=== PATIENT | male | born 1960 | race Caucasian/White ===

== ENCOUNTER 2017-06-07 15:09 | Inpatient (IN) ==
[2017-06-07] MEDS ORDERED: Vancomycin 1,250 MG in D5% in Water 250 ML IVPB ONE (15:33)
[2017-06-07] MEDS ORDERED: Cefepime HCl 2,000 MG in Water for inj. (sterile) 20 ML IVP ONE (15:33)
[2017-06-07] MEDS: 0.9 % Sodium Chloride 1,000 ML IVC SCH ×3 (16:12→22:28)
[2017-06-07 16:22] LABS: Basophils % 0.2 %; Mean Platelet Volume 9.4 fL (9.4-12.4)
[2017-06-07 16:24] LABS: Basophils # 0.1 K/mcL (0.0-0.2); Hematocrit 39.7 % (37.5-50.1); Hemoglobin 14.5 g/dL (12.9-16.9); Lymphocytes # 1.5 K/mcL (0.6-4.6); Lymphocytes % 5.2 %; Mean Corpuscular HGB Conc 36.5 g/dL (31.6-35.5); Mean Corpuscular Hemoglobin 32.2 pg (28.0-33.3); Monocytes # 2.3 K/mcL (0.0-1.3); Neutrophils # 24.3 K/mcL (1.6-8.9); Platelet Count 186 K/mcL (140-400); Red Blood Count 4.51 M/mcL (4.19-5.50); Red Cell Distribution Width 12.8 % (11.5-14.5); Segmented Neutrophils % 85.6 %
--- NOTE | 2017-06-07 16:28 | Emergency Department Note ---
Disposition Clinical Impression: Hyponatremia, Hypokalemia, Elevated troponin, Atrial fibrillation with RVR, Hypomagnesemia, FRANCISCA (acute kidney injury), Acute urinary retention, Chronic alcohol abuse Sepsis Qualifiers: Sepsis type: sepsis due to unspecified organism Qualified Code(s): A41.9 - Sepsis, unspecified organism UTI (urinary tract infection) Qualifiers: Urinary tract infection type: acute cystitis Hematuria presence: without hematuria Qualified Code(s): N30.00 - Acute cystitis without hematuria Hydronephrosis Qualifiers: Hydronephrosis type: unspecified Qualified Code(s): N13.30 - Unspecified hydronephrosis Pneumonia Qualifiers: Pneumonia type: due to unspecified organism Laterality: unspecified laterality Lung location: upper lobe of lung Qualified Code(s): J18.1 - Lobar pneumonia, unspecified organism Disposition: Admitted As Inpatient Condition: Serious General Adult HPI - General Chief complaint: ED Altered Mental Status Stated complaint: AMS Time Seen by Provider: 06/07/17 15:32 Source: patient Mode of arrival: private vehicle Limitations: no limitations Nursing Notes Reviewed: Yes Vital Signs Reviewed: Yes - History of Present Illness HPI Narrative: 56-year-old male history of hypertension, smoking who presents to the ER due to fever cough runny nose concern for flu. Patient reports she has been sick since Monday. States he has had a productive cough as well as runny nose. Family states that today while wanted to go outside that he was lightheaded and falling from side to side. No syncopal episodes. No chest pain. Patient came in for evaluation. He believes he has the flu. He has not been tested. He is noted to be febrile and tachycardic on arrival with a stable blood pressure. He currently endorses runny nose cough. No other complaints. Pt Subjective Complaint: Cough, fever, lightheadedness Onset (ago): day(s) Pain Scale: 4 Consistency: constant Improves with: nothing Worsens with: nothing Associated symptoms: Reports: cough, fever/chills, shortness of breath. Denies : chest pain, nausea/vomiting Treatments Prior to Arrival: none - Related Data Home Medications Medication Instructions Recorded Confirmed ALPRAZolam [Xanax 0.5 MG Tablet] 0.5 mg PO TID 08/29/16 06/07/17 Valsartan/Hydrochlorothiazide 1 each PO DAILY 06/07/17 06/07/17 [Diovan Hct 160-12.5 mg Tab] Allergies Allergy/AdvReac Type Severity Reaction Status Date / Time No Known Allergies Allergy Verified 08/29/16 06:48 All systems ED: reviewed and negative except as stated. Constitutional: Reports: chills. Denies: fever Cardiovascular: Denies: chest pain Respiratory: Reports: cough, dyspnea, sputum production Gastrointestinal: Denies: abdominal pain, nausea, vomiting, diarrhea Past Medical History - Past Medical History Attestation: Yes The following information was validated with the patient. Source: patient Medical history: Reports: no medical history Surgical history: Reports: no surgical history - Social History Smoking Status: Current every day smoker Smokeless Tobacco Status: No Alcohol use: Reports: rarely Drug use: Reports: none Physical Exam - General Limitations: no limitations General appearance: alert, in no apparent distress - Head Head exam: atraumatic, normocephalic, normal inspection - Eye Eye exam: Present: normal appearance - ENT ENT exam: normal exam - Neck Neck exam: Present: normal inspection, full ROM - Chest Chest inspection: Present: normal inspection, symmetric chest wall rise - Respiratory Respiratory exam: Present: other (Diminished breath sounds on the right) - Cardiovascular Cardiovascular exam: Present: tachycardia, irregular rhythm, normal heart sounds - Abdominal Exam Abdominal exam: Present: soft, Non-Tender. Absent: tenderness - Extremities Exam Extremities exam: Present: normal inspection, full ROM - Expanded Upper Extremity Exam Shoulder exam: Present: normal inspection, full ROM Arm exam: Present: normal inspection, full ROM Elbow exam: Present: normal inspection, full ROM Forearm/Wrist exam: Present: normal inspection, full ROM Hand exam: Present: normal inspection, full ROM - Expanded Lower Extremity Exam Hip/Pelvis exam: Present: normal inspection, full ROM Upper leg exam: Present: normal inspection, full ROM Knee exam: Present: normal inspection, full ROM Lower leg exam: Present: normal inspection, full ROM Ankle exam: Present: normal inspection, full ROM Foot/toe exam: Present: normal inspection, full ROM - Neurological Exam Neurological exam: Present: alert, other (GCS 15. Nonfocal neurologic exam. Moves all extremity equally. No ataxia on exam.) - Psychiatric Psychiatric exam: Present: normal affect - Skin Skin exam: Present: warm, dry, intact Course Course Narrative: Patient seen and examined. Noted to be febrile in afib rvr. hemodynamically stable. We will pursue sepsis labs including EKG, CXR, Influenza swab, CBC, Chem , UA, UCx, BCx. CT scan ordered for neurologic complaint of lightheadedness and ataxia. Will will start antipyretics and IVF administration and hold on blockade for afib until hydrated and fever controlled as I believe his afib is secondary to fever and dehydration. - Reevaluation(s) Reevaluation #1: Patient's labs resulted with grossly abnormal metabolic derangements. Noted to by hypokalemia, hyponatremic. Labs reordered to check for error. I went back and discussed with the patient if he uses alcohol. He initially reported he drinks some but significant other in room reports he drinks 12 cans of beer a day since he was a teen. No hx of DT. Likely withdrawal contributing to autonomic findings. Reevaluation #2: UA w/ evidence of infection. CT w/ distended bladder and wall thickening. Will plan for reyes placement. Reyes placed and clamped after 1L removed d/t concern for diuresis and worsening hyponatremia. Vital Signs Temperature 102.7 F H 06/07/17 15:26 Pulse Rate 109 06/07/17 15:26 Respiratory Rate 16 06/07/17 15:26 Blood Pressure 123/59 06/07/17 15:26 O2 Sat by Pulse Oximetry 97 06/07/17 15:26 Temperature 100.6 F H 06/09/17 11:56 Pulse Rate 128 06/09/17 11:56 Respiratory Rate 18 06/09/17 11:56 Blood Pressure 117/92 06/09/17 11:56 O2 Sat by Pulse Oximetry 96 06/09/17 11:56 Oxygen Delivery Oxygen Delivery Nasal Cannula Medical Decision Making - [facility] Narrative Medical decision making narrative: 56 year old male presents to ED d/t concern that he has the flu. Patient ill appearing on arrival. Afib RVR which is new onset although hemodynamically stable. Temp to 103. Cough for a few days. EKG w/ afib rvr. CXR w/ ?PNA. Patient has large leukocytosis as well as several metabolic derangements including severe hyponatremia and hypokalemia. Oral and IV potassium given. Severely distended bladder w/ UTI on UA. Reyes placed and clamped at 1L. Vancomycin and Cefepime initiated. 2L IVF given, Tylenol,Motrin. Held on rate control as patient's HR improved w/ antipyretics and IVF. He is admitted to the hospitalist service in serious but stable condition. - Lab Data Lab results reviewed: Yes I reviewed the patient's lab results. Result diagrams: 06/09/17 03:05 06/09/17 09:31 Lab Results 06/07/17 06/07/17 06/07/17 Range/Units 15:32 16:13 16:13 WBC 28.4 H (4.3-11.1) K/mcL RBC 4.51 (4.19-5.50) M/mcL Hgb 14.5 (12.9-16.9) g/dL Hct 39.7 (37.5-50.1) % MCV 88.0 D (83.0-100.0) fL MCH 32.2 (28.0-33.3) pg MCHC 36.5 H (31.6-35.5) g/dL RDW 12.8 (11.5-14.5) % Plt Count 186 (140-400) K/mcL MPV 9.4 (9.4-12.4) fL Immature Gran % 1.0 (0-4) % Seg Neutrophils % 85.6 % Lymphocytes % 5.2 % Monocytes % 8.0 % Eosinophils % 0.0 % Basophils % 0.2 % Neutrophils # 24.3 H (1.6-8.9) K/mcL Lymphocytes # 1.5 (0.6-4.6) K/mcL Monocytes # 2.3 H (0.0-1.3) K/mcL Eosinophils # 0.0 (0.0-0.6) K/mcL Basophils # 0.1 (0.0-0.2) K/mcL PT 13.4 H (9.4-12.1) Seconds INR 1.2 APTT 31.0 (26.0-36.0) Seconds ABG pH (7.32-7.45) pH Units ABG pCO2 (35-45) mmHg ABG pO2 (85-104) mmHg ABG HCO3 (21-27) mEq/L ABG Total CO2 (20-26) mEq/L ABG O2 Saturation (95-98) % ABG Base Excess (-2 to 3) mEq/L Sodium (136-145) mEq/L Potassium (3.5-5.1) mEq/L Chloride (98-107) mEq/L Carbon Dioxide (23-29) mEq/L BUN (6-20) mg/dL Creatinine (0.70-1.30) mg/dL Est GFR ( Amer) (> 60) Est GFR (Non-Af Amer) (> 60) BUN/Creatinine Ratio (6-26) Glucose (70-105) mg/dL POC Glucose 141 H (58-89) Calculated Osmolality (280-300) Lactic Acid (0.5-2.2) mmol/L Calcium (8.6-10.3) mg/dL Phosphorus (2.7-4.5) mg/dL Magnesium (1.6-2.6) mg/dL Total Bilirubin (0.3-1.0) mg/dL Direct Bilirubin (0.0-0.2) mg/dL Indirect Bilirubin (0.0-1.2) mg/dL AST (13-39) Units/L ALT (7-52) Units/L Alkaline Phosphatase (34-104) Units/L Troponin I (< 0.04) ng/mL B-Natriuretic Peptide (Less than 100) pg/mL Serum Total Protein (6.4-8.9) g/dL Albumin (3.5-5.7) g/dL Globulin (2.4-3.5) g/dL Albumin/Globulin Ratio (1.1-2.2) Lipase (11-82) Units/L TSH (0.340-5.600) mcIU/mL Urine Color (Yellow) Urine Clarity (Clear) Urine pH (5.0-8.0) pH Units Ur Specific Harrison (1.010-1.025) Urine Protein (Neg-Trace) mg/dL Urine Glucose (UA) (Normal) mg/dL Urine Ketones (Negative) mg/dL Urine Blood (Negative) Urine Nitrite (Negative) Urine Bilirubin (Negative) Urine Urobilinogen (Normal) mg/dL Ur Leukocyte Esterase (Negative) Urine Microscopic RBC (0-3) per hpf Urine Microscopic WBC (0-3) per hpf Ur Squamous Epith Cells (None-Few) per lpf Urine Bacteria (None-Few) per hpf Hyaline Casts (None-Few) per lpf Ur Culture Indicated? (NO) Ethyl Alcohol (0-10) mg/dL 06/07/17 06/07/17 06/07/17 Range/Units 16:13 16:13 16:13 WBC (4.3-11.1) K/mcL RBC (4.19-5.50) M/mcL Hgb (12.9-16.9) g/dL Hct (37.5-50.1) % MCV (83.0-100.0) fL MCH (28.0-33.3) pg MCHC (31.6-35.5) g/dL RDW (11.5-14.5) % Plt Count (140-400) K/mcL MPV (9.4-12.4) fL Immature Gran % (0-4) % Seg Neutrophils % % Lymphocytes % % Monocytes % % Eosinophils % % Basophils % % Neutrophils # (1.6-8.9) K/mcL Lymphocytes # (0.6-4.6) K/mcL Monocytes # (0.0-1.3) K/mcL Eosinophils # (0.0-0.6) K/mcL Basophils # (0.0-0.2) K/mcL PT (9.4-12.1) Seconds INR APTT (26.0-36.0) Seconds ABG pH (7.32-7.45) pH Units ABG pCO2 (35-45) mmHg ABG pO2 (85-104) mmHg ABG HCO3 (21-27) mEq/L ABG Total CO2 (20-26) mEq/L ABG O2 Saturation (95-98) % ABG Base Excess (-2 to 3) mEq/L Sodium 120 L* (136-145) mEq/L Potassium 3.0 L (3.5-5.1) mEq/L Chloride 83 L (98-107) mEq/L Carbon Dioxide 27 (23-29) mEq/L BUN 18 (6-20) mg/dL Creatinine 1.51 H (0.70-1.30) mg/dL Est GFR ( Amer) 58 L (> 60) Est GFR (Non-Af Amer) 48 L (> 60) BUN/Creatinine Ratio 12 (6-26) Glucose 126 H (70-105) mg/dL POC Glucose (58-89) Calculated Osmolality 253 L (280-300) Lactic Acid 1.2 (0.5-2.2) mmol/L Calcium 9.6 (8.6-10.3) mg/dL Phosphorus 1.6 L (2.7-4.5) mg/dL Magnesium 1.3 L (1.6-2.6) mg/dL Total Bilirubin 0.9 (0.3-1.0) mg/dL Direct Bilirubin 0.2 (0.0-0.2) mg/dL Indirect Bilirubin 0.7 (0.0-1.2) mg/dL AST 29 (13-39) Units/L ALT 17 (7-52) Units/L Alkaline Phosphatase 72 (34-104) Units/L Troponin I 0.07 H* (< 0.04) ng/mL B-Natriuretic Peptide (Less than 100) pg/mL Serum Total Protein 7.3 (6.4-8.9) g/dL Albumin 3.8 (3.5-5.7) g/dL Globulin 3.5 (2.4-3.5) g/dL Albumin/Globulin Ratio 1.1 (1.1-2.2) Lipase 19 (11-82) Units/L TSH (0.340-5.600) mcIU/mL Urine Color (Yellow) Urine Clarity (Clear) Urine pH (5.0-8.0) pH Units Ur Specific Harrison (1.010-1.025) Urine Protein (Neg-Trace) mg/dL Urine Glucose (UA) (Normal) mg/dL Urine Ketones (Negative) mg/dL Urine Blood (Negative) Urine Nitrite (Negative) Urine Bilirubin (Negative) Urine Urobilinogen (Normal) mg/dL Ur Leukocyte Esterase (Negative) Urine Microscopic RBC (0-3) per hpf Urine Microscopic WBC (0-3) per hpf Ur Squamous Epith Cells (None-Few) per lpf Urine Bacteria (None-Few) per hpf Hyaline Casts (None-Few) per lpf Ur Culture Indicated? (NO) Ethyl Alcohol (0-10) mg/dL 06/07/17 06/07/17 06/07/17 Range/Units 16:13 16:31 16:50 WBC (4.3-11.1) K/mcL RBC (4.19-5.50) M/mcL Hgb (12.9-16.9) g/dL Hct (37.5-50.1) % MCV (83.0-100.0) fL MCH (28.0-33.3) pg MCHC (31.6-35.5) g/dL RDW (11.5-14.5) % Plt Count (140-400) K/mcL MPV (9.4-12.4) fL Immature Gran % (0-4) % Seg Neutrophils % % Lymphocytes % % Monocytes % % Eosinophils % % Basophils % % Neutrophils # (1.6-8.9) K/mcL Lymphocytes # (0.6-4.6) K/mcL Monocytes # (0.0-1.3) K/mcL Eosinophils # (0.0-0.6) K/mcL Basophils # (0.0-0.2) K/mcL PT (9.4-12.1) Seconds INR APTT (26.0-36.0) Seconds ABG pH 7.55 H (7.32-7.45) pH Units ABG pCO2 25 L (35-45) mmHg ABG pO2 89 (85-104) mmHg ABG HCO3 22 (21-27) mEq/L ABG Total CO2 23 (20-26) mEq/L ABG O2 Saturation 98 (95-98) % ABG Base Excess 1 (-2 to 3) mEq/L Sodium (136-145) mEq/L Potassium (3.5-5.1) mEq/L Chloride (98-107) mEq/L Carbon Dioxide (23-29) mEq/L BUN (6-20) mg/dL Creatinine (0.70-1.30) mg/dL Est GFR ( Amer) (> 60) Est GFR (Non-Af Amer) (> 60) BUN/Creatinine Ratio (6-26) Glucose (70-105) mg/dL POC Glucose (58-89) Calculated Osmolality (280-300) Lactic Acid (0.5-2.2) mmol/L Calcium (8.6-10.3) mg/dL Phosphorus (2.7-4.5) mg/dL Magnesium (1.6-2.6) mg/dL Total Bilirubin (0.3-1.0) mg/dL Direct Bilirubin (0.0-0.2) mg/dL Indirect Bilirubin (0.0-1.2) mg/dL AST (13-39) Units/L ALT (7-52) Units/L Alkaline Phosphatase (34-104) Units/L Troponin I (< 0.04) ng/mL B-Natriuretic Peptide 226 H (Less than 100) pg/mL Serum Total Protein (6.4-8.9) g/dL Albumin (3.5-5.7) g/dL Globulin (2.4-3.5) g/dL Albumin/Globulin Ratio (1.1-2.2) Lipase (11-82) Units/L TSH (0.340-5.600) mcIU/mL Urine Color Yellow (Yellow) Urine Clarity Cloudy A (Clear) Urine pH 6.5 (5.0-8.0) pH Units Ur Specific Harrison 1.008 L (1.010-1.025) Urine Protein 100 H (Neg-Trace) mg/dL Urine Glucose (UA) Normal (Normal) mg/dL Urine Ketones Negative (Negative) mg/dL Urine Blood Large H (Negative) Urine Nitrite Negative (Negative) Urine Bilirubin Negative (Negative) Urine Urobilinogen Normal (Normal) mg/dL Ur Leukocyte Esterase Large H (Negative) Urine Microscopic RBC 15-30 H (0-3) per hpf Urine Microscopic WBC TNTC H (0-3) per hpf Ur Squamous Epith Cells Few (None-Few) per lpf Urine Bacteria Few (None-Few) per hpf Hyaline Casts None Seen (None-Few) per lpf Ur Culture Indicated? YES A (NO) Ethyl Alcohol (0-10) mg/dL 06/07/17 06/07/17 06/07/17 Range/Units 18:03 20:25 21:28 WBC (4.3-11.1) K/mcL RBC (4.19-5.50) M/mcL Hgb (12.9-16.9) g/dL Hct (37.5-50.1) % MCV (83.0-100.0) fL MCH (28.0-33.3) pg MCHC (31.6-35.5) g/dL RDW (11.5-14.5) % Plt Count (140-400) K/mcL MPV (9.4-12.4) fL Immature Gran % (0-4) % Seg Neutrophils % % Lymphocytes % % Monocytes % % Eosinophils % % Basophils % % Neutrophils # (1.6-8.9) K/mcL Lymphocytes # (0.6-4.6) K/mcL Monocytes # (0.0-1.3) K/mcL Eosinophils # (0.0-0.6) K/mcL Basophils # (0.0-0.2) K/mcL PT (9.4-12.1) Seconds INR APTT (26.0-36.0) Seconds ABG pH (7.32-7.45) pH Units ABG pCO2 (35-45) mmHg ABG pO2 (85-104) mmHg ABG HCO3 (21-27) mEq/L ABG Total CO2 (20-26) mEq/L ABG O2 Saturation (95-98) % ABG Base Excess (-2 to 3) mEq/L Sodium 120 L* 123 L (136-145) mEq/L Potassium 2.4 L* 2.9 L 2.8 L (3.5-5.1) mEq/L Chloride 89 L 96 L (98-107) mEq/L Carbon Dioxide 23 20 L (23-29) mEq/L BUN 20 22 H (6-20) mg/dL Creatinine 1.34 H 1.29 (0.70-1.30) mg/dL Est GFR ( Amer) > 60 > 60 (> 60) Est GFR (Non-Af Amer) 55 L 57 L (> 60) BUN/Creatinine Ratio 15 17 (6-26) Glucose 147 H 110 H (70-105) mg/dL POC Glucose (58-89) Calculated Osmolality 255 L 260 L (280-300) Lactic Acid (0.5-2.2) mmol/L Calcium 7.9 L 7.9 L (8.6-10.3) mg/dL Phosphorus (2.7-4.5) mg/dL Magnesium (1.6-2.6) mg/dL Total Bilirubin (0.3-1.0) mg/dL Direct Bilirubin (0.0-0.2) mg/dL Indirect Bilirubin (0.0-1.2) mg/dL AST (13-39) Units/L ALT (7-52) Units/L Alkaline Phosphatase (34-104) Units/L Troponin I (< 0.04) ng/mL B-Natriuretic Peptide (Less than 100) pg/mL Serum Total Protein (6.4-8.9) g/dL Albumin (3.5-5.7) g/dL Globulin (2.4-3.5) g/dL Albumin/Globulin Ratio (1.1-2.2) Lipase (11-82) Units/L TSH 0.115 L (0.340-5.600) mcIU/mL Urine Color (Yellow) Urine Clarity (Clear) Urine pH (5.0-8.0) pH Units Ur Specific Harrison (1.010-1.025) Urine Protein (Neg-Trace) mg/dL Urine Glucose (UA) (Normal) mg/dL Urine Ketones (Negative) mg/dL Urine Blood (Negative) Urine Nitrite (Negative) Urine Bilirubin (Negative) Urine Urobilinogen (Normal) mg/dL Ur Leukocyte Esterase (Negative) Urine Microscopic RBC (0-3) per hpf Urine Microscopic WBC (0-3) per hpf Ur Squamous Epith Cells (None-Few) per lpf Urine Bacteria (None-Few) per hpf Hyaline Casts (None-Few) per lpf Ur Culture Indicated? (NO) Ethyl Alcohol < 10 (0-10) mg/dL 06/07/17 Range/Units 21:28 WBC (4.3-11.1) K/mcL RBC (4.19-5.50) M/mcL Hgb (12.9-16.9) g/dL Hct (37.5-50.1) % MCV (83.0-100.0) fL MCH (28.0-33.3) pg MCHC (31.6-35.5) g/dL RDW (11.5-14.5) % Plt Count (140-400) K/mcL MPV (9.4-12.4) fL Immature Gran % (0-4) % Seg Neutrophils % % Lymphocytes % % Monocytes % % Eosinophils % % Basophils % % Neutrophils # (1.6-8.9) K/mcL Lymphocytes # (0.6-4.6) K/mcL Monocytes # (0.0-1.3) K/mcL Eosinophils # (0.0-0.6) K/mcL Basophils # (0.0-0.2) K/mcL PT (9.4-12.1) Seconds INR APTT (26.0-36.0) Seconds ABG pH (7.32-7.45) pH Units ABG pCO2 (35-45) mmHg ABG pO2 (85-104) mmHg ABG HCO3 (21-27) mEq/L ABG Total CO2 (20-26) mEq/L ABG O2 Saturation (95-98) % ABG Base Excess (-2 to 3) mEq/L Sodium (136-145) mEq/L Potassium (3.5-5.1) mEq/L Chloride (98-107) mEq/L Carbon Dioxide (23-29) mEq/L BUN (6-20) mg/dL Creatinine (0.70-1.30) mg/dL Est GFR ( Amer) (> 60) Est GFR (Non-Af Amer) (> 60) BUN/Creatinine Ratio (6-26) Glucose (70-105) mg/dL POC Glucose (58-89) Calculated Osmolality (280-300) Lactic Acid (0.5-2.2) mmol/L Calcium (8.6-10.3) mg/dL Phosphorus (2.7-4.5) mg/dL Magnesium (1.6-2.6) mg/dL Total Bilirubin (0.3-1.0) mg/dL Direct Bilirubin (0.0-0.2) mg/dL Indirect Bilirubin (0.0-1.2) mg/dL AST (13-39) Units/L ALT (7-52) Units/L Alkaline Phosphatase (34-104) Units/L Troponin I 0.09 H* (< 0.04) ng/mL B-Natriuretic Peptide (Less than 100) pg/mL Serum Total Protein (6.4-8.9) g/dL Albumin (3.5-5.7) g/dL Globulin (2.4-3.5) g/dL Albumin/Globulin Ratio (1.1-2.2) Lipase (11-82) Units/L TSH (0.340-5.600) mcIU/mL Urine Color (Yellow) Urine Clarity (Clear) Urine pH (5.0-8.0) pH Units Ur Specific Harrison (1.010-1.025) Urine Protein (Neg-Trace) mg/dL Urine Glucose (UA) (Normal) mg/dL Urine Ketones (Negative) mg/dL Urine Blood (Negative) Urine Nitrite (Negative) Urine Bilirubin (Negative) Urine Urobilinogen (Normal) mg/dL Ur Leukocyte Esterase (Negative) Urine Microscopic RBC (0-3) per hpf Urine Microscopic WBC (0-3) per hpf Ur Squamous Epith Cells (None-Few) per lpf Urine Bacteria (None-Few) per hpf Hyaline Casts (None-Few) per lpf Ur Culture Indicated? (NO) Ethyl Alcohol (0-10) mg/dL - Radiology Data Radiology results reviewed: Yes I reviewed the patient's radiology results. Chest X-Ray 06/07/17 15:33 IMPRESSION: Possible airspace disease in the retrocardiac region, although evaluation is limited with portable technique. Pneumonia is the primary consideration. Consider repeat evaluation with PA and lateral chest. D/ / Tacos Juárez MD / Tacos Juárez MD Interpreting Provider: Tacos Juárez MD Head CT 06/07/17 15:34 IMPRESSION: No acute intracranial abnormality. D/ / Rusty Tamayo MD / Rusty Tamayo MD Interpreting Provider: Rusty Tamayo MD Abdomen/Pelvis CT 06/07/17 17:59 IMPRESSION: Severely distended and circumferential thickened urinary bladder with irregular wall. There is severe bilateral hydronephrosis and hydroureter without stone disease. There is no evidence of bowel obstruction, perforation or thickening. Normal appendix. D/ / 06/07/2017 18:56:01 Delaney King MD / Miesha Sim Interpreting Provider: Delaney King MD - EKG Data EKG #1 EKG attestation: Yes I reviewed and interpreted this EKG. EKG results narrative: EKG demonstrates atrial fibrillation with rapid ventricular response with a rate of 132. Normal axis. Normal intervals. Normal R-wave progression. No gross ST elevations or depressions. No acute ischemic findings. Critical Care Time Critical Care Time: Yes Total Critical Care Time: 60 Attestation: The high probability of a clinically significant, sudden or life threatening deterioration of the [resp/neuro/] system(s) required my full and direct attention, intervention and personal management. The aggregate critical care time was [60] minutes. This time is in addition to time spent performing reported procedures but includes the following: [x] Data Review and interpretation [x] Patient assessment and monitoring of vital signs [x] Documentation [x] Medication orders and management S.B.A.R. - S.B.A.R. Situation: Demographics, MOA Background: Presenting Complaint, Relevant PMH, Meds, & Allergies Assessment: Vital Signs, Course and respsone to treatment, Exam Concerns, Patient/Family Expectation, Pertinant Lab Results Recommendation: Barrier(s) to disposition, Recommendation based on pending studies, treatments, or consults S.B.A.R. Report Given to: Dr. Sanderson Attestation Statement - Attestation Attestation: I examined this patient and my medical decision-making was reviewed with the Resident Physician, Dr. Onofre. I agree with the documented findings, disposition and treatment plan as described except to the extent set forth below. Pt is a 56 yo wm with c/o "I think I have the flu". Pt with nasal congestion, prod cough and subj fever and chills x 2 d. Pt's c/o lightheadedness and "stumbling" with trying to walk today. Pt denies any CP/press, no palpitations, no syncope, no hx falls/trauma. No other assocd sxs. Pt poor historian regarding health hx and inconsistent with information at bedside. I agree with pt's PE findings, pt febrile and tachycardic on arrival, so sepsis protocol initiated on arrival. Pt with GCS=15 on arrival, no focal neuro deficits. IVF, tylenol/motrin, labs and CXR initiated and CT brain for ataxia ordered. EKG shows a fib with RVR, no ischemia. Will hold on rate control meds as tachycardia may be due to fever and infection. Pt with hyponatremia/hypokalemia and hypomagnesemia. On re-eval, pt's SO reports that he drinks 12 beers a day since he was a teen. No hx withdrawal seizures. Ordered banana bag IV, oral/IV potassium, IV mg, and continued IVF. Seizure precautions ordered. Pt with possible pneumonia on CXR, IV antibx initiated. Pt's VS improving, normal HR and BP following IVF and anti-pyretics. CT brain wnl. Ataxia likely metabolic secondary to ETOH WD. Serum ETOH neg. Pt with elev trop. CT abd/pelvis shows thickened bladder wall, distended with b/ l hydronephrosis. Ua shows infection. Sent for cx. Reyes placed with over 1 liter UOP, this was clamped at that point due to possible worsening hyponatremia. Pt admitted for pneumonia/sepsis/UTI/urinary retention,low K/Mg/Na, chronic ETOH abuse, a fib. D/W hospitalist.
[2017-06-07 16:40] LABS: INR 1.2; Prothrombin Time 13.4 Seconds (9.4-12.1)
[2017-06-07 16:51] LABS: Bilirubin,Urine Negative (Negative); Blood,Urine Large (Negative); Clarity,Urine Cloudy (Clear); Color,Urine Yellow (Yellow); Glucose,Urine (UA) Normal (Normal); Ketones,Urine Negative (Negative); Leukocyte Esterase,Urine Large (Negative); Nitrite,Urine Negative (Negative); PH,Urine 6.5 pH Units (5.0-8.0); Protein,Urine 100 mg/dL (Neg-Trace); Specific Gravity,Urine 1.008 (1.010-1.025); Urobilinogen,Urine Normal (Normal)
[2017-06-07 16:53] LABS: Bacteria,Urine Few per hpf (None-Few); Hyaline Casts,Urine None Seen per lpf (None-Few); RBC,Urine 15-30 per hpf (0-3); Squamous Epithelial Cell,Urine Few per lpf (None-Few); WBC,Urine TNTC per hpf (0-3)
[2017-06-07 16:53] LABS: ABG Base Excess 1 mEq/L (-2 to 3); ABG HCO3 22 mEq/L (21-27); ABG Oxygen Saturation 98 % (95-98); ABG PCO2 25 mmHg (35-45); ABG PH 7.55 pH Units (7.32-7.45); ABG PO2 89 mmHg (85-104); ABG TCO2 23 mEq/L (20-26)
[2017-06-07] MEDS ORDERED: 0.9 % Sodium Chloride 1,000 ML IVC ONE (17:06)
[2017-06-07 17:26] LABS: Albumin 3.8 g/dL (3.5-5.7); Albumin/Globulin Ratio 1.1 (1.1-2.2); Bilirubin,Direct 0.2 mg/dL (0.0-0.2); Bilirubin,Indirect 0.7 mg/dL (0.0-1.2); Bilirubin,Total 0.9 mg/dL (0.3-1.0); Calcium 9.6 mg/dL (8.6-10.3); Globulin 3.5 g/dL (2.4-3.5); Magnesium 1.3 mg/dL (1.6-2.6); Phosphorous 1.6 mg/dL (2.7-4.5); Total Protein 7.3 g/dL (6.4-8.9)
[2017-06-07] MEDS ORDERED: Ibuprofen 800 MG TABLET PO ONE (17:26)
[2017-06-07 18:29] LABS: Ethanol < 10 mg/dL (0-10)
[2017-06-07 18:39] LABS: BUN/Creatinine Ratio 15 (6-26); Blood Urea Nitrogen 20 mg/dL (6-20); Calcium 7.9 mg/dL (8.6-10.3); Carbon Dioxide 23 mEq/L (23-29); Chloride 89 mEq/L (98-107); Glucose 147 mg/dL (70-105); Osmolality,Calculated 255 (280-300); Potassium 2.4 mEq/L (3.5-5.1); Sodium 120 mEq/L (136-145); eGFR For African Americans > 60 (> 60); eGFR For Non-African Americans 55 (> 60)
[2017-06-07] MEDS ORDERED: dilTIAZem HCl 100 MG in D5% in Water 50 ML IVC SCH (18:45)
[2017-06-07 18:49] LABS: Thyroid Stimulating Hormone 0.115 mcIU/mL (0.340-5.600)
[2017-06-07] MEDS ORDERED: GI Cocktail 40 ML EACH PO ONE (18:53)
[2017-06-07] MEDS ORDERED: Lidocaine Jelly 11 ml Syringe MM ONE (19:11)
[2017-06-07] MEDS ORDERED: Ondansetron 4 MG/2 ML VIAL IVP PRN (21:03)
[2017-06-07] MEDS ORDERED: Naloxone 0.4 MG/ML INJ IVP PRN (21:03)
[2017-06-07] MEDS: Thiamine (B-1) 100 MG, Folic Acid 1 MG, MVI, adult with vitamin K 10 ML in 0.9 % Sodi... IVPB SCH (21:05)
--- NOTE | 2017-06-07 21:22 | Internal Med History&Physical ---
Date of Encounter: 06/07/17 Time of Encounter: 20:00 Assessment and Plan (1) Sepsis Current visit: Yes Status: Acute Patient to meet sepsis criteria with fever, leukocytosis, tachycardia. Infectious site should be pneumonia. - Early goal directed fluid resuscitation started from the ER. - First lactate level 1.2 - Place patient on Vanco and cefepime. - Follow up blood culture. Patient is at high risk because he is on vancomycin. Need close monitoring. Qualifiers: Sepsis type: Pneumococcus Qualified Code(s): A40.3 - Sepsis due to Streptococcus pneumoniae (2) FRANCISCA (acute kidney injury) Current visit: Yes Status: Acute Patient has elevated creatinine level from baseline. CT abdomen shows bilateral hydronephrosis and hydroureter. Patient said he has good urine output. Leroy catheter has been placed in emergency room. We will continue IV fluid and follow-up renal function. Avoid nephrotoxic medications. (3) Pneumonia Current visit: Yes Status: Acute Patient has a cough. Has fever. Chest x-ray suspect pneumonia. Patient is alcoholic and has signs of sepsis. - will place patient on Vanco and cefepime. - Continue oxygen and supportive treatment and symptomatic treatment. - Closely monitor patient Qualifiers: Pneumonia type: due to Pneumococcus Laterality: unspecified laterality Lung location: upper lobe of lung Qualified Code(s): J13 - Pneumonia due to Streptococcus pneumoniae (4) UTI (urinary tract infection) Current visit: Yes Status: Acute Patient is on vancomycin and cefepime. Follow-up urine culture Qualifiers: Urinary tract infection type: acute cystitis Hematuria presence: without hematuria Qualified Code(s): N30.00 - Acute cystitis without hematuria (5) Hydronephrosis Current visit: Yes Status: Acute Etiology is undetermined. Probably due to BPH as patient has hesitated urinating. - Urology consult will see patient. - Patient was placed on Leroy catheter already. Qualifiers: Hydronephrosis type: unspecified Qualified Code(s): N13.30 - Unspecified hydronephrosis (6) Hydroureter Current visit: Yes Status: Acute Management as above (7) Hypokalemia Current visit: Yes Status: Acute Will give supplemental. Follow-up potassium level (8) Hyponatremia Current visit: Yes Status: Acute Probably due to alcoholism. Will place patient on normal saline. Closely monitor sodium level. Goal is to increase 8-10 mEq over first 24 hours. (9) Alcoholism Current visit: Yes Status: Acute Patient drinks 10 cans of beer every day. Last drink was on Monday. Will place patient on CIWA protocol. Social work consult (10) DVT prophylaxis Current visit: Yes Status: Acute Heparin subcutaneously (11) Hypertension Current visit: Yes Status: Acute PT is not high now. We will hold home medication valsartan and hydrochlorothiazide because of FRANCISCA. Qualifiers: Hypertension type: essential hypertension Qualified Code(s): I10 - Essential (primary) hypertension (12) Elevated troponin Current visit: Yes Status: Acute Patient denies chest pain. EKG shows no significant ST-T changes. Mild elevated troponin probably due to pneumonia and sepsis. -Place patient on continuous cardiac monitoring. -Track 3 sets of troponin Internal Medicine - H&P: HPI Chief complaint: Cough and fever Admitted From: Home Plans for Post Hospital Care: Home History of present illness: Mr. Chen is a 56 year old male with history of hypertension and alcoholism , presented to ER for cough and fever for 2 days. Patient has fever at home, temperature was 103. Patient denies runny nose or sore throat. Patient has cough with clear sputum. Patient has mild nausea and vomited once. There is no blood in the vomiting. Patient denies shots of breath or chest pain. Patient has mild abdominal pain and diarrhea with 4-5 watery bowel movement every day. No visible blood in the stool. Patient has some burning on urinating. Patient has chronic urinary incontinence and hesitating for urination. Past Med Surg Social Fam HX - Past Medical History Medical history: no medical history - Past Surgical History Surgical History: no surgical history - Social History Smoking Status: Current every day smoker Smokeless Tobacco Status: No Alcohol use: rarely Drug use: none - Family History Mother History Unknown: Yes Internal Medicine - H&P: Meds ALPRAZolam [Xanax 0.5 MG Tablet] 0.5 mg PO TID 08/29/16 [History] Valsartan/Hydrochlorothiazide [Diovan Hct 160-12.5 mg Tab] 1 each PO DAILY 06/07 [History] 3 Allergy/AdvReac Type Severity Reaction Status Date / Time No Known Allergies Allergy Verified 08/29/16 06:48 All Systems PM: A 10-system review of systems was performed and is negative for pertinent findings except as documented above in the HPI. - Constitutional Vitals: Temp Pulse Resp BP Pulse Ox 100.2 F H 87 18 101/98 97 06/07/17 19:13 06/07/17 21:06 06/07/17 21:06 06/07/17 21:06 06/07/17 21:06 General appearance: Present: A&O X 3, no acute distress, answers questions appropriately - Head Head exam: Present: atraumatic, normocephalic - Eye Eye exam: Present: PERRL, conjuntiva pink, sclera anicteric Pupils: Present: PERRL - Neck Neck exam general surgery: Present: supple, trachea midline. Absent: lymphadenopathy - Respiratory Respiratory exam: Present: CTAB. Absent: accessory muscle use, rales, rhonchi, wheezes Additional comments: Coarse breath sounds bilaterally - Cardiovascular Cardiovascular exam: Present: RRR, +S1, +S2. Absent: diastolic murmur, gallop, rubs, systolic murmur - GI/Abdominal GI/Abdominal exam: Present: normal bowel sounds, soft, no peritoneal signs. Absent: distended, tenderness - Extremities Exam Extremities exam: Present: warm, radial pulses palpable and symmetrical. Absent : calf tenderness, cyanotic, pedal edema - Neurological Exam Neurological exam: Present: CN II-XII intact, oriented X3, no focal deficits. Absent: pronater drift, facial droop, speech deficit - Skin Skin exam: Present: dry, intact Internal Med - H&P Results - Labs CBC & Chem 7: 06/07/17 16:13 06/07/17 18:03 - EKG Data -: EKG Interpreted by Myself EKG shows normal: sinus rhythm Rate: tachycardia (Sinus rhythm with occasional APCs)
[2017-06-07 21:55] LABS: BUN/Creatinine Ratio 17 (6-26); Blood Urea Nitrogen 22 mg/dL (6-20); Calcium 7.9 mg/dL (8.6-10.3); Carbon Dioxide 20 mEq/L (23-29); Chloride 96 mEq/L (98-107); Glucose 110 mg/dL (70-105); Osmolality,Calculated 260 (280-300); Potassium 2.8 mEq/L (3.5-5.1); Sodium 123 mEq/L (136-145); eGFR For African Americans > 60 (> 60); eGFR For Non-African Americans 57 (> 60)
[2017-06-07] MEDS ORDERED: Vancomycin 1,250 MG in D5% in Water 250 ML IVPB SCH (22:00)
[2017-06-08] MEDS: Cefepime HCl 2,000 MG in Water for inj. (sterile) 20 ML 20 ML IVP SCH ×4 (00:15→23:27)
[2017-06-08] MEDS ORDERED: ALPRAZolam 0.5 MG TABLET PO ONE (02:31)
[2017-06-08] MEDS: *HR* Heparin 5,000 UNIT/ML VIAL SQ SCH ×2 (05:57→16:05)
[2017-06-08] MEDS: Acetaminophen 325 MG TABLET PO PRN ×2 (05:57→18:41)
[2017-06-08 06:00] LABS: Red Cell Distribution Width 12.8 % (11.5-14.5)
[2017-06-08 06:01] LABS: Hematocrit 35.5 % (37.5-50.1); Hemoglobin 12.7 g/dL (12.9-16.9); Mean Corpuscular HGB Conc 35.8 g/dL (31.6-35.5); Mean Corpuscular Hemoglobin 32.2 pg (28.0-33.3); Mean Corpuscular Volume 90.1 fL (83.0-100.0); Nucleated Red Blood Cells 0.1 /100 WBC (0); Platelet Count 143 K/mcL (140-400); Red Blood Count 3.94 M/mcL (4.19-5.50)
[2017-06-08 06:17] LABS: BUN/Creatinine Ratio 16 (6-26); Blood Urea Nitrogen 21 mg/dL (6-20); Calcium 8.2 mg/dL (8.6-10.3); Carbon Dioxide 21 mEq/L (23-29); Chloride 104 mEq/L (98-107); Glucose 98 mg/dL (70-105); Magnesium 1.5 mg/dL (1.6-2.6); Osmolality,Calculated 277 (280-300); Potassium 2.9 mEq/L (3.5-5.1); Sodium 132 mEq/L (136-145); eGFR For African Americans > 60 (> 60); eGFR For Non-African Americans 55 (> 60)
[2017-06-08 06:25] LABS: Lymphocytes # 1.3 K/mcL (0.6-4.6); Monocytes # 2.5 K/mcL (0.0-1.3); Neutrophils # 27.6 K/mcL (1.6-8.9); Platelet Estimate Normal (Normal); Toxic Granulation Present (Not Present); Toxic Vacuolation Present (Not Present)
[2017-06-08] MEDS: 0.9 % Sodium Chloride 1,000 ML IVC SCH (06:37)
[2017-06-08] MEDS ORDERED: Potassium Phosphate 44 MEQ in 0.9 % Sodium Chloride 250 ML IVPB ONE (07:44)
[2017-06-08] MEDS ORDERED: Aminoglycoside Consult 1 EACH MC ONE (08:32)
[2017-06-08] MEDS ORDERED: Potassium Phosphate 44 MEQ in 0.9 % Sodium Chloride 250 ML IVPB PRN (08:57)
[2017-06-08] MEDS ORDERED: hydroCHLOROthiazide 25 MG TABLET PO SCH (09:00)
[2017-06-08] MEDS: D5% in Water 1,000 ML IVC SCH ×2 (09:00→21:08)
[2017-06-08] MEDS ORDERED: Valsartan 160 MG TABLET PO SCH (09:00)
[2017-06-08] MEDS: ALPRAZolam 0.5 MG TABLET PO SCH ×3 (09:01→21:07)
[2017-06-08] MEDS: Vitamin B Complex/Vit C/Vit E 1 EACH TABLET PO SCH (09:01)
[2017-06-08] MEDS: Folic Acid 1 MG TABLET PO SCH (09:01)
--- NOTE | 2017-06-08 09:07 | Internal Med Progress Note ---
<Khushboo Dc - Last Filed: 06/08/17 15:18> Date of Encounter: 06/08/17 Time of Encounter: 09:05 - Assessment and plan (1) Sepsis Current Visit: Yes Status: Acute Assessment and plan: Met SIRS criteria on admission with fever, leukocytosis, tachycardia Source: C. diff Blood cultures pending On IV cefepime for possible pneumonia, possible UTI and oral vancomycin for C. diff Patient is high risk due to C. diff. His white count today is 31.4 with 38% bands; most recent temperature 102.8 Qualifiers: Sepsis type: sepsis due to unspecified organism Qualified Code(s): A41.9 - Sepsis, unspecified organism (2) C. difficile diarrhea Current Visit: Yes Status: Acute Assessment and plan: present on admission on oral vancomycin 125 mg QID x14 days Patient had been visiting his mother in the ICU prior to admission. (3) Hyponatremia Current Visit: Yes Status: Acute Assessment and plan: Possibly due to alcoholism Patient arrived with a serum sodium of 120; the goal is to increase serum sodium by 8-10 mEq over the first 24 hours A.M. sodium of 132; IV fluids changed to D5 and water Recheck BMP at noon, sodium at 6 PM, BMP at 4 AM tomorrow morning (4) FRANCISCA (acute kidney injury) Current Visit: Yes Status: Acute Assessment and plan: Most likely mixed pre renal due to dehydration and post renal due to obstruction Patient reports diarrhea for 1 week and fevers to 103 for 2 days prior to admission CT abdomen shows bilateral hydronephrosis and hydroureter Reyes catheter has been placed IV fluids to manage dehydration associated with diarrhea Urology consult; appreciate recommendations (5) Hydronephrosis Current Visit: Yes Status: Acute Assessment and plan: Etiology is undetermined. Probably due to BPH as patient has urinary hesitancy - Urology consult will see patient. - reyes catheter Qualifiers: Hydronephrosis type: unspecified Qualified Code(s): N13.30 - Unspecified hydronephrosis (6) Hydroureter Current Visit: Yes Status: Acute (7) UTI (urinary tract infection) Current Visit: Yes Status: Acute Assessment and plan: On cefepime urine culture pending Qualifiers: Urinary tract infection type: acute cystitis Hematuria presence: without hematuria Qualified Code(s): N30.00 - Acute cystitis without hematuria (8) Pneumonia Current Visit: Yes Status: Acute Assessment and plan: possible portable chest x-ray: Possible airspace disease in the retrocardiac region, although evaluation is limited with portable technique. Consider repeat with PA and lateral chest On cefepime Supplemental oxygen as needed strep pneumonia and legionella antigens negative respiratory infection panel pending Qualifiers: Pneumonia type: due to unspecified organism Laterality: unspecified laterality Lung location: upper lobe of lung Qualified Code(s): J18.1 - Lobar pneumonia, unspecified organism (9) Elevated troponin Current Visit: Yes Status: Acute Assessment and plan: Most likely due to infection Patient denies chest pain Troponin has been trended out 3; last troponin decreased from prior (10) Alcoholism Current Visit: Yes Status: Acute Assessment and plan: Patient drinks 10 cans of beer every day. Last drink was on Monday. Will place patient on CIWA protocol. Social work consult (11) Hypomagnesemia Current Visit: Yes Status: Acute Assessment and plan: Electrolyte protocol Replete as needed Continue to monitor (12) Hypokalemia Current Visit: Yes Status: Acute Assessment and plan: Electrolyte protocol Replete as needed Continue to monitor (13) Hypocalcemia Current Visit: Yes Status: Acute Assessment and plan: Electrolyte protocol Replete as needed Continue to monitor (14) Hypophosphatemia Current Visit: Yes Status: Acute Assessment and plan: Electrolyte protocol Replete as needed Continue to monitor (15) Hypertension Current Visit: Yes Status: Chronic Assessment and plan: PMH of HTN; home medications include valsartan/HCTZ 160/12.5 He is not currently hypertensive and he has an acute kidney injury. Hold this medication Qualifiers: Hypertension type: essential hypertension Qualified Code(s): I10 - Essential (primary) hypertension - Subjective Interval history: Patient states that he still was experiencing frequent diarrhea throughout the night last night. - Constitutional Vitals: Temp Pulse Resp BP Pulse Ox 98.4 F 91 22 82/65 95 06/08/17 07:28 06/08/17 07:28 06/08/17 07:28 06/08/17 07:28 06/08/17 07:28 General appearance: Present: A&O X 3, no acute distress, answers questions appropriately - Head Head exam: Present: atraumatic, normocephalic - Eye Eye exam: Present: PERRL, conjuntiva pink, sclera anicteric Pupils: Present: PERRL - Neck Neck exam general surgery: Present: supple, trachea midline - Respiratory Respiratory exam: Present: wheezes. Absent: respiratory distress, tachypnea - Cardiovascular Cardiovascular exam: Present: RRR, +S1, +S2. Absent: diastolic murmur, gallop, rubs, systolic murmur - GI/Abdominal GI/Abdominal exam: Present: normal bowel sounds, soft, no peritoneal signs. Absent: distended, tenderness - Extremities Exam Extremities exam: Present: warm. Absent: pedal edema, tenderness - Neurological Exam Neurological exam: Present: CN II-XII intact, oriented X3, no focal deficits. Absent: pronater drift, facial droop, speech deficit - Skin Skin exam: Present: intact, normal color. Absent: dry (moist/sweaty) Internal Medicine: Result - Labs CBC & Chem 7: 06/08/17 05:33 06/08/17 12:46 Labs: Short CBC 06/08/17 Range/Units 05:33 WBC 31.4 H* (4.3-11.1) K/mcL Hgb 12.7 L D (12.9-16.9) g/dL Hct 35.5 L (37.5-50.1) % Plt Count 143 (140-400) K/mcL Neutrophils # 27.6 H (1.6-8.9) K/mcL BMP 06/08/17 05:33 Sodium 132 L D Potassium 2.9 L Chloride 104 Carbon Dioxide 21 L BUN 21 H Creatinine 1.34 H Glucose 98 Calcium 8.2 L Cardiac Enzymes 06/08/17 Range/Units 05:33 Troponin I 0.05 H* (< 0.04) ng/mL - ABG Interpretation ABG results: ABG ABG pH 7.55 pH Units (7.32-7.45) H 06/07/17 16:50 ABG pCO2 25 mmHg (35-45) L 06/07/17 16:50 ABG pO2 89 mmHg (85-104) 06/07/17 16:50 ABG O2 Saturation 98 % (95-98) 06/07/17 16:50 PT/INR, D-dimer PT 13.4 Seconds (9.4-12.1) H 01/03/18 16:13 Consult Discharge Plan - Plan Referrals: Juan Quintana DO [Primary Care Provider] - (SENT WEB REQUEST ON 06-08-17 @ [id number]) <Amanuel Crockett Emerita - Last Filed: 06/08/17 18:18> Date of Encounter: 06/08/17 - Assessment and plan (1) C. difficile diarrhea Current Visit: Yes Status: Acute (2) Sepsis Current Visit: Yes Status: Acute Qualifiers: Sepsis type: sepsis due to unspecified organism Qualified Code(s): A41.9 - Sepsis, unspecified organism (3) Hydronephrosis Current Visit: Yes Status: Acute Qualifiers: Hydronephrosis type: unspecified Qualified Code(s): N13.30 - Unspecified hydronephrosis (4) Hydroureter Current Visit: Yes Status: Acute (5) Alcoholism Current Visit: Yes Status: Acute (6) Hypocalcemia Current Visit: Yes Status: Acute (7) Hypomagnesemia Current Visit: Yes Status: Acute (8) Hyponatremia Current Visit: Yes Status: Acute (9) Hypokalemia Current Visit: Yes Status: Acute (10) Hypophosphatemia Current Visit: Yes Status: Acute (11) UTI (urinary tract infection) Current Visit: Yes Status: Acute Qualifiers: Urinary tract infection type: acute cystitis Hematuria presence: without hematuria Qualified Code(s): N30.00 - Acute cystitis without hematuria (12) Urinary retention Current Visit: Yes Status: Acute (13) Hypertension Current Visit: Yes Status: Chronic Qualifiers: Hypertension type: essential hypertension Qualified Code(s): I10 - Essential (primary) hypertension - Constitutional Vitals: Temp Pulse Resp BP Pulse Ox 99.8 F H 118 20 111/70 95 06/08/17 15:00 06/08/17 15:00 06/08/17 15:00 06/08/17 12:02 06/08/17 15:00 Internal Medicine: Result - Labs CBC & Chem 7: 06/08/17 05:33 06/08/17 17:44 Labs: Short CBC 06/08/17 Range/Units 05:33 WBC 31.4 H* (4.3-11.1) K/mcL Hgb 12.7 L D (12.9-16.9) g/dL Hct 35.5 L (37.5-50.1) % Plt Count 143 (140-400) K/mcL Neutrophils # 27.6 H (1.6-8.9) K/mcL BMP 06/08/17 06/08/17 06/08/17 05:33 08:59 12:46 Sodium 132 L D 135 L 134 L Potassium 2.9 L 3.3 L 3.4 L Chloride 104 107 103 Carbon Dioxide 21 L 19 L 21 L BUN 21 H 20 20 Creatinine 1.34 H 1.38 H 1.45 H Glucose 98 96 124 H Calcium 8.2 L 8.0 L 8.3 L 06/08/17 17:44 Sodium 131 L Potassium Chloride Carbon Dioxide BUN Creatinine Glucose Calcium Cardiac Enzymes 06/08/17 Range/Units 05:33 Troponin I 0.05 H* (< 0.04) ng/mL - ABG Interpretation ABG results: ABG ABG pH 7.55 pH Units (7.32-7.45) H 06/07/17 16:50 ABG pCO2 25 mmHg (35-45) L 06/07/17 16:50 ABG pO2 89 mmHg (85-104) 06/07/17 16:50 ABG O2 Saturation 98 % (95-98) 06/07/17 16:50 PT/INR, D-dimer PT 13.4 Seconds (9.4-12.1) H 06/07/17 16:13 - Attending Attestation I examined this patient and my medical decision-making was reviewed with the Resident Physician on 06/08/17. I agree with the documented findings, disposition and treatment plan as described except to the extent set forth below. Mr Chen is currently admitted for sepsis related to UTI vs diarrhea. He remains moderate to high risk due to potential for worsening clinical status. Mr Chen is still having diarrhea. Very watery. No fever or chills now. C diff is positive. No cough. Tolerating reyes. Exam Alert. Comfortable Mucus membranes dry Heart reg No wheeze abd soft and nontender No edema I/P 1. Sepsis 2. C diff diarrhea Further diagnoses and plan as above.
[2017-06-08 09:18] LABS: VBG Ionized Calcium 1.05 mmol/L (1.15-1.35)
[2017-06-08 13:13] LABS: C.difficile Toxin A/B by PCR See reflex test (Not detect); Campylobacter by PCR Not detected (Not detect)
[2017-06-08 13:14] LABS: Adenovirus F 40/41 PCR Not detected (Not detect); Astrovirus PCR Not detected (Not detect); Cryptosporidium by PCR Not detected (Not detect); Cyclospora cayetanensis PCR Not detected (Not detect); E. coli O157 by PCR Not detected (Not detect); Entamoeba histolytica PCR Not detected (Not detect); Enteroaggregative E.coli(EAEC) Not detected (Not detect); Enteropathogenic E.coli(EPEC) Not detected (Not detect); Enterotoxigenic E.coli (ETEC) Not detected (Not detect); Giardia lamblia PCR Not detected (Not detect); Norovirus GI/GII PCR Not detected (Not detect); Plesiomonas shigelloides PCR Not detected (Not detect); Rotavirus A PCR Not detected (Not detect); Salmonella PCR Not detected (Not detect); Sapovirus PCR Not detected (Not detect); Shig/EnteroinvasiveE coli EIEC Not detected (Not detect); Shigalike tox-prod E coli STEC Not detected (Not detect); Vibrio PCR Not detected (Not detect); Vibrio cholerae PCR Not detected (Not detect); Yersinia enterocolitica PCR Not detected (Not detect)
[2017-06-08 13:18] LABS: BUN/Creatinine Ratio 14 (6-26); Blood Urea Nitrogen 20 mg/dL (6-20); Calcium 8.3 mg/dL (8.6-10.3); Carbon Dioxide 21 mEq/L (23-29); Chloride 103 mEq/L (98-107); Glucose 124 mg/dL (70-105); Osmolality,Calculated 282 (280-300); Potassium 3.4 mEq/L (3.5-5.1); Sodium 134 mEq/L (136-145); eGFR For African Americans > 60 (> 60); eGFR For Non-African Americans 50 (> 60)
[2017-06-08] MEDS: Vancomycin Oral Soln 250 MG/5 ML UDC PO SCH ×3 (14:14→21:06)
[2017-06-08 14:35] LABS: BUN/Creatinine Ratio 14 (6-26); Blood Urea Nitrogen 20 mg/dL (6-20); Carbon Dioxide 19 mEq/L (23-29); Chloride 107 mEq/L (98-107); Glucose 96 mg/dL (70-105); Osmolality,Calculated 282 (280-300); Phosphorous 3.3 mg/dL (2.7-4.5); Potassium 3.3 mEq/L (3.5-5.1); Sodium 135 mEq/L (136-145); eGFR For African Americans > 60 (> 60); eGFR For Non-African Americans 53 (> 60)
[2017-06-08] MEDS: Thiamine (B-1) 100 MG, Folic Acid 1 MG, MVI, adult with vitamin K 10 ML in 0.9 % Sodi... IVPB SCH (16:59)
--- NOTE | 2017-06-08 17:33 | Urology - Consult Note ---
Date of Encounter: 06/08/17 Time of Encounter: 17:31 - Assessment and Plan (1) Urinary retention Current Visit: Yes Status: Acute Assessment and plan: Patient had markedly urinary retention upon arrival to the hospital. Concerned that the patient did not have sensation that he was in retention. We will start the patient on Flomax. Patient will need to continue with catheter at this time. This will most likely need to stay in place for 1-2 weeks. We will continue to follow along closely. (2) FRANCISCA (acute kidney injury) Current Visit: Yes Status: Acute Assessment and plan: Very slight increase from yesterday to today. We will continue to follow closely. Urology CN:HPI Consult date: 06/08/17 Reason for consult Urology: Hydronephrosis (urinary retention) Requesting physician: Richard Arzate History of present illness: Uziel is a 56-year-old male with a history of recent admission. Patient was found to have markedly distended bladder with moderate to severe hydronephrosis bilaterally on CT scan. Catheter was placed was subsequently draining approximately 2 L of urine. Patient denied feeling that he was full of urine. Patient does state that he has had some difficulties emptying his bladder for the past few months. Patient's serum creatinine has been relatively stable since arrival to the hospital. Patient is continuing to have a fever as well as some tachycardia. His urinalysis did not show obvious urinary tract infection. Patient denies any pain at this time. He is tolerating his catheter well. Past Med Surg Social Fam HX - Past Medical History Medical history: no medical history Psychiatric history: anxiety - Past Surgical History Surgical History: no surgical history - Social History Smoking Status: Current every day smoker Packs per day: 1 Smokeless Tobacco Status: No Alcohol use: rarely Drug use: none - Family History Mother History Unknown: Yes Medications and Allergies ALPRAZolam [Xanax 0.5 MG Tablet] 0.5 mg PO TID 08/29/16 [History] Valsartan/Hydrochlorothiazide [Diovan Hct 160-12.5 mg Tab] 1 each PO DAILY 06/07 [History] 3 Allergy/AdvReac Type Severity Reaction Status Date / Time No Known Allergies Allergy Verified 08/29/16 06:48 Review of Systems - Constitutional fever(s), no chills - EENT Nose, mouth and throat: no dizziness, no dry mouth - Cardiovascular no chest pain - Respiratory no cough - Gastrointestinal abdominal pain - Genitourinary as per HPI - Musculoskeletal no back pain - Integumentary no erythema, no lesions, no swelling - Neurological no confusion - Psychiatric no anxiety, no confusion - Hematologic/Lymphatic no easy bleeding, no lymphadenopathy - Allergic/Immunologic no throat swelling Exam Initial Vital Signs Temp Pulse Resp BP Pulse Ox 102.7 F H 109 16 123/59 97 06/07/17 15:26 06/07/17 15:26 06/07/17 15:26 06/07/17 15:26 06/07/17 15:26 - General physical appearance Present: well developed, no distress - Eyes Absent: icteric - Neck Present: no lymphadenopathy - Respiratory Present: normal respiratory effort - Cardiovascular Cardiovascular exam IM: tachycardia - Abdomen Abdomen: Present: soft. Absent: masses - Genitourinary other (Urine was slightly bloody tent in catheter tubing) - Integumentary Present: no rash, no growths - Neurologic Present: normal coordination. Absent: disoriented Urology Results - Labs 06/08/17 05:33 06/08/17 12:46 Abnormal lab results WBC 31.4 K/mcL (4.3-11.1) H* 06/08/17 05:33 RBC 3.94 M/mcL (4.19-5.50) L 06/08/17 05:33 Hgb 12.7 g/dL (12.9-16.9) L D 06/08/17 05:33 Hct 35.5 % (37.5-50.1) L 06/08/17 05:33 MCHC 35.8 g/dL (31.6-35.5) H 06/08/17 05:33 Band Neutrophils % 38.0 % (0-4) H 06/08/17 05:33 Neutrophils # 27.6 K/mcL (1.6-8.9) H 06/08/17 05:33 Monocytes # 2.5 K/mcL (0.0-1.3) H 06/08/17 05:33 Nucleated RBCs/100 WBC 0.1 /100 WBC (0) H 06/08/17 05:33 Toxic Granulation Present (Not Present) A 06/08/17 05:33 Toxic Vacuolation Present (Not Present) A 06/08/17 05:33 PT 13.4 Seconds (9.4-12.1) H 06/07/17 16:13 ABG pH 7.55 pH Units (7.32-7.45) H 06/07/17 16:50 ABG pCO2 25 mmHg (35-45) L 06/07/17 16:50 Sodium 134 mEq/L (136-145) L 06/08/17 12:46 Potassium 3.4 mEq/L (3.5-5.1) L 06/08/17 12:46 Carbon Dioxide 21 mEq/L (23-29) L 06/08/17 12:46 Creatinine 1.45 mg/dL (0.70-1.30) H 06/08/17 12:46 Est GFR (Non-Af Amer) 50 (> 60) L 06/08/17 12:46 Glucose 124 mg/dL (70-105) H 06/08/17 12:46 POC Glucose 141 (58-89) H 06/07/17 15:32 Calcium 8.3 mg/dL (8.6-10.3) L 06/08/17 12:46 Venous Ioniz Calcium 1.05 mmol/L (1.15-1.35) L 06/08/17 09:15 Magnesium 1.5 mg/dL (1.6-2.6) L 06/08/17 05:33 Troponin I 0.05 ng/mL (< 0.04) H* 06/08/17 05:33 B-Natriuretic Peptide 226 pg/mL (Less than 100) H 06/07/17 16:13 TSH 0.115 mcIU/mL (0.340-5.600) L 06/07/17 18:03 Urine Clarity Cloudy (Clear) A 06/07/17 16:31 Ur Specific [place] 1.008 (1.010-1.025) L 06/07/17 16:31 Urine Protein 100 mg/dL (Neg-Trace) H 06/07/17 16:31 Urine Blood Large (Negative) H 06/07/17 16:31 Ur Leukocyte Esterase Large (Negative) H 06/07/17 16:31 Urine Microscopic RBC 15-30 per hpf (0-3) H 06/07/17 16:31 Urine Microscopic WBC TNTC per hpf (0-3) H 06/07/17 16:31 Ur Culture Indicated? YES (NO) A 06/07/17 16:31 Stl C. diff Tox A/B PCR See reflex test (Not detect) A 06/08/17 10:50 Diabetes panel 06/08/17 06/08/17 06/08/17 Range/Units 05:33 08:59 12:46 Sodium 132 L D 135 L 134 L (136-145) mEq/L Potassium 2.9 L 3.3 L 3.4 L (3.5-5.1) mEq/L Chloride 104 107 103 (98-107) mEq/L Carbon Dioxide 21 L 19 L 21 L (23-29) mEq/L BUN 21 H 20 20 (6-20) mg/dL Creatinine 1.34 H 1.38 H 1.45 H (0.70-1.30) mg/dL Glucose 98 96 124 H (70-105) mg/dL Calcium 8.2 L 8.0 L 8.3 L (8.6-10.3) mg/dL Calcium panel 06/08/17 06/08/17 06/08/17 Range/Units 05:33 08:59 12:46 Calcium 8.2 L 8.0 L 8.3 L (8.6-10.3) mg/dL Phosphorus 3.3 (2.7-4.5) mg/dL Pituitary panel 06/08/17 06/08/17 06/08/17 Range/Units 05:33 08:59 12:46 Sodium 132 L D 135 L 134 L (136-145) mEq/L Potassium 2.9 L 3.3 L 3.4 L (3.5-5.1) mEq/L Chloride 104 107 103 (98-107) mEq/L Carbon Dioxide 21 L 19 L 21 L (23-29) mEq/L BUN 21 H 20 20 (6-20) mg/dL Creatinine 1.34 H 1.38 H 1.45 H (0.70-1.30) mg/dL Glucose 98 96 124 H (70-105) mg/dL Calcium 8.2 L 8.0 L 8.3 L (8.6-10.3) mg/dL Adrenal panel 06/08/17 06/08/17 06/08/17 Range/Units 05:33 08:59 12:46 Sodium 132 L D 135 L 134 L (136-145) mEq/L Potassium 2.9 L 3.3 L 3.4 L (3.5-5.1) mEq/L Chloride 104 107 103 (98-107) mEq/L Carbon Dioxide 21 L 19 L 21 L (23-29) mEq/L BUN 21 H 20 20 (6-20) mg/dL Creatinine 1.34 H 1.38 H 1.45 H (0.70-1.30) mg/dL Glucose 98 96 124 H (70-105) mg/dL Calcium 8.2 L 8.0 L 8.3 L (8.6-10.3) mg/dL All other labs normal. - Imaging CT scan - abdomen: image reviewed CT scan - pelvis: image reviewed Consult Discharge Plan - Plan Referrals: Juan Quintana DO [Primary Care Provider] - (SENT WEB REQUEST ON 06-08-17 @ [id number])
[2017-06-09 03:19] LABS: Basophils % 0.1 %; Hematocrit 33.8 % (37.5-50.1); Hemoglobin 11.9 g/dL (12.9-16.9); Immature Granulocytes % 1.1 % (0-4); Lymphocytes # 0.8 K/mcL (0.6-4.6); Lymphocytes % 3.6 %; Mean Corpuscular HGB Conc 35.2 g/dL (31.6-35.5); Mean Corpuscular Hemoglobin 31.6 pg (28.0-33.3); Mean Corpuscular Volume 89.9 fL (83.0-100.0); Mean Platelet Volume 10.3 fL (9.4-12.4); Monocytes # 1.2 K/mcL (0.0-1.3); Neutrophils # 20.8 K/mcL (1.6-8.9); Platelet Count 122 K/mcL (140-400); Red Blood Count 3.76 M/mcL (4.19-5.50); Segmented Neutrophils % 90.2 %
[2017-06-09 03:42] LABS: Calcium 7.7 mg/dL (8.6-10.3); Magnesium 1.9 mg/dL (1.6-2.6)
[2017-06-09 03:56] LABS: Burr Cells 1+ (Not Present); Platelet Estimate Slight Decrease (Normal)
[2017-06-09] MEDS: Acetaminophen 325 MG TABLET PO PRN ×2 (04:30→18:57)
[2017-06-09 04:36] LABS: Phosphorous 2.4 mg/dL (2.7-4.5)
[2017-06-09] MEDS ORDERED: *HR* Metoprolol 5 MG/5 ML VIAL IVP ONE (04:42)
[2017-06-09] MEDS: *HR* Metoprolol 5 MG/5 ML VIAL IVP PRN ×3 (04:45→05:48)
[2017-06-09] MEDS: *HR* LORazepam 2 MG/ML VIAL IVP PRN (04:51)
[2017-06-09] MEDS: *HR* Heparin 5,000 UNIT/ML VIAL SQ SCH (04:59)
[2017-06-09] MEDS: D5% in Water 1,000 ML IVC SCH (05:02)
[2017-06-09] MEDS: Cefepime HCl 2,000 MG in Water for inj. (sterile) 20 ML 20 ML IVP SCH (08:30)
[2017-06-09] MEDS: 0.9 % Sodium Chloride 1,000 ML IVC SCH (08:30)
[2017-06-09] MEDS: ALPRAZolam 0.5 MG TABLET PO SCH ×3 (08:35→20:33)
[2017-06-09] MEDS: Folic Acid 1 MG TABLET PO SCH (08:35)
[2017-06-09] MEDS: Vancomycin Oral Soln 250 MG/5 ML UDC PO SCH ×4 (08:35→20:33)
[2017-06-09] MEDS: Vitamin B Complex/Vit C/Vit E 1 EACH TABLET PO SCH (08:35)
--- NOTE | 2017-06-09 10:17 | Internal Med Progress Note ---
Addendum entered and electronically signed by Khushboo Dc DO 13:59: Plan 8) A fib with RVR: Cardizem gtt, echo, lovenox CHADS score of 1. Original Note: <Khushboo Dc - Last Filed: 06/09/17 10:14> Date of Encounter: 06/09/17 Time of Encounter: 10:14 - Assessment and plan (1) Sepsis Current Visit: Yes Status: Acute Assessment and plan: Met SIRS criteria on admission with fever, leukocytosis, tachycardia Source: C. diff 06/07 Blood cultures: no growth to date On IV cefepime for UTI and oral vancomycin for C. diff Patient is high risk due to C. diff. His white count today decreased, 31.4 -->23.21; MAXIMUM TEMPERATURE last 24 hours 103 Qualifiers: Sepsis type: sepsis due to unspecified organism Qualified Code(s): A41.9 - Sepsis, unspecified organism (2) C. difficile diarrhea Current Visit: Yes Status: Acute Assessment and plan: present on admission on oral vancomycin 125 mg QID x14 days Patient had been visiting his mother in the ICU prior to admission. (3) Hyponatremia Current Visit: Yes Status: Acute Assessment and plan: 06/08 Possibly due to alcoholism Patient arrived with a serum sodium of 120; the goal is to increase serum sodium by 8-10 mEq over the first 24 hours A.M. sodium of 132; IV fluids changed to D5 and water Recheck BMP at noon, sodium at 6 PM, BMP at 4 AM tomorrow morning 1/5 AM sodium 127; fluids changed to 0.9% NaCl; patient also to receive 1L bolus of 0.45% NaCl for tachycardia check Na q4h today adjust IVF as needed (4) FRANCISCA (acute kidney injury) Current Visit: Yes Status: Acute Assessment and plan: 06/08 Most likely mixed pre renal due to dehydration and post renal due to obstruction Patient reports diarrhea for 1 week and fevers to 103 for 2 days prior to admission CT abdomen shows bilateral hydronephrosis and hydroureter Reyes catheter has been placed IV fluids to manage dehydration associated with diarrhea Urology consult; appreciate recommendations -Cr increased slightly today. Patient had temperature of 103 overnight with a fib with RVR and is sinus tahcycardia this morning. -IVF rate increased. Continue to monitor. (5) Hydronephrosis Current Visit: Yes Status: Acute Assessment and plan: Etiology is undetermined. Possibly due to BPH as patient has urinary hesitancy - Urology consulted; appreciate recommendations - reyes catheter to remain in place for 1-2 weeks Qualifiers: Hydronephrosis type: unspecified Qualified Code(s): N13.30 - Unspecified hydronephrosis (6) Hydroureter Current Visit: Yes Status: Acute (7) UTI (urinary tract infection) Current Visit: Yes Status: Acute Assessment and plan: On cefepime urine culture positive for enterococcus species; sensitivity pending Qualifiers: Urinary tract infection type: acute cystitis Hematuria presence: without hematuria Qualified Code(s): N30.00 - Acute cystitis without hematuria (8) Atrial fibrillation with RVR Current Visit: Yes Status: Acute Assessment and plan: No PMH of A. fib Patient had A. fib with RVR overnight; was given IV Lopressor Tachycardic to HR >150 this a.m.; we will give 1 L 0.45% NaCl IVF bolus - if patient tachycardia does not resolve, start Cardizem drip (9) Alcoholism Current Visit: Yes Status: Acute Assessment and plan: Patient drinks 10 cans of beer every day. Last drink was on Monday. Will place patient on CIWA protocol. Social work consult (10) Hypokalemia Current Visit: Yes Status: Acute Assessment and plan: Electrolyte protocol Replete as needed Continue to monitor (11) Hypocalcemia Current Visit: Yes Status: Acute Assessment and plan: Electrolyte protocol Replete as needed Continue to monitor (12) Hypophosphatemia Current Visit: Yes Status: Acute Assessment and plan: Electrolyte protocol Replete as needed Continue to monitor (13) Hypomagnesemia Current Visit: Yes Status: Acute Assessment and plan: Electrolyte protocol Replete as needed Continue to monitor (14) Hypertension Current Visit: Yes Status: Chronic Assessment and plan: PMH of HTN; home medications include valsartan/HCTZ 160/12.5 He is not currently hypertensive and he has an acute kidney injury. Hold this medication Qualifiers: Hypertension type: essential hypertension Qualified Code(s): I10 - Essential (primary) hypertension (15) Elevated troponin Current Visit: Yes Status: Acute Assessment and plan: Most likely due to infection Patient denies chest pain Troponin has been trended out 3; last troponin decreased from prior (16) Pneumonia Current Visit: Yes Status: Acute Assessment and plan: possible portable chest x-ray: Possible airspace disease in the retrocardiac region, although evaluation is limited with portable technique. Consider repeat with PA and lateral chest On cefepime Supplemental oxygen as needed strep pneumonia and legionella antigens negative respiratory infection panel pending Qualifiers: Pneumonia type: due to unspecified organism Laterality: unspecified laterality Lung location: upper lobe of lung Qualified Code(s): J18.1 - Lobar pneumonia, unspecified organism - Subjective Interval history: Patient states that he is tired; he did not sleep at all last night due to frequent interruptions. He denies cough or shortness of breath. He is still having diarrhea. - Constitutional Vitals: Temp Pulse Resp BP Pulse Ox 100.1 F H 121 19 127/87 94 06/09/17 06:34 06/09/17 04:27 06/09/17 04:27 06/09/17 04:27 06/09/17 04:27 General appearance: Present: A&O X 3, no acute distress, answers questions appropriately - Head Head exam: Present: atraumatic, normocephalic. Absent: normal inspection ( flushed face) - Eye Eye exam: Present: PERRL, conjuntiva pink, sclera anicteric Pupils: Present: PERRL - Neck Neck exam general surgery: Present: supple, trachea midline - Respiratory Respiratory exam: Present: CTAB. Absent: accessory muscle use, rales, rhonchi, wheezes - Cardiovascular Cardiovascular exam: Present: +S1, +S2, tachycardia - GI/Abdominal GI/Abdominal exam: Present: normal bowel sounds, soft, no peritoneal signs. Absent: distended, tenderness - Extremities Exam Extremities exam: Present: warm, radial pulses palpable and symmetrical. Absent : calf tenderness, cyanotic, pedal edema - Neurological Exam Neurological exam: Present: CN II-XII intact, oriented X3, no focal deficits. Absent: pronater drift, facial droop, speech deficit - Skin Skin exam: Present: dry, intact Internal Medicine: Result - Labs CBC & Chem 7: 06/09/17 03:05 06/09/17 03:05 Labs: Short CBC 06/09/17 Range/Units 03:05 WBC 23.1 H (4.3-11.1) K/mcL Hgb 11.9 L (12.9-16.9) g/dL Hct 33.8 L (37.5-50.1) % Plt Count 122 L (140-400) K/mcL Neutrophils # 20.8 H (1.6-8.9) K/mcL BMP 06/08/17 06/08/17 06/08/17 08:59 12:46 17:44 Sodium 135 L 134 L 131 L Potassium 3.3 L 3.4 L Chloride 107 103 Carbon Dioxide 19 L 21 L BUN 20 20 Creatinine 1.38 H 1.45 H Glucose 96 124 H Calcium 8.0 L 8.3 L 06/09/17 03:05 Sodium 127 L Potassium 3.0 L Chloride 101 Carbon Dioxide 18 L BUN 19 Creatinine 1.52 H Glucose 120 H Calcium 7.7 L - ABG Interpretation ABG results: ABG ABG pH 7.55 pH Units (7.32-7.45) H 06/07/17 16:50 ABG pCO2 25 mmHg (35-45) L 06/07/17 16:50 ABG pO2 89 mmHg (85-104) 06/07/17 16:50 ABG O2 Saturation 98 % (95-98) 06/07/17 16:50 PT/INR, D-dimer PT 13.4 Seconds (9.4-12.1) H 06/07/17 16:13 - Impressions Impressions Abdomen/Pelvis CT 06/09/17 08:00 IMPRESSION: Decreasing bilateral hydronephrosis and hydroureter as compared to prior examination dated 06/07/2017. Increasing inflammatory change and free fluid about the margin of the left ureter. Marked bladder wall thickening circumferentially, which can be in keeping with cystitis or neoplasia. Trace left pleural effusion. D/ / Harry Kennedy MD / Harry Kennedy MD Interpreting Provider: Harry Kennedy MD Consult Discharge Plan - Plan Referrals: Juan Quintana DO [Primary Care Provider] - (SENT WEB REQUEST ON 06-08-17 @ 1970) <mAanuel Crockett - Last Filed: 06/09/17 18:20> Date of Encounter: 06/09/17 - Assessment and plan (1) C. difficile diarrhea Current Visit: Yes Status: Acute (2) Sepsis Current Visit: Yes Status: Acute Qualifiers: Sepsis type: sepsis due to unspecified organism Qualified Code(s): A41.9 - Sepsis, unspecified organism (3) Atrial fibrillation Current Visit: Yes Status: Acute Qualifiers: Atrial fibrillation type: paroxysmal Qualified Code(s): I48.0 - Paroxysmal atrial fibrillation (4) Hydronephrosis Current Visit: Yes Status: Acute Qualifiers: Hydronephrosis type: unspecified Qualified Code(s): N13.30 - Unspecified hydronephrosis (5) Hydroureter Current Visit: Yes Status: Acute (6) Alcoholism Current Visit: Yes Status: Acute (7) Hypocalcemia Current Visit: Yes Status: Acute (8) Hypomagnesemia Current Visit: Yes Status: Acute (9) Hyponatremia Current Visit: Yes Status: Acute (10) Hypokalemia Current Visit: Yes Status: Acute (11) Hypophosphatemia Current Visit: Yes Status: Acute (12) UTI (urinary tract infection) Current Visit: Yes Status: Acute Qualifiers: Urinary tract infection type: acute cystitis Hematuria presence: without hematuria Qualified Code(s): N30.00 - Acute cystitis without hematuria (13) Urinary retention Current Visit: Yes Status: Acute (14) Hypertension Current Visit: Yes Status: Chronic Qualifiers: Hypertension type: essential hypertension Qualified Code(s): I10 - Essential (primary) hypertension - Constitutional Vitals: Temp Pulse Resp BP Pulse Ox 100.6 F H 128 18 117/92 96 06/09/17 12:15 06/09/17 12:15 06/09/17 15:50 06/09/17 12:15 06/09/17 12:15 Internal Medicine: Result - Labs CBC & Chem 7: 06/09/17 03:05 06/09/17 12:32 Labs: Short CBC 06/09/17 Range/Units 03:05 WBC 23.1 H (4.3-11.1) K/mcL Hgb 11.9 L (12.9-16.9) g/dL Hct 33.8 L (37.5-50.1) % Plt Count 122 L (140-400) K/mcL Neutrophils # 20.8 H (1.6-8.9) K/mcL BMP 06/09/17 06/09/17 06/09/17 03:05 09:31 12:32 Sodium 127 L 128 L 129 L Potassium 3.0 L Chloride 101 Carbon Dioxide 18 L BUN 19 Creatinine 1.52 H Glucose 120 H Calcium 7.7 L - ABG Interpretation ABG results: ABG ABG pH 7.55 pH Units (7.32-7.45) H 06/07/17 16:50 ABG pCO2 25 mmHg (35-45) L 06/07/17 16:50 ABG pO2 89 mmHg (85-104) 06/07/17 16:50 ABG O2 Saturation 98 % (95-98) 06/07/17 16:50 PT/INR, D-dimer PT 13.4 Seconds (9.4-12.1) H 06/07/17 16:13 - Impressions Impressions Abdomen/Pelvis CT 06/09/17 08:00 IMPRESSION: Decreasing bilateral hydronephrosis and hydroureter as compared to prior examination dated 06/07/2017. Increasing inflammatory change and free fluid about the margin of the left ureter. Marked bladder wall thickening circumferentially, which can be in keeping with cystitis or neoplasia. Trace left pleural effusion. D/ / Harry Kennedy MD / Harry Kennedy MD Interpreting Provider: Harry Kennedy MD - Attending Attestation I examined this patient and my medical decision-making was reviewed with the Resident Physician on 06/09/17. I agree with the documented findings, disposition and treatment plan as described except to the extent set forth below. Mr Chen is currently admitted for acute C diff colitis and sepsis. He remains moderate to high risk due to potential for worsening clinical status. Mr Chen is tired and did not sleep well last night. Had fever over 103 last night. No abd pain. No chills. Still having a large amount of diarrhea. Has developed rapid a fib. Exam Alert. Mod distress Mucus membranes dry Heart irreg and tachy Lungs clear Abd soft and nontender I/P 1. c diff diarrhea 2. Sepsis 3. Parox a fib Further diagnoses and plan as above.
[2017-06-09 13:17] LABS: Adenovirus Not Detected (Not Detect); Bordetella Pertussis Not Detected (Not Detect); Chlamydophila pneumoniae Not Detected (Not Detect); Coronavirus 229E Not Detected (Not Detect); Coronavirus HKU1 Not Detected (Not Detect); Coronavirus NL63 Not Detected (Not Detect); Coronavirus OC43 Not Detected (Not Detect); Human Metapneumovirus Not Detected (Not Detect); Human Rhinovirus/Enterovirus Not Detected (Not Detect); Influenza A Subtype 2009 H1 Not Detected (Not Detect); Influenza A Untypeable Not Detected (Not Detect); Influenza B Not Detected (Not Detect); Mycoplasma pneumoniae Not Detected (Not Detect); Parainfluenza Virus 1 Not Detected (Not Detect); Parainfluenza Virus 2 Not Detected (Not Detect); Parainfluenza Virus 3 Not Detected (Not Detect); Parainfluenza Virus 4 Not Detected (Not Detect); Respiratory Syncytial Virus Not Detected (Not Detect)
[2017-06-09] MEDS: dilTIAZem HCl 100 MG in D5% in Water 50 ML IVC SCH ×2 (14:45→22:01)
[2017-06-09] MEDS ORDERED: Vancomycin 1,000 MG in D5% in Water 250 ML IVPB ONE (14:57)
[2017-06-09] MEDS ORDERED: Ampicillin 1,000 MG in 0.9 % Sodium Chloride Mini Bag 100 ML IVPB SCH (16:00)
--- NOTE | 2017-06-09 16:18 | Cardiology Consult Note ---
Date of Encounter: 06/09/17 Time of Encounter: 16:14 Assessment and Plan (1) Atrial fibrillation with RVR Current Visit: Yes Status: Acute Atrial fibrillation with RVR. Likely has PAF per history of symptoms. Likely exacerbated by pnuemonia,c-diff, and heavy ETOH use. Reports heavy ETOH use. ETOH cessation discussed. Agree with cardizem gtt. Increase lopressor. Check TTE. Check TSH. He is a CHADS VASc 1 for HTN. Recommend asa only in the setting of heavy ETOH use. We will follow with you. (2) Elevated troponin Current Visit: Yes Status: Acute Mild troponin elevation up to 0.09 in the setting of demand ischemia from sepsis. EKG shows afib with RVR. No ST changes. Denies chest pain. TTE pending. Discussion w patient/family: The assessment and plan as outlined above was discussed with the patient and/or family members who expressed understanding and agreement. All questions were answered. Thank you for involving us in the care of your patient. Please call with any questions. History of Present Illness Consult date: 06/09/17 Requesting physician: Amanuel Crockett Consult reason: afib with RVR Chief complaint: SOB, weakness History of present illness: Mr. Chen is a 56 year old male who presented with overall weakness and diarrhea for one week. He was found to have sepsis likely due to pnuemonia, FRANCISCA with hydronephrosis, and C-diff. Cardiology consulted for new onset afib with RVR starting today. HR up to 150-170's. He was started on cardizem gtt and lovenox injections. He denies history of afib or CAD. Past medical history includes HTN, tobacco use, and heavy ETOH use (at least 10 beers a day). He admits to intermittent palpitations over the past few years relieved with xanax. Denies chest pain or SOB. Denies orthopnea, PND, or edema. Past Med Surg Social Fam HX - Past Medical History Attestation: Yes The following information was validated with the patient. Medical history: hypertension Psychiatric history: anxiety - Past Surgical History Surgical History: no surgical history - Social History Smoking Status: Current every day smoker Packs per day: 1 Smokeless Tobacco Status: No Alcohol use: rarely Drug use: none - Family History Mother History Unknown: Yes Medications and Allergies ALPRAZolam [Xanax 0.5 MG Tablet] 0.5 mg PO TID 08/29/16 [History] Valsartan/Hydrochlorothiazide [Diovan Hct 160-12.5 mg Tab] 1 each PO DAILY 06/07 [History] 3 Allergy/AdvReac Type Severity Reaction Status Date / Time No Known Allergies Allergy Verified 08/29/16 06:48 All Systems Review: A 10-system review of systems was performed and is negative for pertinent findings except as documented above in the HPI. Physical Examination General: Conversant, No Apparent Distress, Other (tremors noted, caron appearance.) HEENT: Atraumatic, Normocephaly, Mucus Membranes Moist Neck: No JVD, Normal carotid pulses Cardiac: Other (irregular) Lungs: Normal Breath Sounds, No Wheeze, Rales, Rhonchi Neuro: Alert and responsive, No focal deficits noted Abdomen: Soft, Non-Tender Skin: No rashes noted on visualized skin Musculoskeletal: No Chest Wall Tenderness Extremities: No Clubbing, No Cyanosis, No Edema, Normal Pulses Results 06/09/17 03:05 06/09/17 12:32 Lab Results 06/08/17 06/09/17 06/09/17 17:44 03:05 03:05 WBC 23.1 H Hgb 11.9 L Hct 33.8 L Plt Count 122 L Sodium 131 L 127 L Potassium 3.0 L Chloride 101 Carbon Dioxide 18 L BUN 19 Creatinine 1.52 H Glucose 120 H Calcium 7.7 L Magnesium 1.9 06/09/17 06/09/17 09:31 12:32 WBC Hgb Hct Plt Count Sodium 128 L 129 L Potassium Chloride Carbon Dioxide BUN Creatinine Glucose Calcium Magnesium - Imaging and Cardiology Echo: pending - EKG Interpretation EKG results cardiology: personally reviewed Consult Discharge Plan - Plan Referrals: Juan Quintana DO [Primary Care Provider] - (SENT WEB REQUEST ON 06-08-17 @ [id number])
[2017-06-09] MEDS ORDERED: *HR* Metoprolol 5 MG/5 ML VIAL IVP PRN (16:35)
[2017-06-09] MEDS: *HR* Enoxaparin 100 MG/ML SYRINGE SQ SCH (17:28)
[2017-06-09] MEDS: Thiamine (B-1) 100 MG, Folic Acid 1 MG, MVI, adult with vitamin K 10 ML in 0.9 % Sodi... IVPB SCH (17:35)
--- NOTE | 2017-06-09 18:23 | Urology Progress Note ---
Date of Encounter: 06/09/17 Time of Encounter: 18:22 - Assessment and Plan (1) Urinary retention Current Visit: Yes Status: Acute Assessment and plan: continue with catheter at this time. (2) FRANCISCA (acute kidney injury) Current Visit: Yes Status: Acute Assessment and plan: will keep close eye on creatinine. obstruction resolving. Progress Note Narrative: Patient seen. creatinine with slight increase today. CT ordered and showed improved hydro with collapsed bladder. good uop. Objective Initial Vital Signs Temp Pulse Resp BP Pulse Ox 102.7 F H 109 16 123/59 97 06/07/17 15:26 06/07/17 15:26 06/07/17 15:26 06/07/17 15:26 06/07/17 15:26 - General physical appearance Present: well developed - Abdomen Present: soft - Genitourinary Present: other (clear urine in tubing ) - Labs 06/09/17 03:05 06/09/17 12:32 Diabetes panel 06/09/17 06/09/17 06/09/17 Range/Units 03:05 09:31 12:32 Sodium 127 L 128 L 129 L (136-145) mEq/L Potassium 3.0 L (3.5-5.1) mEq/L Chloride 101 (98-107) mEq/L Carbon Dioxide 18 L (23-29) mEq/L BUN 19 (6-20) mg/dL Creatinine 1.52 H (0.70-1.30) mg/dL Glucose 120 H (70-105) mg/dL Calcium 7.7 L (8.6-10.3) mg/dL Calcium panel 06/09/17 Range/Units 03:05 Calcium 7.7 L (8.6-10.3) mg/dL Phosphorus 2.4 L (2.7-4.5) mg/dL Pituitary panel 06/09/17 06/09/17 06/09/17 Range/Units 03:05 09:31 12:32 Sodium 127 L 128 L 129 L (136-145) mEq/L Potassium 3.0 L (3.5-5.1) mEq/L Chloride 101 (98-107) mEq/L Carbon Dioxide 18 L (23-29) mEq/L BUN 19 (6-20) mg/dL Creatinine 1.52 H (0.70-1.30) mg/dL Glucose 120 H (70-105) mg/dL Calcium 7.7 L (8.6-10.3) mg/dL Adrenal panel 06/09/17 06/09/17 06/09/17 Range/Units 03:05 09:31 12:32 Sodium 127 L 128 L 129 L (136-145) mEq/L Potassium 3.0 L (3.5-5.1) mEq/L Chloride 101 (98-107) mEq/L Carbon Dioxide 18 L (23-29) mEq/L BUN 19 (6-20) mg/dL Creatinine 1.52 H (0.70-1.30) mg/dL Glucose 120 H (70-105) mg/dL Calcium 7.7 L (8.6-10.3) mg/dL Consult Discharge Plan - Plan Referrals: Juan Quintana DO [Primary Care Provider] - (SENT WEB REQUEST ON 06-08-17 @ 1312)
--- NOTE | 2017-06-09 18:28 | Electrocardiograph Report ---
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
[2017-06-09] MEDS ORDERED: Acetaminophen 325 MG TABLET PO ONE (20:08)
[2017-06-09] MEDS: Ampicillin 1,000 MG in 0.9 % Sodium Chloride Mini Bag 100 ML IVPB SCH (21:36)
[2017-06-09 21:51] LABS: VBG Ionized Calcium 0.97 mmol/L (1.15-1.35); VBG PH 7.45 pH Units (7.32-7.42)
[2017-06-10] MEDS: Ampicillin 1,000 MG in 0.9 % Sodium Chloride Mini Bag 100 ML IVPB SCH ×3 (01:31→09:00)
[2017-06-10 03:33] LABS: Basophils % 0.2 %; Eosinophils % 0.1 %; Hematocrit 32.1 % (37.5-50.1); Hemoglobin 11.6 g/dL (12.9-16.9); Immature Granulocytes % 0.9 % (0-4); Lymphocytes # 0.8 K/mcL (0.6-4.6); Lymphocytes % 3.8 %; Mean Corpuscular HGB Conc 36.1 g/dL (31.6-35.5); Mean Corpuscular Hemoglobin 32.2 pg (28.0-33.3); Mean Corpuscular Volume 89.2 fL (83.0-100.0); Mean Platelet Volume 10.5 fL (9.4-12.4); Monocytes # 1.5 K/mcL (0.0-1.3); Monocytes % 6.8 %; Platelet Count 100 K/mcL (140-400); Red Cell Distribution Width 13.3 % (11.5-14.5); Segmented Neutrophils % 88.2 %
[2017-06-10] MEDS: 0.9 % Sodium Chloride 1,000 ML IVC SCH ×4 (03:47→19:00)
[2017-06-10 03:55] LABS: VBG HCO3 21 mEq/L (21-27); VBG Ionized Calcium 1.08 mmol/L (1.15-1.35); VBG PCO2 40 mmHg (41-51); VBG PH 7.33 pH Units (7.32-7.42); VBG PO2 46 mmHg (25-50)
[2017-06-10] MEDS: Acetaminophen 325 MG TABLET PO PRN ×3 (03:56→23:32)
[2017-06-10] MEDS: *HR* LORazepam 2 MG/ML VIAL IVP PRN ×4 (03:57→13:30)
[2017-06-10 04:06] LABS: Platelet Estimate Slight Decrease (Normal); Toxic Granulation Present (Not Present)
[2017-06-10 05:08] LABS: Calcium 7.8 mg/dL (8.6-10.3); Magnesium 2.2 mg/dL (1.6-2.6); Phosphorous 3.4 mg/dL (2.7-4.5); Potassium 3.3 mEq/L (3.5-5.1)
[2017-06-10] MEDS: *HR* Enoxaparin 100 MG/ML SYRINGE SQ SCH ×2 (06:23→17:31)
[2017-06-10] MEDS: Vancomycin Oral Soln 250 MG/5 ML UDC PO SCH ×4 (07:47→20:42)
[2017-06-10] MEDS: Folic Acid 1 MG TABLET PO SCH (07:48)
[2017-06-10] MEDS: Vitamin B Complex/Vit C/Vit E 1 EACH TABLET PO SCH (07:48)
[2017-06-10] MEDS: ALPRAZolam 0.5 MG TABLET PO SCH ×3 (07:48→20:45)
--- NOTE | 2017-06-10 07:48 | Urology Progress Note ---
Date of Encounter: 06/10/17 Time of Encounter: 07:46 - Assessment and Plan (1) Urinary retention Current Visit: Yes Status: Acute Assessment and plan: keep catheter at this time. (2) FRANCISCA (acute kidney injury) Current Visit: Yes Status: Acute Assessment and plan: worsening kidney function. may need to consider getting nephrology consult. Progress Note Narrative: Patient seen. feeling ok. good uop. serum creatinine worsening. Objective Initial Vital Signs Temp Pulse Resp BP Pulse Ox 102.7 F H 109 16 123/59 97 06/07/17 15:26 06/07/17 15:26 06/07/17 15:26 06/07/17 15:26 06/07/17 15:26 - General physical appearance Present: well developed - Abdomen Present: soft - Genitourinary Present: other (urine clear) - Labs 06/10/17 03:10 06/10/17 03:10 Diabetes panel 06/09/17 06/09/17 06/09/17 Range/Units 09:31 12:32 16:06 Sodium 128 L 129 L 128 L (136-145) mEq/L Potassium (3.5-5.1) mEq/L Chloride (98-107) mEq/L Carbon Dioxide (23-29) mEq/L BUN (6-20) mg/dL Creatinine (0.70-1.30) mg/dL Glucose (70-105) mg/dL Calcium (8.6-10.3) mg/dL 06/09/17 06/09/17 06/10/17 Range/Units 20:36 20:36 03:10 Sodium 128 L 132 L (136-145) mEq/L Potassium 2.9 L 3.3 L (3.5-5.1) mEq/L Chloride 104 (98-107) mEq/L Carbon Dioxide 19 L (23-29) mEq/L BUN 20 (6-20) mg/dL Creatinine 1.75 H (0.70-1.30) mg/dL Glucose 116 H (70-105) mg/dL Calcium 7.8 L (8.6-10.3) mg/dL Calcium panel 06/09/17 06/10/17 Range/Units 20:36 03:10 Calcium 7.8 L (8.6-10.3) mg/dL Phosphorus 2.6 L 3.4 (2.7-4.5) mg/dL Pituitary panel 06/09/17 06/09/17 06/09/17 Range/Units 09:31 12:32 16:06 Sodium 128 L 129 L 128 L (136-145) mEq/L Potassium (3.5-5.1) mEq/L Chloride (98-107) mEq/L Carbon Dioxide (23-29) mEq/L BUN (6-20) mg/dL Creatinine (0.70-1.30) mg/dL Glucose (70-105) mg/dL Calcium (8.6-10.3) mg/dL 06/09/17 06/09/17 06/10/17 Range/Units 20:36 20:36 03:10 Sodium 128 L 132 L (136-145) mEq/L Potassium 2.9 L 3.3 L (3.5-5.1) mEq/L Chloride 104 (98-107) mEq/L Carbon Dioxide 19 L (23-29) mEq/L BUN 20 (6-20) mg/dL Creatinine 1.75 H (0.70-1.30) mg/dL Glucose 116 H (70-105) mg/dL Calcium 7.8 L (8.6-10.3) mg/dL Adrenal panel 06/09/17 06/09/17 06/09/17 Range/Units 09:31 12:32 16:06 Sodium 128 L 129 L 128 L (136-145) mEq/L Potassium (3.5-5.1) mEq/L Chloride (98-107) mEq/L Carbon Dioxide (23-29) mEq/L BUN (6-20) mg/dL Creatinine (0.70-1.30) mg/dL Glucose (70-105) mg/dL Calcium (8.6-10.3) mg/dL 06/09/17 06/09/17 06/10/17 Range/Units 20:36 20:36 03:10 Sodium 128 L 132 L (136-145) mEq/L Potassium 2.9 L 3.3 L (3.5-5.1) mEq/L Chloride 104 (98-107) mEq/L Carbon Dioxide 19 L (23-29) mEq/L BUN 20 (6-20) mg/dL Creatinine 1.75 H (0.70-1.30) mg/dL Glucose 116 H (70-105) mg/dL Calcium 7.8 L (8.6-10.3) mg/dL - VTE Documentation of Mechanical Device: Intermittent pneumatic compression device Consult Discharge Plan - Plan Referrals: Juan Quintana DO [Primary Care Provider] - (SENT WEB REQUEST ON 06-08-17 @ [phone])
[2017-06-10] MEDS: dilTIAZem HCl 100 MG in D5% in Water 50 ML IVC SCH (08:06)
[2017-06-10 08:13] LABS: VBG Ionized Calcium 1.04 mmol/L (1.15-1.35)
--- NOTE | 2017-06-10 08:32 | Internal Med Progress Note ---
<Mehrdad Arzate - Last Filed: 06/10/17 12:14> Date of Encounter: 06/10/17 Time of Encounter: 08:30 - Assessment and plan (1) Sepsis Current Visit: Yes Status: Acute Assessment and plan: Patient continues to be febrile overnight, repeat blood cultures have been collected Initial blood cultures have been negative 2 We will broaden coverage by switching antibiotics to Unasyn, Zithromax and continue on oral vancomycin Obtain chest x-ray to evaluate for any consolidation White count did only decreased slightly from 23 down to 21 Qualifiers: Sepsis type: sepsis due to unspecified organism Qualified Code(s): A41.9 - Sepsis, unspecified organism (2) FRANCISCA (acute kidney injury) Current Visit: Yes Status: Acute Assessment and plan: Possibly multifactorial in setting of sepsis causing prerenal and also post renal as demonstrated by hydronephrosis bilaterally Creatinine did increase from 1.52 to 1.75 today but he has had adequate urine output yesterday of 2 L Continue with maintenance IV fluids in setting of sepsis and tachycardia Urology consult, appreciate management If kidney function continues to worsen, we will consider nephrology consult (3) C. difficile diarrhea Current Visit: Yes Status: Acute Assessment and plan: Patient currently on oral vancomycin 125 mg 4 times a day He continues to loose bowel movements White count is slightly decreased from 23 to 21 today (4) Atrial fibrillation with RVR Current Visit: Yes Status: Acute Assessment and plan: Patient did present with new onset A. fib and is currently on Cardizem drip We will try to wean off Cardizem drip while closely monitoring blood pressure Chadvasc score currently is 1 (HTN), but he may have undiagnosed CHF, echocardiogram pending Cardiology consult, recommend on starting patient on beta blockers and planning on Xarelto upon discharge (5) UTI (urinary tract infection) Current Visit: Yes Status: Acute Assessment and plan: Urine culture did grow enterococcus that was sensitive to doxycycline He is already on broad-spectrum antibiotics as above for sepsis in setting of C. difficile Qualifiers: Urinary tract infection type: acute cystitis Hematuria presence: without hematuria Qualified Code(s): N30.00 - Acute cystitis without hematuria (6) Hydronephrosis Current Visit: Yes Status: Acute Assessment and plan: Urology consultation, recommended on continuing his Leroy He did have retention upon arrival and had 2.5 L when Leory was inserted No signs of cauda equina but we may obtain head imaging for further investigation as he did not have sensation of urinary retention Qualifiers: Hydronephrosis type: unspecified Qualified Code(s): N13.30 - Unspecified hydronephrosis (7) Hypokalemia Current Visit: Yes Status: Acute Assessment and plan: Potassium did improve to 3.3 We will continue to replete and monitor electrolytes (8) Hyponatremia Current Visit: Yes Status: Acute Assessment and plan: Sodium did improve to 132 Continue on maintenance fluids and recheck BMP and adjust fluids as necessary (9) Alcoholism Current Visit: Yes Status: Acute Assessment and plan: Continue on CIWA protocol Patient claims that he will stop drinking once he goes home (10) Hypertension Current Visit: Yes Status: Chronic Assessment and plan: Patient currently normotensive while on Cardizem drip Will consider resuming home Diovan once his heart rate is more stable Qualifiers: Hypertension type: essential hypertension Qualified Code(s): I10 - Essential (primary) hypertension (11) DVT prophylaxis Current Visit: Yes Status: Acute Assessment and plan: Patient currently on Lovenox therapeutic for A. fib - Subjective Interval history: Pt seen and examined. He states that he still is having about 4 episodes of diarrhea the last 2 days. He denies being any chest pain but does have abdominal pain. He has no issues with his food and denies any nausea, vomiting. He continues to have fevers overnight but states that he overall feels better than yesterday. - Constitutional Vitals: Temp Pulse Resp BP Pulse Ox 100.9 F H 101 20 119/90 97 06/10/17 07:59 06/10/17 07:59 06/10/17 07:59 06/10/17 07:59 06/10/17 07:59 General appearance: Present: cooperative, A&O X 3, pleasant, no acute distress, answers questions appropriately - Head Head exam: Present: atraumatic, normocephalic - Eye Eye exam: Present: PERRL, conjuntiva pink, sclera anicteric - Neck Neck exam general surgery: Present: supple, trachea midline. Absent: lymphadenopathy - Respiratory Respiratory exam: Present: CTAB. Absent: accessory muscle use, rales, rhonchi, wheezes - Cardiovascular Cardiovascular exam: Present: irregular rhythm, +S1, +S2, tachycardia. Absent: diastolic murmur, gallop, rubs, systolic murmur - GI/Abdominal GI/Abdominal exam: Present: normal bowel sounds, soft, no peritoneal signs. Absent: distended, tenderness - Extremities Exam Extremities exam: Present: warm, radial pulses palpable and symmetrical. Absent : calf tenderness, cyanotic, pedal edema - Neurological Exam Neurological exam: Present: alert, no focal deficits. Absent: facial droop, speech deficit - Skin Skin exam: Present: dry, intact Internal Medicine: Result - Labs CBC & Chem 7: 06/10/17 03:10 06/10/17 03:10 Labs: Short CBC 06/10/17 Range/Units 03:10 WBC 21.5 H (4.3-11.1) K/mcL Hgb 11.6 L (12.9-16.9) g/dL Hct 32.1 L (37.5-50.1) % Plt Count 100 L (140-400) K/mcL Neutrophils # 19.0 H (1.6-8.9) K/mcL BMP 06/09/17 06/09/17 06/09/17 09:31 12:32 16:06 Sodium 128 L 129 L 128 L Potassium Chloride Carbon Dioxide BUN Creatinine Glucose Calcium 06/09/17 06/09/17 06/10/17 20:36 20:36 03:10 Sodium 128 L 132 L Potassium 2.9 L 3.3 L Chloride 104 Carbon Dioxide 19 L BUN 20 Creatinine 1.75 H Glucose 116 H Calcium 7.8 L - ABG Interpretation ABG results: ABG ABG pH 7.55 pH Units (7.32-7.45) H 06/07/17 16:50 ABG pCO2 25 mmHg (35-45) L 06/07/17 16:50 ABG pO2 89 mmHg (85-104) 06/07/17 16:50 ABG O2 Saturation 98 % (95-98) 06/07/17 16:50 PT/INR, D-dimer PT 13.4 Seconds (9.4-12.1) H 06/07/17 16:13 - Impressions Impressions Abdomen/Pelvis CT 06/09/17 08:00 IMPRESSION: Decreasing bilateral hydronephrosis and hydroureter as compared to prior examination dated 06/07/2017. Increasing inflammatory change and free fluid about the margin of the left ureter. Marked bladder wall thickening circumferentially, which can be in keeping with cystitis or neoplasia. Trace left pleural effusion. D/ / Haryr Kennedy MD / Harry Kennedy MD Interpreting Provider: Harry Kennedy MD - VTE Documentation of Mechanical Device: Intermittent pneumatic compression device Consult Discharge Plan - Plan Referrals: Juan Quintana DO [Primary Care Provider] - (SENT WEB REQUEST ON 06-08-17 @ 1089) <Amanuel Crockett Emerita - Last Filed: 06/10/17 16:19> Date of Encounter: 06/10/17 - Assessment and plan (1) Delirium tremens Current Visit: Yes Status: Acute Assessment and plan: Start Precedex today. (2) C. difficile diarrhea Current Visit: Yes Status: Acute (3) Sepsis Current Visit: Yes Status: Acute Qualifiers: Sepsis type: sepsis due to unspecified organism Qualified Code(s): A41.9 - Sepsis, unspecified organism (4) Atrial fibrillation Current Visit: Yes Status: Acute Qualifiers: Atrial fibrillation type: paroxysmal Qualified Code(s): I48.0 - Paroxysmal atrial fibrillation (5) Hydronephrosis Current Visit: Yes Status: Acute Qualifiers: Hydronephrosis type: unspecified Qualified Code(s): N13.30 - Unspecified hydronephrosis (6) Hydroureter Current Visit: Yes Status: Acute (7) Alcoholism Current Visit: Yes Status: Acute (8) Hypocalcemia Current Visit: Yes Status: Acute (9) Hypomagnesemia Current Visit: Yes Status: Acute (10) Hyponatremia Current Visit: Yes Status: Acute (11) Hypokalemia Current Visit: Yes Status: Acute (12) Hypophosphatemia Current Visit: Yes Status: Acute (13) UTI (urinary tract infection) Current Visit: Yes Status: Acute Qualifiers: Urinary tract infection type: acute cystitis Hematuria presence: without hematuria Qualified Code(s): N30.00 - Acute cystitis without hematuria (14) Urinary retention Current Visit: Yes Status: Acute (15) Hypertension Current Visit: Yes Status: Chronic Qualifiers: Hypertension type: essential hypertension Qualified Code(s): I10 - Essential (primary) hypertension - Constitutional Vitals: Temp Pulse Resp BP Pulse Ox 100.9 F H 101 20 119/90 97 06/10/17 12:30 06/10/17 12:30 06/10/17 12:30 06/10/17 12:30 06/10/17 12:30 Internal Medicine: Result - Labs CBC & Chem 7: 06/10/17 03:10 06/10/17 03:10 Labs: Short CBC 06/10/17 Range/Units 03:10 WBC 21.5 H (4.3-11.1) K/mcL Hgb 11.6 L (12.9-16.9) g/dL Hct 32.1 L (37.5-50.1) % Plt Count 100 L (140-400) K/mcL Neutrophils # 19.0 H (1.6-8.9) K/mcL BMP 06/09/17 06/09/17 06/09/17 16:06 20:36 20:36 Sodium 128 L 128 L Potassium 2.9 L Chloride Carbon Dioxide BUN Creatinine Glucose Calcium 06/10/17 03:10 Sodium 132 L Potassium 3.3 L Chloride 104 Carbon Dioxide 19 L BUN 20 Creatinine 1.75 H Glucose 116 H Calcium 7.8 L - ABG Interpretation ABG results: ABG ABG pH 7.55 pH Units (7.32-7.45) H 06/07/17 16:50 ABG pCO2 25 mmHg (35-45) L 06/07/17 16:50 ABG pO2 89 mmHg (85-104) 06/07/17 16:50 ABG O2 Saturation 98 % (95-98) 06/07/17 16:50 PT/INR, D-dimer PT 13.4 Seconds (9.4-12.1) H 06/07/17 16:13 - Impressions Impressions Echocardiogram 06/09/17 13:54 Impressions: LVEF 50-55%. No significant valvular dysfunction. Left Ventricular Wall Motion: Rest Echo Findings All wall segments showed normal motion. Findings: Study Quality * Technically adequate exam. Right Ventricle * Normal right ventricular structure and function. Left Atrium * Normal left atrial size. Right Atrium * Normal right atrial size. Mitral Valve * Normal mitral valve structure and function. Interatrial Septum * No evidence of PFO by color Doppler. Aorta * Normally sized aortic root. Pericardium * The pericardium appears normal. ECG Findings * Atrial fibrillation. Tricuspid Valve * Trace tricuspid regurgitation. * No tricuspid stenosis. * Unable to estimate RVSP due to lack of TR jet. Left Ventricle * LVEF 50-55%. * Indeterminate diastolic function. Aortic Valve * No aortic regurgitation. * No aortic stenosis. * Aortic valve not well visualized, probably tricuspid Pulmonic Valve * No pulmonic stenosis. * Mild pulmonic regurgitation. IVC * Normal IVC dimensions and inspiratory collapse. Chest X-Ray 06/10/17 10:40 IMPRESSION: 1. Unchanged small left pleural effusion. D/ / Bon Blackburn MD / Bon Blackburn MD Interpreting Provider: Bon Blackburn MD - Attending Attestation I examined this patient and my medical decision-making was reviewed with the Resident Physician on 06/10/17. I agree with the documented findings, disposition and treatment plan as described except to the extent set forth below. Mr Chen is currently admitted for acute C diff diarrhea and ETOH withdrawal. He remians high risk due to potential for worsening clinical status. Mr Chen has had low grade temp today though was higher overnight. He is much more confused and agitated today. He is hallucinating as well. at bedside and says he has been having issues with urinary incontinence during the night for last 4 years. Exam Alert but disoriented and restless. Mucus membranes dry Heart irreg - not tachy at this time (on Cardizem) Abd soft. Nontender at this time. No edema Moves all extremities I/P 1. Acute C diff diarrhea 2. Fever 3. Alcohol withdrawal Further diagnoses and plan as above.
--- NOTE | 2017-06-10 11:11 | Cardiology Progress Note ---
Date of Encounter: 06/10/17 Time of Encounter: 09:50 Assessment and Plan (1) Atrial fibrillation with RVR Current Visit: Yes Status: Acute Atrial fibrillation with RVR. Likely has PAF per history of symptoms. Likely exacerbated by pnuemonia,c-diff, and heavy ETOH use. Reports heavy ETOH use (10 beers or more a day). ETOH cessation discussed. On CIWA protocal with active withdrawl symptoms. TTE is pending. TSH is normal. He is a CHADS VASc 1 for HTN. Xarelto was sent to his pharmacy for shah check. No co-pay per [employer]. Currently on heparin gtt. Convert to xarelto after TTE reviewed. 24 hour telemetry review shows avg HR 92 over 24 hours. HR currently 90-112. Change IV cardizem to cardizem 60 mg q8 hours. Convert to long acting at d/c. (2) Elevated troponin Current Visit: Yes Status: Acute Mild troponin elevation up to 0.09 in the setting of demand ischemia from sepsis. EKG shows afib with RVR. No ST changes. Denies chest pain. TTE pending. Discussion w patient/family: The assessment and plan as outlined above was discussed with the patient and/or family members who expressed understanding and agreement. All questions were answered. Thank you for involving us in the care of your patient. Please call with any questions. Subjective Principal diagnosis: atrial fibrillation with RVR Interval history: Mr. Chen is more confused today. He was pulling at wires and is restless. Tremors noted. He continues on the ciwa protocal for withdrawl. Objective Vital Signs, Last 4 Hours Temp Pulse Resp BP Pulse Ox 06/10/17 07:59 100.9 F H 101 20 119/90 97 06/10/17 07:45 100.9 F H 101 20 119/90 97 General: Conversant, No Apparent Distress, Other (tremors noted) HEENT: Atraumatic, Normocephaly, Mucus Membranes Moist Neck: No JVD, Normal carotid pulses Cardiac: Other (Irregular) Lungs: Other (rhonci scattered throughout. ) Neuro: Alert and responsive, No focal deficits noted Abdomen: Soft, Non-Tender Skin: No rashes noted on visualized skin Musculoskeletal: No Chest Wall Tenderness Extremities: No Clubbing, No Cyanosis, No Edema, Normal Pulses Results 06/10/17 03:10 06/10/17 03:10 Lab Results 06/09/17 06/09/17 06/09/17 09:31 12:32 16:06 WBC Hgb Hct Plt Count Sodium 128 L 129 L 128 L Potassium Chloride Carbon Dioxide BUN Creatinine Glucose Calcium Magnesium 06/09/17 06/09/17 06/09/17 20:36 20:36 20:36 WBC Hgb Hct Plt Count Sodium 128 L Potassium 2.9 L Chloride Carbon Dioxide BUN Creatinine Glucose Calcium Magnesium 2.2 06/10/17 06/10/17 03:10 03:10 WBC 21.5 H Hgb 11.6 L Hct 32.1 L Plt Count 100 L Sodium 132 L Potassium 3.3 L Chloride 104 Carbon Dioxide 19 L BUN 20 Creatinine 1.75 H Glucose 116 H Calcium 7.8 L Magnesium 2.2 - Imaging and Cardiology Echo: pending - EKG Interpretation EKG results cardiology: personally reviewed - VTE Documentation of Mechanical Device: Intermittent pneumatic compression device Consult Discharge Plan - Plan Referrals: Juan Quintana DO [Primary Care Provider] - (SENT WEB REQUEST ON 06-08-17 @ 1587)
[2017-06-10] MEDS: Azithromycin 500 MG in D5% in Water 250 ML IVPB SCH (12:05)
[2017-06-10] MEDS: Ampicillin/Sulbactam 3,000 MG in 0.9 % Sodium Chloride Mini Bag 100 ML IVPB SCH ×2 (13:00→18:15)
[2017-06-10] MEDS: Dexmedetomidine HCl 400 MCG/100 ML MLS IVC SCH (15:00)
[2017-06-10 20:13] LABS: Magnesium 1.9 mg/dL (1.6-2.6); Phosphorous 1.9 mg/dL (2.7-4.5); Potassium 3.1 mEq/L (3.5-5.1)
[2017-06-10 22:10] LABS: VBG Ionized Calcium 0.98 mmol/L (1.15-1.35); VBG PH 7.47 pH Units (7.32-7.42)
[2017-06-10 22:56] LABS: VBG Ionized Calcium 0.98 mmol/L (1.15-1.35); VBG PH 7.49 pH Units (7.32-7.42)
[2017-06-11] MEDS ORDERED: Ampicillin/Sulbactam 3,000 MG in 0.9 % Sodium Chloride Mini Bag 100 ML IVPB SCH
[2017-06-11] MEDS ORDERED: 0.9 % Sodium Chloride 1,000 ML IVC ONE (00:45)
[2017-06-11] MEDS ORDERED: 0.9 % Sodium Chloride 1,000 ML IVC SCH (00:46)
[2017-06-11] MEDS ORDERED: 0.9 % Sodium Chloride 1,000 ML ONE (00:50)
[2017-06-11] MEDS ORDERED: Ipratropium/Albuterol Neb 3 ML IH PRN (01:31)
[2017-06-11] MEDS: Dexmedetomidine HCl 400 MCG/100 ML MLS IVC SCH (01:47)
[2017-06-11] MEDS ORDERED: 0.9 % Sodium Chloride 500 ML IVC ONE (02:31)
[2017-06-11] MEDS ORDERED: methylPREDNISolone 125 MG/2 ML VIAL IVP ONE (02:44)
--- NOTE | 2017-06-11 02:49 | Event Note ---
Date of Encounter: 06/11/17 Time of Encounter: 02:46 Severe sepsis 2ry to C diff colitis, enteroccocus UTI on Unasyn , azithromycin and oral vanc alcohol withdrawal on precedex and ativan PRN The patient's BP dropped to the 70'2. Started IVF bolus of 1000, then 500 and will maintain 200 cc/h order CXR and Abdominal x rays order Lactic acid increase dose of Vanco oral and add Flagyl IV start stress dose steroid Solumedrol ( patient also wheezing with Hx of Tobacco abuse, possible non diagnosed COPD) May need to send to ICU if not responding to IVF
[2017-06-11 03:08] LABS: Immature Granulocytes % 2.1 % (0-4); Red Blood Count 3.15 M/mcL (4.19-5.50); Red Cell Distribution Width 13.8 % (11.5-14.5)
[2017-06-11 03:10] LABS: Basophils % 0.1 %; Eosinophils # 0.1 K/mcL (0.0-0.6); Eosinophils % 0.5 %; Hematocrit 29.1 % (37.5-50.1); Hemoglobin 10.1 g/dL (12.9-16.9); Immature Platelets 6.9 % (1.1-6.1); Lymphocytes # 1.3 K/mcL (0.6-4.6); Lymphocytes % 9.4 %; Mean Corpuscular HGB Conc 34.7 g/dL (31.6-35.5); Mean Corpuscular Hemoglobin 32.1 pg (28.0-33.3); Mean Corpuscular Volume 92.4 fL (83.0-100.0); Mean Platelet Volume 10.5 fL (9.4-12.4); Monocytes # 1.2 K/mcL (0.0-1.3); Monocytes % 8.2 %; Segmented Neutrophils % 79.7 %
[2017-06-11 03:21] LABS: Calcium 7.1 mg/dL (8.6-10.3); Magnesium 2.3 mg/dL (1.6-2.6); Phosphorous 3.8 mg/dL (2.7-4.5); Potassium 3.3 mEq/L (3.5-5.1)
[2017-06-11 03:22] LABS: VBG Ionized Calcium 1.02 mmol/L (1.15-1.35); VBG PH 7.29 pH Units (7.32-7.42)
[2017-06-11 03:32] LABS: Neutrophils # 11.2 K/mcL (1.6-8.9); Platelet Count 93 K/mcL (140-400)
[2017-06-11] MEDS: MetroNIDAZOLE 500 MG/100 ML 500 MG/100 ML BAG IVPB SCH ×3 (03:45→16:15)
[2017-06-11] MEDS ORDERED: Cefepime HCl 2,000 MG in Water for inj. (sterile) 20 ML IVP SCH ×2 (04:00→19:00)
[2017-06-11] MEDS: 0.9 % Sodium Chloride 1,000 ML IVC SCH ×7 (04:58→21:16)
[2017-06-11] MEDS ORDERED: Vancomycin 1,250 MG in D5% in Water 250 ML IVPB SCH ×2 (05:00)
[2017-06-11] MEDS: Vancomycin 1,250 MG in D5% in Water 250 ML IVPB SCH (05:28)
[2017-06-11] MEDS: *HR* Enoxaparin 100 MG/ML SYRINGE SQ SCH ×2 (06:33→18:33)
[2017-06-11] MEDS: methylPREDNISolone 125 MG/2 ML VIAL IVP SCH ×3 (06:33→18:33)
[2017-06-11 07:54] LABS: Triiodothyronine (T3) Free 2.07 pg/mL (2.50-3.90)
--- NOTE | 2017-06-11 09:37 | Internal Med Progress Note ---
<Mehrdad Arzate - Last Filed: 06/11/17 13:01> Date of Encounter: 06/11/17 Time of Encounter: 09:37 - Assessment and plan (1) Sepsis Current Visit: Yes Status: Acute Assessment and plan: Patient continues to be febrile overnight and did have hypotension but this may been caused by Precedex drip Initial blood cultures have been negative 2, await repeat cultures collected on 06/10 Night hospitalist did add IV cefepime, vancomycin, Flagyl which will continue on top of increasing dose of oral vancomycin; azithromycin stopped Chest x-ray did reveal possible left lower atelectasis versus pneumonia White count did improve down to 14.0 from 21.5 yesterday Continue with aggressive fluid hydration in setting of borderline hypotension while weaning off Precedex drip Qualifiers: Sepsis type: sepsis due to unspecified organism Qualified Code(s): A41.9 - Sepsis, unspecified organism (2) FRANCISCA (acute kidney injury) Current Visit: Yes Status: Acute Assessment and plan: Possibly multifactorial in setting of sepsis causing prerenal and also post renal as demonstrated by hydronephrosis bilaterally Creatinine does continue to increase up to 2.06 today but he has had adequate urine output yesterday of over 4 L Continue with maintenance IV fluids in setting of sepsis Urology and nephrology consulted, appreciate recommendations (3) C. difficile diarrhea Current Visit: Yes Status: Acute Assessment and plan: Patient's oral viomycin was increased to 250 mg 4 times overnight He continues to loose bowel movements but states this is clinically improving White count continues to decrease (4) Atrial fibrillation with RVR Current Visit: Yes Status: Acute Assessment and plan: Patient did present with new onset A. fib and is currently off Cardizem drip and transitioned to oral metoprolol and Cardizem Chadvasc score currently is 1 (HTN); echocardiogram was within normal limits Cardiology consult, recommend on starting patient on beta blockers and planning on Xarelto upon discharge (5) UTI (urinary tract infection) Current Visit: Yes Status: Acute Assessment and plan: Urine culture did grow enterococcus that was sensitive to doxycycline He is already on broad-spectrum antibiotics as above for sepsis in setting of C. difficile Qualifiers: Urinary tract infection type: acute cystitis Hematuria presence: without hematuria Qualified Code(s): N30.00 - Acute cystitis without hematuria (6) Hydronephrosis Current Visit: Yes Status: Acute Assessment and plan: Urology consultation, recommended on continuing his Leroy He did have retention upon arrival and had 2.5 L when Leroy was inserted No signs of cauda equina but we may obtain head imaging for further investigation as he did not have sensation of urinary retention Qualifiers: Hydronephrosis type: unspecified Qualified Code(s): N13.30 - Unspecified hydronephrosis (7) Hypokalemia Current Visit: Yes Status: Acute Assessment and plan: Potassium stable at 3.3 We will continue to replete and monitor electrolytes (8) Hyponatremia Current Visit: Yes Status: Acute Assessment and plan: Sodium stable at 130 Continue on maintenance fluids and recheck BMP and adjust fluids as necessary (9) Alcoholism Current Visit: Yes Status: Acute Assessment and plan: Continue on CIWA protocol We will continue to try to wean Precedex drip Patient claims that he will stop drinking once he goes home (10) Hypertension Current Visit: Yes Status: Chronic Assessment and plan: Patient currently normotensive while on maintenance fluids, wean off dopamine drip Will consider resuming home Diovan once his heart rate is more stable Qualifiers: Hypertension type: essential hypertension Qualified Code(s): I10 - Essential (primary) hypertension (11) DVT prophylaxis Current Visit: Yes Status: Acute Assessment and plan: Patient currently on Lovenox therapeutic for A. fib - Subjective Interval history: Pt seen and examined. He states that his diarrhea has improved slightly since yesterday. He feels cold and has been sweaty last night. He denies any pain, shortness of breath, nausea, vomiting. - Constitutional Vitals: Temp Pulse Resp BP Pulse Ox 96.4 F L 68 22 101/66 94 06/11/17 07:39 06/11/17 07:39 06/11/17 07:39 06/11/17 07:39 06/11/17 07:39 General appearance: Present: cooperative, A&O X 3, pleasant, no acute distress, answers questions appropriately - Head Head exam: Present: atraumatic, normocephalic - Eye Eye exam: Present: PERRL, conjuntiva pink, sclera anicteric - Neck Neck exam general surgery: Present: supple, trachea midline. Absent: lymphadenopathy - Respiratory Respiratory exam: Present: decreased breath sounds. Absent: accessory muscle use, rales, rhonchi, wheezes - Cardiovascular Cardiovascular exam: Present: irregular rhythm, +S1, +S2. Absent: diastolic murmur, gallop, rubs, systolic murmur - GI/Abdominal GI/Abdominal exam: Present: normal bowel sounds, soft, no peritoneal signs. Absent: distended, tenderness - Extremities Exam Extremities exam: Present: warm, radial pulses palpable and symmetrical. Absent : calf tenderness, cyanotic, pedal edema - Neurological Exam Neurological exam: Present: alert, oriented X3, no focal deficits. Absent: facial droop, speech deficit - Skin Skin exam: Present: dry, intact Internal Medicine: Result - Labs CBC & Chem 7: 06/11/17 02:57 06/11/17 02:57 Labs: Short CBC 06/11/17 Range/Units 02:57 WBC 14.0 H (4.3-11.1) K/mcL Hgb 10.1 L D (12.9-16.9) g/dL Hct 29.1 L (37.5-50.1) % Plt Count 93 L (140-400) K/mcL Neutrophils # 11.2 H (1.6-8.9) K/mcL BMP 06/10/17 06/11/17 19:26 02:57 Sodium 130 L Potassium 3.1 L 3.3 L Chloride 106 Carbon Dioxide 16 L BUN 23 H Creatinine 2.06 H Glucose 114 H Calcium 7.1 L - ABG Interpretation ABG results: ABG ABG pH 7.55 pH Units (7.32-7.45) H 06/07/17 16:50 ABG pCO2 25 mmHg (35-45) L 06/07/17 16:50 ABG pO2 89 mmHg (85-104) 06/07/17 16:50 ABG O2 Saturation 98 % (95-98) 06/07/17 16:50 PT/INR, D-dimer PT 13.4 Seconds (9.4-12.1) H 06/07/17 16:13 - Impressions Impressions Echocardiogram 06/09/17 13:54 Impressions: LVEF 50-55%. No significant valvular dysfunction. Left Ventricular Wall Motion: Rest Echo Findings All wall segments showed normal motion. Findings: Study Quality * Technically adequate exam. Right Ventricle * Normal right ventricular structure and function. Left Atrium * Normal left atrial size. Right Atrium * Normal right atrial size. Mitral Valve * Normal mitral valve structure and function. Interatrial Septum * No evidence of PFO by color Doppler. Aorta * Normally sized aortic root. Pericardium * The pericardium appears normal. ECG Findings * Atrial fibrillation. Tricuspid Valve * Trace tricuspid regurgitation. * No tricuspid stenosis. * Unable to estimate RVSP due to lack of TR jet. Left Ventricle * LVEF 50-55%. * Indeterminate diastolic function. Aortic Valve * No aortic regurgitation. * No aortic stenosis. * Aortic valve not well visualized, probably tricuspid Pulmonic Valve * No pulmonic stenosis. * Mild pulmonic regurgitation. IVC * Normal IVC dimensions and inspiratory collapse. Chest X-Ray 06/10/17 10:40 IMPRESSION: 1. Unchanged small left pleural effusion. D/ / Bon Blackburn MD / Bon Blackburn MD Interpreting Provider: Bon Blackburn MD Chest/Abdomen X-ray 06/11/17 02:29 IMPRESSION: 1. Left basilar atelectasis or pneumonia. 2. Transverse colon measures 7.3 cm in diameter. D/ / Sheldon Mayorga MD / Sheldon Mayorga MD Interpreting Provider: Sheldon Mayorga MD - VTE Documentation of Mechanical Device: Intermittent pneumatic compression device Consult Discharge Plan - Plan Referrals: Juan Quintana DO [Primary Care Provider] - (SENT WEB REQUEST ON 06-08-17 @ 3625) <Amanuel Crockett - Last Filed: 06/11/17 18:08> Date of Encounter: 06/11/17 - Assessment and plan (1) C. difficile diarrhea Current Visit: Yes Status: Acute (2) Delirium tremens Current Visit: Yes Status: Acute (3) Sepsis Current Visit: Yes Status: Acute Qualifiers: Sepsis type: sepsis due to unspecified organism Qualified Code(s): A41.9 - Sepsis, unspecified organism (4) Atrial fibrillation Current Visit: Yes Status: Acute Qualifiers: Atrial fibrillation type: paroxysmal Qualified Code(s): I48.0 - Paroxysmal atrial fibrillation (5) Hydronephrosis Current Visit: Yes Status: Acute Qualifiers: Hydronephrosis type: unspecified Qualified Code(s): N13.30 - Unspecified hydronephrosis (6) Hydroureter Current Visit: Yes Status: Acute (7) Alcoholism Current Visit: Yes Status: Acute (8) Hypocalcemia Current Visit: Yes Status: Acute (9) Hypomagnesemia Current Visit: Yes Status: Acute (10) Hyponatremia Current Visit: Yes Status: Acute (11) Hypokalemia Current Visit: Yes Status: Acute (12) Hypophosphatemia Current Visit: Yes Status: Acute (13) UTI (urinary tract infection) Current Visit: Yes Status: Acute Qualifiers: Urinary tract infection type: acute cystitis Hematuria presence: without hematuria Qualified Code(s): N30.00 - Acute cystitis without hematuria (14) Urinary retention Current Visit: Yes Status: Acute (15) Hypertension Current Visit: Yes Status: Chronic Qualifiers: Hypertension type: essential hypertension Qualified Code(s): I10 - Essential (primary) hypertension - Constitutional Vitals: Temp Pulse Resp BP Pulse Ox 97.3 F L 66 16 109/82 94 06/11/17 11:46 06/11/17 11:46 06/11/17 11:46 06/11/17 11:46 06/11/17 11:46 Internal Medicine: Result - Labs CBC & Chem 7: 06/11/17 02:57 06/11/17 02:57 Labs: Short CBC 06/11/17 Range/Units 02:57 WBC 14.0 H (4.3-11.1) K/mcL Hgb 10.1 L D (12.9-16.9) g/dL Hct 29.1 L (37.5-50.1) % Plt Count 93 L (140-400) K/mcL Neutrophils # 11.2 H (1.6-8.9) K/mcL BMP 06/10/17 06/11/17 19:26 02:57 Sodium 130 L Potassium 3.1 L 3.3 L Chloride 106 Carbon Dioxide 16 L BUN 23 H Creatinine 2.06 H Glucose 114 H Calcium 7.1 L - ABG Interpretation ABG results: ABG ABG pH 7.55 pH Units (7.32-7.45) H 06/07/17 16:50 ABG pCO2 25 mmHg (35-45) L 06/07/17 16:50 ABG pO2 89 mmHg (85-104) 06/07/17 16:50 ABG O2 Saturation 98 % (95-98) 06/07/17 16:50 PT/INR, D-dimer PT 13.4 Seconds (9.4-12.1) H 06/07/17 16:13 - Impressions Impressions Chest/Abdomen X-ray 06/11/17 02:29 IMPRESSION: 1. Left basilar atelectasis or pneumonia. 2. Transverse colon measures 7.3 cm in diameter. D/ / Sheldon Mayorga MD / Sheldon Mayorga MD Interpreting Provider: Sheldon Mayorga MD X-Ray 06/11/17 08:24 IMPRESSION: Slight decrease in the caliber of the transverse colon which currently measures 6.4 cm. D/ / 06/11/2017 14:57:52 Roberta Welch MD / emily Interpreting Provider: Roberta Welch MD - Attending Attestation I examined this patient and my medical decision-making was reviewed with the Resident Physician on 06/11/17. I agree with the documented findings, disposition and treatment plan as described except to the extent set forth below. Mr Chen is currently admitted for acute c diff colitis. He remains moderate to high risk due to potential for worsening clinical status. Mr Chen is feeling a little better at this time. He is less confused. BP has improved. Appetite better. Off dopamine at this time. Renal function has worsened and appreciate renal input. Exam Alert Comfortable Mucus membranes dry Heart irreg Lungs diminished Abd soft I/P 1. C diff diarrhea 2. ETOH Further diagnoses and plan as above
[2017-06-11] MEDS: Vitamin B Complex/Vit C/Vit E 1 EACH TABLET PO SCH (09:39)
[2017-06-11] MEDS: Folic Acid 1 MG TABLET PO SCH (09:40)
[2017-06-11] MEDS: Vancomycin Oral Soln 250 MG/5 ML UDC PO SCH ×4 (09:41→21:16)
[2017-06-11] MEDS: *HR* LORazepam 2 MG/ML VIAL IVP PRN ×2 (09:52→11:00)
[2017-06-11] MEDS: Azithromycin 500 MG in D5% in Water 250 ML IVPB SCH (11:40)
--- NOTE | 2017-06-11 14:36 | Nephrology Consult Note ---
Date of Encounter: 06/11/17 Time of Encounter: 14:00 Assessment and Plan (1) FRANCISCA (acute kidney injury) Status: Acute Elevated SCr in the setting of sepsis and relative volume depletion Agree with aggressive volume repletion Agree with withholding neophrotoxins if possible, vanco by levels will check CPK, uric acid levels Will check urine for repeat UA, sodium, eosinophil and creatinine No acute indication for FRUIT SPRAYER at this time History of Present Illness - Reason for Consult Consult date: 06/11/17 Acute Kidney Injury Requesting physician: Amanuel Crockett - History of Present Illness 56 y o male with PMH of HTN and EtOH abuse admitted with cough, fever and N/V/D and later diagnosed with c.diff colitis on po vanco in addition to UTI with enterococcus requiring more antibiotics including iv vanco and cefepime. Hospital stay also complicated by urinary retention with CT showing severver hydronephrosis and hydroureter requiring urology eval with reyes placement and flomax started. Renal now being consulted for worsening SCr at 2.06, GFR 33 from baseline previously 0.89, GFR >60 as of 07/2016 but this hospital stay has been 1.5 on admission improving to 1.29 before this worsening now. Also noted has been hemodynamic instability in the past 24hrs with BP readings down to 70/ 50s requiring several NS boluses. Past Med Surg Social Fam HX - Past Medical History Medical history: hypertension Psychiatric history: anxiety - Past Surgical History Surgical History: no surgical history - Social History Smoking Status: Current every day smoker Packs per day: 1 Smokeless Tobacco Status: No Alcohol use: rarely Drug use: none - Family History Mother History Unknown: Yes Medications and Allergies ALPRAZolam [Xanax 0.5 MG Tablet] 0.5 mg PO TID 08/29/16 [History] Valsartan/Hydrochlorothiazide [Diovan Hct 160-12.5 mg Tab] 1 each PO DAILY 06/07 [History] Diltiazem CD (24hr) [Cardizem CD] 180 mg PO DAILY #30 cap.er.24h 06/13/17 [Rx] Rivaroxaban [Xarelto] 20 mg PO DAILY #30 tablet 06/13/17 [Rx] Vancomycin HCl 125 mg PO QID 7 Days syringe 06/13/17 [Rx] Metoprolol [Lopressor] 50 mg PO BID #60 tablet 06/14/17 [Rx] 3 Allergy/AdvReac Type Severity Reaction Status Date / Time No Known Allergies Allergy Verified 08/29/16 06:48 Review of Systems All Systems: reviewed and no additional remarkable complaints except as stated ( 10 system reviewed) Exam - Vital Signs Vital signs: Initial Vital Signs Temp Pulse Resp BP Pulse Ox 102.7 F H 109 16 123/59 97 06/07/17 15:26 06/07/17 15:26 06/07/17 15:26 06/07/17 15:26 06/07/17 15:26 Vital Signs - Last 8 Hours Temp Pulse Resp BP Pulse Ox 06/11/17 11:46 97.3 F L 66 16 109/82 94 06/11/17 11:35 97.3 F L 66 16 109/82 94 06/11/17 08:35 96.4 F L 68 22 101/66 94 06/11/17 07:39 96.4 F L 68 22 101/66 94 06/11/17 07:00 66 105/78 06/11/17 06:58 67 87/77 Intake and Output 06/10/17 06/11/17 06/11/17 23:59 07:59 15:59 Intake Total 1231.0 / 1231.0 3676.2 / 3676.2 3617 / 3617 Output Total 1350 / 1350 400 / 400 1600 / 1600 Balance -119.0 / -119.0 3276.2 / 3276.2 2016 Intake: IV Fluids 1231.0 / 1231.0 3676.2 / 3676.2 3137 / 3137 0.9 % Sodium Chloride 1,000 ML 1000 / 1000 3000 / 3000 3000 / 3000 @ 500 mls/hr IVC .Q2H [facility] Rx#: [id number] DOPamine Premix 400mg/250mL 400 4.7 / 4.7 mg In 250 ml @ 2.5 MCG/KG/MIN 8.091 mls/hr IVC .Q24H [facility] Rx#: [id number] PRECEDEX Premix 400 mcg In 100 21.0 / 21.0 91.5 / 91.5 37 / 37 ml @ 0.2 MCG/KG/HR 4.315 mls/hr IVC .[id number] [facility] Rx#: [id number] Maxipime 2,000 MG In Water for 20 / 20 inj. (sterile) 20 ML @ 300 mls/ hr IVP Q12HR [facility] Rx#:[id number] Unasyn 3,000 MG In 0.9 % Sodium 100 / 100 100 / 100 Chloride (Mini-Bag +) 100 ML @ 200 mls/hr IVPB Q6HR [facility] Rx#: [id number] Calcium Gluconate 1,000 MG In 0 60 / 60 .9 % Sodium Chloride 50 ML @ 111 mls/hr IVPB Q6HR PRN Rx#: [id number] Magnesium Sulfate Premix 2gm/ 50 / 50 50mL 2 gm In 50 ml @ 50 mls/hr IVPB Q5H PRN Rx#:[id number] Flagyl Premix 500 MG/100 ML 500 100 / 100 100 / 100 mg In 100 ml @ 100 mls/hr IVPB Q8HR [facility] Rx#:[id number] Sodium Phosphate 30 MMOL In 0.9 110 / 110 % Sodium Chloride 250 ML @ 42 mls/hr IVPB Q12H PRN Rx#: [id number] Vancocin 1,250 MG In Dextrose 5 250 / 250 % 250 ML @ 166.67 mls/hr IVPB Q24H [facility] Rx#:[id number] Oral 480 / 480 Output: Urine 50 / 50 Catheter 1350 / 1350 350 / 350 1600 / 1600 Urethral (Reyes) 800 / 800 Other: Stool Size Small Stool Consistency loose Stool Color Brown # Bowel Movements 1 - General Appearance General appearance: appears started age (NAD) EENT: ATNC, mucous membranes dry Neck: no JVD, supple Respiratory: clear Cardiology: no edema, normal S1, normal S2 Gastrointestinal: no tenderness, no guarding Integumentary: warm and dry Neurologic: no focal deficit Musculoskeletal: no deformities Psychiatric: mood/affect appropriate, cooperative Results - Lab Results 06/14/17 07:16 06/14/17 07:16 Most recent lab results ABG pH 7.55 pH Units (7.32-7.45) H 06/07/17 16:50 ABG pCO2 25 mmHg (35-45) L 06/07/17 16:50 ABG pO2 89 mmHg (85-104) 06/07/17 16:50 ABG HCO3 22 mEq/L (21-27) 06/07/17 16:50 ABG O2 Saturation 98 % (95-98) 06/07/17 16:50 Calcium 7.1 mg/dL (8.6-10.3) L 06/11/17 02:57 Phosphorus 3.8 mg/dL (2.7-4.5) 06/11/17 02:57 Magnesium 2.3 mg/dL (1.6-2.6) 06/11/17 02:57 Consult Discharge Plan - Plan Instructions: Metoprolol (By mouth), Vancomycin (By mouth), Clostridium Difficile Infection (DC), Chronic Hypertension (DC) Additional Instructions: Please follow up with your PCP as scheduled for hospital follow up. Please follow up with cardiology and urology; urology recommends keeping reyes in for another week Referrals: [facility] [Provider Group] (Cardiology should contact you to schedule a follow up appointment.) [facility] [Provider Group] - 06/28/17 9:00 am Juan Quintana DO [Primary Care Provider] - 06/21/17 9:00 am () Prescriptions: Diltiazem CD (24hr) [Cardizem CD] 180 mg PO DAILY #30 cap.er.24h Metoprolol [Lopressor] 50 mg PO BID #60 tablet Rivaroxaban [Xarelto] 20 mg PO DAILY #30 tablet Vancomycin HCl 125 mg PO QID 7 Days syringe
[2017-06-11 15:27] LABS: Uric Acid 3.8 mg/dL (2.3-7.6)
[2017-06-11 16:05] LABS: Vancomycin,Random 14.6 mcg/mL
[2017-06-11] MEDS: Cefepime HCl 2,000 MG in Water for inj. (sterile) 20 ML 20 ML IVP SCH (21:15)
[2017-06-12] MEDS: methylPREDNISolone 125 MG/2 ML VIAL IVP SCH ×4 (00:35→17:57)
[2017-06-12] MEDS: MetroNIDAZOLE 500 MG/100 ML 500 MG/100 ML BAG IVPB SCH ×3 (00:35→16:38)
[2017-06-12 03:58] LABS: Basophils % 0.2 %; Hematocrit 29.5 % (37.5-50.1); Hemoglobin 10.3 g/dL (12.9-16.9); Immature Granulocytes % 1.9 % (0-4); Lymphocytes # 0.6 K/mcL (0.6-4.6); Lymphocytes % 4.8 %; Mean Corpuscular HGB Conc 34.9 g/dL (31.6-35.5); Mean Corpuscular Volume 91.6 fL (83.0-100.0); Mean Platelet Volume 11.4 fL (9.4-12.4); Monocytes # 0.5 K/mcL (0.0-1.3); Monocytes % 3.8 %; Neutrophils # 11.1 K/mcL (1.6-8.9); Platelet Count 143 K/mcL (140-400); Red Blood Count 3.22 M/mcL (4.19-5.50); Red Cell Distribution Width 13.9 % (11.5-14.5); Segmented Neutrophils % 89.3 %
[2017-06-12 04:13] LABS: Calcium 7.1 mg/dL (8.6-10.3); Magnesium 2.1 mg/dL (1.6-2.6); Phosphorous 2.4 mg/dL (2.7-4.5); Potassium 3.3 mEq/L (3.5-5.1)
[2017-06-12 04:18] LABS: VBG HCO3 15 mEq/L (21-27); VBG PCO2 32 mmHg (41-51); VBG PO2 70 mmHg (25-50)
[2017-06-12 04:23] LABS: VBG Ionized Calcium 1.08 mmol/L (1.15-1.35); VBG PH 7.32 pH Units (7.32-7.42)
[2017-06-12] MEDS: 0.9 % Sodium Chloride 1,000 ML IVC SCH ×2 (05:00→17:58)
[2017-06-12] MEDS: *HR* LORazepam 2 MG/ML VIAL IVP PRN ×2 (05:00→20:11)
[2017-06-12] MEDS: Vancomycin 1,250 MG in D5% in Water 250 ML IVPB SCH (05:00)
[2017-06-12] MEDS: *HR* Enoxaparin 100 MG/ML SYRINGE SQ SCH ×2 (07:10→17:57)
[2017-06-12] MEDS ORDERED: Aminoglycoside Consult 1 EACH MC ONE (08:05)
[2017-06-12] MEDS: Cefepime HCl 2,000 MG in Water for inj. (sterile) 20 ML 20 ML IVP SCH ×2 (08:50→19:46)
[2017-06-12] MEDS: Folic Acid 1 MG TABLET PO SCH (08:51)
[2017-06-12] MEDS: Vitamin B Complex/Vit C/Vit E 1 EACH TABLET PO SCH (08:51)
[2017-06-12] MEDS: Vancomycin Oral Soln 250 MG/5 ML UDC PO SCH ×4 (08:51→19:46)
[2017-06-12 09:22] LABS: Bilirubin,Urine Negative (Negative); Blood,Urine Moderate (Negative); Clarity,Urine Cloudy (Clear); Color,Urine Yellow (Yellow); Glucose,Urine (UA) 100 mg/dL (Normal); Ketones,Urine Negative (Negative); Leukocyte Esterase,Urine Small (Negative); Nitrite,Urine Negative (Negative); Protein,Urine 30 mg/dL (Neg-Trace); Specific Gravity,Urine 1.013 (1.010-1.025); Urobilinogen,Urine Normal (Normal)
[2017-06-12] MEDS ORDERED: Potassium Chloride Elixir 20 MEQ/15 ML UDC PO PRN (09:23)
[2017-06-12 09:24] LABS: Hyaline Casts,Urine Few per lpf (None-Few); Squamous Epithelial Cell,Urine Many per lpf (None-Few)
[2017-06-12 09:37] LABS: RBC,Urine 15-30 per hpf (0-3); WBC,Urine 15-30 per hpf (0-3)
[2017-06-12 09:38] LABS: Bacteria,Urine Few per hpf (None-Few)
--- NOTE | 2017-06-12 10:08 | Electrocardiograph Report ---
[address] [address] Test Date: 2017-06-09 Pat Name: Uziel Chen Department: 110 Room: 2N07 Gender: M Director Of Recruiting: SERENA : 1960 Requested By: Khushboo Dc Order Number: [id number] Reading MD: Jonathan Thompson MD Measurements Intervals Herrick Rate: 136 P: SC: 0 QRS: 62 QRSD: 97 T: 21 QT: 279 QTc: 359 Interpretive Statements ATRIAL FIBRILLATION WITH RAPID VENTRICULAR RESPONSE Electronically Signed On 06-12-2017 10:06:47 EST by Jonathan Thompson MD
--- NOTE | 2017-06-12 10:42 | Internal Med Progress Note ---
<Khushboo Dc - Last Filed: 06/12/17 10:39> Date of Encounter: 06/12/17 Time of Encounter: 10:40 - Assessment and plan (1) Sepsis Current Visit: Yes Status: Acute Assessment and plan: Last fever 06/11 Initial blood cultures have been negative 2, await repeat cultures collected on 06/10 Chest x-ray 06/11 did reveal possible left lower atelectasis versus pneumonia Current antibiotics: IV vancomycin, IV Flagyl, IV cefepime, and oral vancomycin White count continues to improve daily 31.4 > 23.1> 21.5 > 14.0 > 12.5 Qualifiers: Sepsis type: sepsis due to unspecified organism Qualified Code(s): A41.9 - Sepsis, unspecified organism (2) C. difficile diarrhea Current Visit: Yes Status: Acute Assessment and plan: Oral vancomycin 250 mg QID He continues to loose bowel movements but states this is clinically improving White count continues to decrease (3) Hyponatremia Current Visit: Yes Status: Acute Assessment and plan: Sodium stable at 135 Continue on maintenance fluids and recheck BMP and adjust fluids as necessary Nephrology consulted; appreciate recommendations (4) FRANCISCA (acute kidney injury) Current Visit: Yes Status: Acute Assessment and plan: Possibly multifactorial in setting of sepsis causing prerenal and also post renal as demonstrated by hydronephrosis bilaterally Creatinine improved today today He had adequate urine output yesterday of over 4 L Continue with maintenance IV fluids in setting of sepsis Urology and nephrology consulted; appreciate recommendations (5) Hydronephrosis Current Visit: Yes Status: Acute Assessment and plan: Urology consultation, recommended on continuing his Leroy He did have retention upon arrival and had 2.5 L when Leroy was inserted No signs of cauda equina but we may obtain head imaging for further investigation as he did not have sensation of urinary retention Qualifiers: Hydronephrosis type: unspecified Qualified Code(s): N13.30 - Unspecified hydronephrosis (6) Hydroureter Current Visit: Yes Status: Acute (7) UTI (urinary tract infection) Current Visit: Yes Status: Acute Assessment and plan: Urine culture did grow enterococcus that was resistant to doxycycline Current antibiotics: IV vancomycin, IV Flagyl, IV cefepime, and oral vancomycin Qualifiers: Urinary tract infection type: acute cystitis Hematuria presence: without hematuria Qualified Code(s): N30.00 - Acute cystitis without hematuria (8) Atrial fibrillation with RVR Current Visit: Yes Status: Acute Assessment and plan: Patient did present with new onset A. fib; transitioned to oral Cardizem and metoprolol Chadvasc score currently is 1 (HTN); echocardiogram was within normal limits Cardiology consult, recommend on starting patient on beta blockers and planning on Xarelto upon discharge (9) Alcoholism Current Visit: Yes Status: Acute Assessment and plan: Continue on CIWA protocol Patient claims that he will stop drinking once he goes home (10) Hypokalemia Current Visit: Yes Status: Acute Assessment and plan: Potassium stable at 3.3 We will continue to replete and monitor electrolytes (11) Hypocalcemia Current Visit: Yes Status: Acute Assessment and plan: Electrolyte protocol Replete as needed Continue to monitor (12) Hypophosphatemia Current Visit: Yes Status: Acute Assessment and plan: Electrolyte protocol Replete as needed Continue to monitor (13) Hypertension Current Visit: Yes Status: Chronic Assessment and plan: Patient currently normotensive while on maintenance fluids consider resuming home Diovan if needed and heart rate is stable Qualifiers: Hypertension type: essential hypertension Qualified Code(s): I10 - Essential (primary) hypertension (14) Elevated troponin Current Visit: Yes Status: Acute Assessment and plan: Most likely due to infection Patient denies chest pain Troponin has been trended out 3; last troponin decreased from prior (15) Hypomagnesemia Current Visit: Yes Status: Resolved Assessment and plan: resolved - Subjective Interval history: Patient states that he is tired; he did not go to sleep until 7:30 this morning. He denies cough or shortness of breath. He is still having diarrhea. - Constitutional Vitals: Temp Pulse Resp BP Pulse Ox 97.8 F 82 20 105/55 94 06/12/17 07:24 06/12/17 07:24 06/12/17 07:24 06/12/17 07:24 06/12/17 07:24 General appearance: Present: cooperative, A&O X 3, pleasant, no acute distress, answers questions appropriately - Head Head exam: Present: atraumatic, normocephalic - Eye Eye exam: Present: PERRL, conjuntiva pink, sclera anicteric Pupils: Present: PERRL - Neck Neck exam general surgery: Present: supple, trachea midline - Respiratory Respiratory exam: Present: CTAB. Absent: accessory muscle use, rales, rhonchi, wheezes - Cardiovascular Cardiovascular exam: Present: RRR, +S1, +S2. Absent: diastolic murmur, gallop, rubs, systolic murmur - GI/Abdominal GI/Abdominal exam: Present: normal bowel sounds, soft, no peritoneal signs. Absent: distended, tenderness - Extremities Exam Extremities exam: Present: warm. Absent: pedal edema, tenderness - Neurological Exam Neurological exam: Present: CN II-XII intact, oriented X3, no focal deficits. Absent: pronater drift, facial droop, speech deficit - Skin Skin exam: Present: dry, intact Internal Medicine: Result - Labs CBC & Chem 7: 06/12/17 03:37 06/12/17 03:37 Labs: Short CBC 06/12/17 Range/Units 03:37 WBC 12.5 H (4.3-11.1) K/mcL Hgb 10.3 L (12.9-16.9) g/dL Hct 29.5 L (37.5-50.1) % Plt Count 143 D (140-400) K/mcL Neutrophils # 11.1 H (1.6-8.9) K/mcL BMP 06/12/17 03:37 Sodium 135 L Potassium 3.3 L Chloride 112 H Carbon Dioxide 17 L BUN 29 H Creatinine 1.48 H Glucose 190 H Calcium 7.1 L Urine 06/12/17 Range/Units 09:00 Urine Color Yellow (Yellow) Urine Clarity Cloudy A (Clear) Urine pH 6.0 (5.0-8.0) pH Units Ur Specific [place] 1.013 (1.010-1.025) Urine Protein 30 H (Neg-Trace) mg/dL Urine Glucose (UA) 100 H (Normal) mg/dL - ABG Interpretation ABG results: ABG ABG pH 7.55 pH Units (7.32-7.45) H 06/07/17 16:50 ABG pCO2 25 mmHg (35-45) L 06/07/17 16:50 ABG pO2 89 mmHg (85-104) 06/07/17 16:50 ABG O2 Saturation 98 % (95-98) 06/07/17 16:50 PT/INR, D-dimer PT 13.4 Seconds (9.4-12.1) H 06/07/17 16:13 - Impressions Impressions KUB X-Ray 06/11/17 08:24 IMPRESSION: Slight decrease in the caliber of the transverse colon which currently measures 6.4 cm. D/ / 06/11/2017 14:57:52 Roberta Welch MD / emily Interpreting Provider: Roberta Welch MD - VTE Documentation of Mechanical Device: Intermittent pneumatic compression device Consult Discharge Plan - Plan Referrals: Juan Quintana DO [Primary Care Provider] - (SENT WEB REQUEST ON 06-08-17 @ [id number]) <Amanuel Crockett - Last Filed: 06/12/17 12:32> Date of Encounter: 06/12/17 - Assessment and plan (1) C. difficile diarrhea Current Visit: Yes Status: Acute (2) Delirium tremens Current Visit: Yes Status: Acute (3) Sepsis Current Visit: Yes Status: Acute Qualifiers: Sepsis type: sepsis due to unspecified organism Qualified Code(s): A41.9 - Sepsis, unspecified organism (4) Atrial fibrillation Current Visit: Yes Status: Acute Qualifiers: Atrial fibrillation type: paroxysmal Qualified Code(s): I48.0 - Paroxysmal atrial fibrillation (5) Hydronephrosis Current Visit: Yes Status: Acute Qualifiers: Hydronephrosis type: unspecified Qualified Code(s): N13.30 - Unspecified hydronephrosis (6) Hydroureter Current Visit: Yes Status: Acute (7) Alcoholism Current Visit: Yes Status: Acute (8) Hypocalcemia Current Visit: Yes Status: Acute (9) Hypomagnesemia Current Visit: Yes Status: Resolved (10) Hyponatremia Current Visit: Yes Status: Acute (11) Hypokalemia Current Visit: Yes Status: Acute (12) Hypophosphatemia Current Visit: Yes Status: Acute (13) UTI (urinary tract infection) Current Visit: Yes Status: Acute Qualifiers: Urinary tract infection type: acute cystitis Hematuria presence: without hematuria Qualified Code(s): N30.00 - Acute cystitis without hematuria (14) Urinary retention Current Visit: Yes Status: Acute (15) Hypertension Current Visit: Yes Status: Chronic Qualifiers: Hypertension type: essential hypertension Qualified Code(s): I10 - Essential (primary) hypertension (16) Hypocalcemia Current Visit: Yes Status: Acute - Constitutional Vitals: Temp Pulse Resp BP Pulse Ox 97.6 F 84 18 121/84 98 06/12/17 11:34 06/12/17 11:34 06/12/17 11:34 06/12/17 11:34 06/12/17 11:34 Internal Medicine: Result - Labs CBC & Chem 7: 06/12/17 03:37 06/12/17 03:37 Labs: Short CBC 06/12/17 Range/Units 03:37 WBC 12.5 H (4.3-11.1) K/mcL Hgb 10.3 L (12.9-16.9) g/dL Hct 29.5 L (37.5-50.1) % Plt Count 143 D (140-400) K/mcL Neutrophils # 11.1 H (1.6-8.9) K/mcL BMP 06/12/17 03:37 Sodium 135 L Potassium 3.3 L Chloride 112 H Carbon Dioxide 17 L BUN 29 H Creatinine 1.48 H Glucose 190 H Calcium 7.1 L Urine 06/12/17 Range/Units 09:00 Urine Color Yellow (Yellow) Urine Clarity Cloudy A (Clear) Urine pH 6.0 (5.0-8.0) pH Units Ur Specific [place] 1.013 (1.010-1.025) Urine Protein 30 H (Neg-Trace) mg/dL Urine Glucose (UA) 100 H (Normal) mg/dL - ABG Interpretation ABG results: ABG ABG pH 7.55 pH Units (7.32-7.45) H 06/07/17 16:50 ABG pCO2 25 mmHg (35-45) L 06/07/17 16:50 ABG pO2 89 mmHg (85-104) 06/07/17 16:50 ABG O2 Saturation 98 % (95-98) 06/07/17 16:50 PT/INR, D-dimer PT 13.4 Seconds (9.4-12.1) H 06/07/17 16:13 - Impressions Impressions KUB X-Ray 06/11/17 08:24 IMPRESSION: Slight decrease in the caliber of the transverse colon which currently measures 6.4 cm. D/ / 06/11/2017 14:57:52 Roberta Welch MD / emily Interpreting Provider: Roberta Welch MD - Attending Attestation I examined this patient and my medical decision-making was reviewed with the Resident Physician on 06/12/17. I agree with the documented findings, disposition and treatment plan as described except to the extent set forth below. Mr Chen has been admitted for acute c diff diarrhea and sepsis. He remains moderate to high risk due to potential for worsening clinical status. Mr Chen is resting comfortably. His is at bedside. She thinks his diarrhea is getting better. No further fever or chills. Still confused about 25% of the time. Cultures negative thus far. Exam Alert. Comfortable Mucus membranes dry Heart reg now Lungs clear at this time Abd distended but soft No edema I/P 1. C diff 2. FRANCISCA - slowly improving. Further diagnoses and plan as above.
[2017-06-12 11:09] LABS: Sodium, Urine 54.1 mEq/L
[2017-06-12] MEDS ORDERED: 0.9 % Sodium Chloride 1,000 ML IVC SCH (19:22)
[2017-06-12] MEDS: Acetaminophen 325 MG TABLET PO PRN (19:47)
--- NOTE | 2017-06-12 20:54 | Nephrology Progress Note ---
Date of Encounter: 06/12/17 Time of Encounter: 12:00 - Assessment and Plan (1) FRANCISCA (acute kidney injury) Status: Resolved SCr improving at 1.48, GFR 49 UOP very good at 4750cc in the past 24hrs after aggressive volume repletion Continue to avoid nephrotoxins if possible (2) Sepsis Status: Acute Per primary team Careful use of iv vanco, a nephrotoxins by levels only Qualifiers: Sepsis type: sepsis due to unspecified organism Qualified Code(s): A41.9 - Sepsis, unspecified organism Subjective Principal diagnosis: atrial fibrillation with RVR Interval history: Pt seen and examined Objective - Vital Signs Vital signs: Vital Signs Temp Pulse Resp BP Pulse Ox 06/12/17 20:26 98.3 F 101 16 140/91 97 06/12/17 15:45 97.8 F 93 18 129/96 93 06/12/17 11:34 97.6 F 84 18 121/84 98 06/12/17 07:24 97.8 F 82 20 105/55 94 06/12/17 04:39 97.8 F 73 19 118/81 94 06/12/17 00:20 97.9 F 92 17 110/83 85 06/11/17 22:14 23 91 Intake and Output 06/12/17 06/12/17 06/12/17 07:59 15:59 23:59 Intake Total 2320 / 2320 750 / 750 Output Total 2220 / 2220 2400 / 2400 Balance 100 / 100 750 / 750 -2400 / -2400 Intake: IV Fluids 1370 / 1370 270 / 270 0.9 % Sodium Chloride 1,000 ML 1000 / 1000 @ 125 mls/hr IVC .Q8H [facility] Rx#: [id number] Maxipime 2,000 MG In Water for 20 / 20 20 / 20 inj. (sterile) 20 ML @ 300 mls/ hr IVP Q12H [facility] Rx#:[id number] Flagyl Premix 500 MG/100 ML 500 100 / 100 100 / 100 mg In 100 ml @ 100 mls/hr IVPB Q8HR [facility] Rx#:[id number] Sodium Phosphate 30 MMOL In 0.9 150 / 150 % Sodium Chloride 250 ML @ 42 mls/hr IVPB Q12H PRN Rx#: [id number] Vancocin 1,250 MG In Dextrose 5 250 / 250 % 250 ML @ 166.67 mls/hr IVPB Q24H [facility] Rx#:[id number] Oral 950 / 950 480 / 480 Output: Urine 800 / 800 Catheter 2220 / 2220 1600 / 1600 Other: Meal Breakfast Percent of Meal Consumed 100% Weight 96.8 kg Patient Weight 06/12/17 23:59 Weight 96.8 kg - Lab 06/14/17 07:16 06/14/17 07:16 Most recent lab results ABG pH 7.55 pH Units (7.32-7.45) H 06/07/17 16:50 ABG pCO2 25 mmHg (35-45) L 06/07/17 16:50 ABG pO2 89 mmHg (85-104) 06/07/17 16:50 ABG HCO3 22 mEq/L (21-27) 06/07/17 16:50 ABG O2 Saturation 98 % (95-98) 06/07/17 16:50 Calcium 7.1 mg/dL (8.6-10.3) L 06/12/17 03:37 Phosphorus 2.4 mg/dL (2.7-4.5) L 06/12/17 03:37 Magnesium 2.1 mg/dL (1.6-2.6) 06/12/17 03:37 Urine Creatinine 35 mg/dL 06/12/17 09:00 Urine Sodium 54.1 mEq/L 06/12/17 09:00 - VTE Documentation of Mechanical Device: Intermittent pneumatic compression device Consult Discharge Plan - Plan Instructions: Metoprolol (By mouth), Vancomycin (By mouth), Clostridium Difficile Infection (DC), Chronic Hypertension (DC) Additional Instructions: Please follow up with your PCP as scheduled for hospital follow up. Please follow up with cardiology and urology; urology recommends keeping reyes in for another week Referrals: [facility] [Provider Group] (Cardiology should contact you to schedule a follow up appointment.) [facility] [Provider Group] - 06/28/17 9:00 am Juan Quintana DO [Primary Care Provider] - 06/21/17 9:00 am () Prescriptions: Rivaroxaban [Xarelto] 20 mg PO DAILY #30 tablet
[2017-06-12] MEDS ORDERED: Potassium Chloride Elixir 20 MEQ/15 ML UDC PO SCH (21:00)
[2017-06-13] MEDS: MetroNIDAZOLE 500 MG/100 ML 500 MG/100 ML BAG IVPB SCH ×2 (00:05→09:07)
[2017-06-13] MEDS: methylPREDNISolone 125 MG/2 ML VIAL IVP SCH ×3 (00:05→16:53)
[2017-06-13] MEDS: *HR* Enoxaparin 100 MG/ML SYRINGE SQ SCH (05:16)
[2017-06-13 05:43] LABS: Basophils % 0.2 %; Hematocrit 28.7 % (37.5-50.1); Hemoglobin 10.1 g/dL (12.9-16.9); Immature Granulocytes % 1.8 % (0-4); Lymphocytes # 0.8 K/mcL (0.6-4.6); Lymphocytes % 6.6 %; Mean Corpuscular HGB Conc 35.2 g/dL (31.6-35.5); Mean Corpuscular Hemoglobin 31.7 pg (28.0-33.3); Mean Platelet Volume 10.6 fL (9.4-12.4); Monocytes # 0.3 K/mcL (0.0-1.3); Monocytes % 2.6 %; Neutrophils # 10.8 K/mcL (1.6-8.9); Platelet Count 204 K/mcL (140-400); Red Blood Count 3.19 M/mcL (4.19-5.50); Red Cell Distribution Width 13.9 % (11.5-14.5); Segmented Neutrophils % 88.8 %
[2017-06-13 05:45] LABS: BUN/Creatinine Ratio 23 (6-26); Blood Urea Nitrogen 32 mg/dL (6-20); Calcium 7.6 mg/dL (8.6-10.3); Carbon Dioxide 18 mEq/L (23-29); Chloride 115 mEq/L (98-107); Glucose 166 mg/dL (70-105); Magnesium 1.9 mg/dL (1.6-2.6); Osmolality,Calculated 299 (280-300); Phosphorous 3.1 mg/dL (2.7-4.5); Sodium 139 mEq/L (136-145); eGFR For African Americans > 60 (> 60); eGFR For Non-African Americans 54 (> 60)
[2017-06-13] MEDS: Vancomycin 1,250 MG in D5% in Water 250 ML IVPB SCH (06:21)
[2017-06-13 07:57] LABS: VBG Ionized Calcium 1.17 mmol/L (1.15-1.35)
[2017-06-13] MEDS: Vitamin B Complex/Vit C/Vit E 1 EACH TABLET PO SCH (09:10)
[2017-06-13] MEDS: Cefepime HCl 2,000 MG in Water for inj. (sterile) 20 ML 20 ML IVP SCH (09:10)
[2017-06-13] MEDS: Vancomycin Oral Soln 250 MG/5 ML UDC PO SCH ×4 (09:10→20:22)
[2017-06-13] MEDS: Folic Acid 1 MG TABLET PO SCH (09:10)
--- NOTE | 2017-06-13 09:24 | Internal Med Progress Note ---
<Khushboo Dc - Last Filed: 06/13/17 09:53> Date of Encounter: 06/13/17 Time of Encounter: 09:19 - Assessment and plan (1) Sepsis Current Visit: Yes Status: Acute Assessment and plan: due to C. diff 06/07 blood cultures: no growth 06/10 blood cultures: preliminary no growth Last fever 06/11 Chest x-ray 06/11 revealed possible left lower atelectasis versus pneumonia; improved on repeat x-ray 06/13 Current antibiotics: IV vancomycin, IV Flagyl, IV cefepime, and oral vancomycin White count continues to improve daily 31.4 > 23.1> 21.5 > 14.0 > 12.5 > 12.2 Qualifiers: Sepsis type: sepsis due to unspecified organism Qualified Code(s): A41.9 - Sepsis, unspecified organism (2) C. difficile diarrhea Current Visit: Yes Status: Acute Assessment and plan: Oral vancomycin 250 mg QID He continues to have loose bowel movements but states this is clinically improving with decreased frequency and amount of stool White count continues to decrease (3) Hyponatremia Current Visit: Yes Status: Resolved Assessment and plan: Sodium is 139 today; hyponatremia resolved Continue on maintenance fluids, recheck BMP, adjust fluids as necessary Nephrology consulted; appreciate recommendations (4) FRANCISCA (acute kidney injury) Current Visit: Yes Status: Acute Assessment and plan: Possibly multifactorial in setting of sepsis causing prerenal and also post renal as demonstrated by hydronephrosis bilaterally Creatinine improved today He had adequate urine output yesterday of over 4 L Continue with maintenance IV fluids in setting of sepsis Urology and nephrology consulted; appreciate recommendations (5) Hydronephrosis Current Visit: Yes Status: Acute Assessment and plan: Urology consultation, recommended on continuing his Leroy He did have retention upon arrival and had 2.5 L when Leroy was inserted No signs of cauda equina but we may obtain head imaging for further investigation as he did not have sensation of urinary retention Qualifiers: Hydronephrosis type: unspecified Qualified Code(s): N13.30 - Unspecified hydronephrosis (6) Hydroureter Current Visit: Yes Status: Acute (7) UTI (urinary tract infection) Current Visit: Yes Status: Acute Assessment and plan: Urine culture did grow enterococcus that was resistant to doxycycline Current antibiotics: IV vancomycin, IV Flagyl, IV cefepime, and oral vancomycin Qualifiers: Urinary tract infection type: acute cystitis Hematuria presence: without hematuria Qualified Code(s): N30.00 - Acute cystitis without hematuria (8) Atrial fibrillation with RVR Current Visit: Yes Status: Acute Assessment and plan: Patient did present with new onset A. fib; originally needed Cardizem drip, transitioned to oral Cardizem and metoprolol Chadvasc score currently is 1 (HTN); echocardiogram was within normal limits Cardiology consult, appreciate recommendations Plan: start Xarelto in preparation for discharge convert to Cardizem LA tomorrow morning (9) Alcoholism Current Visit: Yes Status: Acute Assessment and plan: CIWA protocol Patient claims that he will stop drinking once he goes home (10) Hypokalemia Current Visit: Yes Status: Acute Assessment and plan: Potassium stable at 3.0 We will continue to replete and monitor electrolytes (11) Hypertension Current Visit: Yes Status: Chronic Assessment and plan: resume home Diovan-HCT Qualifiers: Hypertension type: essential hypertension Qualified Code(s): I10 - Essential (primary) hypertension (12) Hypomagnesemia Current Visit: Yes Status: Resolved Assessment and plan: resolved continue to monitor and replete as needed (13) Hypocalcemia Current Visit: Yes Status: Resolved Assessment and plan: resolved continue to monitor and replete as needed (14) Hypophosphatemia Current Visit: Yes Status: Resolved Assessment and plan: resolved continue to monitor and replete as needed (15) Elevated troponin Current Visit: Yes Status: Acute Assessment and plan: 1/4 Most likely due to infection Patient denies chest pain Troponin has been trended out 3; last troponin decreased from prior - Subjective Interval history: Patient states that his diarrhea is decreasing both in frequency and amount. He denies abdominal pain, chest pain, shortness of breath. - Constitutional Vitals: Temp Pulse Resp BP Pulse Ox 98.3 F 101 17 140/97 99 06/13/17 06:48 06/13/17 06:48 06/13/17 06:48 06/13/17 06:48 06/13/17 06:48 General appearance: Present: cooperative, A&O X 3, pleasant, no acute distress, answers questions appropriately - Head Head exam: Present: atraumatic, normocephalic - Eye Eye exam: Present: PERRL, conjuntiva pink, sclera anicteric Pupils: Present: PERRL - Neck Neck exam general surgery: Present: supple, trachea midline - Respiratory Respiratory exam: Present: CTAB. Absent: accessory muscle use, rales, rhonchi, wheezes - Cardiovascular Cardiovascular exam: Present: irregular rhythm, +S1, +S2. Absent: systolic murmur - GI/Abdominal GI/Abdominal exam: Present: normal bowel sounds, soft, no peritoneal signs. Absent: distended, tenderness - Extremities Exam Extremities exam: Present: warm. Absent: pedal edema, tenderness - Neurological Exam Neurological exam: Present: CN II-XII intact, oriented X3, no focal deficits. Absent: pronater drift, facial droop, speech deficit - Skin Skin exam: Present: dry, intact Internal Medicine: Result - Labs CBC & Chem 7: 06/13/17 05:21 06/13/17 05:21 Labs: Short CBC 06/13/17 Range/Units 05:21 WBC 12.2 H (4.3-11.1) K/mcL Hgb 10.1 L (12.9-16.9) g/dL Hct 28.7 L (37.5-50.1) % Plt Count 204 (140-400) K/mcL Neutrophils # 10.8 H (1.6-8.9) K/mcL BMP 06/13/17 05:21 Sodium 139 Potassium 3.0 L Chloride 115 H Carbon Dioxide 18 L BUN 32 H Creatinine 1.37 H Glucose 166 H Calcium 7.6 L Urine 06/12/17 Range/Units 09:00 Urine Color Yellow (Yellow) Urine Clarity Cloudy A (Clear) Urine pH 6.0 (5.0-8.0) pH Units Ur Specific [place] 1.013 (1.010-1.025) Urine Protein 30 H (Neg-Trace) mg/dL Urine Glucose (UA) 100 H (Normal) mg/dL - ABG Interpretation ABG results: ABG ABG pH 7.55 pH Units (7.32-7.45) H 06/07/17 16:50 ABG pCO2 25 mmHg (35-45) L 06/07/17 16:50 ABG pO2 89 mmHg (85-104) 06/07/17 16:50 ABG O2 Saturation 98 % (95-98) 06/07/17 16:50 PT/INR, D-dimer PT 13.4 Seconds (9.4-12.1) H 06/07/17 16:13 - Impressions Impressions Chest X-Ray 06/13/17 08:00 IMPRESSION: Mild streaky airspace opacities to the left lower lobe appear improved from prior exam 06/11/2017 and may reflect resolving atelectasis or infiltrate. Stable blunting of left costophrenic angle may reflect small left pleural effusion or chronic pleural thickening. No new acute cardiopulmonary process noted. D/ / 06/13/2017 09:01:50 Tahir Hoffman MD / emily Interpreting Provider: Tahir Hoffman MD - VTE Documentation of Mechanical Device: Intermittent pneumatic compression device Consult Discharge Plan - Plan Referrals: Juan Quintana DO [Primary Care Provider] - 06/15/17 1:30 pm () Prescriptions: Diltiazem CD (24hr) [Cardizem CD] 180 mg PO DAILY #30 cap.er.24h Rivaroxaban [Xarelto] 20 mg PO DAILY #30 tablet Vancomycin HCl 125 mg PO QID 7 Days syringe <[email or web address] - Last Filed: 06/13/17 17:42> Date of Encounter: 06/13/17 - Constitutional Vitals: Temp Pulse Resp BP Pulse Ox 98.2 F 81 16 127/93 98 06/13/17 16:04 06/13/17 16:04 06/13/17 16:04 06/13/17 16:04 06/13/17 16:04 Internal Medicine: Result - Labs CBC & Chem 7: 06/13/17 05:21 06/13/17 05:21 Labs: Short CBC 06/13/17 Range/Units 05:21 WBC 12.2 H (4.3-11.1) K/mcL Hgb 10.1 L (12.9-16.9) g/dL Hct 28.7 L (37.5-50.1) % Plt Count 204 (140-400) K/mcL Neutrophils # 10.8 H (1.6-8.9) K/mcL BMP 06/13/17 05:21 Sodium 139 Potassium 3.0 L Chloride 115 H Carbon Dioxide 18 L BUN 32 H Creatinine 1.37 H Glucose 166 H Calcium 7.6 L - ABG Interpretation ABG results: ABG ABG pH 7.55 pH Units (7.32-7.45) H 06/07/17 16:50 ABG pCO2 25 mmHg (35-45) L 06/07/17 16:50 ABG pO2 89 mmHg (85-104) 06/07/17 16:50 ABG O2 Saturation 98 % (95-98) 06/07/17 16:50 PT/INR, D-dimer PT 13.4 Seconds (9.4-12.1) H 06/07/17 16:13 - Impressions Impressions Chest X-Ray 06/13/17 08:00 IMPRESSION: Mild streaky airspace opacities to the left lower lobe appear improved from prior exam 06/11/2017 and may reflect resolving atelectasis or infiltrate. Stable blunting of left costophrenic angle may reflect small left pleural effusion or chronic pleural thickening. No new acute cardiopulmonary process noted. D/ / 06/13/2017 09:01:50 Tahir Hoffman MD / emily Interpreting Provider: Tahir Hoffman MD - Attending Attestation I examined this patient and my medical decision-making was reviewed with the Resident Physician Dr. Dc. I agree with the documented findings, disposition and treatment plan as described except to the extent set forth below. This is a 56 y/o M admitted with pneumonia, urinary retention and C. Diff diarrhea. No BM today so far Gen: A, A, O x 3 Chest: CTA Abd: Soft, NT, BS+ a/p 1. C. Diff diarrhea cont PO Vanco total 14 days course 2. Urinary retention on Leroy 3. UTI with enterococci finished 7 days of Abx here 4. Pneumonia finished abx 5. Afib - paroxysmal rate controlled Cardizem + Metoprolol on Xarelto for anti coag
[2017-06-13] MEDS ORDERED: Valsartan 160 MG, hydroCHLOROthiazide 12.5 MG PO SCH (09:45)
[2017-06-13] MEDS: hydroCHLOROthiazide 25 MG TABLET PO SCH (12:08)
[2017-06-13] MEDS: Valsartan 160 MG TABLET PO SCH (12:08)
[2017-06-13] MEDS ORDERED: *HR* Rivaroxaban 10 MG TABLET PO SCH (17:00)
--- NOTE | 2017-06-13 21:18 | Nephrology Progress Note ---
Date of Encounter: 06/13/17 Time of Encounter: 12:00 - Assessment and Plan (1) FRANCISCA (acute kidney injury) Status: Resolved SCr improving at 1.37, GFR 54 UOP remains very good at 4620cc in the past 24hrs after aggressive volume repletion Continue to avoid nephrotoxins if possible Will sign out, please reconsult prn Subjective Principal diagnosis: atrial fibrillation with RVR Interval history: Pt seen and examined with no new complaints. Wants to go home tomorrow to handle some personal issues but plans to "come back" Objective - Vital Signs Vital signs: Vital Signs Temp Pulse Resp BP Pulse Ox 06/13/17 20:06 98.8 F 94 18 135/87 97 06/13/17 16:04 98.2 F 81 16 127/93 98 06/13/17 12:15 98.2 F 91 18 137/100 97 06/13/17 11:49 98.1 F 59 17 137/72 96 06/13/17 08:10 98.3 F 101 17 140/97 99 06/13/17 06:48 98.3 F 101 17 140/97 99 06/13/17 06:07 98.6 F 83 18 125/78 98 06/13/17 05:37 89 17 100 06/13/17 00:48 98.4 F 87 17 107/70 100 06/13/17 00:35 91 Intake and Output 06/13/17 06/13/17 06/13/17 07:59 15:59 23:59 Intake Total 1150 / 1150 1480 / 1480 120 / 120 Output Total 3050 / 3050 1950 / 1950 1800 / 1800 Balance -1900 / -1900 -470 / -470 -1680 / -1680 Intake: IV Fluids 100 / 100 1000 / 1000 0.9 % Sodium Chloride 1,000 ML 900 / 900 @ 50 mls/hr IVC .Q20H NGOZI Rx#: [id number] Flagyl Premix 500 MG/100 ML 500 100 / 100 100 / 100 mg In 100 ml @ 100 mls/hr IVPB Q8HR NGOZI Rx#:[id number] Oral 1050 / 1050 480 / 480 120 / 120 Output: Catheter 3050 / 3050 1950 / 1950 1800 / 1800 Urethral (Reyes) 800 / 800 350 / 350 Other: Meal Breakfast Percent of Meal Consumed 100% Stool Size Moderate Small Stool Consistency loose soft soft Stool Characteristics Normal for Patient Stool Color Brown # Bowel Movements 1 Weight 95.7 kg Blood Glucose* 251 Patient Weight 06/13/17 23:59 Weight 95.7 kg - General Appearance General appearance: Present: well-developed, well-nourished EENT: Present: ATNC, mucous membranes moist Neck: Present: no JVD, supple Respiratory: Present: clear Cardiology: Present: no edema, normal S1, normal S2 Gastrointestinal: Present: no tenderness, no guarding Integumentary: Present: warm and dry Neurologic: Present: no focal deficit Musculoskeletal: Present: no deformities Psychiatric: Present: mood/affect appropriate, cooperative - Lab 06/14/17 07:16 06/14/17 07:16 Most recent lab results ABG pH 7.55 pH Units (7.32-7.45) H 06/07/17 16:50 ABG pCO2 25 mmHg (35-45) L 06/07/17 16:50 ABG pO2 89 mmHg (85-104) 06/07/17 16:50 ABG HCO3 22 mEq/L (21-27) 06/07/17 16:50 ABG O2 Saturation 98 % (95-98) 06/07/17 16:50 Calcium 7.6 mg/dL (8.6-10.3) L 06/13/17 05:21 Phosphorus 3.1 mg/dL (2.7-4.5) 06/13/17 05:21 Magnesium 1.9 mg/dL (1.6-2.6) 06/13/17 05:21 Urine Creatinine 35 mg/dL 06/12/17 09:00 Urine Sodium 54.1 mEq/L 06/12/17 09:00 - VTE Documentation of Mechanical Device: Intermittent pneumatic compression device Consult Discharge Plan - Plan Instructions: Metoprolol (By mouth), Vancomycin (By mouth), Clostridium Difficile Infection (DC), Chronic Hypertension (DC) Additional Instructions: Please follow up with your PCP as scheduled for hospital follow up. Please follow up with cardiology and urology; urology recommends keeping reyes in for another week Referrals: [facility] [Provider Group] (Cardiology should contact you to schedule a follow up appointment.) [facility] [Provider Group] - 06/28/17 9:00 am Juan Quintana DO [Primary Care Provider] - 06/21/17 9:00 am () Prescriptions: Rivaroxaban [Xarelto] 20 mg PO DAILY #30 tablet
[2017-06-14] MEDS: methylPREDNISolone 125 MG/2 ML VIAL IVP SCH (05:06)
[2017-06-14 07:38] VITALS: BP 137/101
[2017-06-14 07:46] LABS: BUN/Creatinine Ratio 27 (6-26); Blood Urea Nitrogen 35 mg/dL (6-20); Carbon Dioxide 24 mEq/L (23-29); Chloride 110 mEq/L (98-107); Magnesium 2.1 mg/dL (1.6-2.6); Phosphorous 2.4 mg/dL (2.7-4.5); Potassium 2.9 mEq/L (3.5-5.1); Sodium 141 mEq/L (136-145); eGFR For African Americans > 60 (> 60); eGFR For Non-African Americans 56 (> 60)
[2017-06-14] MEDS: Folic Acid 1 MG TABLET PO SCH (07:55)
[2017-06-14] MEDS: Valsartan 160 MG TABLET PO SCH (07:55)
[2017-06-14] MEDS: Vitamin B Complex/Vit C/Vit E 1 EACH TABLET PO SCH (07:55)
[2017-06-14] MEDS: Vancomycin Oral Soln 250 MG/5 ML UDC PO SCH (07:56)
[2017-06-14] MEDS: hydroCHLOROthiazide 25 MG TABLET PO SCH (07:56)
[2017-06-14 08:27] LABS: Basophils % 0.2 %; Hematocrit 31.6 % (37.5-50.1); Immature Granulocytes % 1.2 % (0-4); Lymphocytes # 0.8 K/mcL (0.6-4.6); Lymphocytes % 6.9 %; Mean Corpuscular HGB Conc 34.8 g/dL (31.6-35.5); Mean Corpuscular Hemoglobin 31.7 pg (28.0-33.3); Mean Corpuscular Volume 91.1 fL (83.0-100.0); Mean Platelet Volume 10.5 fL (9.4-12.4); Monocytes # 0.5 K/mcL (0.0-1.3); Monocytes % 4.2 %; Neutrophils # 10.2 K/mcL (1.6-8.9); Platelet Count 263 K/mcL (140-400); Red Blood Count 3.47 M/mcL (4.19-5.50); Segmented Neutrophils % 87.5 %
[2017-06-14 08:34] LABS: Glucose 171 mg/dL (70-105); Osmolality,Calculated 304 (280-300)
[2017-06-14] MEDS ORDERED: Diltiazem CD (24hr) 180 MG CAPSULE PO SCH (09:00)
--- NOTE | 2017-06-14 09:07 | Discharge Summary ---
<Mehrdad Arzate - Last Filed: 06/14/17 13:59> Date of Encounter: 06/14/17 Time of Encounter: 09:05 - Discharge Diagnosis (1) Sepsis Priority: Primary Status: Acute Qualifiers: Sepsis type: sepsis due to unspecified organism Qualified Code(s): A41.9 - Sepsis, unspecified organism (2) FRANCISCA (acute kidney injury) Priority: Secondary Status: Acute (3) C. difficile diarrhea Priority: Secondary Status: Acute (4) Atrial fibrillation with RVR Priority: Secondary Status: Acute (5) UTI (urinary tract infection) Priority: Secondary Status: Acute Qualifiers: Urinary tract infection type: acute cystitis Hematuria presence: without hematuria Qualified Code(s): N30.00 - Acute cystitis without hematuria (6) Hydronephrosis Priority: Secondary Status: Acute Qualifiers: Hydronephrosis type: unspecified Qualified Code(s): N13.30 - Unspecified hydronephrosis (7) Hypokalemia Priority: Secondary Status: Acute (8) Hyponatremia Priority: Secondary Status: Resolved (9) Alcoholism Priority: Secondary Status: Acute (10) Hypertension Priority: Secondary Status: Chronic Qualifiers: Hypertension type: essential hypertension Qualified Code(s): I10 - Essential (primary) hypertension (11) DVT prophylaxis Priority: Secondary Status: Acute - Discharge Medications Prescriptions: Diltiazem CD (24hr) [Cardizem CD] 180 mg PO DAILY #30 cap.er.24h Metoprolol [Lopressor] 50 mg PO BID #60 tablet Rivaroxaban [Xarelto] 20 mg PO DAILY #30 tablet Vancomycin HCl 125 mg PO QID 7 Days syringe Home Medications: ALPRAZolam [Xanax 0.5 MG Tablet] 0.5 mg PO TID 08/29/16 [History] Valsartan/Hydrochlorothiazide [Diovan Hct 160-12.5 mg Tab] 1 each PO DAILY 06/07 [History] Diltiazem CD (24hr) [Cardizem CD] 180 mg PO DAILY #30 cap.er.24h 06/13/17 [Rx] Rivaroxaban [Xarelto] 20 mg PO DAILY #30 tablet 06/13/17 [Rx] Vancomycin HCl 125 mg PO QID 7 Days syringe 06/13/17 [Rx] Metoprolol [Lopressor] 50 mg PO BID #60 tablet 06/14/17 [Rx] Allergies/Adverse Reactions: 3 Allergy/AdvReac Type Severity Reaction Status Date / Time No Known Allergies Allergy Verified 08/29/16 06:48 Date of admission: 06/08/17 03:03 Primary care physician: Radha Wise Consults: 06/09/17 14:59 Consult to Cardiology [CONS] Routine Comment: Consulting Provider: [facility] Reason for Consult: new onset a fib RVR Time Notified: 14:30 Call Completed: Yes 06/11/17 12:31 Consult to Nephrology [CONS] Routine Consulting Provider: [facility]/ASTRID/GREG/MARK Reason for Consult: worsening FRANCISCA despite fluids Time Notified: 10:00 Call Completed: Yes 06/12/17 10:56 Consult to Occupational Therapy [CONS] Routine Comment: Evaluate, develop and implement POC Reason for Consult: unsteadiness Consult to Physical Therapy [CONS] Routine Comment: Evaluate, develop and implement POC Reason for Consult: unsteadiness 06/13/17 09:18 Consult to Auto Heater Mechanic [CONS] Routine Reason for SW Consult: discharge planning; will need home health PT and oral vancomycin Discharging clinician: Mehrdad Arzate Anticipated date of discharge: 06/14/17 - Patient Status Disposition: Home, Self-Care Condition: Fair Functional capacity at discharge: independent ambulation Overall status at discharge: patient is progressing back to baseline - Discharge Instructions Instructions: Metoprolol (By mouth), Vancomycin (By mouth), Clostridium Difficile Infection (DC), Chronic Hypertension (DC) Follow Up With: [facility] [Provider Group] (Cardiology should contact you to schedule a follow up appointment.) [facility] [Provider Group] - 06/28/17 9:00 am Juan Quintana DO [Primary Care Provider] - 06/21/17 9:00 am () Additional Instructions: Please follow up with your PCP as scheduled for hospital follow up. Please follow up with cardiology and urology; urology recommends keeping reyes in for another week - Diet and Activity Activity: increase activity as tolerated Diet: advance to your usual diet Hospital course: Mr. Chen is a 56 year old male who presented with fever of 103 also had area with 4-5 watery bowel movements per day. He did have surgical criteria given his fever, white count of 28 and was tachycardic. His stool was sent for C. difficile which eventually became positive and he was started on oral vancomycin. He was hyponatremic and also hypokalemic and was started on electrolyte replacement protocol. He is also an alcoholic and was started on CIWA protocol. Initial abdominal CAT scan showed thickened bladder wall with severe bilateral hydronephrosis without evidence of stone. Urology was consulted and recommended Reyes placement for 1-2 weeks and started him on Flomax. He did go into A. fib RVR, which is new onset on 06/09/17 and was started on Cardizem drip and Lopressor for anti-coagulation. They did recommend xarelto for long-term. Although initial blood cultures were negative, his urine culture did eventually grow enterococcus resistant to Doxy. Patient did remain febrile the first 4 days of his admission and his antibiotics were broadened by adding IV Flagyl, cefepime, Vancomycin on top of his oral vancomycin for C. difficile. He also had an episode of hypotension while on Precedex drip for alcohol withdrawal. He was started on a dopamine drip and was given aggressive fluid hydration and his blood pressure did improve. He was eventually weaned off both dopamine and Precedex drip and blood pressure remained stable. His white count did improve and his repeat blood cultures were also negative. Patient's diarrhea improved drastically the past few days and he only had one episode of formed stool. His heart rate was also controlled while off Cardizem drip and he was started on both by mouth Cardizem and metoprolol which she will continue at home. He did not require any more Ativan per CIWA protocol and has no complaints this morning. Patient will be going home on 7 additional days of oral vancomycin to complete a 14 day course. He was also given a prescription for Xarelto and will have close follow-up with cardiology. Per urology recommendations, he will be leaving with a Reyes catheter and have follow-up with them. - Time Spent with Patient Total time spent providing and/or coordinating discharge services: - Constitutional Vitals: Temp Pulse Resp BP Pulse Ox 98.3 F 96 18 137/101 99 06/14/17 07:36 06/14/17 07:36 06/14/17 07:36 06/14/17 07:36 06/14/17 07:36 General appearance: Present: cooperative, pleasant, no acute distress, answers questions appropriately - Head Head exam: Present: atraumatic, normocephalic - Eye Eye exam: Present: PERRL, conjuntiva pink, sclera anicteric - Neck Neck exam general surgery: Present: supple, trachea midline. Absent: lymphadenopathy - Respiratory Respiratory exam: Present: CTAB. Absent: accessory muscle use, rales, rhonchi, wheezes - Cardiovascular Cardiovascular exam: Present: irregular rhythm, +S1, +S2. Absent: diastolic murmur, gallop, rubs, systolic murmur - GI/Abdominal GI/Abdominal exam: Present: normal bowel sounds, soft, no peritoneal signs. Absent: distended, tenderness - Extremities Exam Extremities exam: Present: pedal edema (trace), warm, radial pulses palpable and symmetrical. Absent: calf tenderness, cyanotic - Neurological Exam Neurological exam: Present: alert, no focal deficits. Absent: facial droop, speech deficit - Skin Skin exam: Present: dry, intact - VTE Documentation of Mechanical Device: Intermittent pneumatic compression device <Weston England - Last Filed: 06/14/17 15:59> Date of Encounter: 06/14/17 Date of admission: 06/08/17 03:03 Primary care physician: Radha Wise Consults: 06/09/17 14:59 Consult to Cardiology [CONS] Routine Comment: Consulting Provider: [facility] Reason for Consult: new onset a fib RVR Time Notified: 14:30 Call Completed: Yes 06/11/17 12:31 Consult to Nephrology [CONS] Routine Consulting Provider: [facility]/ASTRID/GREG/MARK Reason for Consult: worsening FRANCISCA despite fluids Time Notified: 10:00 Call Completed: Yes 06/12/17 10:56 Consult to Occupational Therapy [CONS] Routine Comment: Evaluate, develop and implement POC Reason for Consult: unsteadiness Consult to Physical Therapy [CONS] Routine Comment: Evaluate, develop and implement POC Reason for Consult: unsteadiness 06/13/17 09:18 Consult to Auto Heater Mechanic [CONS] Routine Reason for SW Consult: discharge planning; will need home health PT and oral vancomycin Hospital course: Mr. Chen is a 56 year old male - Time Spent with Patient Total time spent providing and/or coordinating discharge services: - Constitutional Vitals: Temp Pulse Resp BP Pulse Ox 98.3 F 96 18 137/101 99 06/14/17 07:36 06/14/17 07:36 06/14/17 07:36 06/14/17 07:36 06/14/17 07:36 - Attending Attestation I examined this patient and my medical decision-making was reviewed with the Resident Physician Dr. Arzate. I agree with the documented findings, disposition and treatment plan as described except to the extent set forth below. This is a 56 y/o M admitted with pneumonia, urinary retention and C. Diff diarrhea. No BM today so far Gen: A, A, O x 3 a/p 1. C. Diff diarrhea cont PO Vanco total 14 days course 2. Urinary retention on Reyes f/u with Urology as an out pt 3. UTI with enterococci finished 7 days of Abx here 4. Pneumonia finished abx 5. Afib - paroxysmal rate controlled Cardizem + Metoprolol on Xarelto for anti coag
== END 2017-06-14 12:45 | disposition home or self-care (01) | DRG 871 ==
LOC: EMEROO 15:09 → 2NNU 15:09
PROVIDERS: ADMIT Internal Medicine; ATTEND Internal Medicine

== ENCOUNTER 2017-07-04 09:35 | Inpatient (IN) ==
[2017-07-04] MEDS: 0.9 % Sodium Chloride 1,000 ML IVC SCH ×7 (09:45→23:10)
[2017-07-04] MEDS ORDERED: 0.9 % Sodium Chloride 1,000 ML ONE (09:45)
[2017-07-04] MEDS ORDERED: 0.9 % Sodium Chloride 500 ML IVC ONE (09:48)
--- NOTE | 2017-07-04 09:54 | Emergency Department Note ---
Disposition Clinical Impression: FRANCISCA (acute kidney injury), Weakness generalized Sepsis Qualifiers: Sepsis type: sepsis due to unspecified organism Qualified Code(s): A41.9 - Sepsis, unspecified organism Diarrhea Qualifiers: Diarrhea type: presumed infectious Qualified Code(s): R19.7 - Diarrhea, unspecified Disposition: Admitted As Inpatient Condition: Critical Referrals: Juan Quintana DO [Primary Care Provider] - Forms: ED Satisfaction Letter Time of Disposition: 13:30 Fever HPI - General Chief Complaint: ED Fever Stated Complaint: Weakness, fever Time Seen by Provider: 07/04/17 09:37 Source: patient, EMS Mode of arrival: EMS Limitations: no limitations Nursing Notes Reviewed: Yes Vital Signs Reviewed: Yes - History of Present Illness HPI Narrative: 56-year-old male is brought by EMS for evaluation of fever, weakness, and diarrhea. Symptoms returned 2 days ago and progressively worsened. He states a MAXIMUM TEMPERATURE at home of 104 degrees Fahrenheit. The patient was recently discharged from this facility on June 14 after a 6 day stay for treatment of sepsis, Clostridium difficile colitis, acute kidney injury, and new onset atrial fibrillation. He was discharged home on Cardizem, Lopressor, Xarelto, and vancomycin, 125 mg 4 times a day 7 days. He states that he had noticed him dramatic improvement of until 2 days ago. At that time, the diarrhea returned and fevers have progressively worsened. He denies any cough or shortness of breath. He denies any chest pain, abdominal pain, nausea, or vomiting. He states that there is some blood and mucus in his stools. Pt Subjective Complaint: fever, weakness, other (diarrhea) Onset (ago): day(s) (2) Associated symptoms: Denies: cough, chest pain, abdominal pain, nausea, vomiting Treatments prior to arrival fever: other - Related Data Home Medications Medication Instructions Recorded Confirmed ALPRAZolam [Xanax 0.5 MG Tablet] 0.5 mg PO TID 08/29/16 07/04/17 Valsartan/Hydrochlorothiazide 1 each PO DAILY 06/07/17 07/04/17 [Diovan Hct 160-12.5 mg Tab] Tamsulosin [Flomax] 0.4 mg PO DAILY 07/04/17 07/04/17 Previous Rx's Medication Instructions Recorded Diltiazem CD (24hr) [Cardizem CD] 180 mg PO DAILY #30 cap.er.24h 06/13/17 Rivaroxaban [Xarelto] 20 mg PO DAILY #30 tablet 06/13/17 Metoprolol [Lopressor] 50 mg PO BID #60 tablet 06/14/17 Allergies Allergy/AdvReac Type Severity Reaction Status Date / Time No Known Allergies Allergy Verified 08/29/16 06:48 All systems ED: reviewed and negative except as stated. Constitutional: Reports: as per HPI, fever, weakness. Denies: chills, weight change Eyes: Denies: eye pain, eye discharge, vision change ENT ED: Denies: ear pain, throat pain, dental pain, hearing loss, epistaxis, congestion, dysphagia Cardiovascular: Denies: chest pain, palpitations, dyspnea on exertion, edema, syncope Respiratory: Denies: cough, dyspnea, wheezes, hemoptysis, stridor Gastrointestinal: Reports: as per HPI, diarrhea. Denies: abdominal pain, nausea , vomiting, constipation, hematemesis, melena, hematochezia Genitourinary: Denies: urgency, dysuria, frequency, hematuria Musculoskeletal: Denies: back pain, neck pain, arthralgia, myalgia Integumentary: Denies: rash, abrasion, lesions Neurological: Denies: headache, weakness, numbness, paresthesias, confusion, abnormal gait, vertigo Psychiatric: Denies: anxiety, depression, suicidal thoughts, homicidal thoughts , auditory hallucinations, visual hallucinations Endocrine: Denies: fatigue Hematological/Lymphatic: Denies: easy bleeding, easy bruising Allergic/Immunologic: Denies: facial swelling, urticaria Fever PMH - Past Medical History Medical history: Reports: atrial fibrillation, hypertension Surgical history: Reports: no surgical history Psychiatric history: Reports: anxiety - Social History Smoking Status: Current every day smoker Alcohol use: Reports: none Drug use: Reports: none Physical Exam - General Limitations: no limitations General appearance: alert, in no apparent distress - Head Head exam: atraumatic, normocephalic, normal inspection - Eye Eye exam: Present: normal appearance, PERRL, EOMI. Absent: nystagmus - ENT ENT exam: mucous membranes moist - Neck Neck exam: Present: normal inspection, full ROM, trachea midline - Chest Chest inspection: Present: normal inspection, symmetric chest wall rise - Respiratory Respiratory exam: Present: normal lung sounds bilaterally. Absent: respiratory distress, wheezes, stridor, accessory muscle use, prolonged expiratory phase - Cardiovascular Cardiovascular exam: Present: normal rhythm, tachycardia, normal heart sounds - Abdominal Exam Abdominal exam: Present: soft, Non-Tender, normal bowel sounds - Extremities Exam Extremities exam: Present: normal inspection, full ROM - Neurological Exam Neurological exam: Present: alert, oriented X3 - Psychiatric Psychiatric exam: Present: normal affect, normal mood - Skin Skin exam: Present: warm, dry, intact, normal color. Absent: rash Course Course Narrative: 1330: The patient remains hypotensive after 4.5 L of IV fluids bolusing. He began to become slightly sluggish in his response. For this reason, a central line will be inserted by Dr. Barrios. We will start a Levophed drip and admitted to the netezza developer. Please see Dr. Barrios's procedural note for central line placement. 1410: Spoke with Dr. Lyon, netezza developer iron assorter. Dr. Lyon as excepted the patient formation into the intensive care unit. Vital Signs Temperature 101.1 F H 07/04/17 09:37 Pulse Rate 111 07/04/17 09:37 Respiratory Rate 18 07/04/17 09:37 Blood Pressure 76/55 07/04/17 09:37 O2 Sat by Pulse Oximetry 98 07/04/17 09:37 Temperature 99.4 F 07/04/17 10:50 Pulse Rate 68 07/04/17 15:00 Respiratory Rate 16 07/04/17 15:00 Blood Pressure 79/51 07/04/17 15:00 O2 Sat by Pulse Oximetry 96 07/04/17 15:00 Oxygen Delivery Oxygen Delivery Room Air Procedures - Central Line Placement Right IJ Central Line Inserted*: Yes Central Line Catheter Replacement*: Yes Central Line Insertion: emergent Consent Obtained: written consent Procedural Pause: verify patient name and date of , timeout performed per policy, dewey and assess the site, assemble equipment and verify supplies, perform hand hygiene Patient Placed on Monitor/Pulse Ox: Yes During the Procedure: clinician is wearing sterile gloves, cap, mask,& gown during insertion, sterile field and sterile technique are maintained, patient's face is covered with drape or mask and wearing a cap, everyone in room is wearing a mask Central Line Prep: Chlorhexidine scrub, sterile drapes applied Prep the Procedure Site: apply chloraprep to the skin using a back and forth scrubbing motion, apply chloraprep for 30 seconds (upper body), 1-2 min ( femoral sites), allow prep to dry, drape the patient with a full body drape Local Anesthetic: lidocaine 1% Amount of anesthesia used (mL): 5 Ultrasound Used for Placement: Yes Central Line Lumen Inserted: triple Post Procedure: sutured in place, good blood return, all ports aspirated, flushed, capped, sterile dressing applied, guide wire removed and visualized Post Procedure X-Ray: tip of catheter in good position, no pneumothorax seen Patient Tolerated Procedure: well, no complications Complications: none Name of Clinician Inserting Central Line: Kilo Moreira D.O. Under supervision of Ethan Barrios D.O. Clinician Assisting/Completing Checklist: Denis Date: 07/04/17 Time: 14:35 Fever - Medical Records Medical records reviewed: Yes I reviewed the patient's medical records. - Lab Data Lab results reviewed: Yes I reviewed the patient's lab results. Lab results narrative: Laboratory Last Values WBC 27.1 K/mcL (4.3-11.1) H 07/04/17 09:55 RBC 2.98 M/mcL (4.19-5.50) L 07/04/17 09:55 Hgb 9.3 g/dL (12.9-16.9) L 07/04/17 09:55 Hct 26.4 % (37.5-50.1) L 07/04/17 09:55 MCV 88.6 fL (83.0-100.0) D 07/04/17 09:55 MCH 31.2 pg (28.0-33.3) 07/04/17 09:55 MCHC 35.2 g/dL (31.6-35.5) 07/04/17 09:55 RDW 12.7 % (11.5-14.5) 07/04/17 09:55 Plt Count 345 K/mcL (140-400) 07/04/17 09:55 MPV 8.9 fL (9.4-12.4) L 07/04/17 09:55 Immature Gran % 5.7 % (0-4) H 07/04/17 09:55 Seg Neutrophils % 81.5 % 07/04/17 09:55 Lymphocytes % 3.1 % 07/04/17 09:55 Monocytes % 9.4 % 07/04/17 09:55 Eosinophils % 0.0 % 07/04/17 09:55 Basophils % 0.3 % 07/04/17 09:55 Neutrophils # 22.1 K/mcL (1.6-8.9) H 07/04/17 09:55 Lymphocytes # 0.8 K/mcL (0.6-4.6) 07/04/17 09:55 Monocytes # 2.6 K/mcL (0.0-1.3) H 07/04/17 09:55 Eosinophils # 0.0 K/mcL (0.0-0.6) 07/04/17 09:55 Basophils # 0.1 K/mcL (0.0-0.2) 07/04/17 09:55 Platelet Estimate Normal (Normal) 07/04/17 09:55 PT 14.5 Seconds (9.4-12.1) H 07/04/17 09:55 INR 1.3 07/04/17 09:55 APTT 32.7 Seconds (26.0-36.0) 07/04/17 09:55 ABG pH 7.45 pH Units (7.32-7.45) 07/04/17 11:29 ABG pCO2 29 mmHg (35-45) L 07/04/17 11:29 ABG pO2 84 mmHg (85-104) L 07/04/17 11:29 ABG HCO3 20 mEq/L (21-27) L 07/04/17 11:29 ABG Total CO2 21 mEq/L (20-26) 07/04/17 11:29 ABG O2 Saturation 97 % (95-98) 07/04/17 11:29 ABG Base Excess -4 mEq/L (-2 to 3) L 07/04/17 11:29 Inspired O2 21.0 (1-15=lpm if54-243=%) 07/04/17 11:29 Sodium 120 mEq/L (136-145) L* 07/04/17 09:55 Potassium 4.1 mEq/L (3.5-5.1) 07/04/17 09:55 Chloride 89 mEq/L (98-107) L 07/04/17 09:55 Carbon Dioxide 21 mEq/L (23-29) L 07/04/17 09:55 BUN 35 mg/dL (6-20) H 07/04/17 09:55 Creatinine 3.17 mg/dL (0.70-1.30) H 07/04/17 09:55 Est GFR ( Amer) 25 (> 60) L 07/04/17 09:55 Est GFR (Non-Af Amer) 20 (> 60) L 07/04/17 09:55 BUN/Creatinine Ratio 11 (6-26) 07/04/17 09:55 Glucose 172 mg/dL (70-105) H 07/04/17 09:55 Calculated Osmolality 262 (280-300) L 07/04/17 09:55 Lactic Acid 2.7 mmol/L (0.5-2.2) H 07/04/17 09:55 Calcium 8.4 mg/dL (8.6-10.3) L 07/04/17 09:55 Phosphorus 3.5 mg/dL (2.7-4.5) 07/04/17 09:55 Magnesium 1.2 mg/dL (1.6-2.6) L 07/04/17 09:55 Total Bilirubin 0.6 mg/dL (0.3-1.0) 07/04/17 09:55 Direct Bilirubin 0.2 mg/dL (0.0-0.2) 07/04/17 09:55 Indirect Bilirubin 0.4 mg/dL (0.0-1.2) 07/04/17 09:55 AST 14 Units/L (13-39) 07/04/17 09:55 ALT 21 Units/L (7-52) 07/04/17 09:55 Alkaline Phosphatase 86 Units/L (34-104) 07/04/17 09:55 Troponin I 0.03 ng/mL (< 0.04) 07/04/17 09:55 Serum Total Protein 6.5 g/dL (6.4-8.9) 07/04/17 09:55 Albumin 2.7 g/dL (3.5-5.7) L 07/04/17 09:55 Globulin 3.8 g/dL (2.4-3.5) H 07/04/17 09:55 Albumin/Globulin Ratio 0.7 (1.1-2.2) L 07/04/17 09:55 Result diagrams: 07/04/17 09:55 07/04/17 09:55 Lab Results 07/04/17 07/04/17 07/04/17 Range/Units 09:55 09:55 09:55 WBC 27.1 H (4.3-11.1) K/mcL RBC 2.98 L (4.19-5.50) M/mcL Hgb 9.3 L (12.9-16.9) g/dL Hct 26.4 L (37.5-50.1) % MCV 88.6 D (83.0-100.0) fL MCH 31.2 (28.0-33.3) pg MCHC 35.2 (31.6-35.5) g/dL RDW 12.7 (11.5-14.5) % Plt Count 345 (140-400) K/mcL MPV 8.9 L (9.4-12.4) fL Immature Gran % 5.7 H (0-4) % Seg Neutrophils % 81.5 % Lymphocytes % 3.1 % Monocytes % 9.4 % Eosinophils % 0.0 % Basophils % 0.3 % Neutrophils # 22.1 H (1.6-8.9) K/mcL Lymphocytes # 0.8 (0.6-4.6) K/mcL Monocytes # 2.6 H (0.0-1.3) K/mcL Eosinophils # 0.0 (0.0-0.6) K/mcL Basophils # 0.1 (0.0-0.2) K/mcL Platelet Estimate Normal (Normal) PT 14.5 H (9.4-12.1) Seconds INR 1.3 APTT 32.7 (26.0-36.0) Seconds ABG pH (7.32-7.45) pH Units ABG pCO2 (35-45) mmHg ABG pO2 (85-104) mmHg ABG HCO3 (21-27) mEq/L ABG Total CO2 (20-26) mEq/L ABG O2 Saturation (95-98) % ABG Base Excess (-2 to 3) mEq/L Inspired O2 (1-15=lpm uq43-661=%) Sodium 120 L* (136-145) mEq/L Potassium 4.1 (3.5-5.1) mEq/L Chloride 89 L (98-107) mEq/L Carbon Dioxide 21 L (23-29) mEq/L BUN 35 H (6-20) mg/dL Creatinine 3.17 H (0.70-1.30) mg/dL Est GFR ( Amer) 25 L (> 60) Est GFR (Non-Af Amer) 20 L (> 60) BUN/Creatinine Ratio 11 (6-26) Glucose 172 H (70-105) mg/dL Calculated Osmolality 262 L (280-300) Lactic Acid (0.5-2.2) mmol/L Calcium 8.4 L (8.6-10.3) mg/dL Phosphorus 3.5 (2.7-4.5) mg/dL Magnesium 1.2 L (1.6-2.6) mg/dL Total Bilirubin 0.6 (0.3-1.0) mg/dL Direct Bilirubin 0.2 (0.0-0.2) mg/dL Indirect Bilirubin 0.4 (0.0-1.2) mg/dL AST 14 (13-39) Units/L ALT 21 (7-52) Units/L Alkaline Phosphatase 86 (34-104) Units/L Troponin I (< 0.04) ng/mL Serum Total Protein 6.5 (6.4-8.9) g/dL Albumin 2.7 L (3.5-5.7) g/dL Globulin 3.8 H (2.4-3.5) g/dL Albumin/Globulin Ratio 0.7 L (1.1-2.2) 07/04/17 07/04/17 07/04/17 Range/Units 09:55 09:55 11:29 WBC (4.3-11.1) K/mcL RBC (4.19-5.50) M/mcL Hgb (12.9-16.9) g/dL Hct (37.5-50.1) % MCV (83.0-100.0) fL MCH (28.0-33.3) pg MCHC (31.6-35.5) g/dL RDW (11.5-14.5) % Plt Count (140-400) K/mcL MPV (9.4-12.4) fL Immature Gran % (0-4) % Seg Neutrophils % % Lymphocytes % % Monocytes % % Eosinophils % % Basophils % % Neutrophils # (1.6-8.9) K/mcL Lymphocytes # (0.6-4.6) K/mcL Monocytes # (0.0-1.3) K/mcL Eosinophils # (0.0-0.6) K/mcL Basophils # (0.0-0.2) K/mcL Platelet Estimate (Normal) PT (9.4-12.1) Seconds INR APTT (26.0-36.0) Seconds ABG pH 7.45 (7.32-7.45) pH Units ABG pCO2 29 L (35-45) mmHg ABG pO2 84 L (85-104) mmHg ABG HCO3 20 L (21-27) mEq/L ABG Total CO2 21 (20-26) mEq/L ABG O2 Saturation 97 (95-98) % ABG Base Excess -4 L (-2 to 3) mEq/L Inspired O2 21.0 (1-15=lpm ko25-485=%) Sodium (136-145) mEq/L Potassium (3.5-5.1) mEq/L Chloride (98-107) mEq/L Carbon Dioxide (23-29) mEq/L BUN (6-20) mg/dL Creatinine (0.70-1.30) mg/dL Est GFR ( Amer) (> 60) Est GFR (Non-Af Amer) (> 60) BUN/Creatinine Ratio (6-26) Glucose (70-105) mg/dL Calculated Osmolality (280-300) Lactic Acid 2.7 H (0.5-2.2) mmol/L Calcium (8.6-10.3) mg/dL Phosphorus (2.7-4.5) mg/dL Magnesium (1.6-2.6) mg/dL Total Bilirubin (0.3-1.0) mg/dL Direct Bilirubin (0.0-0.2) mg/dL Indirect Bilirubin (0.0-1.2) mg/dL AST (13-39) Units/L ALT (7-52) Units/L Alkaline Phosphatase (34-104) Units/L Troponin I 0.03 (< 0.04) ng/mL Serum Total Protein (6.4-8.9) g/dL Albumin (3.5-5.7) g/dL Globulin (2.4-3.5) g/dL Albumin/Globulin Ratio (1.1-2.2) - Radiology Data Radiology results reviewed: Yes I reviewed the patient's radiology results. Chest X-Ray 07/04/17 09:37 IMPRESSION: Stable small left pleural effusion. Otherwise, no acute cardiopulmonary abnormality. D/ / Gab Ware MD / Gab Ware MD Interpreting Provider: Gab Ware MD - EKG Data EKG attestation: Yes I reviewed and interpreted this EKG. EKG results narrative: EKG reviewed by Dr. Barrios as well. EKG shows a sinus tachycardia rate 111 bpm. KS interval 128, QRS duration 97, QT/QTc interval 300/366. No ectopy noted. No STEMI. No significant changes when compared to an EKG dated from 06/07. Critical Care Time Critical Care Time: Yes Total Critical Care Time: 35 Attestation: Critical care performed: Time is exclusive of separately billable procedures. Time includes: direct patient care, patient reassessment, coordination of patient care, interpretation of data (laboratory data, radiology data, and respiratory data), review of patient's medical records, medical consultation and documentation of patient care. Procedures included in critical care time: Procedures excluded from critical care time: Attestation Statement - Attestation Attestation: I, Ethan Barrios DO have provided [id number] time during the care of this patient. Detailed review the presentation, symptoms, medical history were discussed and reviewed with the mid-level provider ashly Vale PA-C/JANINE. Medical intervention labs and imaging studies were reviewed in detail. See full documentation of physical exam and course of care in the mid-level provider's note. I agree with the determined course of care, medical intervention and disposition put forth by the mid-level provider. See below documentation for changes or alterations in documentation. 56-year-old male seen in conjunction with the mid-level provider. Patient was just discharged from the hospital after being diagnosed with Clostridium difficile infection. He is discharged home on 1 week with oral vancomycin. We will last several days she has had persistent diarrhea and today felt very lightheaded and weak and had a fever. Patient denies any chest pain shortness of breath headache vision changes nausea vomiting or diarrhea. Has had intermittent fevers and chills. He is still describing diarrhea. Physical exam is otherwise unremarkable lungs are clear his heart is regular skin turgor is poor his mucous membranes are dry. Vital signs on presentation did show an elevated heart rate, fever, hypotension. Patient did take his morning blood pressure medications. He was diagnosed with paroxysmal A. fib during his last evaluation secondary to what appears to be dehydration and infection. Patient is not showing any acute signs of fluid overload was no signs of pitting edema his lungs are crystal clear. Patient will be started on a 30 minute particularly fluid titration bolus at this time we will continue to hydrate as needed for his blood pressure. Patient is mentating appropriately he is alert he is oriented he is answering questions and following commands without any issue. Patient's abdomen is soft with some mild cramping and lower abdominal discomfort. Patient was evaluated for sepsis at presentation and does meet the criteria with known Clostridium difficile pathology. Lactic acid was 2.7. White count was elevated and his hemoglobin was 9.3. Detailed evaluation be completed with Hemoccult testing fluid hydration and antibiotic regimen by IV Flagyl to be started here for suspected progression of Clostridium difficile. Patient will be admitted for definitive management treatment course. No other concerns or issues noted at this time. Patient does not show any acute signs of decompensation despite his low blood pressure. Patient will be stabilized at this point her blood pressure appears to be secondary to the medications as well as dehydration this time. He should not informed of this plan and is comfortable at this point. Approximately 35 minutes of critical care This patient's treatment course and evaluation. See detailed documentation of physical exam, medical intervention, medical decision-making and disposition in the mid-level provider's note 1420 Patient has been persistently hypotensive here. Multiple liters of fluid and given without any significant resuscitative effect. Patient had central line placed under my direct supervision in the right IJ pelvis completed by the resident physician Dr. Moreira. Documentation is in this note. There is no complications. I was directly present throughout the entire procedure with no acute complications noted. Patient tolerated procedure well be admitted to the ICU for definitive management of this time
[2017-07-04 10:05] LABS: Basophils # 0.1 K/mcL (0.0-0.2); Basophils % 0.3 %; Hematocrit 26.4 % (37.5-50.1); Hemoglobin 9.3 g/dL (12.9-16.9); Immature Granulocytes % 5.7 % (0-4); Lymphocytes # 0.8 K/mcL (0.6-4.6); Lymphocytes % 3.1 %; Mean Corpuscular HGB Conc 35.2 g/dL (31.6-35.5); Mean Corpuscular Hemoglobin 31.2 pg (28.0-33.3); Mean Platelet Volume 8.9 fL (9.4-12.4); Monocytes # 2.6 K/mcL (0.0-1.3); Monocytes % 9.4 %; Neutrophils # 22.1 K/mcL (1.6-8.9); Platelet Count 345 K/mcL (140-400); Red Blood Count 2.98 M/mcL (4.19-5.50); Red Cell Distribution Width 12.7 % (11.5-14.5); Segmented Neutrophils % 81.5 %
[2017-07-04 10:06] LABS: Mean Corpuscular Volume 88.6 fL (83.0-100.0)
[2017-07-04 10:14] LABS: INR 1.3; Prothrombin Time 14.5 Seconds (9.4-12.1)
[2017-07-04 10:17] LABS: Activated Partial Thrombo Time 32.7 Seconds (26.0-36.0)
[2017-07-04 10:22] LABS: Platelet Estimate Normal (Normal)
[2017-07-04] MEDS ORDERED: 0.9 % Sodium Chloride 1,000 ML IVC ONE ×2 (10:27→10:43)
[2017-07-04 10:32] LABS: Albumin 2.7 g/dL (3.5-5.7); Albumin/Globulin Ratio 0.7 (1.1-2.2); Bilirubin,Direct 0.2 mg/dL (0.0-0.2); Bilirubin,Indirect 0.4 mg/dL (0.0-1.2); Bilirubin,Total 0.6 mg/dL (0.3-1.0); Calcium 8.4 mg/dL (8.6-10.3); Globulin 3.8 g/dL (2.4-3.5); Magnesium 1.2 mg/dL (1.6-2.6); Phosphorous 3.5 mg/dL (2.7-4.5); Potassium 4.1 mEq/L (3.5-5.1); Total Protein 6.5 g/dL (6.4-8.9)
[2017-07-04] MEDS ORDERED: GI Cocktail 40 ML EACH PO ONE (10:55)
[2017-07-04 11:31] LABS: ABG Base Excess -4 mEq/L (-2 to 3); ABG HCO3 20 mEq/L (21-27); ABG Oxygen Saturation 97 % (95-98); ABG PCO2 29 mmHg (35-45); ABG PH 7.45 pH Units (7.32-7.45); ABG PO2 84 mmHg (85-104); ABG TCO2 21 mEq/L (20-26)
[2017-07-04] MEDS ORDERED: MetroNIDAZOLE 500 MG/100 ML 500 MG/100 ML BAG IVPB ONE (11:31)
[2017-07-04] MEDS: Norepinephrine 4 MG in D5% in Water 250 ML IVC SCH ×2 (14:47→20:00)
--- NOTE | 2017-07-04 14:59 | Pulmonology History & Physical ---
<Fredo Bright R - Last Filed: 07/04/17 17:05> Date of Encounter: 07/04/17 Time of Encounter: 14:49 Assessment and Plan (1) Septic shock Current visit: Yes Status: Acute Hypovolemic shock - Likely secondary to recurrent C. difficile infection Meets SIRS criteria with hypotension despite fluid resuscitation. Temp 101, Tachycardia CVC in place - Right IJ, on Levophed CXR: small left pleural effusion Will trend lactate and troponins - obtain echo as well Hold home HTN meds Blood cultures x2 and start antibiotics (2) Recurrent Clostridium difficile diarrhea Current visit: Yes Status: Acute Symptoms return after initial improvement from hospitalization earlier this month Will start IV flagyl and oral vancomycin Consult ID for further recommendations (3) FRANCISCA (acute kidney injury) Current visit: Yes Status: Acute Cr 3.17 - baseline 1-1.3 Likely secondary to hypovolemia (4) Hyponatremia Current visit: Yes Status: Acute Na 120 - will put on electrolyte protocol Received 4.5 L of fluid in ED Will recheck labs (5) Atrial fibrillation Current visit: Yes Status: Acute Currently NSR and rate controlled Continue home xarelto Qualifiers: Atrial fibrillation type: paroxysmal Qualified Code(s): I48.0 - Paroxysmal atrial fibrillation (6) DVT prophylaxis Current visit: No Status: Acute Continue home xarelto History of Present Illness Chief complaint: Fever HPI: Mr. Chen is a 56 year old male with PMH of A. fib (on xarelto) and HTN presented to the ED for fever, weakness, and watery diarrhea that has been going on for 2-3 days. He was recently discharged on 06/14/17 for Sepsis, C. diff , FRANCISCA, and new onset A. fib, who initially showed improvement at home. He completed a 14 day course of vancomycin. He states his fever has been up to 104 F. He also reports blood and mucus in his stool. He denies syncope, chest pain, dyspnea, vomiting, abdominal pain, or edema. He has been hypotensive in the ED despite resuscitation with 4.5 L of fluid. A central line was placed and the patient was started on levophed. He will be admitted for septic shock secondary to suspected C. diff infection. Past Med Surg Social Fam HX - Past Medical History Medical history: atrial fibrillation, hypertension Psychiatric history: anxiety - Past Surgical History Surgical History: no surgical history - Social History Smoking Status: Current every day smoker Smokeless Tobacco Status: No Alcohol use: none Drug use: none Medications and Allergies ALPRAZolam [Xanax 0.5 MG Tablet] 0.5 mg PO TID 08/29/16 [History] Valsartan/Hydrochlorothiazide [Diovan Hct 160-12.5 mg Tab] 1 each PO DAILY 06/07 [History] Diltiazem CD (24hr) [Cardizem CD] 180 mg PO DAILY #30 cap.er.24h 06/13/17 [Rx] Rivaroxaban [Xarelto] 20 mg PO DAILY #30 tablet 06/13/17 [Rx] Metoprolol [Lopressor] 50 mg PO BID #60 tablet 06/14/17 [Rx] Tamsulosin [Flomax] 0.4 mg PO DAILY 07/04/17 [History] 3 Allergy/AdvReac Type Severity Reaction Status Date / Time No Known Allergies Allergy Verified 08/29/16 06:48 All Systems: A 10-system review of systems was performed and is negative for pertinent findings except as documented above in the HPI. Physical Examination Vital Signs: Vital Signs, Last 4 Hours Temp Pulse Resp BP Pulse Ox 07/04/17 11:27 91 16 81/52 97 07/04/17 10:50 99.4 F 93 18 89/51 98 General appearance: appears uncomfortable, other (diaphoretic) Eyes: nonicteric ENT: oropharynx moist Effort: normal Auscultation: bilateral: clear Cardiovascular: regular rate and rhythm Gastrointestinal: normoactive bowel sounds, non-distended Integumentary: normal Extremities: no cyanosis, no edema normal mental status, non-focal exam, pupils equal and round Results - Laboratory Findings CBC and BMP: 07/04/17 09:55 07/04/17 09:55 ABG ABG pH 7.45 pH Units (7.32-7.45) 07/04/17 11:29 ABG pCO2 29 mmHg (35-45) L 07/04/17 11:29 ABG pO2 84 mmHg (85-104) L 07/04/17 11:29 ABG O2 Saturation 97 % (95-98) 07/04/17 11:29 PT/INR, D-dimer PT 14.5 Seconds (9.4-12.1) H 07/04/17 09:55 Abnormal lab findings: Abnormal lab results WBC 27.1 K/mcL (4.3-11.1) H 07/04/17 09:55 RBC 2.98 M/mcL (4.19-5.50) L 07/04/17 09:55 Hgb 9.3 g/dL (12.9-16.9) L 07/04/17 09:55 Hct 26.4 % (37.5-50.1) L 07/04/17 09:55 MPV 8.9 fL (9.4-12.4) L 07/04/17 09:55 Immature Gran % 5.7 % (0-4) H 07/04/17 09:55 Neutrophils # 22.1 K/mcL (1.6-8.9) H 07/04/17 09:55 Monocytes # 2.6 K/mcL (0.0-1.3) H 07/04/17 09:55 PT 14.5 Seconds (9.4-12.1) H 07/04/17 09:55 ABG pCO2 29 mmHg (35-45) L 07/04/17 11:29 ABG pO2 84 mmHg (85-104) L 07/04/17 11:29 ABG HCO3 20 mEq/L (21-27) L 07/04/17 11:29 ABG Base Excess -4 mEq/L (-2 to 3) L 07/04/17 11:29 Sodium 120 mEq/L (136-145) L* 07/04/17 09:55 Chloride 89 mEq/L (98-107) L 07/04/17 09:55 Carbon Dioxide 21 mEq/L (23-29) L 07/04/17 09:55 BUN 35 mg/dL (6-20) H 07/04/17 09:55 Creatinine 3.17 mg/dL (0.70-1.30) H 07/04/17 09:55 Est GFR ( Amer) 25 (> 60) L 07/04/17 09:55 Est GFR (Non-Af Amer) 20 (> 60) L 07/04/17 09:55 Glucose 172 mg/dL (70-105) H 07/04/17 09:55 Calculated Osmolality 262 (280-300) L 07/04/17 09:55 Lactic Acid 2.7 mmol/L (0.5-2.2) H 07/04/17 09:55 Calcium 8.4 mg/dL (8.6-10.3) L 07/04/17 09:55 Magnesium 1.2 mg/dL (1.6-2.6) L 07/04/17 09:55 Albumin 2.7 g/dL (3.5-5.7) L 07/04/17 09:55 Globulin 3.8 g/dL (2.4-3.5) H 07/04/17 09:55 Albumin/Globulin Ratio 0.7 (1.1-2.2) L 07/04/17 09:55 <Jaylon Lyon S - Last Filed: 07/04/17 22:43> Date of Encounter: 07/04/17 History of Present Illness HPI: Mr. Chen is a 56 year old male All Systems: A 10-system review of systems was performed and is negative for pertinent findings except as documented above in the HPI. Physical Examination Vital Signs: Vital Signs, Last 4 Hours Temp Pulse Resp BP Pulse Ox 07/04/17 18:28 96.4 F L 72 20 95/76 99 07/04/17 18:17 16 97/74 Results - Laboratory Findings CBC and BMP: 07/04/17 09:55 07/04/17 16:06 ABG ABG pH 7.45 pH Units (7.32-7.45) 07/04/17 11:29 ABG pCO2 29 mmHg (35-45) L 07/04/17 11:29 ABG pO2 84 mmHg (85-104) L 07/04/17 11:29 ABG O2 Saturation 97 % (95-98) 07/04/17 11:29 PT/INR, D-dimer PT 14.5 Seconds (9.4-12.1) H 07/04/17 09:55 Abnormal lab findings: Abnormal lab results WBC 27.1 K/mcL (4.3-11.1) H 07/04/17 09:55 RBC 2.98 M/mcL (4.19-5.50) L 07/04/17 09:55 Hgb 9.3 g/dL (12.9-16.9) L 07/04/17 09:55 Hct 26.4 % (37.5-50.1) L 07/04/17 09:55 MPV 8.9 fL (9.4-12.4) L 07/04/17 09:55 Immature Gran % 5.7 % (0-4) H 07/04/17 09:55 Neutrophils # 22.1 K/mcL (1.6-8.9) H 07/04/17 09:55 Monocytes # 2.6 K/mcL (0.0-1.3) H 07/04/17 09:55 PT 14.5 Seconds (9.4-12.1) H 07/04/17 09:55 ABG pCO2 29 mmHg (35-45) L 07/04/17 11:29 ABG pO2 84 mmHg (85-104) L 07/04/17 11:29 ABG HCO3 20 mEq/L (21-27) L 07/04/17 11:29 ABG Base Excess -4 mEq/L (-2 to 3) L 07/04/17 11:29 Sodium 127 mEq/L (136-145) L 07/04/17 16:06 Carbon Dioxide 19 mEq/L (23-29) L 07/04/17 16:06 BUN 31 mg/dL (6-20) H 07/04/17 16:06 Creatinine 2.48 mg/dL (0.70-1.30) H 07/04/17 16:06 Est GFR ( Amer) 33 (> 60) L 07/04/17 16:06 Est GFR (Non-Af Amer) 27 (> 60) L 07/04/17 16:06 Glucose 168 mg/dL (70-105) H 07/04/17 16:06 Calculated Osmolality 274 (280-300) L 07/04/17 16:06 Calcium 7.4 mg/dL (8.6-10.3) L 07/04/17 16:06 Magnesium 1.2 mg/dL (1.6-2.6) L 07/04/17 09:55 Albumin 2.7 g/dL (3.5-5.7) L 07/04/17 09:55 Globulin 3.8 g/dL (2.4-3.5) H 07/04/17 09:55 Albumin/Globulin Ratio 0.7 (1.1-2.2) L 07/04/17 09:55 - Attending Attestation I saw and evaluated this patient and my medical decision-making was reviewed with the Resident Physician. I agree with the documented findings, disposition and treatment plan as described except to the extent set forth below. We independently had [id number] contact with the patient I spent of 32 minutes of Critical Care time with this patient. It involved decision making of high complexity to assess, manipulate, and support vital organ system failure and/or to prevent further life threatening deterioration of the patient's condition. The time involved in the performance of separately reportable procedures was not counted toward critical care time. Patient seen and examined at bedside Labs, radiology, chart personally reviewed. 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 oriented x 3 Pulm:Patient doesnt have any acute issues no pulmonary symptoms patient is saturating well on Room air the CXR findings looks like chronic doesnt have any airspace consolidation disease will monitor Cards: Shock hypovolemic shock complicated with new cardiac medications he started for atrial fibrillation since patient didnt respond to fluid concerning for septic shock secondary to c diff colitis will trend troponins will get ECHO Will hold his Cardizem and Beta lazaro FEN-GI:Advance diet as tolerated Renal:Acute on Chronic Kidney disease ID: C diff recurrent colitis will start on dual therapy for c diff colitis will consult ID if not improving will broaden the antibiotic coverage Heme/Onc: Endo: Glucose Monitored Integ/MSK: Skin Care per routine ICU Nursing Protocol to prevent ulcers. Lines: All lines examined without evidence of infection : Dispo: Critically ill because of shock CODE:Full code
[2017-07-04] MEDS ORDERED: Naloxone 0.4 MG/ML INJ IVP PRN (15:40)
[2017-07-04] MEDS ORDERED: MetroNIDAZOLE 500 MG/100 ML 500 MG/100 ML BAG IVPB SCH (16:00)
[2017-07-04] MEDS ORDERED: Vancomycin Oral Soln 250 MG/5 ML UDC PO SCH (17:00)
[2017-07-04] MEDS ORDERED: *HR* Rivaroxaban 15 MG TABLET PO SCH (17:00)
[2017-07-04 17:57] LABS: Calcium 7.4 mg/dL (8.6-10.3); Potassium 3.9 mEq/L (3.5-5.1)
--- NOTE | 2017-07-04 19:49 | Electrocardiograph Report ---
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
[2017-07-04] MEDS: Vancomycin Oral Soln 250 MG/5 ML UDC PO SCH (21:11)
[2017-07-04] MEDS: ALPRAZolam 0.5 MG TABLET PO SCH (23:05)
[2017-07-04] MEDS ORDERED: Acetaminophen 325 MG TABLET PO ONE (23:39)
--- NOTE | 2017-07-05 00:37 | Event Note ---
Date of Encounter: 07/04/17 Time of Encounter: 23:00 Called by RN that pt has elevated troponin to 0.11 as pt has negative troponin on admission. Examined pt at bedside, pt denies chest pain or SOB. Pt has septic shock on levophed, this mild elevated troponin most likely due to demend ischemia caused by sepsis. Will cont cardiac monitoring and further f/u troponin in AM.
[2017-07-05 02:48] LABS: Acinetobacter baumannii by PCR Not Detected (Not Detect); Enterococcus by PCR Not Detected (Not Detect); Staphylococcus aureus by PCR Not Detected (Not Detect); Streptococcus agalactiae(B)PCR Not Detected (Not Detect); Streptococcus by PCR Not Detected (Not Detect); Streptococcus pneumoniae PCR Not Detected (Not Detect); Streptococcus pyogenes (A) PCR Not Detected (Not Detect); blaKPC Carbapenem-Resist Gene Not Detected (Not Detect); mecA Methicillin-Resist Gene Not Detected (Not Detect); vanA/B Vancomycin-Resist Genes Not Detected (Not Detect)
[2017-07-05 02:49] LABS: Candida albicans by PCR Not Detected (Not Detect); Candida glabrata by PCR Not Detected (Not Detect); Candida krusei by PCR Not Detected (Not Detect); Candida parapsilosis by PCR Not Detected (Not Detect); Candida tropicalis by PCR Not Detected (Not Detect); Escherichia coli by PCR ***DETECTED*** (Not Detect); Klebsiella oxytoca by PCR Not Detected (Not Detect); Klebsiella pneumoniae by PCR Not Detected (Not Detect); Pseudomonas aeruginosa by PCR Not Detected (Not Detect); Serratia marcescens by PCR Not Detected (Not Detect)
[2017-07-05 03:59] LABS: Basophils % 0.1 %; Immature Granulocytes % 4.4 % (0-4); Lymphocytes # 0.9 K/mcL (0.6-4.6); Lymphocytes % 4.2 %; Mean Corpuscular HGB Conc 34.5 g/dL (31.6-35.5); Mean Corpuscular Hemoglobin 31.4 pg (28.0-33.3); Mean Corpuscular Volume 90.9 fL (83.0-100.0); Mean Platelet Volume 9.1 fL (9.4-12.4); Monocytes # 1.9 K/mcL (0.0-1.3); Monocytes % 9.2 %; Platelet Count 259 K/mcL (140-400); Red Blood Count 2.42 M/mcL (4.19-5.50); Red Cell Distribution Width 13.1 % (11.5-14.5); Segmented Neutrophils % 82.1 %
[2017-07-05 04:00] LABS: Hemoglobin 7.6 g/dL (12.9-16.9); Neutrophils # 16.7 K/mcL (1.6-8.9)
[2017-07-05 04:19] LABS: Calcium 7.3 mg/dL (8.6-10.3); Magnesium 1.9 mg/dL (1.6-2.6); Potassium 3.5 mEq/L (3.5-5.1)
[2017-07-05] MEDS: 0.9 % Sodium Chloride 1,000 ML IVC SCH ×2 (04:25→05:25)
[2017-07-05 04:26] LABS: Platelet Estimate Normal (Normal)
[2017-07-05] MEDS ORDERED: Potassium Chloride 40 MEQ/200 ML BAG IVPB PRN (05:04)
[2017-07-05] MEDS ORDERED: MetroNIDAZOLE 500 MG/100 ML 500 MG/100 ML BAG IVPB SCH (06:00)
[2017-07-05 06:49] LABS: Bilirubin,Urine Negative (Negative); Blood,Urine Moderate (Negative); Clarity,Urine Cloudy (Clear); Color,Urine Yellow (Yellow); Glucose,Urine (UA) Normal (Normal); Ketones,Urine Negative (Negative); Leukocyte Esterase,Urine Large (Negative); Nitrite,Urine Negative (Negative); Protein,Urine 30 mg/dL (Neg-Trace); Specific Gravity,Urine < 1.005 (1.010-1.025); Urobilinogen,Urine Normal (Normal)
[2017-07-05 06:51] LABS: Bacteria,Urine Few per hpf (None-Few); Hyaline Casts,Urine None Seen per lpf (None-Few); RBC,Urine 0-3 per hpf (0-3); Squamous Epithelial Cell,Urine Few per lpf (None-Few); WBC,Urine TNTC per hpf (0-3)
--- NOTE | 2017-07-05 07:30 | Pulmonology Progress Note ---
<Juan Flower - Last Filed: 07/05/17 11:25> Date of Encounter: 07/05/17 Time of Encounter: 07:28 Assessment and Plan (1) Sepsis Current Visit: Yes Status: Acute Likely associated with this C. difficile colitis. The patient was recently treated for similar things. He was started on Flagyl and vancomycin upon arrival U. In addition the patient does have what appears to be a left-sided pleural effusion. The piece was recently treated for a pneumonia and this is likely residual from this. The patient does have positive blood cultures with Escherichia coli growing. He was started on cefepime this morning for this. The patient began complaining of right-sided abdominal pain this morning as well. We will perform a CT scan of his abdomen and pelvis. Qualifiers: Sepsis type: sepsis due to unspecified organism Qualified Code(s): A41.9 - Sepsis, unspecified organism (2) FRANCISCA (acute kidney injury) Current Visit: Yes Status: Acute Improved overnight. The patient does have an elevated troponin as well which is likely caused by this acute kidney injury. We will continue to trend however. It did decrease overnight. In addition the patient was given IV fluids. We will continue with fluid boluses as necessary. The patient's urine output has increased. (3) C. difficile diarrhea Current Visit: No Status: Acute Patient currently on oral vancomycin and IV Flagyl. We will continue with these therapies. Infectious disease has been consulted. (4) UTI (urinary tract infection) Current Visit: Yes Status: Acute Patient noted to have marketed bladder wall thickening on CT scan of his abdomen and pelvis. He also is experiencing a large amount of hydronephrosis bilaterally. The patient is currently on antibiotics for his positive blood cultures. We will continue those and monitor patient's urinary status. Qualifiers: Urinary tract infection type: site unspecified Hematuria presence: without hematuria Qualified Code(s): N39.0 - Urinary tract infection, site not specified (5) Elevated troponin Current Visit: No Status: Acute Likely associated with the patient's sepsis and acute kidney injury. We will continue to trend. Improved overnight. (6) Anemia Current Visit: Yes Status: Acute Likely occur chronic anemia but with the patient's history of Xarelto use combined with the anemia prior to arrival in the ICU combined with the patient' s diarrhea, I am concerned about blood in the stool. We will perform a Hemoccult today. In addition the patient will receive an CT scan of the abdomen and pelvis. Continue to monitor the patient's hemoglobin every 6 hours. We will transfuse as necessary. There is likely a component of delusional anemia as the patient received a large amount of fluid in the emergency department yesterday. We will again monitor. Qualifiers: Anemia type: unspecified type Qualified Code(s): D64.9 - Anemia, unspecified (7) Atrial fibrillation Current Visit: Yes Status: Chronic On Xarelto. Qualifiers: Atrial fibrillation type: paroxysmal Qualified Code(s): I48.0 - Paroxysmal atrial fibrillation (8) Hyponatremia Current Visit: Yes Status: Acute (9) Hypertension Current Visit: No Status: Chronic Qualifiers: Hypertension type: essential hypertension Qualified Code(s): I10 - Essential (primary) hypertension Subjective Principal diagnosis: Sepsis, C. difficile colitis Interval history: Patient did well overnight. He did have an elevated troponin which is likely associated to the patient's sepsis as well as acute kidney injury. His renal function has continued to improve. The patient's blood cultures do demonstrate gram-negative growth with Escherichia coli as the primary bacteria. He was currently on Flagyl and vancomycin for C. difficile. The patient has had urinary output overnight. He is however this morning complaining of right- sided abdominal pain. The patient was not complaining of any abdominal pain last night prior to admission. Patient does have history of chronic alcohol abuse. The patient states that he has not drink any alcohol and roughly 4 weeks. He is very adamant that this is the case. Objective PUL Vital signs: Last Vital Signs Temp 98.1 F 07/05/17 06:00 Pulse 98 07/05/17 06:00 Resp 24 07/05/17 06:00 BP 148/59 07/05/17 06:00 Pulse Ox 100 07/05/17 06:00 General appearance: no acute distress, alert Eyes: nonicteric ENT: oropharynx moist Effort: normal Cardiovascular: other (Mildly tachycardic and regular rhythm.) Gastrointestinal: soft, tender (Right-sided) Integumentary: normal Extremities: no cyanosis, no edema, no clubbing Musculoskeletal: no deformities, ROM normal normal mental status, non-focal exam mood appropriate, affect normal Results - Laboratory Findings CBC and BMP: 07/05/17 03:45 07/05/17 03:45 ABG ABG pH 7.45 pH Units (7.32-7.45) 07/04/17 11:29 ABG pCO2 29 mmHg (35-45) L 07/04/17 11:29 ABG pO2 84 mmHg (85-104) L 07/04/17 11:29 ABG O2 Saturation 97 % (95-98) 07/04/17 11:29 PT/INR, D-dimer PT 14.5 Seconds (9.4-12.1) H 07/04/17 09:55 Abnormal lab findings: Abnormal lab results WBC 20.3 K/mcL (4.3-11.1) H 07/05/17 03:45 RBC 2.42 M/mcL (4.19-5.50) L 07/05/17 03:45 Hgb 7.6 g/dL (12.9-16.9) L D 07/05/17 03:45 Hct 22.0 % (37.5-50.1) L 07/05/17 03:45 MPV 9.1 fL (9.4-12.4) L 07/05/17 03:45 Immature Gran % 4.4 % (0-4) H 07/05/17 03:45 Neutrophils # 16.7 K/mcL (1.6-8.9) H 07/05/17 03:45 Monocytes # 1.9 K/mcL (0.0-1.3) H 07/05/17 03:45 PT 14.5 Seconds (9.4-12.1) H 07/04/17 09:55 ABG pCO2 29 mmHg (35-45) L 07/04/17 11:29 ABG pO2 84 mmHg (85-104) L 07/04/17 11:29 ABG HCO3 20 mEq/L (21-27) L 07/04/17 11:29 ABG Base Excess -4 mEq/L (-2 to 3) L 07/04/17 11:29 Sodium 133 mEq/L (136-145) L 07/05/17 03:45 Chloride 108 mEq/L (98-107) H 07/05/17 03:45 Carbon Dioxide 19 mEq/L (23-29) L 07/05/17 03:45 BUN 26 mg/dL (6-20) H 07/05/17 03:45 Creatinine 2.10 mg/dL (0.70-1.30) H 07/05/17 03:45 Est GFR ( Amer) 40 (> 60) L 07/05/17 03:45 Est GFR (Non-Af Amer) 33 (> 60) L 07/05/17 03:45 Glucose 135 mg/dL (70-105) H 07/05/17 03:45 POC Glucose 167 (58-89) H 07/04/17 18:05 Calcium 7.3 mg/dL (8.6-10.3) L 07/05/17 03:45 Troponin I 0.04 ng/mL (< 0.04) H* 07/05/17 03:45 Albumin 2.7 g/dL (3.5-5.7) L 07/04/17 09:55 Globulin 3.8 g/dL (2.4-3.5) H 07/04/17 09:55 Albumin/Globulin Ratio 0.7 (1.1-2.2) L 07/04/17 09:55 Urine Clarity Cloudy (Clear) A 07/05/17 06:15 Ur Specific [place] < 1.005 (1.010-1.025) L 07/05/17 06:15 Urine Protein 30 mg/dL (Neg-Trace) H 07/05/17 06:15 Urine Blood Moderate (Negative) H 07/05/17 06:15 Ur Leukocyte Esterase Large (Negative) H 07/05/17 06:15 Urine Microscopic WBC TNTC per hpf (0-3) H 07/05/17 06:15 Ur Culture Indicated? YES (NO) A 07/05/17 06:15 Enterobacteriac sp PCR DETECTED (Not Detect) A 07/04/17 09:55 E. coli (PCR) DETECTED (Not Detect) A 07/04/17 09:55 - Clinical Findings Intake & Output: Intake & Output 07/04/17 07/04/17 07/05/17 15:59 23:59 07:59 Intake Total 2691 / 2691 1674.6 / 1674.6 Output Total 1250 / 1250 1600 / 1600 Balance 1441 / 1441 74.6 / 74.6 Weight 86.7 kg Consult Discharge Plan - Plan Referrals: Juan Quintana DO [Primary Care Provider] - - Attending Attestation I examined this patient and my medical decision-making was reviewed with the Resident Physician. I agree with the documented findings, disposition and treatment plan as described except to the extent set forth below. <Jaylon Lyon - Last Filed: 07/05/17 20:51> Date of Encounter: 07/05/17 Objective PUL Vital signs: Last Vital Signs Temp 98.0 F 07/05/17 15:30 Pulse 78 07/05/17 18:30 Resp 21 07/05/17 18:30 BP 103/75 07/05/17 18:30 Pulse Ox 98 07/05/17 18:30 Results - Laboratory Findings CBC and BMP: 07/05/17 16:14 07/05/17 14:20 ABG ABG pH 7.45 pH Units (7.32-7.45) 07/04/17 11:29 ABG pCO2 29 mmHg (35-45) L 07/04/17 11:29 ABG pO2 84 mmHg (85-104) L 07/04/17 11:29 ABG O2 Saturation 97 % (95-98) 07/04/17 11:29 PT/INR, D-dimer PT 14.5 Seconds (9.4-12.1) H 07/04/17 09:55 Abnormal lab findings: Abnormal lab results WBC 21.3 K/mcL (4.3-11.1) H 07/05/17 16:14 RBC 2.81 M/mcL (4.19-5.50) L 07/05/17 16:14 Hgb 8.6 g/dL (12.9-16.9) L 07/05/17 16:14 Hct 25.4 % (37.5-50.1) L 07/05/17 16:14 Immature Gran % 4.4 % (0-4) H 07/05/17 03:45 Band Neutrophils % 20.0 % (0-4) H 07/05/17 16:14 Neutrophils # 17.5 K/mcL (1.6-8.9) H 07/05/17 16:14 Monocytes # 2.6 K/mcL (0.0-1.3) H 07/05/17 16:14 Toxic Granulation Present (Not Present) A 07/05/17 16:14 PT 14.5 Seconds (9.4-12.1) H 07/04/17 09:55 ABG pCO2 29 mmHg (35-45) L 07/04/17 11:29 ABG pO2 84 mmHg (85-104) L 07/04/17 11:29 ABG HCO3 20 mEq/L (21-27) L 07/04/17 11:29 ABG Base Excess -4 mEq/L (-2 to 3) L 07/04/17 11:29 Sodium 133 mEq/L (136-145) L 07/05/17 14:20 Carbon Dioxide 19 mEq/L (23-29) L 07/05/17 14:20 BUN 25 mg/dL (6-20) H 07/05/17 14:20 Creatinine 1.98 mg/dL (0.70-1.30) H 07/05/17 14:20 Est GFR ( Amer) 42 (> 60) L 07/05/17 14:20 Est GFR (Non-Af Amer) 35 (> 60) L 07/05/17 14:20 Glucose 150 mg/dL (70-105) H 07/05/17 14:20 POC Glucose 167 (58-89) H 07/04/17 18:05 Calcium 7.8 mg/dL (8.6-10.3) L 07/05/17 14:20 Troponin I 0.04 ng/mL (< 0.04) H* 07/05/17 03:45 Albumin 2.7 g/dL (3.5-5.7) L 07/04/17 09:55 Globulin 3.8 g/dL (2.4-3.5) H 07/04/17 09:55 Albumin/Globulin Ratio 0.7 (1.1-2.2) L 07/04/17 09:55 Urine Clarity Cloudy (Clear) A 07/05/17 06:15 Ur Specific [place] < 1.005 (1.010-1.025) L 07/05/17 06:15 Urine Protein 30 mg/dL (Neg-Trace) H 07/05/17 06:15 Urine Blood Moderate (Negative) H 07/05/17 06:15 Ur Leukocyte Esterase Large (Negative) H 07/05/17 06:15 Urine Microscopic WBC TNTC per hpf (0-3) H 07/05/17 06:15 Ur Culture Indicated? YES (NO) A 07/05/17 06:15 Enterobacteriac sp PCR DETECTED (Not Detect) A 07/04/17 09:55 E. coli (PCR) DETECTED (Not Detect) A 07/04/17 09:55 - Clinical Findings Intake & Output: Intake & Output 07/05/17 07/05/17 07/05/17 07:59 15:59 23:59 Intake Total 1674.6 / 1674.6 260 / 260 Output Total 1600 / 1600 700 / 700 Balance 74.6 / 74.6 -440 / -440 Weight 86.7 kg - Attending Attestation - Attending Attestation I saw and evaluated this patient and my medical decision-making was reviewed with the Resident Physician. I agree with the documented findings, disposition and treatment plan as described except to the extent set forth below. We independently had [id number] contact with the patient Patient seen and examined at bedside Labs, radiology, chart personally reviewed. 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 3 Pulm:Patient doesnt have any acute issues no pulmonary symptoms patient is saturating well on Room air the CXR findings looks like chronic doesnt have any airspace consolidation disease will monitor Cards: Patient looks like developed septic shock secondary to E coli bactremia now off vasopressors FEN-GI:Advance diet as tolerated Renal:Acute on Chronic Kidney disease most likely due to hydronephrosis now improving ID: C diff negative stopped PO Vanco and IV flagyl septic shock is caused by E coli bactremia due to UTI Heme/Onc:Reviewed Endo: Glucose Monitored Integ/MSK: Skin Care per routine ICU Nursing Protocol to prevent ulcers. Lines: All lines examined without evidence of infection : Dispo: Critically ill -septic shock resolving high chance of circulatory failure . CODE:Full code
[2017-07-05] MEDS ORDERED: Cefepime HCl 1,000 MG in Water for inj. (sterile) 20 ML 10 ML IVP SCH (08:00)
--- NOTE | 2017-07-05 10:39 | Infectious Disease Consult ---
Date of Encounter: 07/05/17 Time of Encounter: 10:26 Assessment and Plan (1) Septic shock Status: Acute Assessment and plan: The patient had three SIRS criteria plus hypotension requiring vasopressors. Likely secondary to UTI and bacteremia and possible C. diff. Improved. Vasopressors have been stopped. WBC trending down. The patient remains tachycardic and is still having fevers. Blood cultures drwan 07/04/17 are positive 2/2 sets for E. coli. (2) Bacteremia Status: Acute Assessment and plan: Causative organism: E. coli x 2 strands. Likely secondary to UTI. Blood cultures drawn 07/04/17 are positive for E. coli. Repeat blood cultures x 2 sets. Continue Cefepime, but change dose to 2 grams IV Q24H, dose-adjusted for creatinine clearance of 35. Await sensitivities and de-escalate if/when able. Monitor renal function and dose-adjust antibiotics. (3) UTI (urinary tract infection) Status: Acute Assessment and plan: Causative organism likely E. coli given the patient's blood culture results, but await urine culture. Likely secondary to recent catheterization and urinary retention. Urinalysis shows WBC TNTC and large amount of L.E. Urine culture pending. Continue antibiotics as above. Qualifiers: Urinary tract infection type: acute cystitis Hematuria presence: without hematuria Qualified Code(s): N30.00 - Acute cystitis without hematuria (4) Diarrhea Status: Acute Assessment and plan: Etiology unclear, but likely gastroenteritis. Clinical picture does not add up to C. diff. C. diff negative. Discontinue PO Vancomycin. Discontinue Flagyl. Discontinue C. diff precautions. Start probiotic. Qualifiers: Diarrhea type: presumed infectious Qualified Code(s): R19.7 - Diarrhea, unspecified (5) Lactic acidosis Status: Acute Assessment and plan: Likely secondary to sepsis. Resolved. (6) FRANCISCA (acute kidney injury) Status: Acute Assessment and plan: Likely secondary to sepsis and hydroureteronephrosis. Improved. Continue to trend. Avoid nephrotoxins and dose-adjust antibiotics. (7) Hydroureteronephrosis Status: Acute Assessment and plan: CT abdomen and pelvis shows severe bilateral hydroureteronephrosis, likely secondary to post-renal bladder obstruction. Consult Urology. (8) Abdominal pain Status: Acute Assessment and plan: Etiology unclear, but likely related to UTI. LFTs normal. Abdominal exam benign. CT of the abdomen and pelvis shows bilateral hydroureteronephrosis. Qualifiers: Abdominal location: periumbilical Qualified Code(s): R10.33 - Periumbilical pain (9) Anemia Status: Acute Assessment and plan: Likely dilutional. No acute bleeding noted on exam. Further workup and management per the primary team. Qualifiers: Anemia type: unspecified type Qualified Code(s): D64.9 - Anemia, unspecified (10) History of Clostridium difficile infection Status: Acute Assessment and plan: Was treated with 14 days of PO Vancomycin. Low index of suspicion for recurrence of C. diff. (11) Weakness generalized Status: Acute Assessment and plan: Likely secondary to sepsis and acute illness. Consider PT/OT to evaluate. (12) Atrial fibrillation Status: Chronic Assessment and plan: Currently in NSR. Management per the primary team. Qualifiers: Atrial fibrillation type: paroxysmal Qualified Code(s): I48.0 - Paroxysmal atrial fibrillation Infectious Disease HPI - Data of Consult Patient: new to practice Consult date: 07/05/17 Requesting Physician: Jaylon Lyon MD Primary Care Provider: Radha Wise - Consult Narrative Reason for consult: C. diff, bacteremia History of present illness: Mr. Chen is a 56 year old male with a past medical history of A. fib, hypertension, anxiety, and C. difficile diarrhea. The patient was admitted to the hospital July 04 for sepsis, acute kidney injury, and diarrhea. We are consulted July 05 for antibiotic recommendations for possible C. difficile and bacteremia. Briefly, the patient's a 56-year-old male with past medical history as stated above. The patient appears to be somewhat of a poor historian due to conflicting stories that he is told me and nursing, somost of the information is obtained from the medical record. Currently, the patient was recently admitted here at [facility] on June 07 and was discharged . During his hospitalization, the patient was diagnosed with sepsis secondary to C. difficile and UTI. He was also diagnosed with A. fib and urinary retention. He did have a Leroy catheter while here in the hospital and was discharged home with the catheter and followed up with urology in outpatient clinic and passed a voiding trial and the Leroy was discontinued. During his hospitalization, the patient was treated with 7 days of antibiotics for an enterococcus UTI. He was also treated with cefepime and oral vancomycin as well as 3 days of IV Flagyl. He was discharged home with a seven-day prescription for by mouth vancomycin to complete a 14 day course. He states he was doing well until last when he began to feel weak and tired and dizzy and he was having fevers or 104. He reports he started having diarrhea again on Monday. He told me he was having three loose watery stools per day, but told nursing he was going several times per day. He reports periumbilical pain, but denies urinary frequency or hematuria. Denies flank pain. States his appetite was good until last . Upon arrival to the ER, the patient was febrile and tachycardia and hypotensive. He was given four liters of normal saline, but remained hypotensive. He had a central line placed and was started on IV Levophed. Additional labs in the ER: Lactic acid 2.7, serum creatinine 3.17, Na 120. Blood cultures were drawn x 2 sets and were positive for 2 different strands of E. coli. Urinalysis positive for large leukocyte esterast and TNTC WBC and appears to be a non-contaminated specimen. Culture is pending. CXR showed a stable small left pleural effusion. Flu antigen was negative. He was started on PO Vanc and IV Flagyl and admitted for further evaluation. Since admission, the patient's WBC has improved. He has continued to have some fevers. He had a CT of the abdomen and pelvis that showed severe bilateral hydroureteronephrosis likely secondary to post-renal bladder obstruction. Lactic acidosis has resolved. FRANCISCA is improved. Troponin came back positive at 0.11. He has had two loose stools today. No stool has been sent for testing. Currently, the patient is on IV Flagyl, PO Vanc and IV Cefepime. We've been asked to evaluate and make further recommendations. During my exam, the patient states that overall he feels better. He reports fevers, chills, and rigors prior to admission, but denies any overnight. Reports feeling confused, generally weak, and tired. Denies congestions, earache , sore throat. Denies chest pain, cough, or shortness of breath. Denies nausea or vomiting, but reports some periumbilical and right sided abdominal pain that is non-radiating. Denies urinary complaints of CVA tenderness. Denies back or extremity pain. Denies oral thrush or skin lesions. 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 He lives at home with his and two daughters. He has a 30 pack year smoking history, but has not smoked since his last hospitalization. Denies alcohol or illicit drug use. CC: Jaylon Lyon MD Past Med Surg Social Fam HX - Past Medical History Attestation: Yes The following information was validated with the patient. 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) Current living situation: Home - Independent Activity Level: Independent ambulation Recent Out of Country Travel Within the Last 8 Weeks: No Exposure or Possible Exposure to Illness During Travel: No Infectious Disease-CN:Meds ALPRAZolam [Xanax 0.5 MG Tablet] 0.5 mg PO TID 08/29/16 [History] Valsartan/Hydrochlorothiazide [Diovan Hct 160-12.5 mg Tab] 1 each PO DAILY 06/07 [History] Diltiazem CD (24hr) [Cardizem CD] 180 mg PO DAILY #30 cap.er.24h 06/13/17 [Rx] Rivaroxaban [Xarelto] 20 mg PO DAILY #30 tablet 06/13/17 [Rx] Metoprolol [Lopressor] 50 mg PO BID #60 tablet 06/14/17 [Rx] Tamsulosin [Flomax] 0.4 mg PO DAILY 07/04/17 [History] 3 Allergy/AdvReac Type Severity Reaction Status Date / Time No Known Allergies Allergy Verified 08/29/16 06:48 All systems: reviewed and no additional remarkable complaints except as stated Exam - Constitutional Vitals: Temp Pulse Resp BP Pulse Ox 100.8 F H 110 21 97/61 99 07/05/17 07:30 07/05/17 09:45 07/05/17 09:45 07/05/17 09:45 07/05/17 09:45 General appearance: average body habitus, cooperative, no acute distress - Head Head exam: Present: atraumatic, normal inspection, normocephalic - Eye Eye exam: Present: EOMI, normal appearance, PERRL Pupils: Present: normal accommodation - ENT ENT exam: Present: mucous membranes moist - Neck Neck exam: Present: normal inspection Additional comments: Right IJ TL CVC noted with transparent dressing C/D/I. - Respiratory Respiratory exam: Present: CTAB. Absent: rales, respiratory distress, rhonchi, wheezes - Cardiovascular Cardiovascular exam: Present: +S1, +S2, tachycardia. Absent: irregular rhythm - GI/Abdominal GI/Abdominal exam: Present: normal bowel sounds, soft. Absent: distended, tenderness - Extremities Exam Extremities exam: Present: normal inspection. Absent: joint swelling, pedal edema, tenderness - Back Exam Back exam: Present: normal inspection. Absent: CVA tenderness (L), CVA tenderness (R) - Neurological Exam Neurological exam: Present: alert, oriented X3, no focal deficits - Psychiatric Psychiatric exam: Present: normal affect, normal mood - Skin Skin exam: Present: dry, intact, normal color, warm Infectious Disease CN: Results - Labs CBC & Chem 7: 07/05/17 16:14 07/05/17 14:20 Serology: Serology 07/05/17 Range/Units 06:15 Urine Color Yellow (Yellow) Urine Clarity Cloudy A (Clear) Urine pH 7.0 (5.0-8.0) pH Units Ur Specific [place] < 1.005 L (1.010-1.025) Urine Protein 30 H (Neg-Trace) mg/dL Urine Glucose (UA) Normal (Normal) mg/dL Urine Ketones Negative (Negative) mg/dL Urine Blood Moderate H (Negative) Urine Nitrite Negative (Negative) Urine Bilirubin Negative (Negative) Urine Urobilinogen Normal (Normal) mg/dL Ur Leukocyte Esterase Large H (Negative) Urine Microscopic RBC 0-3 (0-3) per hpf Urine Microscopic WBC TNTC H (0-3) per hpf Ur Squamous Epith Cells Few (None-Few) per lpf Urine Bacteria Few (None-Few) per hpf Hyaline Casts None Seen (None-Few) per lpf Ur Culture Indicated? YES A (NO) Consult Discharge Plan - Plan Referrals: Juan Quintana DO [Primary Care Provider] - - Attending Attestation I examined this patient and my medical decision-making was reviewed with the Resident Physician. I agree with the documented findings, disposition and treatment plan as described except to the extent set forth below. This is an addendum to original report dictated by Nikole Machuca CNP. Please refer to Brennan [email or web address] for full detail. Patient is a 56-year-old gentleman with past medical history mentioned below including recent admission for UTI and C. difficile colitis. Patient also had urinary retention and had an indwelling Leroy catheter. Exact details why he had the urinary retention remains unclear. Patient presently was doing better after discharge. Patient received 7 days worth of antibiotics for the enterococcus UTI and continued on vancomycin orally for his C. difficile to finish a 14 day course. Patient apparently was having 1 or 2 loose bowel movements a day. Patient apparently on the [place] feeling weak and tired and dizzy and having high-grade fevers almost 104 Fahrenheit patient came in for evaluation where he was noted to be in septic shock requiring pressors and was given 4 L of fluid in the emergency department. Patient was admitted for further evaluation to the ICU. In the ER patient had lactic acidosis and acute kidney injury with creatinine of 3.17. Patient had blood cultures drawn and 2 sets grew Escherichia coli. Patient also had a urine done which showed positive pyuria chest x-ray was negative. Flu antigen was negative. Patient also had CT abdomen pelvis which showed severe bilateral hydroureteronephrosis likely secondary to postrenal bladder obstruction. On further questioning the patient tells me he has no urinary symptoms no burning or dysuria or frequency or loss of control. Patient also denies any CVA tenderness or back pain. No nausea or vomiting. At this point patient appears to be in septic shock secondary to Escherichia coli bacteremia likely source is the urinary system. Not sure whats going on with the bladder and the findings that were noted on the CT scan. Its strange how the patient is asymptomatic. I agree with the broad-spectrum antibiotics. C. difficile will be checked but the patient is not symptomatic at this time. Urology evaluation might be helpful. Monitor labs and for drug toxicity. Dose adjust antibiotics based on creatinine clearance.
[2017-07-05] MEDS: ALPRAZolam 0.5 MG TABLET PO SCH ×3 (10:49→20:30)
[2017-07-05] MEDS: Vancomycin Oral Soln 250 MG/5 ML UDC PO SCH (10:50)
[2017-07-05] MEDS ORDERED: Cefepime HCl 1,000 MG in Water for inj. (sterile) 20 ML 10 ML IVP ONE (14:00)
[2017-07-05 14:57] LABS: Magnesium 2.1 mg/dL (1.6-2.6)
[2017-07-05] MEDS: Lactobacillus 1 EACH CAP.SPRINK PO SCH (15:03)
[2017-07-05 15:42] LABS: Calcium 7.8 mg/dL (8.6-10.3)
[2017-07-05 16:39] LABS: Hematocrit 25.4 % (37.5-50.1); Hemoglobin 8.6 g/dL (12.9-16.9); Lymphocytes # 1.3 K/mcL (0.6-4.6); Mean Corpuscular HGB Conc 33.9 g/dL (31.6-35.5); Mean Corpuscular Hemoglobin 30.6 pg (28.0-33.3); Mean Corpuscular Volume 90.4 fL (83.0-100.0); Mean Platelet Volume 9.4 fL (9.4-12.4); Platelet Count 300 K/mcL (140-400); Red Blood Count 2.81 M/mcL (4.19-5.50); Red Cell Distribution Width 13.2 % (11.5-14.5)
[2017-07-05 17:32] LABS: Monocytes # 2.6 K/mcL (0.0-1.3); Neutrophils # 17.5 K/mcL (1.6-8.9); Platelet Estimate Normal (Normal); Toxic Granulation Present (Not Present)
[2017-07-05] MEDS ORDERED: Acetaminophen 325 MG TABLET PO ONE (20:05)
[2017-07-05] MEDS ORDERED: 0.9 % Sodium Chloride 500 ML IVC ONE (23:39)
[2017-07-06] MEDS ORDERED: 0.9 % Sodium Chloride 500 ML IVC ONE (02:42)
[2017-07-06] MEDS ORDERED: *HR* Metoprolol 5 MG/5 ML VIAL IVP ONE ×3 (02:50→03:01)
[2017-07-06 03:19] LABS: Mean Platelet Volume 9.1 fL (9.4-12.4); Red Cell Distribution Width 13.2 % (11.5-14.5)
[2017-07-06 03:20] LABS: Hematocrit 28.9 % (37.5-50.1); Hemoglobin 9.9 g/dL (12.9-16.9); Mean Corpuscular HGB Conc 34.3 g/dL (31.6-35.5); Mean Corpuscular Volume 90.6 fL (83.0-100.0); Platelet Count 314 K/mcL (140-400); Red Blood Count 3.19 M/mcL (4.19-5.50)
[2017-07-06 03:36] LABS: Calcium 8.1 mg/dL (8.6-10.3); Potassium 4.2 mEq/L (3.5-5.1)
[2017-07-06 04:12] LABS: Lymphocytes # 2.1 K/mcL (0.6-4.6); Monocytes # 2.1 K/mcL (0.0-1.3); Neutrophils # 22.1 K/mcL (1.6-8.9); Platelet Estimate Normal (Normal)
--- NOTE | 2017-07-06 07:45 | Pulmonology Progress Note ---
<Juan Flower - Last Filed: 07/06/17 11:10> Date of Encounter: 07/06/17 Time of Encounter: 07:41 Assessment and Plan (1) Sepsis Current Visit: Yes Status: Acute Patient C. difficile was negative from yesterday. We will discontinue the patient's oral vancomycin but continue with him on Flagyl. The patient sepsis appears to be associated with a possible urinary tract infection after CT scan revealed extensive lateral thickening. Patient had a large amount of hydronephrosis as well as CT scan. The patient has had a large amount of urine that he has urinated over the past 24 hours. The patient did have positive blood culture from yesterday was started on cefepime. Is doing well otherwise. The patient has had improvement with his Rebeca's that he was experiencing 1 day ago. Infectious disease has been consulted and is participating in patient care and gave recommendations. Urology consulted and will be participating in care. Qualifiers: Sepsis type: sepsis due to unspecified organism Qualified Code(s): A41.9 - Sepsis, unspecified organism (2) FRANCISCA (acute kidney injury) Current Visit: Yes Status: Acute Improved overnight. (3) UTI (urinary tract infection) Current Visit: Yes Status: Acute Patient noted to have marketed bladder wall thickening on CT scan of his abdomen and pelvis. He also is experiencing a large amount of hydronephrosis bilaterally. The patient is currently on antibiotics for his positive blood cultures. We will continue those and monitor patient's urinary status. Qualifiers: Urinary tract infection type: acute cystitis Hematuria presence: without hematuria Qualified Code(s): N30.00 - Acute cystitis without hematuria (4) Elevated troponin Current Visit: No Status: Acute Improved at last draw. Likely reactive. Patient remains chest pain free. (5) Anemia Current Visit: Yes Status: Acute Patient's hemoglobin has improved. This is likely associated with the patient' s dilution with a large amount of IV fluids. We will continue to monitor. The patient is having no active bleeding noted on examination and is experiencing negative for fecal Hemoccult. Qualifiers: Anemia type: unspecified type Qualified Code(s): D64.9 - Anemia, unspecified (6) Atrial fibrillation Current Visit: Yes Status: Chronic Patient went into an episode of intrafibrillation with RVR overnight. He was noted to be slightly hypotensive at that time. The patient was given 2 L of IV fluids due to some associated hypotension. She was placed on a Cardizem drip at that time. His rate has slowed since. The patient remains asymptomatic otherwise. We will restart Xarelto today as his renal function is improved. His hemoglobin is improved as well. Qualifiers: Atrial fibrillation type: paroxysmal Qualified Code(s): I48.0 - Paroxysmal atrial fibrillation (7) Hyponatremia Current Visit: Yes Status: Resolved (8) Hypertension Current Visit: No Status: Chronic Qualifiers: Hypertension type: essential hypertension Qualified Code(s): I10 - Essential (primary) hypertension Subjective Principal diagnosis: Sepsis, C. difficile colitis Interval history: Patient's heart rate went into A. fib with RVR overnight. He was given a 2 L fluid bolus and then started on a Cardizem drip. The patient also received 1 dose of Lopressor which failed to lower the patient's heart rate. He is currently on a Cardizem drip at a rate of 10. The patient's heart rate is in the 90s to low 100s so A. fib. The patient has a history of paroxysmal A. fib. The patient's Xarelto was discontinued yesterday with concern for anemia as well as possible hematemesis versus melena. With the patient's stool negative for blood, we will begin the patient on Xarelto once again. Urology was consulted with concern for possible urinary tract infection and large hydronephrosis as well as bladder wall thickening. The patient has been urinating a large amount of urine over the past 24 hours. After discussing with urology they stated that the patient should receive a Leroy catheter and they will come see the patient. We will continue to monitor the patient's urinary outputs. Objective PUL Vital signs: Last Vital Signs Temp 100.8 F H 07/06/17 06:30 Pulse 100 07/06/17 06:30 Resp 24 07/06/17 06:30 BP 98/57 07/06/17 06:30 Pulse Ox 99 07/06/17 06:30 General appearance: no acute distress Eyes: nonicteric ENT: oropharynx moist Neck: supple Effort: normal Cardiovascular: irregular rhythm (and tachycardic) Gastrointestinal: soft, non-distended Integumentary: normal Extremities: no cyanosis, no edema, no clubbing Musculoskeletal: no deformities, ROM normal normal mental status, non-focal exam mood appropriate, affect normal Results - Laboratory Findings CBC and BMP: 07/06/17 03:10 07/06/17 03:10 ABG ABG pH 7.45 pH Units (7.32-7.45) 07/04/17 11:29 ABG pCO2 29 mmHg (35-45) L 07/04/17 11:29 ABG pO2 84 mmHg (85-104) L 07/04/17 11:29 ABG O2 Saturation 97 % (95-98) 07/04/17 11:29 PT/INR, D-dimer PT 14.5 Seconds (9.4-12.1) H 07/04/17 09:55 Abnormal lab findings: Abnormal lab results WBC 26.3 K/mcL (4.3-11.1) H 07/06/17 03:10 RBC 3.19 M/mcL (4.19-5.50) L 07/06/17 03:10 Hgb 9.9 g/dL (12.9-16.9) L 07/06/17 03:10 Hct 28.9 % (37.5-50.1) L 07/06/17 03:10 MPV 9.1 fL (9.4-12.4) L 07/06/17 03:10 Immature Gran % 4.4 % (0-4) H 07/05/17 03:45 Band Neutrophils % 20.0 % (0-4) H 07/05/17 16:14 Neutrophils # 22.1 K/mcL (1.6-8.9) H 07/06/17 03:10 Monocytes # 2.1 K/mcL (0.0-1.3) H 07/06/17 03:10 Toxic Granulation Present (Not Present) A 07/05/17 16:14 PT 14.5 Seconds (9.4-12.1) H 07/04/17 09:55 ABG pCO2 29 mmHg (35-45) L 07/04/17 11:29 ABG pO2 84 mmHg (85-104) L 07/04/17 11:29 ABG HCO3 20 mEq/L (21-27) L 07/04/17 11:29 ABG Base Excess -4 mEq/L (-2 to 3) L 07/04/17 11:29 Chloride 108 mEq/L (98-107) H 07/06/17 03:10 Carbon Dioxide 18 mEq/L (23-29) L 07/06/17 03:10 BUN 23 mg/dL (6-20) H 07/06/17 03:10 Creatinine 1.77 mg/dL (0.70-1.30) H 07/06/17 03:10 Est GFR ( Amer) 48 (> 60) L 07/06/17 03:10 Est GFR (Non-Af Amer) 40 (> 60) L 07/06/17 03:10 POC Glucose 167 (58-89) H 07/04/17 18:05 Calcium 8.1 mg/dL (8.6-10.3) L 07/06/17 03:10 Troponin I 0.04 ng/mL (< 0.04) H* 07/05/17 03:45 Albumin 2.7 g/dL (3.5-5.7) L 07/04/17 09:55 Globulin 3.8 g/dL (2.4-3.5) H 07/04/17 09:55 Albumin/Globulin Ratio 0.7 (1.1-2.2) L 07/04/17 09:55 Urine Clarity Cloudy (Clear) A 07/05/17 06:15 Ur Specific [place] < 1.005 (1.010-1.025) L 07/05/17 06:15 Urine Protein 30 mg/dL (Neg-Trace) H 07/05/17 06:15 Urine Blood Moderate (Negative) H 07/05/17 06:15 Ur Leukocyte Esterase Large (Negative) H 07/05/17 06:15 Urine Microscopic WBC TNTC per hpf (0-3) H 07/05/17 06:15 Ur Culture Indicated? YES (NO) A 07/05/17 06:15 Enterobacteriac sp PCR DETECTED (Not Detect) A 07/04/17 09:55 E. coli (PCR) DETECTED (Not Detect) A 07/04/17 09:55 - Clinical Findings Intake & Output: Intake & Output 07/05/17 07/05/17 07/06/17 15:59 23:59 07:59 Intake Total 260 / 260 240 / 240 2026 Output Total 700 / 700 2350 / 2350 Balance -440 / -440 240 / 240 -323 / -323 Weight 85.5 kg 85.5 kg - VTE Documentation of Mechanical Device: Intermittent pneumatic compression device Consult Discharge Plan - Plan Referrals: Juan Quintana DO [Primary Care Provider] - - Attending Attestation I examined this patient and my medical decision-making was reviewed with the Resident Physician. I agree with the documented findings, disposition and treatment plan as described except to the extent set forth below. <Jaylon Lyon - Last Filed: 07/07/17 20:39> Date of Encounter: 07/07/17 Objective PUL Vital signs: Last Vital Signs Temp 99.3 F 07/06/17 20:19 Pulse 88 07/06/17 22:00 Resp 28 07/06/17 22:00 BP 92/47 07/06/17 22:00 Pulse Ox 97 07/06/17 22:00 Results - Laboratory Findings CBC and BMP: 07/07/17 04:40 07/07/17 10:28 ABG ABG pH 7.45 pH Units (7.32-7.45) 07/04/17 11:29 ABG pCO2 29 mmHg (35-45) L 07/04/17 11:29 ABG pO2 84 mmHg (85-104) L 07/04/17 11:29 ABG O2 Saturation 97 % (95-98) 07/04/17 11:29 PT/INR, D-dimer PT 14.5 Seconds (9.4-12.1) H 07/04/17 09:55 Abnormal lab findings: Abnormal lab results WBC 26.3 K/mcL (4.3-11.1) H 07/06/17 03:10 RBC 3.19 M/mcL (4.19-5.50) L 07/06/17 03:10 Hgb 9.9 g/dL (12.9-16.9) L 07/06/17 03:10 Hct 28.9 % (37.5-50.1) L 07/06/17 03:10 MPV 9.1 fL (9.4-12.4) L 07/06/17 03:10 Immature Gran % 4.4 % (0-4) H 07/05/17 03:45 Band Neutrophils % 20.0 % (0-4) H 07/05/17 16:14 Neutrophils # 22.1 K/mcL (1.6-8.9) H 07/06/17 03:10 Monocytes # 2.1 K/mcL (0.0-1.3) H 07/06/17 03:10 Toxic Granulation Present (Not Present) A 07/05/17 16:14 PT 14.5 Seconds (9.4-12.1) H 07/04/17 09:55 ABG pCO2 29 mmHg (35-45) L 07/04/17 11:29 ABG pO2 84 mmHg (85-104) L 07/04/17 11:29 ABG HCO3 20 mEq/L (21-27) L 07/04/17 11:29 ABG Base Excess -4 mEq/L (-2 to 3) L 07/04/17 11:29 Chloride 108 mEq/L (98-107) H 07/06/17 03:10 Carbon Dioxide 18 mEq/L (23-29) L 07/06/17 03:10 BUN 23 mg/dL (6-20) H 07/06/17 03:10 Creatinine 1.77 mg/dL (0.70-1.30) H 07/06/17 03:10 Est GFR ( Amer) 48 (> 60) L 07/06/17 03:10 Est GFR (Non-Af Amer) 40 (> 60) L 07/06/17 03:10 POC Glucose 167 (58-89) H 07/04/17 18:05 Calcium 8.1 mg/dL (8.6-10.3) L 07/06/17 03:10 Troponin I 0.04 ng/mL (< 0.04) H* 07/05/17 03:45 Albumin 2.7 g/dL (3.5-5.7) L 07/04/17 09:55 Globulin 3.8 g/dL (2.4-3.5) H 07/04/17 09:55 Albumin/Globulin Ratio 0.7 (1.1-2.2) L 07/04/17 09:55 Urine Clarity Cloudy (Clear) A 07/05/17 06:15 Ur Specific [place] < 1.005 (1.010-1.025) L 07/05/17 06:15 Urine Protein 30 mg/dL (Neg-Trace) H 07/05/17 06:15 Urine Blood Moderate (Negative) H 07/05/17 06:15 Ur Leukocyte Esterase Large (Negative) H 07/05/17 06:15 Urine Microscopic WBC TNTC per hpf (0-3) H 07/05/17 06:15 Ur Culture Indicated? YES (NO) A 07/05/17 06:15 Enterobacteriac sp PCR DETECTED (Not Detect) A 07/04/17 09:55 E. coli (PCR) DETECTED (Not Detect) A 07/04/17 09:55 - Microbiology Findings Microbiology Findings: Microbiology, Last 48 Hours 07/05/17 06:15 Urine Culture - Preliminary Urine,Clean Catch Proteus mirabilis Gram Negative Zane#2 - Clinical Findings Intake & Output: Intake & Output 07/06/17 07/06/17 07/06/17 07:59 15:59 23:59 Intake Total 2026 / 2026 120 / 120 Output Total 2350 / 2350 650 / 650 1999 Balance -323 / -323 -530 / -530 -1999 Weight 85.5 kg - Attending Attestation I saw and evaluated this patient and my medical decision-making was reviewed with the Resident Physician. I agree with the documented findings, disposition and treatment plan as described except to the extent set forth below. We independently had [id number] contact with the patient Patient seen and examined at bedside Labs, radiology, chart personally reviewed. ROOM MANAGER:Patient is conscious oriented x 3 Pulm:Patient doesnt have any acute issues no pulmonary symptoms patient is saturating well on Room air the CXR findings looks like chronic doesnt have any airspace consolidation disease will monitor Cards: Patient looks like developed septic shock secondary to E coli bactremia secondary to complicated UTI patient is off vasopressors blood pressures are borderline will monitor FEN-GI:Advance diet as tolerated Renal:Acute on Chronic Kidney disease most likely due to hydronephrosis now improving will consult Urology ID: C diff negative stopped PO Vanco and IV flagyl septic shock is caused by E coli bactremia due to UTI ID input appreciated Heme/Onc:Reviewed Endo: Glucose Monitored Integ/MSK: Skin Care per routine ICU Nursing Protocol to prevent ulcers. Lines: All lines examined without evidence of infection : Dispo: Critically ill -septic shock resolving high chance of circulatory failure . CODE:Full code
[2017-07-06] MEDS ORDERED: Cefepime HCl 2,000 MG in Water for inj. (sterile) 20 ML 20 ML IVP SCH (09:00)
[2017-07-06] MEDS: ALPRAZolam 0.5 MG TABLET PO SCH ×3 (09:05→20:39)
[2017-07-06] MEDS: Lactobacillus 1 EACH CAP.SPRINK PO SCH (09:06)
--- NOTE | 2017-07-06 13:23 | Infectious Disease Progress No ---
Date of Encounter: 07/06/17 Time of Encounter: 13:15 - Assessment and Plan (1) Septic shock Current Visit: Yes Status: Acute The patient had three SIRS criteria plus hypotension requiring vasopressors. Likely secondary to UTI and bacteremia. Improved. Vasopressors have been stopped, but the patient has been having fevers and tachycardia overnight. Blood cultures drwan 07/04/17 are positive 2/2 sets for E. coli. (2) Bacteremia Current Visit: Yes Status: Acute Causative organism: E. coli x 2 strands. Likely secondary to UTI. Blood cultures drawn 07/04/17 are positive for E. coli. Repeat blood cultures x 2 sets. Discontinue Cefepime. Start Rocephin 2 grams IV daily. Monitor renal function and dose-adjust antibiotics. (3) UTI (urinary tract infection) Current Visit: No Status: Acute Causative organism likely E. coli given the patient's blood culture results, but await urine culture. Likely secondary to recent catheterization and urinary retention. Urinalysis shows WBC TNTC and large amount of L.E. Urine culture pending. Continue antibiotics as above. Qualifiers: Urinary tract infection type: acute cystitis Hematuria presence: without hematuria Qualified Code(s): N30.00 - Acute cystitis without hematuria (4) Diarrhea Current Visit: Yes Status: Acute Etiology unclear, but likely gastroenteritis. C. diff negative. Appears improved. Continue probiotic. Qualifiers: Diarrhea type: presumed infectious Qualified Code(s): R19.7 - Diarrhea, unspecified (5) Lactic acidosis Current Visit: Yes Status: Acute Likely secondary to sepsis. Resolved. (6) FRANCISCA (acute kidney injury) Current Visit: Yes Status: Acute Likely secondary to sepsis and hydroureteronephrosis. Improved. Continue to trend. Avoid nephrotoxins and dose-adjust antibiotics. (7) Hydroureteronephrosis Current Visit: Yes Status: Acute CT abdomen and pelvis shows severe bilateral hydroureteronephrosis, likely secondary to post-renal bladder obstruction. Consult Urology. (8) Abdominal pain Current Visit: Yes Status: Acute Etiology unclear, but likely related to UTI. LFTs normal. Abdominal exam benign. CT of the abdomen and pelvis shows bilateral hydroureteronephrosis. Resolved. Qualifiers: Abdominal location: periumbilical Qualified Code(s): R10.33 - Periumbilical pain (9) Anemia Current Visit: Yes Status: Acute Likely dilutional. No acute bleeding noted on exam. Improved. Further workup and management per the primary team. Qualifiers: Anemia type: unspecified type Qualified Code(s): D64.9 - Anemia, unspecified (10) History of Clostridium difficile infection Current Visit: Yes Status: Acute Was treated with 14 days of PO Vancomycin. Low index of suspicion for recurrence of C. diff. (11) Weakness generalized Current Visit: Yes Status: Acute Likely secondary to sepsis and acute illness. Consider PT/OT to evaluate. (12) Atrial fibrillation Current Visit: Yes Status: Chronic Management per the primary team. Qualifiers: Atrial fibrillation type: paroxysmal Qualified Code(s): I48.0 - Paroxysmal atrial fibrillation - Subjective Interval history: Patient seen and examined. No acute events noted overnight. Patient states he feels better today. Still having fevers overnight and WBC worse this morning. Denies chills or rigors. Denies chest pain, shortness of breath, or cough. Denies nausea, vomiting or diarrhea. Denies abdominal pain and states he ate a big breakfast this morning. Status post reyes catheter placement with 1700ml urine out that was clear at first and then became milky yellow. Patient denies feeling like he needed to void prior to reyes placement. States abdominal pain has resolved. Denies oral thrush or new skin lesions. Infect Dis PN-Objective Data - Labs CBC & Chem 7: 07/06/17 03:10 07/06/17 03:10 Labs: Laboratory Results - last 24 hr 07/05/17 07/05/17 07/05/17 10:15 14:20 16:14 WBC 21.3 H RBC 2.81 L Hgb 8.6 L Hct 25.4 L MCV 90.4 MCH 30.6 MCHC 33.9 RDW 13.2 Plt Count 300 MPV 9.4 Seg Neutrophils % 62.0 Band Neutrophils % 20.0 H Lymphocytes % 6.0 Monocytes % 12.0 Neutrophils # 17.5 H Lymphocytes # 1.3 Monocytes # 2.6 H Toxic Granulation Present A Platelet Estimate Normal Sodium 133 L Potassium 4.0 Chloride 107 Carbon Dioxide 19 L BUN 25 H Creatinine 1.98 H Est GFR ( Amer) 42 L Est GFR (Non-Af Amer) 35 L BUN/Creatinine Ratio 13 Glucose 150 H Calculated Osmolality 283 Calcium 7.8 L Magnesium 2.1 Stl C. diff Tox B Gene Negative 07/06/17 07/06/17 07/06/17 03:00 03:10 03:10 WBC 26.3 H RBC 3.19 L Hgb 9.9 L Hct 28.9 L MCV 90.6 MCH 31.0 MCHC 34.3 RDW 13.2 Plt Count 314 MPV 9.1 L Seg Neutrophils % 84.0 Band Neutrophils % Lymphocytes % 8.0 Monocytes % 8.0 Neutrophils # 22.1 H Lymphocytes # 2.1 Monocytes # 2.1 H Toxic Granulation Platelet Estimate Normal Sodium 136 Potassium 4.2 Chloride 108 H Carbon Dioxide 18 L BUN 23 H Creatinine 1.77 H Est GFR ( Amer) 48 L Est GFR (Non-Af Amer) 40 L BUN/Creatinine Ratio 13 Glucose 99 Calculated Osmolality 286 Calcium 8.1 L Magnesium 2.0 Stl C. diff Tox B Gene Cultures: Serology 07/05/17 07/05/17 07/05/17 Range/Units 11:27 10:15 06:15 Urine Color Yellow (Yellow) Urine Clarity Cloudy A (Clear) Urine pH 7.0 (5.0-8.0) pH Units Ur Specific [place] < 1.005 L (1.010-1.025) Urine Protein 30 H (Neg-Trace) mg/dL Urine Glucose (UA) Normal (Normal) mg/dL Urine Ketones Negative (Negative) mg/dL Urine Blood Moderate H (Negative) Urine Nitrite Negative (Negative) Urine Bilirubin Negative (Negative) Urine Urobilinogen Normal (Normal) mg/dL Ur Leukocyte Esterase Large H (Negative) Urine Microscopic RBC 0-3 (0-3) per hpf Urine Microscopic WBC TNTC H (0-3) per hpf Ur Squamous Epith Cells Few (None-Few) per lpf Urine Bacteria Few (None-Few) per hpf Hyaline Casts None Seen (None-Few) per lpf Ur Culture Indicated? YES A (NO) Stool Occult Blood Negative (Negative) Stl C. diff Tox B Gene Negative (Negative) Exam - Constitutional Vitals: Temp Pulse Resp BP Pulse Ox 97.8 F 98 23 100/59 99 07/06/17 11:00 07/06/17 11:30 07/06/17 11:30 07/06/17 11:30 07/06/17 11:30 General appearance: average body habitus, cooperative, no acute distress - Head Head exam: Present: atraumatic, normal inspection, normocephalic - Eye Eye exam: Present: EOMI, normal appearance, PERRL Pupils: Present: normal accommodation - ENT ENT exam: Present: mucous membranes moist - Neck Neck exam: Present: normal inspection Additional comments: Right IJ triple lumen noted to the right neck with transparent dressing C/D/I. - Respiratory Respiratory exam: Present: CTAB. Absent: rales, respiratory distress, rhonchi, wheezes - Cardiovascular Cardiovascular exam: Present: RRR, +S1, +S2 - GI/Abdominal GI/Abdominal exam: Present: normal bowel sounds, soft. Absent: distended, tenderness Additional comments: Reyes catheter noted to be draining milky yellow urine. - Extremities Exam Extremities exam: Present: normal inspection. Absent: joint swelling, pedal edema, tenderness - Neurological Exam Neurological exam: Present: alert, oriented X3, no focal deficits - Psychiatric Psychiatric exam: Present: normal affect, normal mood - Skin Skin exam: Present: dry, intact, normal color, warm - VTE Documentation of Mechanical Device: Intermittent pneumatic compression device Consult Discharge Plan - Plan Referrals: Juan Quintana DO [Primary Care Provider] - - Attending Attestation I examined this patient and my medical decision-making was reviewed with the Resident Physician. I agree with the documented findings, disposition and treatment plan as described except to the extent set forth below.
[2017-07-06] MEDS ORDERED: *HR* Rivaroxaban 15 MG TABLET PO SCH (17:00)
--- NOTE | 2017-07-06 17:47 | Urology - Consult Note ---
Date of Encounter: 07/06/17 Time of Encounter: 17:45 - Assessment and Plan (1) Hydroureteronephrosis Current Visit: Yes Status: Acute Assessment and plan: His hydronephrosis and urosepsis is likely secondary to significant incomplete bladder emptying. Hopefully his acute illness will resolve now that the catheters in place. Urology team will follow the patient daily. If no improvement in his condition it is possible we would need to proceed with bilateral ureteral stent placement secondary to hydronephrosis. Normally the hydronephrosis will decompress with adequate bladder drainage. On the CT scan the patient does not have a significantly enlarged prostate. Although outlet obstruction is possible need to also consider neurogenic bladder as the cause of his recurrent retention. Proper evaluation will be performed as an outpatient. We will address acute issues while he is in the hospital. Urology CN:ANALISA Consult date: 07/06/17 Reason for consult Urology: Hydronephrosis History of present illness: Patient known to the urology service. Recently seen by Dr. Tinoco for urinary retention. He was able to void in the urology office and the catheter was left out. He returned to the hospital yesterday with acute illness and found to be in urosepsis. CT scan shows a significantly distended bladder. Thickened bladder wall. Bilateral hydronephrosis. Patient states he had no knowledge he was having difficulty urinating. Leroy catheter was placed in the ICU which returned 1700 mL of residual urine. Past Med Surg Social Fam HX - Past Medical History Medical history: atrial fibrillation, hypertension Psychiatric history: anxiety - Past Surgical History Surgical History: no surgical history - Social History Smoking Status: Former smoker Packs per day: 1 Smokeless Tobacco Status: No Alcohol use: none Drug use: none Medications and Allergies ALPRAZolam [Xanax 0.5 MG Tablet] 0.5 mg PO TID 08/29/16 [History] Valsartan/Hydrochlorothiazide [Diovan Hct 160-12.5 mg Tab] 1 each PO DAILY 06/07 [History] Diltiazem CD (24hr) [Cardizem CD] 180 mg PO DAILY #30 cap.er.24h 06/13/17 [Rx] Rivaroxaban [Xarelto] 20 mg PO DAILY #30 tablet 06/13/17 [Rx] Metoprolol [Lopressor] 50 mg PO BID #60 tablet 06/14/17 [Rx] Tamsulosin [Flomax] 0.4 mg PO DAILY 07/04/17 [History] 3 Allergy/AdvReac Type Severity Reaction Status Date / Time No Known Allergies Allergy Verified 08/29/16 06:48 Review of Systems - Constitutional fever(s), malaise, weakness - EENT Nose, mouth and throat: no dizziness - Cardiovascular no chest pain - Respiratory no cough - Gastrointestinal abdominal pain, nausea - Genitourinary difficulty urinating - Musculoskeletal back pain - Integumentary no erythema - Neurological no confusion - Psychiatric no anxiety - Hematologic/Lymphatic no easy bleeding - Allergic/Immunologic no throat swelling Exam Initial Vital Signs Temp Pulse Resp BP Pulse Ox 101.1 F H 111 18 76/55 98 07/04/17 09:37 07/04/17 09:37 07/04/17 09:37 07/04/17 09:37 07/04/17 09:37 - General physical appearance Present: well developed, no distress - Eyes Present: PERRL - ENT Present: normal nares - Neck Present: no masses, no lymphadenopathy - Respiratory Present: normal respiratory effort - Abdomen Abdomen: Present: soft, suprapubic tenderness. Absent: masses - Integumentary Present: no rash - Neurologic Present: normal coordination. Absent: disoriented, confused - Additional Findings Leroy catheter draining clear urine Urology Results - Labs 07/06/17 03:10 07/06/17 03:10 Abnormal lab results WBC 26.3 K/mcL (4.3-11.1) H 07/06/17 03:10 RBC 3.19 M/mcL (4.19-5.50) L 07/06/17 03:10 Hgb 9.9 g/dL (12.9-16.9) L 07/06/17 03:10 Hct 28.9 % (37.5-50.1) L 07/06/17 03:10 MPV 9.1 fL (9.4-12.4) L 07/06/17 03:10 Immature Gran % 4.4 % (0-4) H 07/05/17 03:45 Band Neutrophils % 20.0 % (0-4) H 07/05/17 16:14 Neutrophils # 22.1 K/mcL (1.6-8.9) H 07/06/17 03:10 Monocytes # 2.1 K/mcL (0.0-1.3) H 07/06/17 03:10 Toxic Granulation Present (Not Present) A 07/05/17 16:14 PT 14.5 Seconds (9.4-12.1) H 07/04/17 09:55 ABG pCO2 29 mmHg (35-45) L 07/04/17 11:29 ABG pO2 84 mmHg (85-104) L 07/04/17 11:29 ABG HCO3 20 mEq/L (21-27) L 07/04/17 11:29 ABG Base Excess -4 mEq/L (-2 to 3) L 07/04/17 11:29 Chloride 108 mEq/L (98-107) H 07/06/17 03:10 Carbon Dioxide 18 mEq/L (23-29) L 07/06/17 03:10 BUN 23 mg/dL (6-20) H 07/06/17 03:10 Creatinine 1.77 mg/dL (0.70-1.30) H 07/06/17 03:10 Est GFR ( Amer) 48 (> 60) L 07/06/17 03:10 Est GFR (Non-Af Amer) 40 (> 60) L 07/06/17 03:10 POC Glucose 167 (58-89) H 07/04/17 18:05 Calcium 8.1 mg/dL (8.6-10.3) L 07/06/17 03:10 Troponin I 0.04 ng/mL (< 0.04) H* 07/05/17 03:45 Albumin 2.7 g/dL (3.5-5.7) L 07/04/17 09:55 Globulin 3.8 g/dL (2.4-3.5) H 07/04/17 09:55 Albumin/Globulin Ratio 0.7 (1.1-2.2) L 07/04/17 09:55 Urine Clarity Cloudy (Clear) A 07/05/17 06:15 Ur Specific [place] < 1.005 (1.010-1.025) L 07/05/17 06:15 Urine Protein 30 mg/dL (Neg-Trace) H 07/05/17 06:15 Urine Blood Moderate (Negative) H 07/05/17 06:15 Ur Leukocyte Esterase Large (Negative) H 07/05/17 06:15 Urine Microscopic WBC TNTC per hpf (0-3) H 07/05/17 06:15 Ur Culture Indicated? YES (NO) A 07/05/17 06:15 Enterobacteriac sp PCR DETECTED (Not Detect) A 07/04/17 09:55 E. coli (PCR) DETECTED (Not Detect) A 07/04/17 09:55 Diabetes panel 07/06/17 Range/Units 03:10 Sodium 136 (136-145) mEq/L Potassium 4.2 (3.5-5.1) mEq/L Chloride 108 H (98-107) mEq/L Carbon Dioxide 18 L (23-29) mEq/L BUN 23 H (6-20) mg/dL Creatinine 1.77 H (0.70-1.30) mg/dL Glucose 99 (70-105) mg/dL Calcium 8.1 L (8.6-10.3) mg/dL Calcium panel 07/06/17 Range/Units 03:10 Calcium 8.1 L (8.6-10.3) mg/dL Pituitary panel 07/06/17 Range/Units 03:10 Sodium 136 (136-145) mEq/L Potassium 4.2 (3.5-5.1) mEq/L Chloride 108 H (98-107) mEq/L Carbon Dioxide 18 L (23-29) mEq/L BUN 23 H (6-20) mg/dL Creatinine 1.77 H (0.70-1.30) mg/dL Glucose 99 (70-105) mg/dL Calcium 8.1 L (8.6-10.3) mg/dL Adrenal panel 07/06/17 Range/Units 03:10 Sodium 136 (136-145) mEq/L Potassium 4.2 (3.5-5.1) mEq/L Chloride 108 H (98-107) mEq/L Carbon Dioxide 18 L (23-29) mEq/L BUN 23 H (6-20) mg/dL Creatinine 1.77 H (0.70-1.30) mg/dL Glucose 99 (70-105) mg/dL Calcium 8.1 L (8.6-10.3) mg/dL All other labs normal. Consult Discharge Plan - Plan Referrals: Juan Quintana DO [Primary Care Provider] -
[2017-07-06] MEDS: Norepinephrine 4 MG in D5% in Water 250 ML IVC SCH (20:36)
[2017-07-07 04:45] LABS: Potassium 3.4 mEq/L (3.5-5.1)
[2017-07-07 05:31] LABS: Hematocrit 23.3 % (37.5-50.1); Mean Corpuscular HGB Conc 34.3 g/dL (31.6-35.5); Mean Corpuscular Hemoglobin 30.7 pg (28.0-33.3); Mean Corpuscular Volume 89.3 fL (83.0-100.0); Mean Platelet Volume 9.1 fL (9.4-12.4); Platelet Count 278 K/mcL (140-400); Red Blood Count 2.61 M/mcL (4.19-5.50); Red Cell Distribution Width 13.5 % (11.5-14.5)
--- NOTE | 2017-07-07 06:59 | Pulmonology Progress Note ---
<Kris Montes - Last Filed: 07/07/17 11:25> Date of Encounter: 07/07/17 Time of Encounter: 06:59 Assessment and Plan (1) Septic shock Current Visit: Yes Status: Acute Patient did require initial pressor support on arrival but has significantly improved Blood cultures drawn 07/04/17 are positive 2/2 sets for E. coli. Repeat blood cultures drawn 07/05/17 are NGTD x 2 sets. Leukocytosis is trending down to 14.8 today Vital signs are stable and has been off vasopressors for 2 days Continue IV antibiotics On evaluation this morning, patient is stable enough to be transferred out of the ICU today to any telemetry bed (2) Bacteremia Current Visit: Yes Status: Acute Causative organism: E. coli x 2 strands; Likely secondary to UTI. Blood cultures drawn 07/04/17 are positive for E. coli. Repeat blood cultures x 2 sets drawn 07/05/17 are NGTD. Continue Rocephin 2 grams IV daily. Monitor renal function and dose-adjust antibiotics. We will defer to infectious disease for duration of therapy but will likely require a total of 14 days of Rocephin and can transition to by mouth on discharge. Central line was discontinued today and peripheral IV was placed. (3) Hydroureteronephrosis Current Visit: Yes Status: Acute CT abdomen and pelvis shows severe bilateral hydroureteronephrosis, likely secondary to post-renal bladder obstruction. Leroy was placed yesterday and has had significant output since then Patient does have an enlarged prostate but is unlikely obstructive origin. Urology will follow-up as an outpatient and consider workup for neurogenic bladder dysfunction (4) FRANCISCA (acute kidney injury) Current Visit: Yes Status: Acute Creatinine improving down to 1.48 Likely secondary to sepsis and hydroureteronephrosis We will continue to avoid nephrotoxins and dose adjust antibiotics Recheck BMP in the morning (5) UTI (urinary tract infection) Current Visit: No Status: Acute Urine culture came back with gram-negative rods 2 with Proteus mirabilis Likely secondary to recent catheterization and urinary retention. Urinalysis shows WBC TNTC and large amount of L.E. Continue IV Rocephin Qualifiers: Urinary tract infection type: acute cystitis Hematuria presence: without hematuria Qualified Code(s): N30.00 - Acute cystitis without hematuria (6) Atrial fibrillation with RVR Current Visit: No Status: Acute History of atrial fibrillation Patient is on xarelto for anticoagulation Discontinued Cardizem drip and will start Cardizem 30 mg by mouth every 6; transition to long-acting on discharge (7) Diarrhea Current Visit: Yes Status: Resolved Etiology unclear, but likely gastroenteritis. C. diff negative. Appears improved. Continue probiotic. Qualifiers: Diarrhea type: presumed infectious Qualified Code(s): R19.7 - Diarrhea, unspecified (8) Hypertension Current Visit: No Status: Chronic Qualifiers: Hypertension type: essential hypertension Qualified Code(s): I10 - Essential (primary) hypertension (9) History of Clostridium difficile infection Current Visit: Yes Status: Resolved Was treated with 14 days of PO Vancomycin. Low index of suspicion for recurrence of C. diff. (10) DVT prophylaxis Current Visit: No Status: Acute Patient is on xarelto Subjective Principal diagnosis: Sepsis, C. difficile colitis Interval history: Patient is admitted for sepsis due to UTI and resulting hydronephrosis with Escherichia coli bacteremia Patient is resting comfortable this morning and No concerns overnight per nursing Patient is still on Cardizem drip at 5; heart rate in the 80s in normal sinus rhythm Patient had roughly 2000 Leroy overnight Objective PUL Vital signs: Last Vital Signs Temp 98.1 F 07/07/17 05:00 Pulse 89 07/07/17 06:00 Resp 22 07/07/17 06:00 BP 104/69 07/07/17 06:00 Pulse Ox 93 07/07/17 06:00 General appearance: no acute distress Eyes: nonicteric ENT: oropharynx moist Effort: normal Auscultation: bilateral: clear Cardiovascular: regular rate and rhythm Gastrointestinal: normoactive bowel sounds, non-distended Integumentary: normal Extremities: no cyanosis, no edema, no clubbing Musculoskeletal: no deformities normal mental status, non-focal exam mood appropriate, affect normal Results - Laboratory Findings CBC and BMP: 07/07/17 04:40 07/07/17 04:05 ABG ABG pH 7.45 pH Units (7.32-7.45) 07/04/17 11:29 ABG pCO2 29 mmHg (35-45) L 07/04/17 11:29 ABG pO2 84 mmHg (85-104) L 07/04/17 11:29 ABG O2 Saturation 97 % (95-98) 07/04/17 11:29 PT/INR, D-dimer PT 14.5 Seconds (9.4-12.1) H 07/04/17 09:55 Abnormal lab findings: Abnormal lab results WBC 14.9 K/mcL (4.3-11.1) H 07/07/17 04:40 RBC 2.61 M/mcL (4.19-5.50) L 07/07/17 04:40 Hgb 8.0 g/dL (12.9-16.9) L D 07/07/17 04:40 Hct 23.3 % (37.5-50.1) L 07/07/17 04:40 MPV 9.1 fL (9.4-12.4) L 07/07/17 04:40 Immature Gran % 4.4 % (0-4) H 07/05/17 03:45 Band Neutrophils % 20.0 % (0-4) H 07/05/17 16:14 Neutrophils # 22.1 K/mcL (1.6-8.9) H 07/06/17 03:10 Monocytes # 2.1 K/mcL (0.0-1.3) H 07/06/17 03:10 Toxic Granulation Present (Not Present) A 07/05/17 16:14 PT 14.5 Seconds (9.4-12.1) H 07/04/17 09:55 ABG pCO2 29 mmHg (35-45) L 07/04/17 11:29 ABG pO2 84 mmHg (85-104) L 07/04/17 11:29 ABG HCO3 20 mEq/L (21-27) L 07/04/17 11:29 ABG Base Excess -4 mEq/L (-2 to 3) L 07/04/17 11:29 Sodium 135 mEq/L (136-145) L 07/07/17 04:05 Potassium 3.4 mEq/L (3.5-5.1) L 07/07/17 04:05 Carbon Dioxide 22 mEq/L (23-29) L 07/07/17 04:05 Creatinine 1.48 mg/dL (0.70-1.30) H 07/07/17 04:05 Est GFR ( Amer) 59 (> 60) L 07/07/17 04:05 Est GFR (Non-Af Amer) 49 (> 60) L 07/07/17 04:05 Glucose 114 mg/dL (70-105) H 07/07/17 04:05 POC Glucose 167 (58-89) H 07/04/17 18:05 Calcium 8.0 mg/dL (8.6-10.3) L 07/07/17 04:05 Troponin I 0.04 ng/mL (< 0.04) H* 07/05/17 03:45 Albumin 2.7 g/dL (3.5-5.7) L 07/04/17 09:55 Globulin 3.8 g/dL (2.4-3.5) H 07/04/17 09:55 Albumin/Globulin Ratio 0.7 (1.1-2.2) L 07/04/17 09:55 Urine Clarity Cloudy (Clear) A 07/05/17 06:15 Ur Specific [place] < 1.005 (1.010-1.025) L 07/05/17 06:15 Urine Protein 30 mg/dL (Neg-Trace) H 07/05/17 06:15 Urine Blood Moderate (Negative) H 07/05/17 06:15 Ur Leukocyte Esterase Large (Negative) H 07/05/17 06:15 Urine Microscopic WBC TNTC per hpf (0-3) H 07/05/17 06:15 Ur Culture Indicated? YES (NO) A 07/05/17 06:15 Enterobacteriac sp PCR DETECTED (Not Detect) A 07/04/17 09:55 E. coli (PCR) DETECTED (Not Detect) A 07/04/17 09:55 - Microbiology Findings Microbiology Findings: Microbiology, Last 48 Hours 07/05/17 06:15 Urine Culture - Preliminary Urine,Clean Catch Proteus mirabilis Gram Negative Zane#2 - Clinical Findings Intake & Output: Intake & Output 07/06/17 07/06/17 07/07/17 15:59 23:59 07:59 Intake Total 120 / 120 236 / 236 236 / 236 Output Total 650 / 650 1999 / 1949 Balance -530 / -530 -1764 / -1764 -1714 / -1714 Weight 86.5 kg - VTE Documentation of Mechanical Device: Intermittent pneumatic compression device Consult Discharge Plan - Plan Referrals: Juan Quintana DO [Primary Care Provider] - <Jaylon Lyon S - Last Filed: 07/07/17 20:53> Date of Encounter: 07/07/17 Objective PUL Vital signs: Last Vital Signs Temp 99.0 F 07/07/17 18:59 Pulse 95 07/07/17 18:59 Resp 16 07/07/17 18:59 BP 99/68 07/07/17 18:59 Pulse Ox 97 07/07/17 18:59 Results - Laboratory Findings CBC and BMP: 07/07/17 04:40 07/07/17 10:28 ABG ABG pH 7.45 pH Units (7.32-7.45) 07/04/17 11:29 ABG pCO2 29 mmHg (35-45) L 07/04/17 11:29 ABG pO2 84 mmHg (85-104) L 07/04/17 11:29 ABG O2 Saturation 97 % (95-98) 07/04/17 11:29 PT/INR, D-dimer PT 14.5 Seconds (9.4-12.1) H 07/04/17 09:55 Abnormal lab findings: Abnormal lab results WBC 14.9 K/mcL (4.3-11.1) H 07/07/17 04:40 RBC 2.61 M/mcL (4.19-5.50) L 07/07/17 04:40 Hgb 8.0 g/dL (12.9-16.9) L D 07/07/17 04:40 Hct 23.3 % (37.5-50.1) L 07/07/17 04:40 MPV 9.1 fL (9.4-12.4) L 07/07/17 04:40 Immature Gran % 4.4 % (0-4) H 07/05/17 03:45 Band Neutrophils % 20.0 % (0-4) H 07/05/17 16:14 Neutrophils # 22.1 K/mcL (1.6-8.9) H 07/06/17 03:10 Monocytes # 2.1 K/mcL (0.0-1.3) H 07/06/17 03:10 Toxic Granulation Present (Not Present) A 07/05/17 16:14 PT 14.5 Seconds (9.4-12.1) H 07/04/17 09:55 ABG pCO2 29 mmHg (35-45) L 07/04/17 11:29 ABG pO2 84 mmHg (85-104) L 07/04/17 11:29 ABG HCO3 20 mEq/L (21-27) L 07/04/17 11:29 ABG Base Excess -4 mEq/L (-2 to 3) L 07/04/17 11:29 Sodium 135 mEq/L (136-145) L 07/07/17 04:05 Carbon Dioxide 22 mEq/L (23-29) L 07/07/17 04:05 Creatinine 1.48 mg/dL (0.70-1.30) H 07/07/17 04:05 Est GFR ( Amer) 59 (> 60) L 07/07/17 04:05 Est GFR (Non-Af Amer) 49 (> 60) L 07/07/17 04:05 Glucose 114 mg/dL (70-105) H 07/07/17 04:05 POC Glucose 167 (58-89) H 07/04/17 18:05 Calcium 8.0 mg/dL (8.6-10.3) L 07/07/17 04:05 Troponin I 0.04 ng/mL (< 0.04) H* 07/05/17 03:45 Albumin 2.7 g/dL (3.5-5.7) L 07/04/17 09:55 Globulin 3.8 g/dL (2.4-3.5) H 07/04/17 09:55 Albumin/Globulin Ratio 0.7 (1.1-2.2) L 07/04/17 09:55 Urine Clarity Cloudy (Clear) A 07/05/17 06:15 Ur Specific [place] < 1.005 (1.010-1.025) L 07/05/17 06:15 Urine Protein 30 mg/dL (Neg-Trace) H 07/05/17 06:15 Urine Blood Moderate (Negative) H 07/05/17 06:15 Ur Leukocyte Esterase Large (Negative) H 07/05/17 06:15 Urine Microscopic WBC TNTC per hpf (0-3) H 07/05/17 06:15 Ur Culture Indicated? YES (NO) A 07/05/17 06:15 Enterobacteriac sp PCR DETECTED (Not Detect) A 07/04/17 09:55 E. coli (PCR) DETECTED (Not Detect) A 07/04/17 09:55 - Microbiology Findings Microbiology Findings: Microbiology, Last 48 Hours 07/05/17 11:13 Blood Culture - Preliminary Peripheral Venipuncture No growth. 07/05/17 11:13 Blood Culture - Preliminary Peripheral Venipuncture No growth. 07/05/17 06:15 Urine Culture - Preliminary Urine,Clean Catch Proteus mirabilis Gram Negative Zane#2 - Clinical Findings Intake & Output: Intake & Output 07/07/17 07/07/17 07/07/17 07:59 15:59 23:59 Intake Total 236 / 236 346 / 346 Output Total 3000 / 3000 800 / 800 1800 / 1800 Balance -2764 / -2764 -454 / -454 -1800 / -1800 Weight 86.5 kg - Attending Attestation - Attending Attestation I saw and evaluated this patient and my medical decision-making was reviewed with the Resident Physician. I agree with the documented findings, disposition and treatment plan as described except to the extent set forth below. We independently had [id number] contact with the patient Patient seen and examined at bedside Labs, radiology, chart personally reviewed. CONCRETE MASON:Patient is conscious oriented x 3 Pulm:Patient doesnt have any acute issues no pulmonary symptoms patient is saturating well on Room air the CXR findings looks like chronic doesnt have any airspace consolidation disease will monitor Cards: Patient developed septic shock secondary to E coli bactremia secondary to complicated UTI patient is off vasopressors blood pressures are stable for 48 hrs FEN-GI:Advance diet as tolerated Renal:Acute on Chronic Kidney disease most likely due to hydronephrosis now improving urology consulted more like neurogenic bladder ID: septic shock is resolved caused by E coli bactremia due to UTI ID input appreciated . To continue ceftriaxone duration determined by response to treatment Heme/Onc:Reviewed Endo: Glucose Monitored Integ/MSK: Skin Care per routine ICU Nursing Protocol to prevent ulcers. Lines: All lines examined without evidence of infection : Dispo: Patient is stable for 48 hrs . CODE:Full code
[2017-07-07] MEDS ORDERED: Cefepime HCl 2,000 MG in Water for inj. (sterile) 20 ML 20 ML IVP SCH (09:00)
[2017-07-07] MEDS ORDERED: cefTRIAXone 2,000 MG in Water for inj. (sterile) 20 ML 20 ML IVP SCH (09:00)
[2017-07-07] MEDS: Lactobacillus 1 EACH CAP.SPRINK PO SCH (09:15)
[2017-07-07] MEDS: ALPRAZolam 0.5 MG TABLET PO SCH ×3 (09:16→21:39)
--- NOTE | 2017-07-07 11:06 | Infectious Disease Progress No ---
Date of Encounter: 07/07/17 Time of Encounter: 11:03 - Assessment and Plan (1) Septic shock Current Visit: Yes Status: Acute The patient had three SIRS criteria plus hypotension requiring vasopressors. Likely secondary to UTI and bacteremia. Improved. Vasopressors have been off for 48 hours. WBC trending down. Afebrile x 24 hours. Blood cultures drawn 07/04/17 are positive 2/2 sets for E. coli. Repeat blood cultures drawn 07/05/17 are NGTD x 2 sets. (2) Bacteremia Current Visit: Yes Status: Acute Causative organism: E. coli x 2 strands. Likely secondary to UTI. Blood cultures drawn 07/04/17 are positive for E. coli. Repeat blood cultures x 2 sets drawn 07/05/17 are NGTD. Continue Rocephin 2 grams IV daily. Monitor renal function and dose-adjust antibiotics. Duration of treatment depends on the clinical picture, but will likely be able to transition to PO antibiotics when ready for discharge. (3) UTI (urinary tract infection) Current Visit: No Status: Acute Causative organism P. mirabilis and second GNR --> likely E. coli given the patient's blood culture results, but await urine culture to finalize. Likely secondary to recent catheterization and urinary retention. Urinalysis shows WBC TNTC and large amount of L.E. Continue antibiotics as above. Qualifiers: Urinary tract infection type: acute cystitis Hematuria presence: without hematuria Qualified Code(s): N30.00 - Acute cystitis without hematuria (4) Diarrhea Current Visit: Yes Status: Resolved Etiology unclear, but likely gastroenteritis. C. diff negative. Resolved. Continue probiotic. Qualifiers: Diarrhea type: presumed infectious Qualified Code(s): R19.7 - Diarrhea, unspecified (5) Lactic acidosis Current Visit: Yes Status: Resolved Likely secondary to sepsis. Resolved. (6) FRANCISCA (acute kidney injury) Current Visit: Yes Status: Acute Likely secondary to sepsis and hydroureteronephrosis. Improved. Continue to trend. Avoid nephrotoxins and dose-adjust antibiotics. (7) Hydroureteronephrosis Current Visit: Yes Status: Acute CT abdomen and pelvis shows severe bilateral hydroureteronephrosis, likely secondary to post-renal bladder obstruction. Urology consulted and following. Etiology unclear, but likely secondary to enlarged prostate and/or neurogenic bladder per Urology. Further workup in the outpatient setting. (8) Abdominal pain Current Visit: Yes Status: Resolved Etiology unclear, but likely related to UTI. LFTs normal. Abdominal exam benign. CT of the abdomen and pelvis shows bilateral hydroureteronephrosis. Resolved. Qualifiers: Abdominal location: periumbilical Qualified Code(s): R10.33 - Periumbilical pain (9) Anemia Current Visit: Yes Status: Acute Likely dilutional. No acute bleeding noted on exam. Improved. Further workup and management per the primary team. Qualifiers: Anemia type: unspecified type Qualified Code(s): D64.9 - Anemia, unspecified (10) History of Clostridium difficile infection Current Visit: Yes Status: Resolved Was treated with 14 days of PO Vancomycin. Low index of suspicion for recurrence of C. diff. (11) Weakness generalized Current Visit: Yes Status: Acute Likely secondary to sepsis and acute illness. Consider PT/OT to evaluate. Recommend ambulating the patient. (12) Atrial fibrillation Current Visit: Yes Status: Chronic Currently on low-dose cardizem gtt with good rate control. Management per the primary team. Qualifiers: Atrial fibrillation type: paroxysmal Qualified Code(s): I48.0 - Paroxysmal atrial fibrillation - Subjective Interval history: Patient seen and examined. No acute events noted overnight. Patient states he feels better today. Afebrile x 24 hours and WBC trending down this morning. Denies chills or rigors. Denies chest pain, shortness of breath, or cough. Denies nausea, vomiting or diarrhea. Denies abdominal pain and states he ate a big breakfast this morning. Leroy catheter remains patent. Denies abdominal pain. Denies oral thrush or new skin lesions. Infect Dis PN-Objective Data - Labs CBC & Chem 7: 07/07/17 04:40 07/07/17 10:28 Labs: Laboratory Results - last 24 hr 07/07/17 07/07/17 04:05 04:40 WBC 14.9 H RBC 2.61 L Hgb 8.0 L D Hct 23.3 L MCV 89.3 MCH 30.7 MCHC 34.3 RDW 13.5 Plt Count 278 MPV 9.1 L Sodium 135 L Potassium 3.4 L Chloride 105 Carbon Dioxide 22 L BUN 20 Creatinine 1.48 H Est GFR ( Amer) 59 L Est GFR (Non-Af Amer) 49 L BUN/Creatinine Ratio 14 Glucose 114 H Calculated Osmolality 283 Calcium 8.0 L Cultures: Cultures 07/05/17 11:13 Blood Culture - Preliminary Peripheral Venipuncture No growth. 07/05/17 11:13 Blood Culture - Preliminary Peripheral Venipuncture No growth. 07/05/17 06:15 Urine Culture - Preliminary Urine,Clean Catch Proteus mirabilis Gram Negative Zane#2 Serology 07/05/17 07/05/17 07/05/17 Range/Units 11:27 10:15 06:15 Urine Color Yellow (Yellow) Urine Clarity Cloudy A (Clear) Urine pH 7.0 (5.0-8.0) pH Units Ur Specific [place] < 1.005 L (1.010-1.025) Urine Protein 30 H (Neg-Trace) mg/dL Urine Glucose (UA) Normal (Normal) mg/dL Urine Ketones Negative (Negative) mg/dL Urine Blood Moderate H (Negative) Urine Nitrite Negative (Negative) Urine Bilirubin Negative (Negative) Urine Urobilinogen Normal (Normal) mg/dL Ur Leukocyte Esterase Large H (Negative) Urine Microscopic RBC 0-3 (0-3) per hpf Urine Microscopic WBC TNTC H (0-3) per hpf Ur Squamous Epith Cells Few (None-Few) per lpf Urine Bacteria Few (None-Few) per hpf Hyaline Casts None Seen (None-Few) per lpf Ur Culture Indicated? YES A (NO) Stool Occult Blood Negative (Negative) Stl C. diff Tox B Gene Negative (Negative) Exam - Constitutional Vitals: Temp Pulse Resp BP Pulse Ox 97.8 F 87 16 110/76 100 07/07/17 07:15 07/07/17 10:00 07/07/17 10:00 07/07/17 10:00 07/07/17 10:00 General appearance: average body habitus, cooperative, no acute distress - Head Head exam: Present: atraumatic, normal inspection, normocephalic - Eye Eye exam: Present: EOMI, normal appearance, PERRL Pupils: Present: normal accommodation - ENT ENT exam: Present: mucous membranes moist - Neck Neck exam: Present: normal inspection Additional comments: Right lateral neck guaze dressing C/D/I at previous CVC site. - Respiratory Respiratory exam: Present: CTAB. Absent: rales, respiratory distress, rhonchi, wheezes - Cardiovascular Cardiovascular exam: Present: irregular rhythm. Absent: tachycardia - GI/Abdominal GI/Abdominal exam: Present: normal bowel sounds, soft. Absent: distended, tenderness Additional comments: Leroy catheter draining clear yellow urine. - Extremities Exam Extremities exam: Present: normal inspection. Absent: joint swelling, pedal edema, tenderness - Neurological Exam Neurological exam: Present: alert, oriented X3, no focal deficits - Psychiatric Psychiatric exam: Present: normal affect, normal mood - Skin Skin exam: Present: dry, intact, normal color, warm - VTE Documentation of Mechanical Device: Intermittent pneumatic compression device Consult Discharge Plan - Plan Referrals: Juan Quintana DO [Primary Care Provider] - - Attending Attestation I examined this patient and my medical decision-making was reviewed with the Resident Physician. I agree with the documented findings, disposition and treatment plan as described except to the extent set forth below.
[2017-07-07] MEDS: Norepinephrine 4 MG in D5% in Water 250 ML IVC SCH (14:45)
[2017-07-07] MEDS ORDERED: Potassium Chloride 40 MEQ/200 ML BAG IVPB PRN (14:46)
[2017-07-07] MEDS ORDERED: Naloxone 0.4 MG/ML INJ IVP PRN (14:46)
[2017-07-07] MEDS ORDERED: *HR* Rivaroxaban 15 MG TABLET PO SCH (17:00)
[2017-07-08 06:01] LABS: Hematocrit 25.5 % (37.5-50.1); Hemoglobin 8.6 g/dL (12.9-16.9); Mean Corpuscular HGB Conc 33.7 g/dL (31.6-35.5); Mean Corpuscular Hemoglobin 30.4 pg (28.0-33.3); Mean Corpuscular Volume 90.1 fL (83.0-100.0); Mean Platelet Volume 9.4 fL (9.4-12.4); Platelet Count 335 K/mcL (140-400); Red Blood Count 2.83 M/mcL (4.19-5.50); Red Cell Distribution Width 13.3 % (11.5-14.5)
[2017-07-08 06:25] LABS: BUN/Creatinine Ratio 14 (6-26); Blood Urea Nitrogen 18 mg/dL (6-20); Calcium 8.5 mg/dL (8.6-10.3); Carbon Dioxide 25 mEq/L (23-29); Chloride 102 mEq/L (98-107); Glucose 108 mg/dL (70-105); Magnesium 1.4 mg/dL (1.6-2.6); Osmolality,Calculated 278 (280-300); Potassium 3.7 mEq/L (3.5-5.1); Sodium 133 mEq/L (136-145); eGFR For African Americans > 60 (> 60); eGFR For Non-African Americans 56 (> 60)
[2017-07-08 06:43] LABS: Lymphocytes # 0.9 K/mcL (0.6-4.6); Monocytes # 0.3 K/mcL (0.0-1.3); Neutrophils # 13.7 K/mcL (1.6-8.9); Platelet Estimate Normal (Normal)
--- NOTE | 2017-07-08 07:32 | Urology Progress Note ---
Date of Encounter: 07/08/17 Time of Encounter: 07:30 - Assessment and Plan (1) Hydroureteronephrosis Current Visit: Yes Status: Acute Assessment and plan: renal function has almost normalized. no fever. WBC still at 14,000. significant improvement since cath placed. no surgical intervention needed. Keep cath in place at discharge. followup with Dr Tinoco (established) in 1-2 weeks. may need to start SIC at outp appt. Progress Note Subjective: feels better Narrative: pt reports feeling much better. Objective Initial Vital Signs Temp Pulse Resp BP Pulse Ox 101.1 F H 111 18 76/55 98 07/04/17 09:37 07/04/17 09:37 07/04/17 09:37 07/04/17 09:37 07/04/17 09:37 - General physical appearance Present: no distress - Additional Exam reyes with clear urine - Labs 07/08/17 05:42 07/08/17 05:42 Diabetes panel 07/07/17 07/08/17 Range/Units 10:28 05:42 Sodium 133 L (136-145) mEq/L Potassium 3.8 3.7 (3.5-5.1) mEq/L Chloride 102 (98-107) mEq/L Carbon Dioxide 25 (23-29) mEq/L BUN 18 (6-20) mg/dL Creatinine 1.31 H (0.70-1.30) mg/dL Glucose 108 H (70-105) mg/dL Calcium 8.5 L (8.6-10.3) mg/dL Calcium panel 07/08/17 Range/Units 05:42 Calcium 8.5 L (8.6-10.3) mg/dL Pituitary panel 07/07/17 07/08/17 Range/Units 10:28 05:42 Sodium 133 L (136-145) mEq/L Potassium 3.8 3.7 (3.5-5.1) mEq/L Chloride 102 (98-107) mEq/L Carbon Dioxide 25 (23-29) mEq/L BUN 18 (6-20) mg/dL Creatinine 1.31 H (0.70-1.30) mg/dL Glucose 108 H (70-105) mg/dL Calcium 8.5 L (8.6-10.3) mg/dL Adrenal panel 07/07/17 07/08/17 Range/Units 10:28 05:42 Sodium 133 L (136-145) mEq/L Potassium 3.8 3.7 (3.5-5.1) mEq/L Chloride 102 (98-107) mEq/L Carbon Dioxide 25 (23-29) mEq/L BUN 18 (6-20) mg/dL Creatinine 1.31 H (0.70-1.30) mg/dL Glucose 108 H (70-105) mg/dL Calcium 8.5 L (8.6-10.3) mg/dL - VTE Documentation of Mechanical Device: Intermittent pneumatic compression device Consult Discharge Plan - Plan Referrals: Juan Quintana DO [Primary Care Provider] -
[2017-07-08] MEDS ORDERED: Magnesium Sulfate 1 GM in D5% in Water 100 ML IVPB ONE (08:18)
[2017-07-08] MEDS: ALPRAZolam 0.5 MG TABLET PO SCH ×3 (08:40→21:18)
[2017-07-08] MEDS: cefTRIAXone 2,000 MG in Water for inj. (sterile) 20 ML 20 ML IVP SCH (08:40)
[2017-07-08] MEDS: Lactobacillus 1 EACH CAP.SPRINK PO SCH (08:40)
--- NOTE | 2017-07-08 13:38 | Internal Med Progress Note ---
Date of Encounter: 07/08/17 Time of Encounter: 12:05 - Assessment and plan (1) FRANCISCA (acute kidney injury) Current Visit: Yes Status: Acute Assessment and plan: Likely secondary to bladder outlet obstruction/neurogenic bladder Renal function back to baseline will continue reyes support and pt will be discharged with reyes will continue to closely monitor (2) Bacteremia Current Visit: Yes Status: Acute Assessment and plan: secondary to E.Coli UTI repeat blood cultures from 07/05/17 reported No growth pt will need 14 days of abx from the first negative blood cultures currently clinically improving leukocytosis persists but improved from previous day will continue IV ceftriaxone at this time (3) Septic shock Current Visit: Yes Status: Resolved Assessment and plan: SEcondary to E.coli bacteremia resolved at this time (4) UTI (urinary tract infection) Current Visit: Yes Status: Acute Assessment and plan: continue IV ceftriaxone urine culture reported Proteus and E.coli Qualifiers: Urinary tract infection type: acute cystitis Hematuria presence: without hematuria Qualified Code(s): N30.00 - Acute cystitis without hematuria (5) Atrial fibrillation with RVR Current Visit: No Status: Acute Assessment and plan: rate controlled with Cardizem 30mg PO q6h, will switch to ER in am anticoagulated with Xarelto will continue to closely monitor (6) DVT prophylaxis Current Visit: No Status: Acute Assessment and plan: on Xarelto (7) Hydronephrosis Current Visit: No Status: Acute Assessment and plan: secondary to bladder outlet obstruction/neurogenic bladder continue reyes support urology on board and consultation appreciated Qualifiers: Hydronephrosis type: unspecified Qualified Code(s): N13.30 - Unspecified hydronephrosis (8) Hypomagnesemia Current Visit: No Status: Resolved Assessment and plan: Mg supplemented continue to monitor electrolytes and replace as needed - Subjective Interval history: Patient is a 56y/o male transferred from the ICU overnight and is admitted for septic shock secondary to E.Coli bacteremia secondary to UTI. He initially required vasopressor support. He has been off pressors for the last two days and has been clinically improving. He is also being treated for FRANCISCA secondary to bladder outlet obstruction/neurogenic bladder, and Afib with RVR. Urology and ID are on board. Pt seen and examined at bedside. Resting in bed and reports of feeling better compared to previous day. Denies any discomfort at this time. - Constitutional Vitals: Temp Pulse Resp BP Pulse Ox 98.8 F 94 17 103/69 97 07/08/17 10:23 07/08/17 12:49 07/08/17 10:23 07/08/17 12:49 07/08/17 10:23 General appearance: Present: A&O X 3, no acute distress, answers questions appropriately - Head Head exam: Present: atraumatic, normocephalic - Eye Eye exam: Present: conjuntiva pink, sclera anicteric - Respiratory Respiratory exam: Present: CTAB. Absent: respiratory distress, wheezes - Cardiovascular Cardiovascular exam: Present: RRR, +S1, +S2 - GI/Abdominal GI/Abdominal exam: Present: normal bowel sounds, soft, no peritoneal signs. Absent: distended, tenderness - Extremities Exam Extremities exam: Present: warm, radial pulses palpable and symmetrical. Absent : calf tenderness, cyanotic, pedal edema - Neurological Exam Neurological exam: Present: alert, oriented X3 Internal Medicine: Result - Labs CBC & Chem 7: 07/08/17 05:42 07/08/17 05:42 Labs: Short CBC 07/08/17 Range/Units 05:42 WBC 14.9 H (4.3-11.1) K/mcL Hgb 8.6 L (12.9-16.9) g/dL Hct 25.5 L (37.5-50.1) % Plt Count 335 (140-400) K/mcL Neutrophils # 13.7 H (1.6-8.9) K/mcL BMP 07/08/17 05:42 Sodium 133 L Potassium 3.7 Chloride 102 Carbon Dioxide 25 BUN 18 Creatinine 1.31 H Glucose 108 H Calcium 8.5 L - ABG Interpretation ABG results: ABG ABG pH 7.45 pH Units (7.32-7.45) 07/04/17 11:29 ABG pCO2 29 mmHg (35-45) L 07/04/17 11:29 ABG pO2 84 mmHg (85-104) L 07/04/17 11:29 ABG O2 Saturation 97 % (95-98) 07/04/17 11:29 PT/INR, D-dimer PT 14.5 Seconds (9.4-12.1) H 07/04/17 09:55 - VTE Documentation of Mechanical Device: Intermittent pneumatic compression device Consult Discharge Plan - Plan Referrals: Juan Quintana DO [Primary Care Provider] -
[2017-07-08] MEDS: *HR* Rivaroxaban 10 MG TABLET PO SCH (17:54)
[2017-07-09 05:21] LABS: Hematocrit 26.3 % (37.5-50.1); Mean Corpuscular HGB Conc 34.2 g/dL (31.6-35.5); Mean Corpuscular Hemoglobin 30.7 pg (28.0-33.3); Mean Corpuscular Volume 89.8 fL (83.0-100.0); Mean Platelet Volume 9.6 fL (9.4-12.4); Platelet Count 363 K/mcL (140-400); Red Blood Count 2.93 M/mcL (4.19-5.50); Red Cell Distribution Width 13.4 % (11.5-14.5)
[2017-07-09 05:42] LABS: BUN/Creatinine Ratio 15 (6-26); Blood Urea Nitrogen 21 mg/dL (6-20); Calcium 8.8 mg/dL (8.6-10.3); Carbon Dioxide 26 mEq/L (23-29); Chloride 102 mEq/L (98-107); Glucose 110 mg/dL (70-105); Magnesium 1.7 mg/dL (1.6-2.6); Osmolality,Calculated 286 (280-300); Phosphorous 4.4 mg/dL (2.7-4.5); Sodium 136 mEq/L (136-145); eGFR For African Americans > 60 (> 60); eGFR For Non-African Americans 52 (> 60)
[2017-07-09 05:59] LABS: Eosinophils # 0.6 K/mcL (0.0-0.6); Lymphocytes # 2.8 K/mcL (0.6-4.6); Monocytes # 1.5 K/mcL (0.0-1.3); Neutrophils # 10.5 K/mcL (1.6-8.9); Platelet Estimate Normal (Normal)
[2017-07-09] MEDS: cefTRIAXone 2,000 MG in Water for inj. (sterile) 20 ML 20 ML IVP SCH (09:44)
[2017-07-09] MEDS: Diltiazem CD (24hr) 120 MG CAPSULE PO SCH (09:44)
[2017-07-09] MEDS: Lactobacillus 1 EACH CAP.SPRINK PO SCH (09:44)
[2017-07-09] MEDS: ALPRAZolam 0.5 MG TABLET PO SCH ×3 (09:45→20:50)
--- NOTE | 2017-07-09 14:29 | Internal Med Progress Note ---
Date of Encounter: 07/09/17 Time of Encounter: 13:40 - Assessment and plan (1) FRANCISCA (acute kidney injury) Current Visit: Yes Status: Acute Assessment and plan: Likely secondary to bladder outlet obstruction/neurogenic bladder Renal function back to baseline will continue reyes support and pt will be discharged with reyes will continue to closely monitor (2) Bacteremia Current Visit: Yes Status: Acute Assessment and plan: secondary to E.Coli UTI repeat blood cultures from 07/05/17 reported No growth pt will need 14 days of abx from the first negative blood cultures currently clinically improving leukocytosis persists, however pt denies any distress at this time will continue IV ceftriaxone at this time (3) Septic shock Current Visit: Yes Status: Resolved Assessment and plan: SEcondary to E.coli bacteremia resolved at this time (4) UTI (urinary tract infection) Current Visit: Yes Status: Acute Assessment and plan: continue IV ceftriaxone urine culture reported Proteus and E.coli Qualifiers: Urinary tract infection type: acute cystitis Hematuria presence: without hematuria Qualified Code(s): N30.00 - Acute cystitis without hematuria (5) Atrial fibrillation with RVR Current Visit: No Status: Acute Assessment and plan: rate controlled with Cardizem ER 120mg PO anticoagulated with Xarelto will continue to closely monitor (6) DVT prophylaxis Current Visit: No Status: Acute Assessment and plan: on Xarelto (7) Hydronephrosis Current Visit: No Status: Acute Assessment and plan: secondary to bladder outlet obstruction/neurogenic bladder continue reyes support urology on board and consultation appreciated Qualifiers: Hydronephrosis type: unspecified Qualified Code(s): N13.30 - Unspecified hydronephrosis (8) Hypomagnesemia Current Visit: No Status: Resolved Assessment and plan: resolved - Subjective Interval history: Patient is a 56y/o male transferred from the ICU overnight(07/08/17) and is admitted for septic shock secondary to E.Coli bacteremia secondary to UTI. He initially required vasopressor support. He has been off pressors for the last two days and has been clinically improving. He is also being treated for FRANCISCA secondary to bladder outlet obstruction/neurogenic bladder, and Afib with RVR. Urology and ID are on board. Pt seen and examined at bedside. Resting in bed and reports of feeling better compared to previous day. Denies any discomfort at this time. Pt's cardizem changed to extended release this morning, rate controlled. tentative d/c in am if remains clinically stable - Constitutional Vitals: Temp Pulse Resp BP Pulse Ox 97.9 F 68 16 105/71 94 07/09/17 11:00 07/09/17 11:00 07/09/17 11:00 07/09/17 11:00 07/09/17 11:00 General appearance: Present: A&O X 3, no acute distress, answers questions appropriately - Head Head exam: Present: atraumatic, normocephalic - Eye Eye exam: Present: conjuntiva pink, sclera anicteric - Respiratory Respiratory exam: Present: CTAB. Absent: accessory muscle use, rales, rhonchi, wheezes - Cardiovascular Cardiovascular exam: Present: RRR, +S1, +S2. Absent: diastolic murmur, gallop, rubs, systolic murmur - GI/Abdominal GI/Abdominal exam: Present: normal bowel sounds, soft, no peritoneal signs. Absent: distended, tenderness - Extremities Exam Extremities exam: Present: warm, radial pulses palpable and symmetrical. Absent : calf tenderness, cyanotic, pedal edema - Neurological Exam Neurological exam: Present: alert, oriented X3 - Psychiatric Psychiatric exam: Present: normal affect, normal mood Internal Medicine: Result - Labs CBC & Chem 7: 07/09/17 04:07 07/09/17 04:07 Labs: Short CBC 07/09/17 Range/Units 04:07 WBC 15.4 H (4.3-11.1) K/mcL Hgb 9.0 L (12.9-16.9) g/dL Hct 26.3 L (37.5-50.1) % Plt Count 363 (140-400) K/mcL Neutrophils # 10.5 H (1.6-8.9) K/mcL BMP 07/09/17 04:07 Sodium 136 Potassium 4.0 Chloride 102 Carbon Dioxide 26 BUN 21 H Creatinine 1.41 H Glucose 110 H Calcium 8.8 - ABG Interpretation ABG results: ABG ABG pH 7.45 pH Units (7.32-7.45) 07/04/17 11:29 ABG pCO2 29 mmHg (35-45) L 07/04/17 11:29 ABG pO2 84 mmHg (85-104) L 07/04/17 11:29 ABG O2 Saturation 97 % (95-98) 07/04/17 11:29 PT/INR, D-dimer PT 14.5 Seconds (9.4-12.1) H 07/04/17 09:55 - VTE Documentation of Mechanical Device: Intermittent pneumatic compression device Consult Discharge Plan - Plan Referrals: Juan Quintana DO [Primary Care Provider] -
[2017-07-09] MEDS: *HR* Rivaroxaban 10 MG TABLET PO SCH (16:04)
[2017-07-10 04:28] LABS: Hematocrit 28.3 % (37.5-50.1); Hemoglobin 9.3 g/dL (12.9-16.9); Mean Corpuscular HGB Conc 32.9 g/dL (31.6-35.5); Mean Corpuscular Volume 91.3 fL (83.0-100.0); Mean Platelet Volume 9.1 fL (9.4-12.4); Nucleated Red Blood Cells 0.1 /100 WBC (0); Platelet Count 382 K/mcL (140-400); Red Cell Distribution Width 13.5 % (11.5-14.5)
[2017-07-10 05:00] LABS: BUN/Creatinine Ratio 17 (6-26); Blood Urea Nitrogen 20 mg/dL (6-20); Calcium 8.8 mg/dL (8.6-10.3); Carbon Dioxide 25 mEq/L (23-29); Chloride 101 mEq/L (98-107); Glucose 118 mg/dL (70-105); Magnesium 1.7 mg/dL (1.6-2.6); Osmolality,Calculated 284 (280-300); Phosphorous 4.1 mg/dL (2.7-4.5); Potassium 4.1 mEq/L (3.5-5.1); Sodium 135 mEq/L (136-145); eGFR For African Americans > 60 (> 60); eGFR For Non-African Americans > 60 (> 60)
[2017-07-10 05:33] LABS: Lymphocytes # 4.2 K/mcL (0.6-4.6); Neutrophils # 9.1 K/mcL (1.6-8.9)
[2017-07-10 05:34] LABS: Platelet Estimate Normal (Normal)
[2017-07-10] MEDS: Lactobacillus 1 EACH CAP.SPRINK PO SCH (09:24)
[2017-07-10] MEDS: Diltiazem CD (24hr) 120 MG CAPSULE PO SCH (09:24)
[2017-07-10] MEDS: cefTRIAXone 2,000 MG in Water for inj. (sterile) 20 ML 20 ML IVP SCH (09:24)
[2017-07-10] MEDS: ALPRAZolam 0.5 MG TABLET PO SCH ×3 (09:29→21:25)
--- NOTE | 2017-07-10 10:38 | Infectious Disease Progress No ---
Date of Encounter: 07/10/17 Time of Encounter: 10:36 - Assessment and Plan (1) Septic shock Current Visit: Yes Status: Resolved The patient had three SIRS criteria plus hypotension requiring vasopressors. Likely secondary to UTI and bacteremia. Improved. Vasopressors have been off. He has been afebrile. Continue to have leukocytosis and has bandemia today. Discussed with Dr. Estrada. Clinically, the patient is doing great. His BP is borderline low, but the patient is asymptomatic and it could be secondary to his cardizem. MAP remains > 60. Blood cultures drawn 07/04/17 are positive 2/2 sets for E. coli. Repeat blood cultures drawn 07/05/17 are negative x 2 sets. (2) Bacteremia Current Visit: Yes Status: Acute Causative organism: E. coli x 2 strands. Likely secondary to UTI. Blood cultures drawn 07/04/17 are positive for E. coli. Repeat blood cultures x 2 sets drawn 07/05/17 are negative Continue Rocephin 2 grams IV daily. Monitor renal function and dose-adjust antibiotics. Duration of treatment depends on the clinical picture, but will likely be able to transition to PO Amoxicillin when ready for discharge to complete a 14 day course from the first set of negative blood cultures. (3) UTI (urinary tract infection) Current Visit: No Status: Acute Causative organism P. mirabilis and E. coli. Likely secondary to recent catheterization and urinary retention. Urinalysis shows WBC TNTC and large amount of L.E. Continue antibiotics as above. Qualifiers: Urinary tract infection type: acute cystitis Hematuria presence: without hematuria Qualified Code(s): N30.00 - Acute cystitis without hematuria (4) Diarrhea Current Visit: Yes Status: Resolved Etiology unclear, but likely gastroenteritis. C. diff negative. Resolved. Continue probiotic. Qualifiers: Diarrhea type: presumed infectious Qualified Code(s): R19.7 - Diarrhea, unspecified (5) Lactic acidosis Current Visit: Yes Status: Resolved Likely secondary to sepsis. Resolved. (6) FRANCISCA (acute kidney injury) Current Visit: Yes Status: Resolved Likely secondary to sepsis and hydroureteronephrosis. Resolved. Continue to trend. Avoid nephrotoxins and dose-adjust antibiotics. (7) Hydroureteronephrosis Current Visit: Yes Status: Acute CT abdomen and pelvis shows severe bilateral hydroureteronephrosis, likely secondary to post-renal bladder obstruction. Urology consulted and following. Etiology unclear, but likely secondary to enlarged prostate and/or neurogenic bladder per Urology. Further workup in the outpatient setting. Maintain eryes catheter. (8) Abdominal pain Current Visit: Yes Status: Resolved Etiology unclear, but likely related to UTI. LFTs normal. Abdominal exam benign. CT of the abdomen and pelvis shows bilateral hydroureteronephrosis. Resolved. Qualifiers: Abdominal location: periumbilical Qualified Code(s): R10.33 - Periumbilical pain (9) Anemia Current Visit: Yes Status: Acute Likely dilutional. No acute bleeding noted on exam. Improved. Further workup and management per the primary team. Qualifiers: Anemia type: unspecified type Qualified Code(s): D64.9 - Anemia, unspecified (10) History of Clostridium difficile infection Current Visit: Yes Status: Resolved Was treated with 14 days of PO Vancomycin. (11) Weakness generalized Current Visit: Yes Status: Acute Likely secondary to sepsis and acute illness. Recommend ambulating the patient. (12) Atrial fibrillation Current Visit: Yes Status: Chronic Rate controlled. Management per the primary team. Qualifiers: Atrial fibrillation type: paroxysmal Qualified Code(s): I48.0 - Paroxysmal atrial fibrillation - Subjective Interval history: Patient seen and examined. Weekend notes reviewed. No acute events noted overnight. Patient states he feels great today. Denies fevers, chills, or rigors. Denies chest pain, shortness of breath, or cough. Denies nausea, vomiting or diarrhea. Denies abdominal pain and states his appetite is good. Reyes catheter remains patent. Denies abdominal pain. Denies oral thrush or new skin lesions. Infect Dis PN-Objective Data - Labs CBC & Chem 7: 07/10/17 03:56 07/10/17 03:56 Labs: Laboratory Results - last 24 hr 07/10/17 07/10/17 03:56 03:56 WBC 16.2 H RBC 3.10 L Hgb 9.3 L Hct 28.3 L MCV 91.3 MCH 30.0 MCHC 32.9 RDW 13.5 Plt Count 382 MPV 9.1 L Seg Neutrophils % 48.0 Band Neutrophils % 8.0 H Lymphocytes % 26.0 Monocytes % 6.0 Metamyelocytes % 4.0 H Myelocytes % 8.0 H Neutrophils # 9.1 H Lymphocytes # 4.2 Monocytes # 1.0 Nucleated RBCs/100 WBC 0.1 H Platelet Estimate Normal Sodium 135 L Potassium 4.1 Chloride 101 Carbon Dioxide 25 BUN 20 Creatinine 1.18 Est GFR ( Amer) > 60 Est GFR (Non-Af Amer) > 60 BUN/Creatinine Ratio 17 Glucose 118 H Calculated Osmolality 284 Calcium 8.8 Phosphorus 4.1 Magnesium 1.7 Cultures: Cultures 07/05/17 06:15 Urine Culture - Final Urine,Clean Catch Proteus mirabilis Escherichia coli 07/05/17 11:13 Blood Culture - Preliminary Peripheral Venipuncture No growth. 07/05/17 11:13 Blood Culture - Preliminary Peripheral Venipuncture No growth. Serology 07/05/17 07/05/17 07/05/17 Range/Units 11:27 10:15 06:15 Urine Color Yellow (Yellow) Urine Clarity Cloudy A (Clear) Urine pH 7.0 (5.0-8.0) pH Units Ur Specific [place] < 1.005 L (1.010-1.025) Urine Protein 30 H (Neg-Trace) mg/dL Urine Glucose (UA) Normal (Normal) mg/dL Urine Ketones Negative (Negative) mg/dL Urine Blood Moderate H (Negative) Urine Nitrite Negative (Negative) Urine Bilirubin Negative (Negative) Urine Urobilinogen Normal (Normal) mg/dL Ur Leukocyte Esterase Large H (Negative) Urine Microscopic RBC 0-3 (0-3) per hpf Urine Microscopic WBC TNTC H (0-3) per hpf Ur Squamous Epith Cells Few (None-Few) per lpf Urine Bacteria Few (None-Few) per hpf Hyaline Casts None Seen (None-Few) per lpf Ur Culture Indicated? YES A (NO) Stool Occult Blood Negative (Negative) Stl C. diff Tox B Gene Negative (Negative) Exam - Constitutional Vitals: Temp Pulse Resp BP Pulse Ox 97.6 F 109 16 99/63 99 07/10/17 08:19 07/10/17 08:19 07/10/17 08:19 07/10/17 08:19 07/10/17 08:19 General appearance: average body habitus, cooperative, no acute distress - Head Head exam: Present: atraumatic, normal inspection, normocephalic - Eye Eye exam: Present: EOMI, normal appearance, PERRL Pupils: Present: normal accommodation - ENT ENT exam: Present: mucous membranes moist - Neck Neck exam: Present: normal inspection Additional comments: Previous CVC site noted to the right lateral neck with scabbed lesion MFTS without erythema, warmth, or tenderness noted. - Respiratory Respiratory exam: Present: CTAB. Absent: rales, respiratory distress, rhonchi, wheezes - Cardiovascular Cardiovascular exam: Present: RRR, +S1, +S2 - GI/Abdominal GI/Abdominal exam: Present: normal bowel sounds, soft. Absent: distended, tenderness Additional comments: Reyes catheter noted to be draining clear yellow urine. - Extremities Exam Extremities exam: Present: normal inspection. Absent: joint swelling, pedal edema, tenderness - Neurological Exam Neurological exam: Present: alert, oriented X3, no focal deficits - Psychiatric Psychiatric exam: Present: normal affect, normal mood - Skin Skin exam: Present: dry, intact, normal color, warm - VTE Documentation of Mechanical Device: Intermittent pneumatic compression device Consult Discharge Plan - Plan Referrals: Jay Jay Tinoco MD [Partnered Physician] - 07/27/17 10:15 am (Please follow up as schedule...) Juan Quintana DO [Primary Care Provider] - - Attending Attestation I examined this patient and my medical decision-making was reviewed with the Resident Physician. I agree with the documented findings, disposition and treatment plan as described except to the extent set forth below.
--- NOTE | 2017-07-10 12:18 | Internal Med Progress Note ---
Date of Encounter: 07/10/17 Time of Encounter: 13:45 - Assessment and plan (1) FRANCISCA (acute kidney injury) Current Visit: Yes Status: Resolved Assessment and plan: Likely secondary to bladder outlet obstruction/neurogenic bladder Renal function back to baseline will continue reyes support and pt will be discharged with reyes will continue to closely monitor (2) Bacteremia Current Visit: Yes Status: Acute Assessment and plan: secondary to E.Coli UTI repeat blood cultures from 07/05/17 reported No growth pt will need 14 days of abx from the first negative blood cultures currently clinically improving leukocytosis persists with worsening bandemia, however pt denies any distress at this time ID on board and awaiting any new recommendation will continue IV ceftriaxone at this time (3) Septic shock Current Visit: Yes Status: Resolved Assessment and plan: SEcondary to E.coli bacteremia resolved at this time (4) UTI (urinary tract infection) Current Visit: Yes Status: Acute Assessment and plan: continue IV ceftriaxone urine culture reported Proteus and E.coli Qualifiers: Urinary tract infection type: acute cystitis Hematuria presence: without hematuria Qualified Code(s): N30.00 - Acute cystitis without hematuria (5) Atrial fibrillation with RVR Current Visit: No Status: Acute Assessment and plan: rate controlled with Cardizem ER 120mg PO anticoagulated with Xarelto will continue to closely monitor (6) DVT prophylaxis Current Visit: No Status: Acute Assessment and plan: on Xarelto (7) Hydronephrosis Current Visit: No Status: Acute Assessment and plan: secondary to bladder outlet obstruction/neurogenic bladder continue reyes support urology on board and consultation appreciated Qualifiers: Hydronephrosis type: unspecified Qualified Code(s): N13.30 - Unspecified hydronephrosis (8) Hypomagnesemia Current Visit: No Status: Resolved Assessment and plan: resolved - Subjective Interval history: Patient is a 56y/o male transferred from the ICU overnight(07/08/17) and is admitted for septic shock secondary to E.Coli bacteremia secondary to UTI. He initially required vasopressor support. He has been off pressors for the last two days and has been clinically improving. He is also being treated for FRANCISCA secondary to bladder outlet obstruction/neurogenic bladder, and Afib with RVR. Urology and ID are on board. Pt seen and examined at bedside. No overnight issues reported Pt noted to have worsening leukocytosis with bandemia. Case discussed with ID, awaiting further recommendations - Constitutional Vitals: Temp Pulse Resp BP Pulse Ox 98.1 F 96 20 103/67 97 07/10/17 11:31 07/10/17 11:31 07/10/17 11:31 07/10/17 11:31 07/10/17 11:31 General appearance: Present: A&O X 3, no acute distress, answers questions appropriately - Head Head exam: Present: atraumatic, normocephalic - Eye Eye exam: Present: conjuntiva pink, sclera anicteric - Respiratory Respiratory exam: Present: CTAB. Absent: accessory muscle use, rales, rhonchi, wheezes - Cardiovascular Cardiovascular exam: Present: RRR, +S1, +S2. Absent: diastolic murmur, gallop, rubs, systolic murmur - GI/Abdominal GI/Abdominal exam: Present: normal bowel sounds, soft, no peritoneal signs. Absent: distended, tenderness - Extremities Exam Extremities exam: Present: warm, radial pulses palpable and symmetrical. Absent : calf tenderness, cyanotic, pedal edema - Neurological Exam Neurological exam: Present: alert, oriented X3 Internal Medicine: Result - Labs CBC & Chem 7: 07/10/17 03:56 07/10/17 03:56 Labs: Short CBC 07/10/17 Range/Units 03:56 WBC 16.2 H (4.3-11.1) K/mcL Hgb 9.3 L (12.9-16.9) g/dL Hct 28.3 L (37.5-50.1) % Plt Count 382 (140-400) K/mcL Neutrophils # 9.1 H (1.6-8.9) K/mcL BMP 07/10/17 03:56 Sodium 135 L Potassium 4.1 Chloride 101 Carbon Dioxide 25 BUN 20 Creatinine 1.18 Glucose 118 H Calcium 8.8 - ABG Interpretation ABG results: ABG ABG pH 7.45 pH Units (7.32-7.45) 07/04/17 11:29 ABG pCO2 29 mmHg (35-45) L 07/04/17 11:29 ABG pO2 84 mmHg (85-104) L 07/04/17 11:29 ABG O2 Saturation 97 % (95-98) 07/04/17 11:29 PT/INR, D-dimer PT 14.5 Seconds (9.4-12.1) H 07/04/17 09:55 - VTE Documentation of Mechanical Device: Intermittent pneumatic compression device Consult Discharge Plan - Plan Referrals: Jay Jay Tinoco MD [Partnered Physician] - 07/27/17 10:15 am (Please follow up as schedule...) Juan Quintana DO [Primary Care Provider] -
[2017-07-10] MEDS: *HR* Rivaroxaban 10 MG TABLET PO SCH (16:03)
[2017-07-11 05:40] LABS: Hematocrit 29.8 % (37.5-50.1); Hemoglobin 9.9 g/dL (12.9-16.9); Mean Corpuscular HGB Conc 33.2 g/dL (31.6-35.5); Mean Corpuscular Hemoglobin 30.7 pg (28.0-33.3); Mean Corpuscular Volume 92.3 fL (83.0-100.0); Mean Platelet Volume 9.2 fL (9.4-12.4); Nucleated Red Blood Cells 0.1 /100 WBC (0); Platelet Count 405 K/mcL (140-400); Red Blood Count 3.23 M/mcL (4.19-5.50); Red Cell Distribution Width 13.5 % (11.5-14.5)
[2017-07-11 05:56] LABS: BUN/Creatinine Ratio 18 (6-26); Blood Urea Nitrogen 21 mg/dL (6-20); Carbon Dioxide 26 mEq/L (23-29); Chloride 103 mEq/L (98-107); Glucose 105 mg/dL (70-105); Osmolality,Calculated 285 (280-300); Potassium 4.2 mEq/L (3.5-5.1); Sodium 136 mEq/L (136-145); eGFR For African Americans > 60 (> 60); eGFR For Non-African Americans > 60 (> 60)
[2017-07-11 06:44] LABS: Lymphocytes # 3.6 K/mcL (0.6-4.6); Monocytes # 0.6 K/mcL (0.0-1.3); Neutrophils # 10.4 K/mcL (1.6-8.9)
[2017-07-11 06:45] LABS: Hypochromasia Present (Not Present)
[2017-07-11] MEDS: Diltiazem CD (24hr) 120 MG CAPSULE PO SCH (08:18)
[2017-07-11] MEDS: ALPRAZolam 0.5 MG TABLET PO SCH ×2 (08:18→15:07)
[2017-07-11] MEDS: Lactobacillus 1 EACH CAP.SPRINK PO SCH (08:19)
[2017-07-11] MEDS: cefTRIAXone 2,000 MG in Water for inj. (sterile) 20 ML 20 ML IVP SCH (09:49)
--- NOTE | 2017-07-11 10:43 | Infectious Disease Progress No ---
Date of Encounter: 07/11/17 Time of Encounter: 10:39 - Assessment and Plan (1) Septic shock Current Visit: Yes Status: Resolved The patient had three SIRS criteria plus hypotension requiring vasopressors. Likely secondary to UTI and bacteremia. Improved. Vasopressors have been off. He has been afebrile. Continue to have leukocytosis and has bandemia today. Discussed with Dr. Estrada. Clinically, the patient is doing great. His BP is borderline low, but the patient is asymptomatic and it could be secondary to his cardizem. MAP remains > 60. Blood cultures drawn 07/04/17 are positive 2/2 sets for E. coli. Repeat blood cultures drawn 07/05/17 are negative x 2 sets. (2) Bacteremia Current Visit: Yes Status: Acute Causative organism: E. coli x 2 strands. Likely secondary to UTI. Blood cultures drawn 07/04/17 are positive for E. coli. Repeat blood cultures x 2 sets drawn 07/05/17 are negative Continue Rocephin 2 grams IV daily. Monitor renal function and dose-adjust antibiotics. Duration of treatment depends on the clinical picture, but will likely be able to transition to PO Amoxicillin when ready for discharge to complete a 14 day course from the first set of negative blood cultures. Treat through 07/18/17. (3) UTI (urinary tract infection) Current Visit: No Status: Acute Causative organism P. mirabilis and E. coli. Likely secondary to recent catheterization and urinary retention. Urinalysis shows WBC TNTC and large amount of L.E. Continue antibiotics as above. Qualifiers: Urinary tract infection type: acute cystitis Hematuria presence: without hematuria Qualified Code(s): N30.00 - Acute cystitis without hematuria (4) Diarrhea Current Visit: Yes Status: Resolved Etiology unclear, but likely gastroenteritis. C. diff negative. Resolved. Continue probiotic. Qualifiers: Diarrhea type: presumed infectious Qualified Code(s): R19.7 - Diarrhea, unspecified (5) Lactic acidosis Current Visit: Yes Status: Resolved Likely secondary to sepsis. Resolved. (6) FRANCISCA (acute kidney injury) Current Visit: Yes Status: Resolved Likely secondary to sepsis and hydroureteronephrosis. Resolved. Continue to trend. Avoid nephrotoxins and dose-adjust antibiotics. (7) Hydroureteronephrosis Current Visit: Yes Status: Acute CT abdomen and pelvis shows severe bilateral hydroureteronephrosis, likely secondary to post-renal bladder obstruction. Urology consulted and following. Etiology unclear, but likely secondary to enlarged prostate and/or neurogenic bladder per Urology. Further workup in the outpatient setting. Maintain reyes catheter. (8) Abdominal pain Current Visit: Yes Status: Resolved Etiology unclear, but likely related to UTI. LFTs normal. Abdominal exam benign. CT of the abdomen and pelvis shows bilateral hydroureteronephrosis. Resolved. Qualifiers: Abdominal location: periumbilical Qualified Code(s): R10.33 - Periumbilical pain (9) Anemia Current Visit: Yes Status: Acute Likely dilutional. No acute bleeding noted on exam. Improved. Further workup and management per the primary team. Qualifiers: Anemia type: unspecified type Qualified Code(s): D64.9 - Anemia, unspecified (10) History of Clostridium difficile infection Current Visit: Yes Status: Resolved Was treated with 14 days of PO Vancomycin. (11) Weakness generalized Current Visit: Yes Status: Acute Likely secondary to sepsis and acute illness. Recommend ambulating the patient. (12) Atrial fibrillation Current Visit: Yes Status: Chronic Rate controlled. Management per the primary team. Qualifiers: Atrial fibrillation type: paroxysmal Qualified Code(s): I48.0 - Paroxysmal atrial fibrillation - Subjective Interval history: Patient seen and examined. No acute events noted overnight. Patient states he feels great today and wants to go home. Denies fevers, chills, or rigors. Denies chest pain, shortness of breath, or cough. Denies nausea, vomiting or diarrhea. Denies abdominal pain and states his appetite is good. Reyes catheter remains patent. Denies abdominal pain. States he feels like he needs to have a BM this morning. Denies oral thrush or new skin lesions. Infect Dis PN-Objective Data - Labs CBC & Chem 7: 07/11/17 05:13 07/11/17 05:13 Labs: Laboratory Results - last 24 hr 07/11/17 07/11/17 05:13 05:13 WBC 14.9 H RBC 3.23 L Hgb 9.9 L Hct 29.8 L MCV 92.3 MCH 30.7 MCHC 33.2 RDW 13.5 Plt Count 405 H MPV 9.2 L Seg Neutrophils % 70.0 Lymphocytes % 24.0 Monocytes % 4.0 Myelocytes % 2.0 H Neutrophils # 10.4 H Lymphocytes # 3.6 Monocytes # 0.6 Nucleated RBCs/100 WBC 0.1 H Platelet Estimate Slight increase H Hypochromasia Present A Sodium 136 Potassium 4.2 Chloride 103 Carbon Dioxide 26 BUN 21 H Creatinine 1.16 Est GFR ( Amer) > 60 Est GFR (Non-Af Amer) > 60 BUN/Creatinine Ratio 18 Glucose 105 Calculated Osmolality 285 Calcium 9.0 Cultures: Cultures 07/05/17 11:13 Blood Culture - Final Peripheral Venipuncture No growth. 07/05/17 11:13 Blood Culture - Final Peripheral Venipuncture No growth. 07/05/17 06:15 Urine Culture - Final Urine,Clean Catch Proteus mirabilis Escherichia coli Serology 07/05/17 07/05/17 07/05/17 Range/Units 11:27 10:15 06:15 Urine Color Yellow (Yellow) Urine Clarity Cloudy A (Clear) Urine pH 7.0 (5.0-8.0) pH Units Ur Specific [place] < 1.005 L (1.010-1.025) Urine Protein 30 H (Neg-Trace) mg/dL Urine Glucose (UA) Normal (Normal) mg/dL Urine Ketones Negative (Negative) mg/dL Urine Blood Moderate H (Negative) Urine Nitrite Negative (Negative) Urine Bilirubin Negative (Negative) Urine Urobilinogen Normal (Normal) mg/dL Ur Leukocyte Esterase Large H (Negative) Urine Microscopic RBC 0-3 (0-3) per hpf Urine Microscopic WBC TNTC H (0-3) per hpf Ur Squamous Epith Cells Few (None-Few) per lpf Urine Bacteria Few (None-Few) per hpf Hyaline Casts None Seen (None-Few) per lpf Ur Culture Indicated? YES A (NO) Stool Occult Blood Negative (Negative) Stl C. diff Tox B Gene Negative (Negative) Exam - Constitutional Vitals: Temp Pulse Resp BP Pulse Ox 98.1 F 97 16 102/67 94 07/11/17 07:12 07/11/17 07:12 07/11/17 07:12 07/11/17 07:12 07/11/17 07:12 General appearance: average body habitus, cooperative, no acute distress - Head Head exam: Present: atraumatic, normal inspection, normocephalic - Eye Eye exam: Present: EOMI, normal appearance, PERRL Pupils: Present: normal accommodation - ENT ENT exam: Present: mucous membranes moist - Neck Neck exam: Present: normal inspection - Respiratory Respiratory exam: Present: CTAB. Absent: rales, respiratory distress, rhonchi, wheezes - Cardiovascular Cardiovascular exam: Present: RRR, +S1, +S2 - GI/Abdominal GI/Abdominal exam: Present: normal bowel sounds, soft. Absent: distended, tenderness Additional comments: Reyes catheter noted to be draining clear yellow urine. - Extremities Exam Extremities exam: Present: normal inspection. Absent: joint swelling, pedal edema, tenderness - Neurological Exam Neurological exam: Present: alert, oriented X3, no focal deficits - Psychiatric Psychiatric exam: Present: normal affect, normal mood - Skin Skin exam: Present: dry, intact, normal color, warm - VTE Documentation of Mechanical Device: Intermittent pneumatic compression device Consult Discharge Plan - Plan Referrals: Jay Jay Tinoco MD [Partnered Physician] - 07/27/17 10:15 am (Please follow up as schedule...) Juan Quintana DO [Primary Care Provider] - - Attending Attestation I examined this patient and my medical decision-making was reviewed with the Resident Physician. I agree with the documented findings, disposition and treatment plan as described except to the extent set forth below.
--- NOTE | 2017-07-11 14:00 | Discharge Summary ---
Date of Encounter: 07/11/17 Time of Encounter: 14:00 - Discharge Diagnosis (1) FRANCISCA (acute kidney injury) Priority: Secondary Status: Resolved (2) Bacteremia Priority: Primary Status: Acute (3) Septic shock Priority: Primary Status: Resolved (4) UTI (urinary tract infection) Priority: Primary Status: Acute Qualifiers: Urinary tract infection type: acute cystitis Hematuria presence: without hematuria Qualified Code(s): N30.00 - Acute cystitis without hematuria (5) Atrial fibrillation with RVR Priority: Secondary Status: Chronic (6) DVT prophylaxis Priority: Secondary Status: Acute (7) Hydronephrosis Priority: Secondary Status: Acute Qualifiers: Hydronephrosis type: unspecified Qualified Code(s): N13.30 - Unspecified hydronephrosis (8) Hypomagnesemia Priority: Secondary Status: Resolved - Discharge Medications Prescriptions: Amoxicillin [Amoxil] 500 mg PO Q8HR #25 capsule Diltiazem CD (24hr) [Cardizem CD] 120 mg PO DAILY #30 cap.er.24h Lactobacillus [Culturelle] 2 each PO DAILY #8 cap.sprink Home Medications: ALPRAZolam [Xanax 0.5 MG Tablet] 0.5 mg PO TID 08/29/16 [History] Rivaroxaban [Xarelto] 20 mg PO DAILY #30 tablet 06/13/17 [Rx] Tamsulosin [Flomax] 0.4 mg PO DAILY 07/04/17 [History] Amoxicillin [Amoxil] 500 mg PO Q8HR #25 capsule 07/11/17 [Rx] Diltiazem CD (24hr) [Cardizem CD] 120 mg PO DAILY #30 cap.er.24h 07/11/17 [Rx] Lactobacillus [Culturelle] 2 each PO DAILY #8 cap.sprink 07/11/17 [Rx] Allergies/Adverse Reactions: 3 Allergy/AdvReac Type Severity Reaction Status Date / Time No Known Allergies Allergy Verified 08/29/16 06:48 Date of admission: 07/04/17 17:40 Primary care physician: Radha Wise Consults: 07/06/17 09:54 Consult to Urology [CONS] Routine Consulting Provider: Urology Toyin Reason for Consult: Concern for obstructive uropathy vs incomplete bladder emptying. Call Completed: Yes - Patient Status Disposition: Home, Self-Care Condition: Good Functional capacity at discharge: uses cane/walker Overall status at discharge: patient is back to baseline - Discharge Instructions Instructions: Urinary Retention in Men (GEN), Sepsis (DC) Follow Up With: Jay Jay Tinoco MD [Partnered Physician] - 07/27/17 10:15 am (Please follow up as schedule...) Zacarias Campbell MD [Partnered Physician] - 07/19/17 10:45 am (Please follow up schedule...) Additional Instructions: Please follow up with your primary care physician within five days after your discharge from the hospital. Please follow up with urology within one week after your discharge from the hospital. Continue oral antibioitic (Amoxicillin) as prescribed. Your home medications have been changed as follows: 1. Metoprolol has been discontinued 2. Diovan has been discontinued 3. Cardizem has been decreased to 120mg once a day Resume all other home medications as prescribed by your primary care physician. - Diet and Activity Activity: resume usual activities as tolerated Diet: low salt diet Hospital course: Mr. Chen is a 56 year old male with PMH of Afib, HTN who was admitted to the ICU for septic shock secondary to E.Coli bacteremia secondary to UTI. He initially required vasopressor support. He was started on IV abx to which he responded appropriately. He was soon taken off vasopressor support and transferred to general medical floor. His hospital course was further complicated by FRANCISCA secondary bladder outlet obstruction/neurogenic bladder. Reyes catheter was placed and urology was consulted. Pt's renal function improved with reyes placement. He will be discharge with reyes cath and outpatient follow up with urology. He was followed by ID and fourteen days of IV abx are recommended from the date of first negative blood culture. Pt's home medications have been readjusted according to his BP. At this time he is stable for discharge to home with follow up with PCP and urology after discharge. Pt demonstrates understanding of his diagnosis and agrees with the discharge care and plan. - Time Spent with Patient Total time spent providing and/or coordinating discharge services: Greater than 30 minutes - Constitutional Vitals: Temp Pulse Resp BP Pulse Ox 98.2 F 104 16 99/70 93 07/11/17 10:48 07/11/17 10:48 07/11/17 10:48 07/11/17 10:48 07/11/17 10:48 General appearance: Present: A&O X 3, no acute distress, answers questions appropriately - Head Head exam: Present: atraumatic, normocephalic - Eye Eye exam: Present: conjuntiva pink, sclera anicteric - Respiratory Respiratory exam: Present: CTAB. Absent: accessory muscle use, rales, rhonchi, wheezes - Cardiovascular Cardiovascular exam: Present: RRR, +S1, +S2. Absent: diastolic murmur, gallop, rubs, systolic murmur - GI/Abdominal GI/Abdominal exam: Present: normal bowel sounds, soft, no peritoneal signs. Absent: distended, tenderness - Extremities Exam Extremities exam: Present: warm, radial pulses palpable and symmetrical. Absent : calf tenderness, pedal edema - Neurological Exam Neurological exam: Present: alert, oriented X3 - Psychiatric Psychiatric exam: Present: normal affect, normal mood - VTE Documentation of Mechanical Device: Intermittent pneumatic compression device
[2017-07-11 15:44] VITALS: BP 100/66
== END 2017-07-11 16:57 | disposition home or self-care (01) | DRG 871 ==
LOC: EMEROO 09:35 → ICNU 17:40 → 2ANU 07-07 17:42
PROVIDERS: ADMIT Internal Medicine Pulmonary Disease; ATTEND Internal Medicine

== ENCOUNTER 2018-11-07 10:50 | Observation (INO) ==
--- NOTE | 2018-11-07 11:10 | Emergency Department Note ---
Disposition Clinical Impression: Dehydration, Hyponatremia, Hypokalemia Arrhythmia Qualifiers: Arrhythmia type: unspecified cardiac arrhythmia Qualified Code(s): I49.9 - Cardiac arrhythmia, unspecified Nausea and vomiting Qualifiers: Vomiting type: unspecified Vomiting Intractability: non-intractable Qualified Code(s): R11.2 - Nausea with vomiting, unspecified Disposition: Admitted As Inpatient Referrals: NONE,PCP [Non-Partnered Physician] - Forms: ED Satisfaction Letter Time of Disposition: 13:56 General Adult HPI - General Chief complaint: ED Arrhythmia/Palpitations Stated complaint: dehydration and chest discomfort Time Seen by Provider: 11/07/18 11:00 Source: patient Mode of arrival: ambulatory Limitations: no limitations Nursing Notes Reviewed: Yes Vital Signs Reviewed: Yes - History of Present Illness HPI Narrative: 58 yo male with past medical history of atrial fibrillation and BPH presents to the emergency department with vomiting and diarrhea for the past 3 days. He states he woke up on Monday and did not feel well, having many episodes of nonbloody diarrhea. He then began vomiting Monday night. He had one episode of vomiting Monday morning but was able to tolerate fluids and thought that he was getting better. This morning he had another episode of vomiting and has been feeling some palpitations thinks that he is generally dehydrated at this time. He is scheduled to have a TURP at [facility] on Monday and came in to get checked out to make sure that he would be well enough to have the surgery on Monday. He also admits to a history of drinking 6 beers per day daily for a long time but has stopped drinking due to surgery, stating his last drink was several days ago. He currently denies headache, chest pain, shortness of breath, fevers. He has had hot and cold sweats and feels bloated, with nausea at this time. Pain Scale: 0 - Related Data Home Medications Medication Instructions Recorded Confirmed ALPRAZolam [Xanax 0.5 MG Tablet] 0.5 mg PO TID 08/29/16 09/17/18 Ferrous Sulfate 325 mg PO DAILY 08/23/17 09/17/18 Multivitamin/Iron/Folic Acid 1 tab PO DAILY 01/23/18 09/17/18 [Centrum Complete Multivit Tab] BuPROPion [Wellbutrin] 100 mg PO QAM 09/17/18 09/17/18 Finasteride [Proscar] 5 mg PO DAILY 09/17/18 09/17/18 Olmesartan Medoxomil 20 mg PO DAILY 09/17/18 09/17/18 Prazosin [Minipress] 1 cap PO Q48H 09/17/18 09/17/18 Sertraline [Zoloft] 100 mg PO DAILY 09/17/18 09/17/18 Tamsulosin HCl [Flomax] 0.4 mg PO DAILY 09/17/18 09/17/18 Vitamin B Complex [Balanced B-50] 1 tab PO DAILY 09/17/18 09/17/18 Allergies Allergy/AdvReac Type Severity Reaction Status Date / Time No Known Allergies Allergy Verified 09/17/18 08:17 All systems ED: reviewed and negative except as stated. Review of Systems: As Per HPI Constitutional: Denies: fever Cardiovascular: Denies: chest pain, palpitations, dyspnea on exertion Respiratory: Denies: cough, dyspnea, wheezes Gastrointestinal: Reports: abdominal pain, nausea, vomiting, diarrhea. Denies: constipation, hematemesis, melena, hematochezia Genitourinary: Denies: dysuria, hematuria Musculoskeletal: Denies: back pain, neck pain Integumentary: Denies: rash Neurological: Denies: headache, weakness Endocrine: Denies: fatigue Past Medical History - Past Medical History Attestation: Yes The following information was validated with the patient. Source: patient Medical history: Reports: atrial fibrillation, hypertension Surgical history: Reports: no surgical history Psychiatric history: Reports: anxiety - Social History Smoking Status: Current every day smoker Smokeless Tobacco Status: Yes Alcohol use: Reports: occasionally Drug use: Reports: none Physical Exam - General Limitations: no limitations General appearance: alert, in no apparent distress - Head Head exam: atraumatic, normocephalic - Eye Eye exam: Present: normal appearance, PERRL, EOMI - ENT ENT exam: mucous membranes dry - Neck Neck exam: Present: normal inspection. Absent: tenderness, lymphadenopathy - Chest Chest inspection: Present: normal inspection. Absent: tenderness - Respiratory Respiratory exam: Present: normal lung sounds bilaterally. Absent: wheezes - Cardiovascular Cardiovascular exam: Present: regular rate, normal rhythm - Abdominal Exam Abdominal exam: Present: soft, tenderness. Absent: distention, guarding, reboun d, rigidity, Arias's sign, tenderness at McBurney's Point - Extremities Exam Extremities exam: Present: normal inspection. Absent: tenderness, pedal edema - Back Exam Back exam: Absent: CVA tenderness (R), CVA tenderness (L) - Neurological Exam Neurological exam: Present: alert, oriented X3 - Psychiatric Psychiatric exam: Present: normal affect, normal mood - Skin Skin exam: Present: warm, dry, intact Course Vital Signs Temperature 98.0 F 11/07/18 10:52 Pulse Rate 69 11/07/18 10:52 Respiratory Rate 18 11/07/18 10:52 Blood Pressure 182/128 11/07/18 10:52 O2 Sat by Pulse Oximetry 96 11/07/18 10:52 Temperature 98.0 F 11/07/18 10:52 Pulse Rate 45 11/07/18 13:36 Respiratory Rate 18 11/07/18 13:36 Blood Pressure 156/93 11/07/18 13:36 O2 Sat by Pulse Oximetry 97 11/07/18 13:36 Oxygen Delivery Oxygen Delivery Room Air Medical Decision Making - [facility] Narrative Medical decision making narrative: Patient presents with palpitations and probable dehydration secondary to nausea and vomiting and diarrhea. We will obtain basic labs and urinalysis as well as an EKG, chest x-ray and troponin to evaluate the patient's hydration status and heart. We will also give the patient a liter of fluids and some medication for nausea and abdominal pain. Patient admits to recent cessation of alcohol use but denies feelings of anxiety at this time, he is mildly hypertensive but states he has not taken his losartan today as he felt nauseous and vomited this morning. We will continue to watch for signs of detox but the patient is likely out of the window as he has not had alcohol for several days. 1300 - patient had a run of V. tach when standing to urinate which self resolved, patient does not admit to any palpitations during this event. Magnesium was added to the patient's basic labs and pacers were placed on the patient. At this time his laboratories all returned and patient has evidence of hyponatremia and hypokalemia. We will have his potassium replenished orally and the patient will be admitted for abnormalities in his heart rate. Patient will receive a cardiology consult. 1350 - spoke with Dr. Riley who will see the patient in consultation and does not advise any cardiac medications to be administered at this time. The patient has been accepted by the hospitalist, Dr. Acuña for further management. The patient will be given another liter of IV fluids with multivitamins, thiamine and folic acid. - Medical Records Medical records reviewed: Yes I reviewed the patient's medical records. - Lab Data Lab results reviewed: Yes I reviewed the patient's lab results. Result diagrams: 11/07/18 11:25 11/07/18 11:25 Lab Results 11/07/18 11/07/18 11/07/18 Range/Units 11:25 11:25 13:05 WBC 11.0 (4.3-11.1) K/mcL RBC 5.00 (4.19-5.50) M/mcL Hgb 15.7 (12.9-16.9) g/dL Hct 44.7 (37.5-50.1) % MCV 89.4 (83.0-100.0) fL MCH 31.4 (28.0-33.3) pg MCHC 35.1 (31.6-35.5) g/dL RDW 14.3 (11.5-14.5) % Plt Count 226 (140-400) K/mcL MPV 9.7 (9.4-12.4) fL Immature Gran % 0.4 (0-4) % Seg Neutrophils % 61.7 % Lymphocytes % 26.1 % Monocytes % 10.9 % Eosinophils % 0.6 % Basophils % 0.3 % Neutrophils # 6.8 (1.6-8.9) K/mcL Lymphocytes # 2.9 (0.6-4.6) K/mcL Monocytes # 1.2 (0.0-1.3) K/mcL Eosinophils # 0.1 (0.0-0.6) K/mcL Basophils # 0.0 (0.0-0.2) K/mcL Sodium 131 L (136-145) mEq/L Potassium 3.1 L (3.5-5.1) mEq/L Chloride 91 L (98-107) mEq/L Carbon Dioxide 32 H (23-29) mEq/L BUN 13 (6-20) mg/dL Creatinine 1.09 (0.70-1.30) mg/dL Est GFR ( Amer) > 60 (> 60) Est GFR (Non-Af Amer) > 60 (> 60) BUN/Creatinine Ratio 12 (6-26) Glucose 134 H (70-105) mg/dL Calculated Osmolality 274 L (280-300) Calcium 9.5 (8.6-10.3) mg/dL Magnesium 1.9 (1.6-2.6) mg/dL Troponin I 0.03 (< 0.04) ng/mL Urine Color Yellow (Yellow) Urine Clarity Cloudy A (Clear) Urine pH 7.0 (5.0-8.0) pH Units Ur Specific [place] 1.007 L (1.010-1.025) Urine Protein 100 H (Neg-Trace) mg/dL Urine Glucose (UA) Normal (Normal) mg/dL Urine Ketones Negative (Negative) mg/dL Urine Blood Large H (Negative) Urine Nitrite Negative (Negative) Urine Bilirubin Negative (Negative) Urine Urobilinogen Normal (Normal) mg/dL Ur Leukocyte Esterase Moderate H (Negative) - Radiology Data Radiology results reviewed: Yes I reviewed the patient's radiology results. - EKG Data EKG #1 EKG attestation: Yes I reviewed and interpreted this EKG. EKG results narrative: Repeat EKG obtained at 12:48 on 11/07/2018. Heart rate 45 bpm, CA interval 149, QRS duration 123, QT 531, QTC 460. Sinus bradycardia with nonspecific intraventricular conduction delay. Questionable 2-1 AV emir block. No other acute abnormalities. EKG #2 EKG attestation: Yes I reviewed and interpreted this EKG. EKG results narrative: Repeat EKG obtained at 12:48 on 11/07/2018. Heart rate 45 bpm, CA interval 149, QRS duration 123, QT 531, QTC 460. Sinus bradycardia with nonspecific intraventricular conduction delay. Questionable 2-1 AV emir block. No other acute abnormalities. Attestation Statement - Attestation Attestation: I, Ethan Barrios DO, examined this patient [id number] and my medical decision-making was reviewed with Moira Alvarado DO, Resident Physician. I agree with the documented findings, disposition and treatment plan as described except to the extent set forth below. I personally supervised and was present for the armstrong/critical portions of the procedures completed by the resident documented below. Please see my progress notes for details.
[2018-11-07] MEDS ORDERED: Ondansetron 4 MG/2 ML VIAL IVP ONE (11:20)
[2018-11-07] MEDS ORDERED: 0.9 % Sodium Chloride 1,000 ML IVC ONE (11:20)
[2018-11-07 11:53] LABS: Basophils % 0.3 %; Eosinophils # 0.1 K/mcL (0.0-0.6); Eosinophils % 0.6 %; Hematocrit 44.7 % (37.5-50.1); Hemoglobin 15.7 g/dL (12.9-16.9); Immature Granulocytes % 0.4 % (0-4); Lymphocytes # 2.9 K/mcL (0.6-4.6); Lymphocytes % 26.1 %; Mean Corpuscular HGB Conc 35.1 g/dL (31.6-35.5); Mean Corpuscular Hemoglobin 31.4 pg (28.0-33.3); Mean Corpuscular Volume 89.4 fL (83.0-100.0); Mean Platelet Volume 9.7 fL (9.4-12.4); Monocytes # 1.2 K/mcL (0.0-1.3); Monocytes % 10.9 %; Neutrophils # 6.8 K/mcL (1.6-8.9); Platelet Count 226 K/mcL (140-400); Red Cell Distribution Width 14.3 % (11.5-14.5); Segmented Neutrophils % 61.7 %
[2018-11-07 12:15] LABS: BUN/Creatinine Ratio 12 (6-26); Blood Urea Nitrogen 13 mg/dL (6-20); Calcium 9.5 mg/dL (8.6-10.3); Carbon Dioxide 32 mEq/L (23-29); Chloride 91 mEq/L (98-107); Glucose 134 mg/dL (70-105); Magnesium 1.9 mg/dL (1.6-2.6); Osmolality,Calculated 274 (280-300); Potassium 3.1 mEq/L (3.5-5.1); Sodium 131 mEq/L (136-145); Troponin I 0.03 ng/mL (< 0.04); eGFR For African Americans > 60 (> 60); eGFR For Non-African Americans > 60 (> 60)
--- NOTE | 2018-11-07 12:38 | Emergency Department Note ---
Disposition Clinical Impression: Palpitations, Ventricular tachycardia, Hypokalemia Disposition: Admitted As Inpatient Condition: Fair Referrals: NONE,PCP [Primary Care Provider] - Forms: ED Satisfaction Letter Time of Disposition: 13:56 General Adult HPI - General Chief complaint: ED Arrhythmia/Palpitations Stated complaint: dehydration and chest discomfort Time Seen by Provider: 11/07/18 11:00 Source: patient Mode of arrival: ambulatory Limitations: no limitations - History of Present Illness Pain Scale: 0 - Related Data Home Medications Medication Instructions Recorded Confirmed ALPRAZolam [Xanax 0.5 MG Tablet] 0.5 mg PO TID 08/29/16 09/17/18 Ferrous Sulfate 325 mg PO DAILY 08/23/17 09/17/18 Multivitamin/Iron/Folic Acid 1 tab PO DAILY 01/23/18 09/17/18 [Centrum Complete Multivit Tab] BuPROPion [Wellbutrin] 100 mg PO QAM 09/17/18 09/17/18 Finasteride [Proscar] 5 mg PO DAILY 09/17/18 09/17/18 Olmesartan Medoxomil 20 mg PO DAILY 09/17/18 09/17/18 Prazosin [Minipress] 1 cap PO Q48H 09/17/18 09/17/18 Sertraline [Zoloft] 100 mg PO DAILY 09/17/18 09/17/18 Tamsulosin HCl [Flomax] 0.4 mg PO DAILY 09/17/18 09/17/18 Vitamin B Complex [Balanced B-50] 1 tab PO DAILY 09/17/18 09/17/18 Allergies Allergy/AdvReac Type Severity Reaction Status Date / Time No Known Allergies Allergy Verified 09/17/18 08:17 Constitutional: Denies: fever Cardiovascular: Denies: chest pain, palpitations, dyspnea on exertion Respiratory: Denies: cough, dyspnea, wheezes Gastrointestinal: Reports: abdominal pain, nausea, vomiting, diarrhea. Denies: constipation, hematemesis, melena, hematochezia Genitourinary: Denies: dysuria, hematuria Musculoskeletal: Denies: back pain, neck pain Integumentary: Denies: rash Neurological: Denies: headache, weakness Endocrine: Denies: fatigue Past Medical History - Past Medical History Medical history: Reports: atrial fibrillation, hypertension Surgical history: Reports: no surgical history Psychiatric history: Reports: anxiety - Social History Smoking Status: Current every day smoker Smokeless Tobacco Status: Yes Alcohol use: Reports: occasionally Drug use: Reports: none Physical Exam - General Limitations: no limitations General appearance: alert, in no apparent distress Course Vital Signs Temperature 98.0 F 11/07/18 10:52 Pulse Rate 69 11/07/18 10:52 Respiratory Rate 18 11/07/18 10:52 Blood Pressure 182/128 11/07/18 10:52 O2 Sat by Pulse Oximetry 96 11/07/18 10:52 Temperature 98.0 F 11/07/18 10:52 Pulse Rate 45 11/07/18 13:36 Respiratory Rate 18 11/07/18 13:36 Blood Pressure 156/93 11/07/18 13:36 O2 Sat by Pulse Oximetry 97 11/07/18 13:36 Oxygen Delivery Oxygen Delivery Room Air Medical Decision Making - Lab Data Result diagrams: 11/07/18 11:25 11/07/18 11:25 Lab Results 11/07/18 11/07/18 11/07/18 Range/Units 11:25 11:25 13:05 WBC 11.0 (4.3-11.1) K/mcL RBC 5.00 (4.19-5.50) M/mcL Hgb 15.7 (12.9-16.9) g/dL Hct 44.7 (37.5-50.1) % MCV 89.4 (83.0-100.0) fL MCH 31.4 (28.0-33.3) pg MCHC 35.1 (31.6-35.5) g/dL RDW 14.3 (11.5-14.5) % Plt Count 226 (140-400) K/mcL MPV 9.7 (9.4-12.4) fL Immature Gran % 0.4 (0-4) % Seg Neutrophils % 61.7 % Lymphocytes % 26.1 % Monocytes % 10.9 % Eosinophils % 0.6 % Basophils % 0.3 % Neutrophils # 6.8 (1.6-8.9) K/mcL Lymphocytes # 2.9 (0.6-4.6) K/mcL Monocytes # 1.2 (0.0-1.3) K/mcL Eosinophils # 0.1 (0.0-0.6) K/mcL Basophils # 0.0 (0.0-0.2) K/mcL Sodium 131 L (136-145) mEq/L Potassium 3.1 L (3.5-5.1) mEq/L Chloride 91 L (98-107) mEq/L Carbon Dioxide 32 H (23-29) mEq/L BUN 13 (6-20) mg/dL Creatinine 1.09 (0.70-1.30) mg/dL Est GFR ( Amer) > 60 (> 60) Est GFR (Non-Af Amer) > 60 (> 60) BUN/Creatinine Ratio 12 (6-26) Glucose 134 H (70-105) mg/dL Calculated Osmolality 274 L (280-300) Calcium 9.5 (8.6-10.3) mg/dL Magnesium 1.9 (1.6-2.6) mg/dL Troponin I 0.03 (< 0.04) ng/mL Urine Color Yellow (Yellow) Urine Clarity Cloudy A (Clear) Urine pH 7.0 (5.0-8.0) pH Units Ur Specific [place] 1.007 L (1.010-1.025) Urine Protein 100 H (Neg-Trace) mg/dL Urine Glucose (UA) Normal (Normal) mg/dL Urine Ketones Negative (Negative) mg/dL Urine Blood Large H (Negative) Urine Nitrite Negative (Negative) Urine Bilirubin Negative (Negative) Urine Urobilinogen Normal (Normal) mg/dL Ur Leukocyte Esterase Moderate H (Negative) Attestation Statement - Attestation Attestation: I, Ethan Barrios DO, examined this patient [id number] and my medical decision-making was reviewed with Moira Alvarado DO, Resident Physician. I agree with the documented findings, disposition and treatment plan as described except to the extent set forth below. I personally supervised and was present for the armstrong/critical portions of the procedures completed by the resident documented below. Please see my progress notes for details. 58-year-old male presents emergency room for evaluation of generalized malaise dehydration nausea vomiting or diarrhea. Patient denies any chest pain or shortness of breath. He has not fallen or injured himself. He does typically drink approximately 6 beers a day. The last 4 days secondary to upcoming procedure on Monday. Patient is otherwise clinically stable. Vital signs are reviewed and are unremarkable. Patient is alert he is oriented speaking full sentences. He is resting comfortably in the bed. Head is atraumatic. Mucous members are moist. Trachea is midline. Lungs are clear heart is regular. Abdomen is soft but no point tenderness guarding rigidity or peritoneal symptoms noted at this time. Extremities otherwise normal. Patient has no history of alcohol withdrawal. He is neurologically intact and acting appropriately at this time. Patient does have tacky mucous membranes. He will be provided with fluids here in the emergency department. Screening evaluation with chest x-ray EKG CBC chemistry troponin electively to also be collected. Urinalysis will be ordered as well. Concern is noted for cardiac related etiology versus underlying viral infection causing the symptoms here today. Patient will be placed on a monitor in follow-up here in the emergency department. EKG is reviewed by myself and document whether resident physician. See detailed documentation the physical exam, medical intervention, medical decision-making and disposition in the resident physician's note. No critical care applied the patient's treatment course at this time. 1100 Patient had approximately a 6 beat run of ventricular tachycardia on the monitor. He said that he was up trying to go to the bathroom at that time. He has no history of cardiac arrhythmia. Electrolytes show hypokalemia and several other abnormalities consistent with dehydration alcohol use. Patient has been fluid resuscitated at this time. Pacer pads have been placed on the patient is being monitored closely. The remainder of his workup will be completed and then most likely admitted for monitoring and cardiac evaluation. Patient family are both informed and comfortable this plan. [address] Riley reviewed the case. He is going to evaluate ECGs as well as the patient. The patient was discussed with the hospitalist Dr. Acuña. She reviewed the case as well. No other recommendations or concerns are noted this time. Patient will be left with the electronic device monitor in place and pacer pads on. He is otherwise stable. Admission process to be established for electrolyte abnormalities. Also concerned for arrhythmia. Patient will be monitored here in the emergency department until the admission process is completed. 35 minutes of critical care applied the patient's treatment course secondary to the cardiac arrhythmia management and multiple evaluations. Both ECGs are reviewed by myself and confirmed and documented by the resident physician
[2018-11-07] MEDS ORDERED: MVI, adult with vitamin K 10 ML in 0.9 % Sodium Chloride 1,000 ML IVC ONE (13:29)
[2018-11-07 13:34] LABS: Bilirubin,Urine Negative (Negative); Blood,Urine Large (Negative); Clarity,Urine Cloudy (Clear); Color,Urine Yellow (Yellow); Glucose,Urine (UA) Normal (Normal); Ketones,Urine Negative (Negative); Leukocyte Esterase,Urine Moderate (Negative); Nitrite,Urine Negative (Negative); Protein,Urine 100 mg/dL (Neg-Trace); Specific Gravity,Urine 1.007 (1.010-1.025); Urobilinogen,Urine Normal (Normal)
[2018-11-07 13:37] LABS: Bacteria,Urine None Seen per hpf (None-Few); Hyaline Casts,Urine None Seen per lpf (None-Few); Squamous Epithelial Cell,Urine Many per lpf (None-Few); WBC,Urine 50-100 per hpf (0-3)
[2018-11-07] MEDS ORDERED: Thiamine (B-1) 100 MG, Folic Acid 1 MG, MVI, adult with vitamin K 10 ML in 0.9 % Sodi... IVPB ONE (13:50)
[2018-11-07 13:54] LABS: Renal Epithelial Cells,Urine Few per hpf (None-Few)
[2018-11-07] MEDS ORDERED: Acetaminophen 325 MG TABLET PO PRN (14:41)
[2018-11-07] MEDS ORDERED: Naloxone 0.4 MG/ML INJ IVP PRN (14:41)
[2018-11-07] MEDS ORDERED: Ondansetron 4 MG/2 ML VIAL IVP PRN (14:41)
[2018-11-07] MEDS ORDERED: *HR* HYDROcodone/Acet 5/325 mg TABLET PO PRN (14:41)
[2018-11-07] MEDS ORDERED: *HR* LORazepam 2 MG/ML VIAL IVP PRN ×2 (15:21)
--- NOTE | 2018-11-07 15:31 | Internal Med History&Physical ---
Date of Encounter: 11/07/18 Time of Encounter: 15:26 Internal Medicine - H&P: HPI Chief complaint: palpitations Admitted From: Emergency Dept Plans for Post Hospital Care: Home History of present illness: Mr. Chen is a 58 year old male with known PMH of paroxysmal Afib was no on anti coag due to severe GI bleed, HTN, BPH who is scheduled for TURP at [facility] this Monday, also he does have chronic alcohol dependence 6 beers / day, had last alcohol on Monday evening, now he presented to ER c/o from last 3 days he has been having intractable nausea, vomiting associated with diarrhea. His diarrhea is better now, however he still feels nauseated and vomiting. He came to ER to get checked since he is going for procedure next Monday. While he is in the ER, when he stood up to go to restroom he has few beats of NSVT, later developed sinus bradycardia. He denied any CP / SOB. His K + 3.1 and Mg @ 1.9. Past Med Surg Social Fam HX - Past Medical History Medical history: atrial fibrillation, hypertension Psychiatric history: anxiety - Past Surgical History Surgical History: no surgical history - Social History Smoking Status: Current every day smoker Smokeless Tobacco Status: Yes Alcohol use: occasionally Drug use: none - Family History Mother Living Status: Still Living Father Living Status: Still Living Internal Medicine - H&P: Meds ALPRAZolam [Xanax 0.5 MG Tablet] 0.5 mg PO TID 08/29/16 [History] Ferrous Sulfate 325 mg PO DAILY 08/23/17 [History] Multivitamin/Iron/Folic Acid [Centrum Complete Multivit Tab] 1 tab PO DAILY 01/23/18 [History] Finasteride [Proscar] 5 mg PO DAILY 09/17/18 [History] Olmesartan Medoxomil 20 mg PO Q48H 09/17/18 [History] Sertraline [Zoloft] 100 mg PO DAILY 09/17/18 [History] Tamsulosin HCl [Flomax] 0.4 mg PO DAILY 09/17/18 [History] Vitamin B Complex [Balanced B-50] 1 tab PO DAILY 09/17/18 [History] Allergy/AdvReac Type Severity Reaction Status Date / Time No Known Allergies Allergy Verified 09/17/18 08:17 All Systems PM: A 10-system review of systems was performed and is negative for pertinent findings except as documented above in the HPI. Review of systems: All the systems are reviewed everything is benign except the systems and symptoms I mentioned in the history of present illness - Constitutional Vitals: Temp Pulse Resp BP Pulse Ox 98.0 F 46 18 157/89 96 11/07/18 10:52 11/07/18 14:33 11/07/18 14:33 11/07/18 14:33 11/07/18 14:33 General appearance: Present: cooperative, A&O X 3, no acute distress, answers questions appropriately Exam: a - Head Head exam: Present: atraumatic, normal inspection - Neck Neck exam general surgery: Present: supple - Respiratory Respiratory exam: Present: decreased breath sounds. Absent: rales, respiratory distress, rhonchi, wheezes - Cardiovascular Cardiovascular exam: Present: bradycardia, +S1, +S2. Absent: tachycardia - GI/Abdominal GI/Abdominal exam: Present: normal bowel sounds, soft. Absent: rebound, rigid, tenderness - Extremities Exam Extremities exam: Absent: calf tenderness, pedal edema, tenderness - Back Exam Back exam: Absent: CVA tenderness (L), CVA tenderness (R) - Neurological Exam Neurological exam: Present: alert, oriented X3, strengths equal and symetr throughout. Absent: speech deficit - Psychiatric Psychiatric exam: Present: normal affect, normal mood - Skin Skin exam: Absent: rash Internal Med - H&P Results - Labs CBC & Chem 7: 11/07/18 11:25 11/07/18 11:25 Labs: Short CBC 11/07/18 Range/Units 11:25 WBC 11.0 (4.3-11.1) K/mcL Hgb 15.7 (12.9-16.9) g/dL Hct 44.7 (37.5-50.1) % Plt Count 226 (140-400) K/mcL Neutrophils # 6.8 (1.6-8.9) K/mcL BMP 11/07/18 11:25 Sodium 131 L Potassium 3.1 L Chloride 91 L Carbon Dioxide 32 H BUN 13 Creatinine 1.09 Glucose 134 H Calcium 9.5 Cardiac Enzymes 11/07/18 Range/Units 11:25 Troponin I 0.03 (< 0.04) ng/mL Urine 11/07/18 Range/Units 13:05 Urine Color Yellow (Yellow) Urine Clarity Cloudy A (Clear) Urine pH 7.0 (5.0-8.0) pH Units Ur Specific [place] 1.007 L (1.010-1.025) Urine Protein 100 H (Neg-Trace) mg/dL Urine Glucose (UA) Normal (Normal) mg/dL - Impressions ITS Impressions Chest X-Ray 11/07/18 11:02 IMPRESSION: No acute process. Chronic blunting of the left costophrenic angle, which may be related to scarring. D/ / Emile Kirk MD / Emile Kirk MD Interpreting Provider: Emile Kirk MD - Assessment and Plan (1) Ventricular tachycardia Current Visit: Yes Status: Acute Assessment and plan: NSVT followed by sinus bradycardia mostly due to electrolyte imbalance Cont replacing K + Goal to keep K + @ 4.5 and Mg @ 2.2 Place him on tele check serial troponin his EKG showed sinus lily cardia, No acute ischemic changes noticed bar host/hostess already reviewed patients EKG and telemetry reading of V tach cont ASA Nitro PRN will check 2 D Echo also will do stress test in the morning as part of ischemic workup (2) Nausea and vomiting Current Visit: Yes Status: Acute Assessment and plan: Could be due to viral gastroenteritis continue symptomatic and supportive care Qualifiers: Vomiting type: unspecified Vomiting Intractability: non-intractable Qualified Code(s): R11.2 - Nausea with vomiting, unspecified (3) Dehydration Current Visit: Yes Status: Acute Assessment and plan: On IVF (4) Hypokalemia Current Visit: Yes Status: Acute Assessment and plan: Continue replacing (5) UTI (urinary tract infection) Current Visit: No Status: Acute Assessment and plan: UA is abnormal concerning for UTI her him on empirical antibiotic Rocephin follow-up on urine culture Qualifiers: Urinary tract infection type: acute cystitis Hematuria presence: without hematuria Qualified Code(s): N30.00 - Acute cystitis without hematuria (6) Atrial fibrillation Current Visit: No Status: Chronic Assessment and plan: Now he is sinus lily cardia not on rate control meds.. No BB cont ASA 81mg Not a candidate for anticoagulation due to GI bleed Qualifiers: Atrial fibrillation type: paroxysmal Qualified Code(s): I48.0 - Paroxysmal atrial fibrillation (7) Alcohol dependence Current Visit: Yes Status: Acute Assessment and plan: counseled to quit drinking alcohol high risk to go into DTs Cont ont jenny started him on CIWA protocol Banana bag x 1 given IV hydration PO thiamine, folic acid multivitamin Qualifiers: Substance use status: uncomplicated Qualified Code(s): F10.20 - Alcohol dependence, uncomplicated - Time Spent With Patient Total time spent is greater than 50% in coordination of care (as documented) at patient's floor/unit and/or counseling patient:
[2018-11-07] MEDS: 0.9 % Sodium Chloride 1,000 ML IVC SCH (17:52)
[2018-11-07] MEDS: cefTRIAXone 1,000 MG in Water for inj. (sterile) 20 ML 10 ML IVP SCH (18:07)
[2018-11-07 18:58] LABS: BUN/Creatinine Ratio 10 (6-26); Blood Urea Nitrogen 10 mg/dL (6-20); Calcium 8.9 mg/dL (8.6-10.3); Carbon Dioxide 32 mEq/L (23-29); Chloride 96 mEq/L (98-107); Glucose 101 mg/dL (70-105); Osmolality,Calculated 273 (280-300); Potassium 3.2 mEq/L (3.5-5.1); Sodium 132 mEq/L (136-145); eGFR For African Americans > 60 (> 60); eGFR For Non-African Americans > 60 (> 60)
[2018-11-08 01:26] LABS: Basophils % 0.3 %; Eosinophils # 0.1 K/mcL (0.0-0.6); Eosinophils % 1.2 %; Hematocrit 42.5 % (37.5-50.1); Hemoglobin 14.6 g/dL (12.9-16.9); Immature Granulocytes % 0.5 % (0-4); Lymphocytes # 2.9 K/mcL (0.6-4.6); Lymphocytes % 26.8 %; Mean Corpuscular HGB Conc 34.4 g/dL (31.6-35.5); Mean Corpuscular Hemoglobin 31.8 pg (28.0-33.3); Mean Corpuscular Volume 92.6 fL (83.0-100.0); Mean Platelet Volume 9.6 fL (9.4-12.4); Monocytes # 1.1 K/mcL (0.0-1.3); Monocytes % 10.4 %; Neutrophils # 6.6 K/mcL (1.6-8.9); Platelet Count 199 K/mcL (140-400); Red Blood Count 4.59 M/mcL (4.19-5.50); Red Cell Distribution Width 14.2 % (11.5-14.5); Segmented Neutrophils % 60.8 %; White Blood Count 10.8 K/mcL (4.3-11.1)
[2018-11-08 01:51] LABS: Alanine Aminotransferase 18 Units/L (7-52); Alkaline Phosphatase 66 Units/L (34-104); Aspartate Amino Transferase 22 Units/L (13-39); BUN/Creatinine Ratio 11 (6-26); Bilirubin,Total 1.1 mg/dL (0.3-1.0); Blood Urea Nitrogen 10 mg/dL (6-20); Calcium 8.7 mg/dL (8.6-10.3); Carbon Dioxide 28 mEq/L (23-29); Chloride 102 mEq/L (98-107); Chol/HDL Ratio 2.5 (0-4.9); Cholesterol 130 mg/dL (< 200); Glucose 97 mg/dL (70-105); HDL Cholesterol 52 mg/dL (40-59); LDL Cholesterol,Calculated 62 mg/dL (0-99); Osmolality,Calculated 279 (280-300); Potassium 3.6 mEq/L (3.5-5.1); Sodium 135 mEq/L (136-145); Total Protein 6.6 g/dL (6.4-8.9); Triglycerides 78 mg/dL (< 150); eGFR For African Americans > 60 (> 60); eGFR For Non-African Americans > 60 (> 60)
[2018-11-08 02:43] LABS: Albumin 3.8 g/dL (3.5-5.7); Albumin/Globulin Ratio 1.4 (1.1-2.2); Globulin 2.8 g/dL (2.4-3.5)
[2018-11-08] MEDS: 0.9 % Sodium Chloride 1,000 ML IVC SCH (04:07)
[2018-11-08] MEDS: ALPRAZolam 0.5 MG TABLET PO SCH ×4 (04:41→21:25)
[2018-11-08] MEDS ORDERED: Regadenoson 0.4 MG/5 ML SYRINGE IVP ONE (06:50)
[2018-11-08] MEDS: cefTRIAXone 1,000 MG in Water for inj. (sterile) 20 ML 10 ML IVP SCH (10:02)
[2018-11-08] MEDS: Thiamine (B-1) 100 MG TABLET PO SCH (10:03)
[2018-11-08] MEDS: Finasteride 5 MG TABLET PO SCH (10:03)
[2018-11-08] MEDS: Vitamin B Complex/Vit C/Vit E 1 EACH TABLET PO SCH (10:03)
[2018-11-08] MEDS: Folic Acid 1 MG TABLET PO SCH (10:03)
[2018-11-08] MEDS: Ringers Solution, Lactated 1,000 ML IVC SCH (10:03)
--- NOTE | 2018-11-08 12:18 | Internal Med Progress Note ---
Hospitalist Progress Note - Encounter Date of Encounter: 11/08/18 Time of Encounter: 10:00 - Subjective Interval History: H&P reviewed. Patient with history of paroxysmal A. fib not on anticoagulation due to GI bleed, hypertension, BPH, was admitted overnight due to arrhythmia in the setting of probably viral gastroenteritis with electrolyte derangement. Feels much better today although continues to have 4-5 episodes of diarrhea. No chest pain, palpitation, or lightheadedness. - Exam Vitals: Temp Pulse Resp BP Pulse Ox 98.5 F 52 14 165/96 96 11/08/18 11:32 11/08/18 11:32 11/08/18 11:32 11/08/18 11:32 11/08/18 11:32 Exam: General: Alert and oriented, not in acute distress. Cardiovascular:Normal S1 & S2, No JVD. Bradycardic but regular rhythm Lungs: clear to auscultation, no wheezes/rales Abdomen:Soft, non-tender, no rebound/guarding/rigidity Extremities:No deformity or swelling Neurological:Normal cognition and motor skills. Non-focal - Assessment and Plan (1) Ventricular tachycardia Current Visit: Yes Status: Acute Assessment and Plan: Patient apparently had episodes of nonsustained V. tach alternating with sinus bradycardia in the ED in the setting of likely viral gastroenteritis associated with electrolyte derangement no further episodes noted overnight ACS ruled out with serial troponins, electrolytes corrected for echocardiogram and stress test today discussed with cardiology, if the above tests are unremarkabe, can follow up with EP as an outpatient (2) Viral gastroenteritis Current Visit: Yes Status: Acute Assessment and Plan: Suspect viral in nature but patient had recent usage of amoxicillin about a month ago for UTI check GI panel to rule out bacterial infection will continue IV hydration for today at lower rate (3) UTI (urinary tract infection) Current Visit: Yes Status: Acute Assessment and Plan: hx of BPH and frequent UTI, scheduled for TURP on 11/12 endorses dysuria, will continue IV Rocephin while waiting for culture (4) Atrial fibrillation Current Visit: No Status: Chronic Assessment and Plan: not on AC due to hx of GI bleed rate controlled with any meds (5) Hypokalemia Current Visit: Yes Status: Resolved Assessment and Plan: due to gastroenteritis, repleted (6) Alcohol dependence Current Visit: Yes Status: Chronic Assessment and Plan: counseled to quit drinking alcohol continue CIWA protocol, if he does not require any ativan per protocol, will d/c tomorrow - Time Spent with Patient Total time spent is greater than 50% in coordination of care (as documented) at patient's floor/unit and/or counseling patient: 25 - 35 minutes Plan of Care Discussed with: patient (discussed with pt's at bedside) Internal Medicine: Result - Labs CBC & Chem 7: 11/08/18 00:21 11/08/18 00:21 Labs: Short CBC 11/08/18 Range/Units 00:21 WBC 10.8 (4.3-11.1) K/mcL Hgb 14.6 (12.9-16.9) g/dL Hct 42.5 (37.5-50.1) % Plt Count 199 (140-400) K/mcL Neutrophils # 6.6 (1.6-8.9) K/mcL BMP 11/07/18 11/07/18 11/08/18 11:25 17:33 00:21 Sodium 131 L 132 L 135 L Potassium 3.1 L 3.2 L 3.6 Chloride 91 L 96 L 102 Carbon Dioxide 32 H 32 H 28 BUN 13 10 10 Creatinine 1.09 0.98 0.92 Glucose 134 H 101 97 Calcium 9.5 8.9 8.7 Cardiac Enzymes 11/07/18 11/07/18 11/07/18 Range/Units 11:25 17:33 22:32 Troponin I 0.03 < 0.03 < 0.03 (< 0.04) ng/mL Liver Function 11/08/18 Range/Units 00:21 Total Bilirubin 1.1 H (0.3-1.0) mg/dL AST 22 (13-39) Units/L ALT 18 (7-52) Units/L Alkaline Phosphatase 66 (34-104) Units/L Albumin 3.8 (3.5-5.7) g/dL Urine 11/07/18 Range/Units 13:05 Urine Color Yellow (Yellow) Urine Clarity Cloudy A (Clear) Urine pH 7.0 (5.0-8.0) pH Units Ur Specific [place] 1.007 L (1.010-1.025) Urine Protein 100 H (Neg-Trace) mg/dL Urine Glucose (UA) Normal (Normal) mg/dL - Impressions Impressions Echocardiogram 11/07/18 15:25 Impressions: Sinus bradycardia. LVEF 60-65%. Normal LV chamber size, wall thickness and function. Mild left ventricular diastolic dysfunction. Normal right ventricular structure and function. No evidence of pulmonary hypertension. No significant valvular dysfunction. Left Ventricular Wall Motion: Rest Echo Findings All wall segments showed normal motion. Findings: Study Quality * Technically adequate exam. ECG Findings * Sinus bradycardia. Left Ventricle * LVEF 60-65%. * Normal LV chamber size, wall thickness and function. * Mild left ventricular diastolic dysfunction. Right Ventricle * Normal right ventricular structure and function. Left Atrium * Mild to moderately dilated left atrium. Right Atrium * Normal right atrial size. Interatrial Septum * No evidence of PFO by color Doppler. Aortic Valve * Trileaflet aortic valve with normal function. * No aortic stenosis. * Trace aortic regurgitation. Mitral Valve * Normal mitral valve structure and function. * No mitral regurgitation. * No mitral stenosis. Tricuspid Valve * Normal tricuspid valve structure and function. * Trace tricuspid regurgitation. * No evidence of pulmonary hypertension. Pulmonic Valve * Normal pulmonic valve structure and function. * Trace pulmonic regurgitation. Aorta * Normally sized aortic root. Pericardium * The pericardium appears normal. IVC * Normal IVC dimensions and inspiratory collapse. Pulmonary Artery * Normal visualized portions of the main pulmonary artery. Consult Discharge Plan - Plan Instructions: Atrial Fibrillation (DC), Supraventricular Tachycardia (DC), Urinary Tract Infection in Men (DC), How to Catheterize Yourself (Man) (GEN), Sepsis (DC), Clostridium Difficile Infection (DC), Alcohol Intoxication (DC), Acute Nausea and Vomiting (DC), Chronic Hypertension (DC), Bradycardia (DC), Anemia (GEN), Pneumonia (DC), Alcohol Dependence (GEN) Referrals: Juan Quintana DO [Partnered Physician] - 11/15/18 12:00 pm (3) UTI (urinary tract infection) Qualifiers: Urinary tract infection type: acute cystitis Hematuria presence: without hematuria Qualified Code(s): N30.00 - Acute cystitis without hematuria (4) Atrial fibrillation Qualifiers: Atrial fibrillation type: paroxysmal Qualified Code(s): I48.0 - Paroxysmal atrial fibrillation (6) Alcohol dependence Qualifiers: Substance use status: uncomplicated Qualified Code(s): F10.20 - Alcohol dependence, uncomplicated
[2018-11-08] MEDS ORDERED: Isovue-300 50 ML VIAL ONE (13:26)
--- NOTE | 2018-11-08 15:54 | Electrocardiograph Report ---
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
--- NOTE | 2018-11-08 15:57 | Electrocardiograph Report ---
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
[2018-11-08 16:02] LABS: Adenovirus F 40/41 PCR Not detected (Not detect); Astrovirus PCR Not detected (Not detect); C.difficile Toxin A/B Gene PCR Not detected (Not detect); Campylobacter by PCR Not detected (Not detect); Cryptosporidium by PCR Not detected (Not detect); Cyclospora cayetanensis PCR Not detected (Not detect); E. coli O157 by PCR Not detected (Not detect); Entamoeba histolytica PCR Not detected (Not detect); Enteroaggregative E.coli(EAEC) Not detected (Not detect); Enteropathogenic E.coli(EPEC) Not detected (Not detect); Enterotoxigenic E.coli (ETEC) Not detected (Not detect); Giardia lamblia PCR Not detected (Not detect); Norovirus GI/GII PCR Not detected (Not detect); Plesiomonas shigelloides PCR Not detected (Not detect); Rotavirus A PCR Not detected (Not detect); Salmonella PCR Not detected (Not detect); Sapovirus PCR Not detected (Not detect); Shig/EnteroinvasiveE coli EIEC Not detected (Not detect); Shigalike tox-prod E coli STEC Not detected (Not detect); Vibrio PCR Not detected (Not detect); Vibrio cholerae PCR Not detected (Not detect); Yersinia enterocolitica PCR Not detected (Not detect)
[2018-11-09 04:20] LABS: Basophils # 0.1 K/mcL (0.0-0.2); Basophils % 0.6 %; Eosinophils # 0.4 K/mcL (0.0-0.6); Eosinophils % 3.5 %; Hemoglobin 14.9 g/dL (12.9-16.9); Immature Granulocytes % 0.3 % (0-4); Lymphocytes # 2.7 K/mcL (0.6-4.6); Mean Corpuscular HGB Conc 34.7 g/dL (31.6-35.5); Mean Corpuscular Hemoglobin 31.8 pg (28.0-33.3); Mean Corpuscular Volume 91.7 fL (83.0-100.0); Mean Platelet Volume 9.8 fL (9.4-12.4); Monocytes # 1.1 K/mcL (0.0-1.3); Monocytes % 10.2 %; Neutrophils # 6.1 K/mcL (1.6-8.9); Platelet Count 204 K/mcL (140-400); Red Blood Count 4.69 M/mcL (4.19-5.50); Red Cell Distribution Width 14.1 % (11.5-14.5); Segmented Neutrophils % 59.4 %; White Blood Count 10.3 K/mcL (4.3-11.1)
[2018-11-09 04:38] LABS: BUN/Creatinine Ratio 13 (6-26); Blood Urea Nitrogen 10 mg/dL (6-20); Calcium 9.2 mg/dL (8.6-10.3); Carbon Dioxide 21 mEq/L (23-29); Chloride 105 mEq/L (98-107); Glucose 92 mg/dL (70-105); Osmolality,Calculated 281 (280-300); Potassium 3.3 mEq/L (3.5-5.1); Sodium 136 mEq/L (136-145); eGFR For African Americans > 60 (> 60); eGFR For Non-African Americans > 60 (> 60)
[2018-11-09] MEDS: Ringers Solution, Lactated 1,000 ML IVC SCH (07:48)
[2018-11-09 07:54] VITALS: BP 158/97
[2018-11-09] MEDS: Finasteride 5 MG TABLET PO SCH (08:35)
[2018-11-09] MEDS: Vitamin B Complex/Vit C/Vit E 1 EACH TABLET PO SCH (08:35)
[2018-11-09] MEDS: Thiamine (B-1) 100 MG TABLET PO SCH (08:35)
[2018-11-09] MEDS: Folic Acid 1 MG TABLET PO SCH (08:36)
[2018-11-09] MEDS: ALPRAZolam 0.5 MG TABLET PO SCH (08:36)
[2018-11-09] MEDS: cefTRIAXone 1,000 MG in Water for inj. (sterile) 20 ML 10 ML IVP SCH (08:36)
--- NOTE | 2018-11-09 09:49 | Discharge Summary ---
- NOTES TO OUTPATIENT PROVIDER Notes to Outpatient Provider: Follow up at [facility] on 11/12 for TURP. Follow up with EP as outpatient. Orders not resulted at time of discharge: Pending orders 11/07/18 15:39 NM daxa perf SPECT multi [NM] Routine Date of Encounter: 11/09/18 Time of Encounter: 07:30 - Discharge Diagnosis (1) Ventricular tachycardia Priority: Primary Status: Acute (2) Viral gastroenteritis Priority: Secondary Status: Acute (3) UTI (urinary tract infection) Priority: Secondary Status: Acute Qualifiers: Urinary tract infection type: acute cystitis Hematuria presence: without hematuria Qualified Code(s): N30.00 - Acute cystitis without hematuria (4) Atrial fibrillation Priority: Secondary Status: Chronic Qualifiers: Atrial fibrillation type: paroxysmal Qualified Code(s): I48.0 - Paroxysmal atrial fibrillation (5) Hypokalemia Priority: Secondary Status: Resolved (6) Alcohol dependence Priority: Secondary Status: Chronic Qualifiers: Substance use status: uncomplicated Qualified Code(s): F10.20 - Alcohol d ependence, uncomplicated Hospital course: Mr. Chen is a 58 year old male history of paroxysmal A. fib not on anticoagulation due to GI bleed, hypertension, BPH, who was admitted alternating episodes of NSVT/bradycardia in the setting of electrolyte derangement secondary to viral GE. Stool panel -ve. ACS ruled out with serial troponins. Echocardiogram was unremarkable and stress test showed Medium-sized, mild to moderate intensity, fixed perfusion defect involving the mid to apical inferior and apex segments and normal wall motion -> most consistent with artifact. He was also diagnosed with UTI as he endorsed dysuria with +ve UA and will be discharged on a total of 7 days of Omnicef as urine culture was -ve for any growth. Patient's N/V/diarrhea resolved spontaneously while inpatient. THe case was discussed with cardiology who suggested that pt should follow up with EP as outpatient. Discharge discussed with: patient, nurse - Time Spent with Patient Total time spent providing and/or coordinating discharge services: 25 mins - Discharge Medications Prescriptions: New Cefdinir [Omnicef] 300 mg PO BID 4 Days #8 capsule Continued ALPRAZolam [Xanax 0.5 MG Tablet] 0.5 mg PO TID Ferrous Sulfate 325 mg PO DAILY Multivitamin/Iron/Folic Acid [Centrum Complete Multivit Tab] 1 tab PO DAILY Finasteride [Proscar] 5 mg PO DAILY Olmesartan Medoxomil 20 mg PO Q48H Sertraline [Zoloft] 100 mg PO DAILY Tamsulosin HCl [Flomax] 0.4 mg PO DAILY Vitamin B Complex [Balanced B-50] 1 tab PO DAILY Home Medications: ALPRAZolam [Xanax 0.5 MG Tablet] 0.5 mg PO TID 08/29/16 [History] Ferrous Sulfate 325 mg PO DAILY 08/23/17 [History] Multivitamin/Iron/Folic Acid [Centrum Complete Multivit Tab] 1 tab PO DAILY 01/23/18 [History] Finasteride [Proscar] 5 mg PO DAILY 09/17/18 [History] Olmesartan Medoxomil 20 mg PO Q48H 09/17/18 [History] Sertraline [Zoloft] 100 mg PO DAILY 09/17/18 [History] Tamsulosin HCl [Flomax] 0.4 mg PO DAILY 09/17/18 [History] Vitamin B Complex [Balanced B-50] 1 tab PO DAILY 09/17/18 [History] Cefdinir [Omnicef] 300 mg PO BID 4 Days #8 capsule 11/09/18 [Rx] Allergies/Adverse Reactions: Allergy/AdvReac Type Severity Reaction Status Date / Time No Known Allergies Allergy Verified 09/17/18 08:17 Date of admission: 11/07/18 15:20 Primary care physician: PCP NONE - Constitutional Vitals: Temp Pulse Resp BP Pulse Ox 98.6 F 62 17 158/97 96 11/09/18 04:57 11/09/18 07:51 11/09/18 07:51 11/09/18 07:51 11/09/18 08:52 General appearance: Present: cooperative, A&O X 3, no acute distress, answers questions appropriately Exam: General: Alert and oriented, not in acute distress. Cardiovascular:Normal S1 & S2, No JVD. normal rate and rhythm Lungs: clear to auscultation, no wheezes/rales Abdomen:Soft, non-tender, no rebound/guarding/rigidity Extremities:No deformity or swelling Neurological:Normal cognition and motor skills. Non-focal - Patient Status Disposition: Home, Self-Care Condition: Fair Functional capacity at discharge: independent ambulation Overall status at discharge: patient is progressing back to baseline - Discharge Instructions Instructions: Atrial Fibrillation (DC), Urinary Tract Infection in Men (DC), Chronic Hypertension (DC), Gastroenteritis (DC) Follow Up With: Juan Quintana DO [Partnered Physician] - 11/15/18 12:00 pm - Diet and Activity Activity: resume usual activities as tolerated Diet: regular diet
== END 2018-11-09 11:14 | disposition home or self-care (01) ==
LOC: EMEROOARM 10:50 → 2NENU 10:50 → SUATTDRO 15:20 → 2NENU 16:17
PROVIDERS: ADMIT Internal Medicine Nephrology; ATTEND Internal Medicine